=== PATIENT | male | born 1940 | race Two or more races ===

== ENCOUNTER 2019-12-31 10:00 | Inpatient (IN) | payer MEDICARE, MEDICAID ==
[~2019-12-31] VITALS: Ht 165.1 cm; Wt 54.2 kg
[2019-12-31] VITALS (7 sets, daily range): BP systolic 85–109; BP diastolic 23–68
[2019-12-31] MEDS ORDERED: Sodium Chloride 1,900 ML IVLG ONE (10:15)
[2019-12-31] MEDS ORDERED: Acetaminophen 650 MG SUPP RECTAL ONE (10:15)
--- NOTE | 2019-12-31 10:15 | NUR ---
ED Nurse Note: Patient JEANNE MCWILLIAMS from [facility] c/o fever. Temp at ED 100.2F. Pt is trach/ vent dependent. Has GT, patent. BP 97/23 upon arrival, ERMD notified. Pt placed on cardiac monitor technician. Droplet precaution observed.
--- NOTE | 2019-12-31 10:30 | NUR ---
ED Nurse Note: IV line established. Blood specimen collected and sent to lab.
--- NOTE | 2019-12-31 10:39 | NUR ---
RESPIRATORY NOTE: received pt in ER entrance. set up pt with proper filter and equipment on ambu bag prior to entering the building. vent settings per EMT are AC 18 450 40% +5. placed pt on those settings with shallow and tachypneic breathing. pt is trached with cuffed, Portex [address] and is secured via trach tie. slight redness or bruising visible around stoma on pt's right side. sputum collected and given to RN. ISO precautions taken and followed. vent is plugged into the redoutlet with ambu bag at bedside. will monitor throughout the day.
[2019-12-31 11:32] LABS: ANION GAP 11 mmol/L (5-15); BLOOD UREA NITROGEN 175 mg/dL (7-18); CALCIUM 12.9 MG/DL (8.5-10.1); CARBON DIOXIDE 26 MMOL/L (21-32); CHLORIDE 106 MMOL/L (98-107); CREATININE 2.2 MG/DL (0.55-1.30); POTASSIUM 4.3 MMOL/L (3.5-5.1); SODIUM 143 MMOL/L (136-145)
[2019-12-31 11:38] LABS: ALANINE AMINOTRANSFERASE 11 U/L (12-78); ALBUMIN/GLOBULIN RATIO 0.3 (1.0-2.7); ALKALINE PHOSPHATASE 103 U/L (46-116); ASPARTATE AMINO TRANSFERASE 24 U/L (15-37); BILIRUBIN,TOTAL 0.5 MG/DL (0.2-1.0); CREATINE KINASE 35 U/L (26-308); PHOSPHORUS 3.2 MG/DL (2.5-4.9)
--- NOTE | 2019-12-31 11:46 | Emergency Room Report ---
History of Present Illness General Chief Complaint: Fever Source: Medical Record, EMS Present Illness HPI Patient transported via EMS for fever and low oxygen saturation. Patient is vent dependent. There is no known association with COVID-19. The patient is coming from a senior care facility however. Patient unable to give history and is unresponsive. Status post stroke Diabetes History of atrial fibrillation Allergies: Coded Allergies: No Known Allergies (Unverified , 12/31/19) COVID-19 Screening Contact w/high risk pt: No Recent Travel to affected area: No Experienced COVID-19 symptoms?: Yes COVID-19 symptoms experienced: Fever (T>100.4F or >38C) Patient History Limited by: medical condition Past Medical History: see triage record, old chart reviewed Past Surgical History: other - Gastrostomy tube, Social History Narrative [facility] facility Reviewed Nursing Documentation: PMH: Agreed; PSxH: Agreed Nursing Documentation-PMH Past Medical History: No History, Except For Hx Cardiac Problems: Yes - A-fib, CHF, sepsis Hx Diabetes: Yes Hx Gastrointestinal Problems: Yes - G-tube, GERD, dysphagia Hx Neurological Problems: Yes - Muscle weakness Hx Cerebrovascular Accident: Yes Hx Seizures: Yes Review of Systems All Other Systems: limited Physical Exam Vital Signs Date Time Temp Pulse Resp B/P (MAP) Pulse Ox O2 Delivery O2 Flow Rate FiO2 12/31/19 10:01 100.2 110 12 87/23 (44) 94 Ambu-Bag 15.0 12/31/19 10:35 40 Sp02 EP Interpretation: reviewed, abnormal - Interpreted as low by me General Appearance: thin, other - Unresponsive to verbal or pain, Chronically Ill Eyes: bilateral eye normal inspection, bilateral eye PERRL ENT: moist mucus membranes Neck: tracheotomy Respiratory: no respiratory distress, crackles, rales, rhonchi Cardiovascular #1: tachycardia, edema - Left hand Cardiovascular #2: 2+ radial (R) Gastrointestinal: non-distended, other - Gastrostomy tube, decreased bowel sounds Genitourinary: other - Hypospadias uncircumcised Musculoskeletal: non-tender, other - contractures LE Neurologic: motor weakness - Right-sided, other - A phasic and unresponsive Psychiatric: other Skin: warm/dry - Comatose Procedures Critical Care Time Critical Care Time Total Critical Care Time: 60 min bedside evaluation and treatment excludes procedures (EKG). Reason for critical care: severe sepsis, pneumonia, hypoxia Possible complications: hypotension, hypertension, KS, shock, arrhythmias, metabolic acidosis, end organ damage, respiratory failure. Interventions: fluid resuscitation, antibiotics, attempt Duque, adjustments of ventilator, repeat evaluations Course: Patient presents with fever and hypoxia and vent dependent. Sepsis evaluation with fluid resuscitation and antibiotics ordered. Hypoxia on usual vent settings and oxygen titrated. Multiple discussions with respiratory therapy regarding this. Elevated troponin treated with aspirin. Chest x-ray reveals bilateral pneumonia. Sepsis reevaluation with some improvement. Attempt to pass Duque with long bedside treatment time and unable to pass Duque. Patient improved with treatment. Consultations: nursing staff, EMS, RT, admitting physician Performed by: Dr. Villaseñor Tolerated well condition = critical Medical Decision Making Diagnostic Impression: Primary Impression: Severe sepsis Additional Impressions: Elevated troponin Renal failure Qualified Codes: N17.9 - Acute kidney failure, unspecified Bilateral pneumonia Qualified Codes: J18.9 - Pneumonia, unspecified organism ER Course Patient on a trach vent presents with fever and hypoxia. Differential includes sepsis, acute myocardial infarction, acute pneumonia, COVID-19 amongst others. Need to also exclude UTI. Patient evaluated with EKG, chest x-ray and labs. Placed on ventilator. Patient needs COVID-19 testing. EKG sinus tachycardia nonspecific ST-T wave changes. Call with positive troponin. Aspirin ordered and antibiotics. As patient hypoxiemic, presumptive pneumonia. Lactic acid 3.9. O2 sat better but titrating. Heart rate better. Capillary fill better. Mentation unchanged. Sepsis reevaluation. CXR bilat infiltrates. Leukocytosis. Elevated BUN and creatinine. O2 sat was 94% when ABG was drawn (FIO2 = 40 %). Looks like venous admixture as only 88% sat. Increased to 60% FIO2 and sat = 99%. Discussed with RT. Unable to pass 14 and 18 fr [place]. PMD notified. Condom cath placed. VS improved. Not tachycardic and not hypoxic (although Aa gradiant significant) . Lactic acid improving. Admit SDU Dr. Harris. Prognosis poor. Laboratory Tests Test 12/31/19 10:42 12/31/19 11:20 White Blood Count 30.4 K/UL (4.8-10.8) *H Red Blood Count 3.14 M/UL (4.70-6.10) L Hemoglobin 10.2 G/DL (14.2-18.0) L Hematocrit 30.7 % (42.0-52.0) L Mean Corpuscular Volume 98 FL (80-99) Mean Corpuscular Hemoglobin 32.3 PG (27.0-31.0) H Mean Corpuscular Hemoglobin Concent 33.0 G/DL (32.0-36.0) Red Cell Distribution Width 12.5 % (11.6-14.8) Platelet Count 239 K/UL (150-450) Mean Platelet Volume 6.3 FL (6.5-10.1) L Neutrophils (%) (Auto) % (45.0-75.0) Lymphocytes (%) (Auto) % (20.0-45.0) Monocytes (%) (Auto) % (1.0-10.0) Eosinophils (%) (Auto) % (0.0-3.0) Basophils (%) (Auto) % (0.0-2.0) Differential Total Cells Counted 100 Neutrophils % (Manual) 64 % (45-75) Lymphocytes % (Manual) 4 % (20-45) L Monocytes % (Manual) 4 % (1-10) Eosinophils % (Manual) 0 % (0-3) Basophils % (Manual) 0 % (0-2) Band Neutrophils 28 % (0-8) H Platelet Estimate Adequate Platelet Morphology Normal Red Blood Cell Morphology Normal Prothrombin Time 13.4 SEC (9.30-11.50) H Prothrombin Time INR 1.3 (0.9-1.1) H Activated Partial Thromboplast Time 21 SEC (23-33) L Sodium Level 143 MMOL/L (136-145) Potassium Level 4.3 MMOL/L (3.5-5.1) Chloride Level 106 MMOL/L (98-107) Carbon Dioxide Level 26 MMOL/L (21-32) Anion Gap 11 mmol/L (5-15) Blood Urea Nitrogen 175 mg/dL (7-18) H Creatinine 2.2 MG/DL (0.55-1.30) H Estimated Glomerular Filtration Rate 29.2 mL/min (>60) Glucose Level 110 MG/DL (74-106) H Lactic Acid Level 3.90 mmol/L (0.4-2.0) H Calcium Level 12.9 MG/DL (8.5-10.1) H Phosphorus Level 3.2 MG/DL (2.5-4.9) Magnesium Level 2.1 MG/DL (1.8-2.4) Total Bilirubin 0.5 MG/DL (0.2-1.0) Aspartate Amino Transferase (AST) 24 U/L (15-37) Alanine Aminotransferase (ALT) 11 U/L (12-78) L Alkaline Phosphatase 103 U/L (46-116) Total Creatine Kinase 35 U/L (26-308) Troponin I 0.064 ng/mL (0.000-0.056) Pro-B-Type Natriuretic Peptide 4596 pg/mL (0-125) H Total Protein 8.0 G/DL (6.4-8.2) Albumin 2.0 G/DL (3.4-5.0) L Globulin 6.0 g/dL Albumin/Globulin Ratio 0.3 (1.0-2.7) L Lipase 41 U/L (73-393) L Arterial Blood pH 7.372 (7.350-7.450) Arterial Blood Partial Pressure CO2 46.9 mmHg (35.0-45.0) H Arterial Blood Partial Pressure O2 82.1 mmHg (75.0-100.0) Arterial Blood HCO3 26.6 mmol/L (22.0-26.0) H Arterial Blood Oxygen Saturation 94.5 % (95-100) L Arterial Blood Base Excess 1.1 (-2-2) Luis Armando Test Positive Microbiology Date/Time Source Procedure Growth Status 12/31/19 10:42 Nasal Nares - Final Complete 12/31/19 10:42 Nasal Nares - Final Complete EKG Diagnostic Results Rate: tachycardiac Rhythm: NSR ST Segments: no acute changes ASA given to the pt in ED: Yes Rhythm Strip Diag. Results EP Interpretation: yes Rhythm: no PVC's, no ectopy, other - Sinus tachycardia rate 120 Chest X-Ray Diagnostic Results Chest X-Ray Diagnostic Results : Chest X-Ray Ordered: Yes # of Views/Limited/Complete: 1 View Indication: Other EP Interpretation: Yes Interpretation: no effusion, no pneumothorax, other - bilateral infiltrates Impression: Other Electronically Signed by: Electronically signed by Tony Villaseñor MD Last Vital Signs Date Time Temp Pulse Resp B/P (MAP) Pulse Ox O2 Delivery O2 Flow Rate FiO2 12/31/19 18:53 98.0 88 22 99/68 100 Mechanical Ventilator 15.0 60 Status: improved Disposition: ADMITTED INPATIENT Condition: Critical Referrals: Dillon Harris MD (PCP) Tony Villaseñor MD Dec 31, 2019 11:46
[2019-12-31 11:54] LABS: HEMATOCRIT 30.7 % (42.0-52.0); HEMOGLOBIN 10.2 G/DL (14.2-18.0); MEAN CORPUSCULAR VOLUME 98 FL (80-99); PLATELET COUNT 239 K/UL (150-450); RED BLOOD COUNT 3.14 M/UL (4.70-6.10); RED CELL DISTRIBUTION WIDTH 12.5 % (11.6-14.8)
[2019-12-31 11:56] LABS: WHITE BLOOD COUNT 30.4 K/UL (4.8-10.8)
[2019-12-31] MEDS ORDERED: Vancomycin 1 GM in NS 275 ML IVPB ONE (12:00)
[2019-12-31] MEDS ORDERED: Piperacillin/Tazobactam 3.375 GM in NS 110 ML IVPB ONE (12:00)
[2019-12-31 12:11] LABS: INR 1.3 (0.9-1.1)
--- NOTE | 2019-12-31 12:11 | Diagnostic Imaging Report ---
EXAM: XR Chest, 1 View CLINICAL HISTORY: ALOC TECHNIQUE: Frontal view of the chest. COMPARISON: No relevant prior studies available. FINDINGS: Lungs: Bilateral patchy pulmonary opacities, concerning for pneumonia versus pulmonary edema. Pleural space: Unremarkable. The costophrenic angles are sharp. No visible pneumothorax. Heart: Unremarkable. No cardiomegaly. Mediastinum: Unremarkable. Bones/joints: Unremarkable. Vasculature: Atherosclerotic calcifications are noted within the aortic arch. Tubes, lines and devices: Tracheostomy tube in place, with expected positioning. Telemetry leads overlie the thorax. IMPRESSION: Bilateral patchy pulmonary opacities, concerning for pneumonia versus pulmonary edema.
--- NOTE | 2019-12-31 12:56 | NUR ---
ED Nurse Note: Vent setting: AC mode, TV 450, FiO2 60%, PEEP 5.0.
[2019-12-31] MEDS ORDERED: Lidocaine HCl 2% Jelly 6ml Tube TOPIC ONE ×2 (13:56→14:00)
--- NOTE | 2019-12-31 14:26 | NUR ---
ED Nurse Note: Unable to insert FC and obtain urine specimen, ERMD made aware and acknowledged.
[2019-12-31] MEDS ORDERED: KEPPRA500 MG GT (14:58)
[2019-12-31] MEDS ORDERED: AMLODIPINE BESYL5 MG GT (14:58)
[2019-12-31] MEDS ORDERED: JUVEN PACKET1 EAC1 GT (14:58)
[2019-12-31] MEDS ORDERED: CRANBERRY425 MG GT (14:58)
[2019-12-31] MEDS ORDERED: MULTI-DELYN237 ML GT (14:58)
[2019-12-31] MEDS ORDERED: FAMOTIDINE20 MG ORAL (14:58)
[2019-12-31] MEDS ORDERED: LEVOTHYROXINE125 MCG GT (14:58)
[2019-12-31] MEDS ORDERED: NOVOLOG100 UNIT/4 SQ (14:58)
[2019-12-31] MEDS ORDERED: DOCUSATE SODIU100 MG GT (14:58)
[2019-12-31] MEDS ORDERED: VITAMIN C500 M1 GT (14:58)
[2019-12-31] MEDS ORDERED: ACETAMINOP160 MG/55 GT (14:58)
--- NOTE | 2019-12-31 15:20 | NUR ---
HAND-OFF: Report given to Vidya RIVER. Endorsed plan of care.
--- NOTE | 2019-12-31 17:11 | History & Physical ---
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 Initially hypotensive, elevated Lactate which responded to fluids, Covid 19 testing pending. 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, anoxia , previous Seizures, previous pericardial effusion, Congestive Heart Failure, Atrial Fibrillation, Diabetes, Hypothyroidism, Previous Hematuria/UTI, previous sepsis, GERD sp G tube Allergies: No Known Allergies Review of Systems: Not available Family History: NA Social History: Long Term Physical Exam Vital Signs Noted Date Time Temp Pulse Resp B/P (MAP) Pulse Ox O2 Delivery O2 Flow Rate FiO2 12/31/19 10:01 100.2 110 12 87/23 (44) 94 Ambu-Bag 15.0 12/31/19 10:35 40 Chronically ill appearing HEENT: NCAT, dry mucus membranes, no masses, Tracheostomy Chest: Occasional rhonchi Heart: Hs1, HS2 Abdomen: G gtube, soft, no obvious tenderness Extremities: Reduced muscle mass, no edema 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: Not interactive, generally weak, no seizures Impression: Pneumonia Sepsis R/o Covid 19 Elevated troponin Renal failure Tracheostomy History of tracheal stenosis Ventilator Dependent Respiratory Failure Chronically altered mental status s/p previous CPA, anoxia Previous Seizures Previous pericardial effusion, Congestive Heart Failure, Atrial Fibrillation Diabetes, Hypothyroidism Previous Hematuria/UTI, previous sepsis GERD sp G tube Plan: IV Antibiotics IVF Continue current ventilator settings Adjust Fio2 as necessary Respiratory Care Await cultures/viral studies 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 Laboratory Tests Noted Test 12/31/19 10:42 12/31/19 11:20 White Blood Count 30.4 K/UL (4.8-10.8) *H Red Blood Count 3.14 M/UL (4.70-6.10) L Hemoglobin 10.2 G/DL (14.2-18.0) L Hematocrit 30.7 % (42.0-52.0) L Mean Corpuscular Volume 98 FL (80-99) Mean Corpuscular Hemoglobin 32.3 PG (27.0-31.0) H Mean Corpuscular Hemoglobin Concent 33.0 G/DL (32.0-36.0) Red Cell Distribution Width 12.5 % (11.6-14.8) Platelet Count 239 K/UL (150-450) Mean Platelet Volume 6.3 FL (6.5-10.1) L Neutrophils (%) (Auto) % (45.0-75.0) Lymphocytes (%) (Auto) % (20.0-45.0) Monocytes (%) (Auto) % (1.0-10.0) Eosinophils (%) (Auto) % (0.0-3.0) Basophils (%) (Auto) % (0.0-2.0) Differential Total Cells Counted 100 Neutrophils % (Manual) 64 % (45-75) Lymphocytes % (Manual) 4 % (20-45) L Monocytes % (Manual) 4 % (1-10) Eosinophils % (Manual) 0 % (0-3) Basophils % (Manual) 0 % (0-2) Band Neutrophils 28 % (0-8) H Platelet Estimate Adequate Platelet Morphology Normal Red Blood Cell Morphology Normal Prothrombin Time 13.4 SEC (9.30-11.50) H Prothrombin Time INR 1.3 (0.9-1.1) H Activated Partial Thromboplast Time 21 SEC (23-33) L Sodium Level 143 MMOL/L (136-145) Potassium Level 4.3 MMOL/L (3.5-5.1) Chloride Level 106 MMOL/L (98-107) Carbon Dioxide Level 26 MMOL/L (21-32) Anion Gap 11 mmol/L (5-15) Blood Urea Nitrogen 175 mg/dL (7-18) H Creatinine 2.2 MG/DL (0.55-1.30) H Estimated Glomerular Filtration Rate 29.2 mL/min (>60) Glucose Level 110 MG/DL (74-106) H Lactic Acid Level 3.90 mmol/L (0.4-2.0) H Calcium Level 12.9 MG/DL (8.5-10.1) H Phosphorus Level 3.2 MG/DL (2.5-4.9) Magnesium Level 2.1 MG/DL (1.8-2.4) Total Bilirubin 0.5 MG/DL (0.2-1.0) Aspartate Amino Transferase (AST) 24 U/L (15-37) Alanine Aminotransferase (ALT) 11 U/L (12-78) L Alkaline Phosphatase 103 U/L (46-116) Total Creatine Kinase 35 U/L (26-308) Troponin I 0.064 ng/mL (0.000-0.056) Pro-B-Type Natriuretic Peptide 4596 pg/mL (0-125) H Total Protein 8.0 G/DL (6.4-8.2) Albumin 2.0 G/DL (3.4-5.0) L Globulin 6.0 g/dL Albumin/Globulin Ratio 0.3 (1.0-2.7) L Lipase 41 U/L (73-393) L Arterial Blood pH 7.372 (7.350-7.450) Arterial Blood Partial Pressure CO2 46.9 mmHg (35.0-45.0) H Arterial Blood Partial Pressure O2 82.1 mmHg (75.0-100.0) Arterial Blood HCO3 26.6 mmol/L (22.0-26.0) H Arterial Blood Oxygen Saturation 94.5 % (95-100) L Arterial Blood Base Excess 1.1 (-2-2) Luis Armando Test Positive Microbiology Date/Time Source Procedure Growth Status 12/31/19 10:42 Nasal Nares - Final Complete 12/31/19 10:42 Nasal Nares - Final Complete EKG: Rate: tachycardiac Rhythm: NSR ST Segments: no acute changes Chest X-Ray: no effusion, no pneumothorax, other - bilateral infiltrates Tony Costa MD Dec 31, 2019 17:11
--- NOTE | 2019-12-31 18:49 | NUR ---
ER Nurse Note: Pt remains at baseline; no signs of acute distress. RT with pt as needed; pt tolerating vent. VSS, rectal temp 98.0F. Controlled fluids continued via IV. Duque cath established, 8FR red dejuan intact and patent. Urine obtained. All orders completed; all safety measures met, will continue to monitor.
[2019-12-31 19:53] LABS: APPEARANCE,URINE CLEAR; BILIRUBIN, URINE NEGATIVE (NEGATIVE); COLOR,URINE PALE YELLOW; GLUCOSE, URINE (UA) NEGATIVE (NEGATIVE); KETONES,URINE NEGATIVE (NEGATIVE); LEUKOCYTE ESTERASE ,URINE NEGATIVE (NEGATIVE); NITRITE,URINE NEGATIVE (NEGATIVE); PH,URINE 5 (4.5-8.0); PROTEIN,URINE 2+ (NEGATIVE); UROBILINOGEN,URINE NORMAL MG/DL (0.0-1.0)
--- NOTE | 2019-12-31 22:21 | NUR ---
ER Nurse Note: Pt remains at baseline. No changes to vent; RR 24 bpm. RT at pt side and suctioned as needed. Bilateral hand edema noted +3 pitting edema. Pt voiding via patterson cath; patent output. Urine yellow and clear. Pt contracted; skin documented. All safety measures met; will continue to montior.
[2020-01-01] VITALS (12 sets, daily range): BP systolic 95–122; BP diastolic 51–75
--- NOTE | 2020-01-01 01:30 | NUR ---
ER Nurse Note: Noted IV site on LT thumb is not patent. IV removed and bandaged. Primary and secondary nurse attempted to estbalish IV. Chest rise and fall noted; no signs of distress. Pt is contracted. Will continue to montior.
--- NOTE | 2020-01-01 02:53 | NUR ---
ER Nurse Note: No changes from baseline; VSS, afebrile. Pt responds to pain, non verbal d/t trach, a&ox0. Pt suctioned from trach and mouth; thick yellow/white sputum noted. Pt tolerating vent well; no signs of desaturation. IV established on LT FA 22 gauge infusing controlled NS at 300cc/hr. Duque cath in place, urine output 500cc total since input. One loose, brown BM noted. Pt cleaned and kept dry. Isolation precaution in place and followed. All safety measures met; will continue to montior.
--- NOTE | 2020-01-01 04:18 | NUR ---
ER Nurse Note: Notifed Dr. Harris for admitting orders; awaiting call back. Pt calm, no signs of distress, remains at baseline. Pt kept clean, dry. All safety measures met; will continue to montior.
--- NOTE | 2020-01-01 06:29 | NUR ---
ER Nurse Note: Pt on zohra bed assisted with second RN and RT. Per ERMD orders, PEEP to be changed to 8. Pt suctioned as needed; RT at bedside. Duque cath inplace, draining. Total urine output 560cc. Pt on NS at 300cc via LT FA IV. All safety measures met; will continue to montior.
--- NOTE | 2020-01-01 06:42 | NUR ---
ER Nurse Note: Called Dr. Harris for admitting orders at ; no answer from .
--- NOTE | 2020-01-01 07:30 | NUR ---
ED Nurse Note: care assummed of pt.
--- NOTE | 2020-01-01 08:00 | NUR ---
ED Nurse Note: pt assessment done as per interventions. pt resting comfortably with vent use. awaiting orders from Dr. Harris. pt with decreased O2 satruration pt eval and suctioned via trach with good effect and improved O2 saturation. vss. pt has eyes open and withdraws from pain. urine draining well from cath. NSR no ectopy noted on monitor.
--- NOTE | 2020-01-01 08:45 | NUR ---
ED Nurse Note: Dr. Harris here and aware to place admission orders. no SDU bed available at this time per nurse charge rn. 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 pt tolerates well.
[2020-01-01] MEDS ORDERED: Acetaminophen Soln 160mg/5ml ORAL PRN (09:30)
[2020-01-01] MEDS ORDERED: Acetaminophen 650mg/20.3ml GT PRN (09:45)
--- NOTE | 2020-01-01 09:45 | NUR ---
ED Nurse Note: phone orders received from dr silveira.
--- NOTE | 2020-01-01 09:46 | Critical Care Progress Note ---
Assessment/Plan Assessment/Plan Impression: Pneumonia Sepsis R/o Covid 19 Elevated troponin Renal failure Tracheostomy History of tracheal stenosis Ventilator Dependent Respiratory Failure Chronically altered mental status s/p previous CPA, anoxia Previous Seizures Previous pericardial effusion, Congestive Heart Failure, Atrial Fibrillation Diabetes, Hypothyroidism Previous Hematuria/UTI, previous sepsis GERD sp G tube PLAN vent management check ABG antibiotics as is ID evaluation and renal evaluation follow up cultures check TSH feeds on hold resume other meds seizure precautions may need repeat echo monitor blood pressure medications/laboratory data/nursing notes/ICU care reviewed in detail note reviewed and edited care discussed with RN and RT ICU time spent >40 minutes coordinating care and updating orders Critical Care - Subjective Interval Events: care noted and reviewed awaiting ICU bed very ill on 100% ROS Limited/Unobtainable: Yes Condition: critical EKG Rhythm: Sinus Rhythm Residuals: other I&O: Intake and Output 12/31/19 01/01/20 19:00 07:00 Intake Total 4185 ml 1000 ml Balance 4185 ml 1000 ml Intake IV Total 4185 ml 1000 ml # Voids 1 Critical Care - Objective Last 24 Hour Vital Signs Date Time Temp Pulse Resp B/P (MAP) Pulse Ox O2 Delivery O2 Flow Rate FiO2 01/01/20 09:01 72 31 100 01/01/20 08:27 15.0 100 01/01/20 08:20 77 24 Mechanical Ventilator 15.0 60 01/01/20 08:00 77 24 102/51 96 Mechanical Ventilator 15.0 100 01/01/20 07:30 77 24 102/51 96 Mechanical Ventilator 15.0 60 01/01/20 07:04 75 24 100 01/01/20 06:23 97.5 77 24 107/68 96 Mechanical Ventilator 15.0 60 01/01/20 04:53 71 22 60 01/01/20 04:22 97.4 70 21 111/64 100 Mechanical Ventilator 15.0 60 01/01/20 03:26 97.4 78 22 95/61 100 Mechanical Ventilator 15.0 60 01/01/20 02:39 69 20 60 01/01/20 01:45 80 18 114/68 100 Mechanical Ventilator 15.0 60 01/01/20 00:21 83 27 60 01/01/20 00:20 76 21 102/64 100 Mechanical Ventilator 15.0 60 12/31/19 22:40 81 24 60 12/31/19 22:19 78 24 109/66 100 Mechanical Ventilator 15.0 60 12/31/19 21:17 82 24 60 12/31/19 20:40 82 22 102/68 100 Mechanical Ventilator 15.0 60 12/31/19 20:19 85 25 60 12/31/19 18:53 98.0 88 22 99/68 100 Mechanical Ventilator 15.0 60 12/31/19 16:51 90 23 60 12/31/19 15:27 100.2 88 23 105/66 100 Mechanical Ventilator 60 12/31/19 15:07 88 24 60 12/31/19 14:00 100.2 106 23 98/62 98 Mechanical Ventilator 60 12/31/19 13:10 100.2 102 29 85/63 99 Mechanical Ventilator 60 12/31/19 12:56 89 24 60 12/31/19 10:50 100.2 12/31/19 10:35 123 30 40 12/31/19 10:15 110 12 Mechanical Ventilator 12/31/19 10:15 100.2 110 12 94 Mechanical Ventilator 12/31/19 10:01 100.2 110 12 (44) 94 Ambu-Bag 15.0 Labs: Labs Test 12/31/19 10:42 12/31/19 11:20 12/31/19 13:12 12/31/19 18:40 White Blood Count 30.4 K/UL (4.8-10.8) Red Blood Count 3.14 M/UL (4.70-6.10) Hemoglobin 10.2 G/DL (14.2-18.0) Hematocrit 30.7 % (42.0-52.0) Mean Corpuscular Volume 98 FL (80-99) Mean Corpuscular Hemoglobin 32.3 PG (27.0-31.0) Mean Corpuscular Hemoglobin Concent 33.0 G/DL (32.0-36.0) Red Cell Distribution Width 12.5 % (11.6-14.8) Platelet Count 239 K/UL (150-450) Mean Platelet Volume 6.3 FL (6.5-10.1) Neutrophils (%) (Auto) % (45.0-75.0) Lymphocytes (%) (Auto) % (20.0-45.0) Monocytes (%) (Auto) % (1.0-10.0) Eosinophils (%) (Auto) % (0.0-3.0) Basophils (%) (Auto) % (0.0-2.0) Differential Total Cells Counted 100 Neutrophils % (Manual) 64 % (45-75) Lymphocytes % (Manual) 4 % (20-45) Monocytes % (Manual) 4 % (1-10) Eosinophils % (Manual) 0 % (0-3) Basophils % (Manual) 0 % (0-2) Band Neutrophils 28 % (0-8) Platelet Estimate Adequate Platelet Morphology Normal Red Blood Cell Morphology Normal Prothrombin Time 13.4 SEC (9.30-11.50) Prothromb Time International Ratio 1.3 (0.9-1.1) Activated Partial Thromboplast Time 21 SEC (23-33) Sodium Level 143 MMOL/L (136-145) Potassium Level 4.3 MMOL/L (3.5-5.1) Chloride Level 106 MMOL/L (98-107) Carbon Dioxide Level 26 MMOL/L (21-32) Anion Gap 11 mmol/L (5-15) Blood Urea Nitrogen 175 mg/dL (7-18) Creatinine 2.2 MG/DL (0.55-1.30) Estimat Glomerular Filtration Rate 29.2 mL/min (>60) Glucose Level 110 MG/DL (74-106) Lactic Acid Level 3.90 mmol/L (0.4-2.0) 2.70 mmol/L (0.66-2.22) Calcium Level 12.9 MG/DL (8.5-10.1) Phosphorus Level 3.2 MG/DL (2.5-4.9) Magnesium Level 2.1 MG/DL (1.8-2.4) Total Bilirubin 0.5 MG/DL (0.2-1.0) Aspartate Amino Transf (AST/SGOT) 24 U/L (15-37) Alanine Aminotransferase (ALT/SGPT) 11 U/L (12-78) Alkaline Phosphatase 103 U/L (46-116) Total Creatine Kinase 35 U/L (26-308) Troponin I 0.064 ng/mL (0.000-0.056) Pro-B-Type Natriuretic Peptide 4596 pg/mL (0-125) Total Protein 8.0 G/DL (6.4-8.2) Albumin 2.0 G/DL (3.4-5.0) Globulin 6.0 g/dL Albumin/Globulin Ratio 0.3 (1.0-2.7) Lipase 41 U/L (73-393) Arterial Blood pH 7.372 (7.350-7.450) Arterial Blood Partial Pressure CO2 46.9 mmHg (35.0-45.0) Arterial Blood Partial Pressure O2 82.1 mmHg (75.0-100.0) Arterial Blood HCO3 26.6 mmol/L (22.0-26.0) Arterial Blood Oxygen Saturation 94.5 % (95-100) Arterial Blood Base Excess 1.1 (-2-2) Luis Armando Test Positive Urine Color Pale yellow Urine Appearance Clear Urine pH 5 (4.5-8.0) Urine Specific [place] 1.005 (1.005-1.035) Urine Protein 2+ (NEGATIVE) Urine Glucose (UA) Negative (NEGATIVE) Urine Ketones Negative (NEGATIVE) Urine Blood 5+ (NEGATIVE) Urine Nitrite Negative (NEGATIVE) Urine Bilirubin Negative (NEGATIVE) Urine Urobilinogen Normal MG/DL (0.0-1.0) Urine Leukocyte Esterase Negative (NEGATIVE) Urine RBC 5-10 /HPF (0 - 0) Urine WBC 0-2 /HPF (0 - 0) Urine Squamous Epithelial Cells None /LPF (NONE/OCC) Urine Bacteria Few /HPF (NONE) Objective: WDWN NAD reduced breath sounds bilaterally without rhonchi or wheeze [id number] without MRG NABS nontender no HSM GT no CCE nonfocal trach on 100% Micro: Microbiology Date/Time Source Procedure Growth Status 12/31/19 10:42 Blood Blood Culture - Preliminary Resulted 12/31/19 10:42 Blood Blood Culture - Preliminary Resulted 12/31/19 10:42 Nasal Nares - Final Complete 12/31/19 10:42 Nasal Nares - Final Complete 12/31/19 18:50 Rectum Received Dillon Harris MD Jan 01, 2020 09:46
--- NOTE | 2020-01-01 09:55 | NUR ---
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
--- NOTE | 2020-01-01 10:12 | NUR ---
ED Nurse Note: labs sent as ordered. pt without change in status
[2020-01-01 10:22] LABS: HEMATOCRIT 23.8 % (42.0-52.0); MEAN CORPUSCULAR VOLUME 98 FL (80-99); PLATELET COUNT 225 K/UL (150-450); RED BLOOD COUNT 2.42 M/UL (4.70-6.10); RED CELL DISTRIBUTION WIDTH 12.5 % (11.6-14.8)
[2020-01-01 10:23] LABS: WHITE BLOOD COUNT 25.2 K/UL (4.8-10.8)
[2020-01-01 10:38] LABS: ANION GAP 12 mmol/L (5-15); BLOOD UREA NITROGEN 146 mg/dL (7-18); CALCIUM 10.7 MG/DL (8.5-10.1); CARBON DIOXIDE 22 MMOL/L (21-32); CHLORIDE 114 MMOL/L (98-107); CREATININE 1.8 MG/DL (0.55-1.30); POTASSIUM 3.8 MMOL/L (3.5-5.1); SODIUM 148 MMOL/L (136-145)
[2020-01-01 10:42] LABS: CREATINE KINASE 27 U/L (26-308)
[2020-01-01 10:43] LABS: ALANINE AMINOTRANSFERASE 17 U/L (12-78); ALBUMIN 1.7 G/DL (3.4-5.0); ALBUMIN/GLOBULIN RATIO 0.4 (1.0-2.7); ALKALINE PHOSPHATASE 96 U/L (46-116); ASPARTATE AMINO TRANSFERASE 22 U/L (15-37); BILIRUBIN,TOTAL 0.4 MG/DL (0.2-1.0)
[2020-01-01] MEDS: Piperacillin/Tazobactam 3.375 GM in NS 110 ML IVPB SCH ×2 (11:01→23:30)
--- NOTE | 2020-01-01 11:24 | NUR ---
ED Nurse Note: informed dr. yang regarding pt.'s blood culture result
--- NOTE | 2020-01-01 13:30 | NUR ---
ED Nurse Note: pt with ivf infusing well tolerated abx without incident. pt with small brown stool soft form. pt repositioned tolerating vent changes done by resp well. pt opens eyes when repositioned.
--- NOTE | 2020-01-01 14:05 | NUR ---
ED Nurse Note: report given to sdu rn, aware test examiner called to draw pt vanco lab draw on sdu.
--- NOTE | 2020-01-01 14:14 | NUR ---
ED Nurse Note: Report given to Min RN. awaiting pt, aware of isolation precautions to be continued on sdu. pt to sdu with rn and acls protocol
--- NOTE | 2020-01-01 16:15 | Consultation ---
DATE OF CONSULTATION: 01/01/2020 CONSULTING PHYSICIAN: Pravin Abad MD REFERRING PHYSICIAN: Dillon Harris MD REASON FOR CONSULTATION: Elevated BUN and creatinine. HISTORY OF PRESENT ILLNESS: The patient is a resident of an [facility]. He is chronically ventilator-dependent and has dementia, history of seizure disorder, congestive heart failure, atrial fibrillation, diabetes, hypothyroidism, prior hematuria. He came to the hospital with hypotension, respiratory failure, elevated BUN and creatinine. Note labs from [facility] showed that his renal function was better prior to this admission specifically as follows: He had a BUN 70 and creatinine 1.15 on 12/10/2019 and a BUN of 46 and creatinine 1.08 on 12/17/2019. The patient unable to give a history. MEDICATIONS: Reviewed from the [facility] include enteral feedings, chlorhexidine oral, albuterol and Atrovent inhalation, amlodipine, acetaminophen, cranberry, DSS, famotidine, , Keppra, levothyroxine, multivitamin, NovoLog sliding scale, vitamins C. REVIEW OF SYSTEMS: The patient is unable. PHYSICAL EXAMINATION: GENERAL: The patient is on a ventilator. Eyes closed. Mouth is closed. VITAL SIGNS: Temperature 97, pulse 85, respirations 20, blood pressure 107/61. NECK: Tracheostomy. LUNGS: Bilateral rhonchi. HEART: Rhythm is regular. I hear no murmur. ABDOMEN: Soft. Gastrostomy in place. EXTREMITIES: No edema. Muscle wasting. NEUROLOGIC: The patient is lethargic. LABORATORY DATA: Pertinent labs on this admission, chemistries as follows: On admission 12/31/2019 BUN 175, creatinine 2.2, calcium 12.9, troponin 0.064, albumin 2.08. Repeat BUN 146, creatinine 1.8, calcium 10.7, albumin 1.7. Lactate 3.9, and 2.70. Blood cultures already positive for gram-positive cocci. IMPRESSION: 1. Acute kidney injury likely from dehydration. 2. Chronic hypoxemic respiratory failure. 3. Possible sepsis. 4. Diabetes. 5. Moderate severe protein-calorie malnutrition. 6. Debility. PLAN: We will continue with hydration. Monitoring his renal function closely. Avoiding nephrotoxic agents. Treatment of his pulmonary disease as per Dr. Harris. Pravin Abad M.D. DR: Santo JOB#: [id number] CC:
--- NOTE | 2020-01-01 16:45 | Consultation ---
DATE OF CONSULTATION: 01/01/2020 INFECTIOUS DISEASE CONSULTATION This consult is for coverage of Dr. Abraham. CONSULTING PHYSICIAN: Logan Henley M.D. PRIMARY ATTENDING PHYSICIAN: Dillon Harris M.D. REASON FOR CONSULT: Bacteremia, sepsis, and pneumonia. HISTORY OF PRESENT ILLNESS: This is a 79-year-old male, who is a half-way resident, admitted yesterday because of fever and decrease in O2 saturation in the nursing facility. In hospital, had a pulse of 110, leukocytosis of 30,000, had fever of 100.2. The patient is not a source of history. PAST MEDICAL HISTORY: Includes diabetes mellitus type 2, status post CVA, atrial fibrillation, ventilator-dependent respiratory failure, dysphagia, status post G-tube, hypothyroidism, anemia. ALLERGIES: No known drug allergies. MEDICATIONS: Vitamin C, levothyroxine, Keppra, heparin, Zosyn, and vancomycin to be dosed by pharmacy and sodium chloride. SOCIAL HISTORY: Single. skilled nursing resident. No other history obtainable from the patient. PHYSICAL EXAMINATION: VITAL SIGNS: Temperature 97.4, pulse 70, blood pressure 104/67. HEAD AND NECK: Status post tracheostomy. HEART: Normal rate. LUNGS: On mechanical ventilator, decreased breath sounds bilaterally. ABDOMEN: Soft. G-tube in place. EXTREMITIES: He has no edema. LABORATORY AND DIAGNOSTIC DATA: WBC today is 25.2, hemoglobin 8, hematocrit 22.8, and platelets 225,000. Lactic acid was 2.9 at the time of admission. Sodium 148, potassium 3.8, chloride 114, bicarb 22, BUN 146, creatinine 1.8, uric acid 9.4, albumin is 1.7. Blood culture x2 are showing gram-positive cocci in cluster. Influenza A and B are negative. Chest x-ray showed bilateral patchy opacities, pneumonia versus pulmonary edema. IMPRESSION: Sepsis with tachycardia, fever, and leukocytosis. The patient has bacteremia with gram-positive cocci, has pneumonia, lactic acidosis, acute renal failure, ventilator-dependent respiratory failure, hypothyroidism, anemia. RECOMMENDATION: We will continue vancomycin and Zosyn. We will follow up COVID-19 test. At the end of my exam, I thank Dr. Harris for involving me in the care of this patient. Logan Henley M.D. DR: DONOVAN JOB#: [id number] CC: [facility]
[2020-01-01] MEDS: 1/2NS w/KCl 20mEq 1000ml 1,000 ML IV SCH ×2 (17:04→23:30)
--- NOTE | 2020-01-01 18:00 | Consultation ---
History of Present Illness General Date patient seen: Jan 01, 2020 Chief Complaint: Fever Present Illness HPI This is a 79 year old man who is a jail resident at [facility] that has history of s/p Tracheostomy, tracheal stenosis, Ventilator Dependent Respiratory Failure, chronically altered mental status s/p previous CPA, anoxia, previous Seizures, previous pericardial effusion, Congestive Heart Failure, Atrial Fibrillation, Diabetes, Hypothyroidism, Previous Hematuria/UTI, admitted with Pneumonia, noted to have fever, low oxygen saturation, Leukocytosis in the ED. Initially hypotensive, elevated Lactate which responded to fluids, Covid 19 testing pending. admitted for care and management. surgery called to evaluate and assist with care. pending ICU transfer on O2. noted to have abnormal labs, imaging noted, decubitus ulcer, malnutrition, ill appearing. Allergies: Coded Allergies: No Known Allergies (Unverified , 12/31/19) Medication History Scheduled Amlodipine Besylate* (Amlodipine Besylate*), 5 MG GT DAILY, (Reported) Arginine/Glutamine/Calcium Hmb (Jerome Packet), 1 EACH GT BID, (Reported) Ascorbic Acid* (Vitamin C*), 500 MG GT DAILY, (Reported) Cranberry Extract (Cranberry), 425 MG GT DAILY, (Reported) Docusate Sodium* (Docusate Sodium*), 100 MG GT THREE TIMES A DAY, (Reported) Famotidine* (Pepcid 20mg tablet*), 10 MG ORAL BID, (Reported) Levetiracetam (Keppra), 750 MG GT EVERY 12 HOURS, (Reported) Levothyroxine Sodium* (Levothyroxine Sodium*), 175 MCG GT DAILY, (Reported) Multivitamin Liquid* (Multi-Delyn*), 15 ML GT DAILY, (Reported) Scheduled PRN Acetaminophen* (Acetaminophen*), 20 MG GT Q6H PRN for Mild Pain/Temp > 100.5, ( Reported) Miscellaneous Medications Insulin Aspart (Novolog), 100 UNIT SQ, (Reported) Patient History Limited by: medical condition History Provided By: Medical Record, PMD Healthcare decision maker N Resuscitation status Full Code Advanced Directive on File Past Medical/Surgical History Past Medical/Surgical History: (1) Tracheal stenosis (2) Hx of tracheostomy (3) Malnutrition (4) Protein-calorie malnutrition, severe (5) Respiratory insufficiency (6) Decubitus skin ulcer (7) Pneumonia (8) Suspected COVID-19 virus infection Review of Systems ROS Narrative difficult to obtain given medical condition Physical Exam General Appearance: mild distress Lines, tubes and drains: peripheral, endotracheal tube HEENT: mucous membranes moist Neck: trach Respiratory/Chest: on vent Cardiovascular/Chest: tachycardia Abdomen: soft, no organomegaly, no mass Extremities: inflammation, slow capillary refill, other Skin Exam: warm/dry Neurologic: disoriented Last 24 Hour Vital Signs Date Time Temp Pulse Resp B/P (MAP) Pulse Ox O2 Delivery O2 Flow Rate FiO2 01/01/20 17:28 73 25 85 01/01/20 16:00 84 01/01/20 16:00 97.1 88 20 111/65 (80) 94 01/01/20 15:20 86 32 85 01/01/20 15:00 86 32 100 Mechanical Ventilator 85 01/01/20 14:51 Mechanical Ventilator 01/01/20 14:49 97.0 85 20 107/61 (76) 96 01/01/20 14:11 70 25 104/67 97 Non-Rebreather 85 01/01/20 13:22 86 34 85 01/01/20 13:15 97.8 76 24 116/75 97 Mechanical Ventilator 15.0 85 01/01/20 11:05 77 32 100 01/01/20 10:50 15.0 100 01/01/20 10:00 97.4 64 23 108/70 95 Mechanical Ventilator 15.0 100 01/01/20 09:24 Mechanical Ventilator 15.0 01/01/20 09:24 72 01/01/20 09:22 15.0 100 01/01/20 09:14 Mechanical Ventilator 15.0 01/01/20 09:01 72 31 100 01/01/20 08:27 15.0 100 01/01/20 08:20 77 24 Mechanical Ventilator 15.0 60 01/01/20 08:00 77 24 102/51 96 Mechanical Ventilator 15.0 100 01/01/20 07:30 77 24 102/51 96 Mechanical Ventilator 15.0 60 01/01/20 07:04 75 24 100 01/01/20 06:23 97.5 77 24 107/68 96 Mechanical Ventilator 15.0 60 01/01/20 04:53 71 22 60 01/01/20 04:22 97.4 70 21 111/64 100 Mechanical Ventilator 15.0 60 01/01/20 03:26 97.4 78 22 95/61 100 Mechanical Ventilator 15.0 60 01/01/20 02:39 69 20 60 01/01/20 01:45 80 18 114/68 100 Mechanical Ventilator 15.0 60 01/01/20 00:21 83 27 60 01/01/20 00:20 76 21 102/64 100 Mechanical Ventilator 15.0 60 12/31/19 22:40 81 24 60 12/31/19 22:19 78 24 109/66 100 Mechanical Ventilator 15.0 60 12/31/19 21:17 82 24 60 12/31/19 20:40 82 22 102/68 100 Mechanical Ventilator 15.0 60 12/31/19 20:19 85 25 60 12/31/19 18:53 98.0 88 22 99/68 100 Mechanical Ventilator 15.0 60 Intake and Output 12/31/19 01/01/20 19:00 07:00 Intake Total 4185 ml 1000 ml Balance 4185 ml 1000 ml IV Total 4185 ml 1000 ml # Voids 1 Laboratory Tests Test 12/31/19 18:40 01/01/20 09:46 01/01/20 10:10 01/01/20 16:00 Urine Color Pale yellow Urine Appearance Clear Urine pH 5 (4.5-8.0) Urine Specific [place] 1.005 (1.005-1.035) Urine Protein 2+ (NEGATIVE) H Urine Glucose (UA) Negative (NEGATIVE) Urine Ketones Negative (NEGATIVE) Urine Blood 5+ (NEGATIVE) H Urine Nitrite Negative (NEGATIVE) Urine Bilirubin Negative (NEGATIVE) Urine Urobilinogen Normal MG/DL (0.0-1.0) Urine Leukocyte Esterase Negative (NEGATIVE) Urine RBC 5-10 /HPF (0 - 0) H Urine WBC 0-2 /HPF (0 - 0) Urine Squamous Epithelial Cells None /LPF (NONE/OCC) Urine Bacteria Few /HPF (NONE) Arterial Blood pH 7.385 (7.350-7.450) Arterial Blood Partial Pressure CO2 42.8 mmHg (35.0-45.0) Arterial Blood Partial Pressure O2 232.7 mmHg (75.0-100.0) H Arterial Blood HCO3 25.6 mmol/L (22.0-26.0) Arterial Blood Oxygen Saturation 98.9 % (95-100) Arterial Blood Base Excess 0.6 (-2-2) Luis Armando Test Positive White Blood Count 25.2 K/UL (4.8-10.8) *H Red Blood Count 2.42 M/UL (4.70-6.10) L Hemoglobin 8.0 G/DL (14.2-18.0) L Hematocrit 23.8 % (42.0-52.0) L Mean Corpuscular Volume 98 FL (80-99) Mean Corpuscular Hemoglobin 33.1 PG (27.0-31.0) H Mean Corpuscular Hemoglobin Concent 33.7 G/DL (32.0-36.0) Red Cell Distribution Width 12.5 % (11.6-14.8) Platelet Count 225 K/UL (150-450) Mean Platelet Volume 6.3 FL (6.5-10.1) L Neutrophils (%) (Auto) % (45.0-75.0) Lymphocytes (%) (Auto) % (20.0-45.0) Monocytes (%) (Auto) % (1.0-10.0) Eosinophils (%) (Auto) % (0.0-3.0) Basophils (%) (Auto) % (0.0-2.0) Differential Total Cells Counted 100 Neutrophils % (Manual) 89 % (45-75) H Lymphocytes % (Manual) 5 % (20-45) L Monocytes % (Manual) 5 % (1-10) Eosinophils % (Manual) 1 % (0-3) Basophils % (Manual) 0 % (0-2) Band Neutrophils 0 % (0-8) Platelet Estimate Adequate Platelet Morphology Normal Hypochromasia 2+ Anisocytosis 1+ Spherocytes 1+ Urine Osmolality 471 mOsm/kg (429-449) H Urine Random Sodium 44 mmol/L (20-110) Urine Creatinine 22.2 MG/DL (30.0-125.0) L Sodium Level 148 MMOL/L (136-145) H Potassium Level 3.8 MMOL/L (3.5-5.1) Chloride Level 114 MMOL/L (98-107) H Carbon Dioxide Level 22 MMOL/L (21-32) Anion Gap 12 mmol/L (5-15) Blood Urea Nitrogen 146 mg/dL (7-18) H Creatinine 1.8 MG/DL (0.55-1.30) H Estimat Glomerular Filtration Rate 36.8 mL/min (>60) Glucose Level 117 MG/DL (74-106) H Uric Acid 9.4 MG/DL (2.6-7.2) H Calcium Level 10.7 MG/DL (8.5-10.1) H Total Bilirubin 0.4 MG/DL (0.2-1.0) Aspartate Amino Transf (AST/SGOT) 22 U/L (15-37) Alanine Aminotransferase (ALT/SGPT) 17 U/L (12-78) Alkaline Phosphatase 96 U/L (46-116) Total Creatine Kinase 27 U/L (26-308) Total Protein 6.3 G/DL (6.4-8.2) L Albumin 1.7 G/DL (3.4-5.0) L Globulin 4.6 g/dL Albumin/Globulin Ratio 0.4 (1.0-2.7) L Random Vancomycin Level 12.4 ug/mL Microbiology Date/Time Source Procedure Growth Status 12/31/19 18:50 Rectum Received Height (Feet): 5 Height (Inches): 5.00 Weight (Pounds): 120 Medications Current Medications Medications (Trade) Dose Ordered Sig/Pau Route PRN Reason Start Time Stop Time Status Last Admin Dose Admin Acetaminophen (Tylenol) 650 mg Q4H PRN GT MILD/TEMP 01/01/20 09:45 01/31/20 09:44 Ascorbic Acid (Vitamin C) 500 mg DAILY GT 01/02/20 09:00 02/01/20 08:59 Famotidine (Pepcid I.v.) 20 mg DAILY IVP 01/01/20 10:00 01/31/20 09:59 01/01/20 10:10 Heparin Sodium (Porcine) (Heparin 5000 units/ml) 5,000 units EVERY 12 HOURS SUBQ 01/01/20 21:00 02/15/20 20:59 Levetiracetam (Keppra) 750 mg EVERY 12 HOURS GT 01/01/20 21:00 01/31/20 20:59 Levothyroxine Sodium (Synthroid) 50 mcg DAILY GT 01/02/20 09:00 02/01/20 08:59 Levothyroxine Sodium (Synthroid) 125 mcg DAILY GT 01/02/20 09:00 02/01/20 08:59 Piperacillin Sod/ Tazobactam Sod 3.375 gm/Sodium Chloride 110 ml @ 27.5 mls/hr Q12H IVPB 01/01/20 11:00 01/08/20 10:59 01/01/20 11:01 Sodium 1,000 ml @ 150 mls/hr Q6H40M IV 01/01/20 16:30 01/31/20 16:29 01/01/20 17:04 Vancomycin HCl (Vanco rx to dose) 1 ea DAILY PRN MISC Per rx protocol 01/01/20 09:30 01/31/20 09:29 Vancomycin HCl 750 mg/Sodium Chloride 275 ml @ 183.333 mls/hr ONCE ONCE IVPB 01/01/20 18:30 01/01/20 19:59 Assessment/Plan Problem List: (1) Decubitus skin ulcer Assessment & Plan: Pt presented on admission with contractures, multiple Skin Breakdown. Skin assessed under collar of trach and no skin breakdown noted.Category 3 Skin tear R elbow(L)4.5cm x (W)5cm. Full flap loss noted. Base of wound moist and viable,edges adherent. No exudate noted. No erythema or elevated skin temp periwound. Category 2 Skin tear L forearm. Full flap intact and reattached. Moderate amt sanguineous exudate noted. Silvasorb Gel applied and covered with Optifoam drsg. Reinforced with ABD Pad and Kerlix. DTPI noted to L Sacrum(L)3.5cm x (W)3cm. Base of wound is maroon and indurated. DTPI R Sacrum(L)7cm x (W)9.5cm. Wound is irregular shaped. Base of wound is maroon and indurated. Scattered areas of darker skin tone without induration or erythema periwound. DTPI L lateral malleolus(L)2.5cm x (W)2cm. Base of wound is fluctuant,purple with surrounding maroon borders. No erythema or elevation in skin temp periwound. Partial thickness wound L 1st metatarsal head (L)2.5cm x (W)2cm. Base of wound is moist and viable. Edges are macerated. Non-blanching erythema without fluctuance periwound. DTPI Dorso/lateral R foot(L)2.3cm x (W)4.3cm. Base of injury is indurated purple /maroon in colour. No erythema or elevation in skin temp periwound. Hyperpigmentation from previous wounds noted to R and L hallux. Tx.Plan: Cleanse Skin tears R Elbow and L forearm with Saline. Apply Silvasorb Gel. Cover each wounds with Optifoam drsgs. Change every 7 days and prn. Apply Triad Paste to R and L Sacrum. Cover with Optifoam drsg. Change every 3 days and prn. Apply Cavilon to Malleoli both feet, Both heels and Both hallux . Cover each site with Optifoam drsgs turn q2h nutritional optimization ICD Codes: L89.90 - Pressure ulcer of unspecified site, unspecified stage SNOMED: 509912241 (2) Respiratory insufficiency ICD Codes: R06.89 - Other abnormalities of breathing SNOMED: 998278722 (3) Malnutrition ICD Codes: E46 - Unspecified protein-calorie malnutrition SNOMED: 21855618 (4) Pneumonia ICD Codes: J18.9 - Pneumonia, unspecified organism SNOMED: 845638685 (5) Tracheal stenosis ICD Codes: J39.8 - Other specified diseases of upper respiratory tract SNOMED: 29552400 (6) Protein-calorie malnutrition, severe ICD Codes: E43 - Unspecified severe protein-calorie malnutrition SNOMED: 382391405, 954922206, 100714972 (7) Suspected COVID-19 virus infection ICD Codes: R68.89 - Other general symptoms and signs SNOMED: 379365102 Sabino Gold Jan 01, 2020 18:00
[2020-01-01] MEDS ORDERED: Vancomycin 750mg/NS 275ml IVPB ONE ×2 (18:30)
--- NOTE | 2020-01-01 19:17 | NUR ---
HAND-OFF: Report given to Minerva RIVER. Pt remains stable.
--- NOTE | 2020-01-01 19:17 | NUR ---
NURSE NOTES: Patient noted with order for patterson insertion from ER for intake and out put. Attempted to insert 16 fr patterson catheter, unable to advance, discontinued attempt - placed pt on condom catheter. Patient is voiding, no bladder distention noted and soft to palpation. BUN 146, creatinine 1.8. Contacted and informed Dr. Harris of situation and assessments. Inquired Dr. Harris if okay to discontinue order for patterson catheter for intake and output, Dr. Harris acknowledged and stated, "ok". Order discontinued, informed cage shift manager. Will continue to monitor patient.
--- NOTE | 2020-01-01 19:20 | NUR ---
NURSE NOTES: Received pt from ALETA Flowers and Narendra Yates RN. will continue plan of care.
[2020-01-01] MEDS ORDERED: Heparin 5000 units/ml inj SUBQ SCH (21:00)
[2020-01-01] MEDS: Heparin 5000 units/ml inj SUBQ SCH (21:29)
--- NOTE | 2020-01-01 21:45 | NUR ---
NURSE NOTES: all due meds given. pt is nonverbal, unable to make needs known. no s/sx of pain noted at this time. trach to vent settings are as follows: Portex: 8.0; AC: 18; VT: 450; PEEP: 8, FiO2: 80%. saturation: 94%, no acute respiratory distress noted. suctioned pt orally and via trach. tolerated well. licensed architect shows SR with HR of 80, no acute cardiac distress noted. G-tube site is patent and intact, clamped at this time; no available working feeding pump available. per previous shift, Debbie, director metabolism, made aware. skin alterations noted. LFA 22 g IV site is patent and intact, running 1/2 NS with 20 meq KCl at 150 cc/hr. bed in lowest position and locked, padded siderails up X3, call light within reach. will continue to monitor.
--- NOTE | 2020-01-01 22:53 | NUR ---
NURSE NOTES: pt's saturation noted to be 96% at this time. will continue to monitor.
[2020-01-01] MEDS ORDERED: Zosyn 3.375gm inj ONE (23:24)
[2020-01-02] VITALS: BP 137/77
[2020-01-02 04:00] VITALS: BP 137/88
[2020-01-02 05:44] LABS: INR 1.2 (0.9-1.1)
[2020-01-02 06:19] LABS: ALANINE AMINOTRANSFERASE 15 U/L (12-78); ALBUMIN 1.7 G/DL (3.4-5.0); ALBUMIN/GLOBULIN RATIO 0.3 (1.0-2.7); ALKALINE PHOSPHATASE 106 U/L (46-116); ANION GAP 10 mmol/L (5-15); ASPARTATE AMINO TRANSFERASE 18 U/L (15-37); BILIRUBIN,TOTAL 0.4 MG/DL (0.2-1.0); BLOOD UREA NITROGEN 125 mg/dL (7-18); CALCIUM 10.8 MG/DL (8.5-10.1); CARBON DIOXIDE 24 MMOL/L (21-32); CHLORIDE 114 MMOL/L (98-107); CREATINE KINASE 25 U/L (26-308); CREATININE 1.6 MG/DL (0.55-1.30); SODIUM 148 MMOL/L (136-145)
[2020-01-02] MEDS: 1/2NS w/KCl 20mEq 1000ml 1,000 ML IV SCH ×3 (06:20→18:54)
--- NOTE | 2020-01-02 07:40 | NUR ---
NURSE NOTES: Received report from Narendra Mauricio RN. Patient obtunded, nonverbal, unable to make needs known and follow commands. Trach to vent with settings of AC 18, TV 450, FiO2 85%, PEEP 8, respirations even and unlabored. GT feeding of Glucerna 1.5 running @ 50 cc/hr, no residuals noted, HoB elevated. Condom catheter in place and draining well. Left forearm 22g IV site infusing 1/2NS with 20 meq KCl @ 150 cc/hr, asymptomatic. Bed locked in lowest position with padded side rails up x 3. All needs attended to. Will continue to monitor.
[2020-01-02 08:00] VITALS: BP 132/81
--- NOTE | 2020-01-02 08:18 | NUR ---
HAND-OFF: Report given to ALETA Wells. endorsed plan of care.
[2020-01-02] MEDS: Heparin 5000 units/ml inj SUBQ SCH ×2 (09:00→20:23)
[2020-01-02] MEDS ORDERED: Ascorbic Acid 500mg tab GT SCH (09:00)
[2020-01-02] MEDS ORDERED: Levothyroxine 125mcg tab GT SCH (09:00)
[2020-01-02] MEDS: levETIRAcetam 500mg/5ml Liquid GT SCH ×2 (09:26→21:12)
[2020-01-02] MEDS: Ascorbic Acid 500mg tab GT SCH (09:26)
[2020-01-02] MEDS: Levothyroxine 125mcg tab GT SCH (09:26)
--- NOTE | 2020-01-02 09:30 | NUR ---
RD ASSESSMENT & RECOMMENDATIONS SEE CARE ACTIVITY FOR COMPLETE ASSESSMENT DAILY ESTIMATED NEEDS: Needs based on Critical care, wounds/ 60kg abw 22-28 kcals/kg [id number] total kcals 1.25-2 g protein/kg 75-120 g total protein 25-30 mL/kg 0311-3794 total fluid mLs NUTRITION DIAGNOSIS: Swallowing difficulty R/T respiratory status as evidenced by trach/vent dep, PEG dep. CURRENT TF:Glucerna 1.5 @ 50ml/hr x 20 hrs ENTERAL NUTRITION RECOMMENDATIONS: Glucerna 1.5 @ 50ml/hr x 20 hrs to provide 1000ml, 1500kcal, 82.5g prot, 759ml free water * Maintain current TF @ goal : meets 100% est kcal/prot needs * HOB Over 30 degrees/ water flush per MD * Hold Synthroid during 4 hrs that TF is off FOR 22 HRS RUN (total 2 hrs held for Synthroid) -> Glucerna 1.5 @ 45ml/hr x 22 hrs to provide 990ml, 1485kcal, 82g prot -> Hold TF 1 hr before and after Synthroid ADDITIONAL RECOMMENDATIONS: * Per SNF: HT=63", YX=939crw (as of 12/28/19) * Monitor lytes, replete as needed * Wound healing: f/up w/ WC eval : add Vit C 500mg QD, Jerome 1pkt BID
--- NOTE | 2020-01-02 10:16 | NUR ---
NURSE NOTES: Patient's airborne and droplet isolation discontinued d/t negative COVID swab per Dr. Logan Henley. Contact isolation maintained for MRSA nares.
--- NOTE | 2020-01-02 11:18 | Infectious Diseases Prog Note ---
Assessment/Plan Assessment/Plan antibiotics : vancomycin iv, zosyn A 1. pneumonia COVID 19 test negative 2. leucocytosis improving 3. renal failure improving 4. gram positive sepsis 5. respiratory failure P 1. continue iv vancomycin, zosyn 2. will follow up cultures 3. sputum culture Subjective ROS Limited/Unobtainable: Yes Allergies: Coded Allergies: No Known Allergies (Unverified , 12/31/19) Objective Vital Signs Last 24 Hour Vital Signs Date Time Temp Pulse Resp B/P (MAP) Pulse Ox O2 Delivery O2 Flow Rate FiO2 01/02/20 08:00 97.0 85 31 132/81 (98) 100 01/02/20 08:00 85 01/02/20 08:00 Mechanical Ventilator 01/02/20 07:40 79 01/02/20 05:04 84 29 80 01/02/20 04:00 96.8 89 26 137/88 (104) 95 01/02/20 04:00 Mechanical Ventilator 01/02/20 04:00 79 01/02/20 04:00 85 01/02/20 03:16 81 27 80 01/02/20 00:34 79 28 80 01/02/20 00:00 97.2 78 28 137/77 (97) 94 01/02/20 00:00 Mechanical Ventilator 01/02/20 00:00 76 01/01/20 22:31 77 26 80 01/01/20 20:49 79 29 80 01/01/20 20:00 96.7 80 18 122/71 (88) 94 01/01/20 20:00 80 01/01/20 20:00 Mechanical Ventilator 01/01/20 20:00 85 01/01/20 19:33 77 30 80 01/01/20 17:28 73 25 85 01/01/20 16:00 84 01/01/20 16:00 97.1 88 20 111/65 (80) 94 01/01/20 16:00 T-piece 01/01/20 16:00 85 01/01/20 15:20 86 32 85 01/01/20 15:00 86 32 100 Mechanical Ventilator 85 01/01/20 14:51 Mechanical Ventilator 01/01/20 14:49 97.0 85 20 107/61 (76) 96 01/01/20 14:11 70 25 104/67 97 Non-Rebreather 85 01/01/20 13:22 86 34 85 01/01/20 13:15 97.8 76 24 116/75 97 Mechanical Ventilator 15.0 85 Height (Feet): 5 Height (Inches): 5.00 Weight (Pounds): 120 HEENT: status post trach Respiratory/Chest: lungs clear Cardiovascular: normal rate, regular rhythm, no gallop/murmur Abdomen: soft, non tender, other - GT Extremities: no edema Microbiology Date/Time Source Procedure Growth Status 12/31/19 10:42 Blood Blood Culture - Preliminary Gram Positive Cocci Resulted 12/31/19 10:42 Blood Blood Culture - Preliminary Gram Positive Cocci Resulted 12/31/19 18:50 Nasal Nares MRSA Culture - Final Staphylococcus Aureus - Mrsa Complete 12/31/19 10:42 Nasopharynx Coronavirus COVID-19 PCR (RADHA) - Final Complete 12/31/19 10:42 Nasal Nares - Final Complete 12/31/19 10:42 Nasal Nares - Final Complete 12/31/19 18:50 Rectum VRE Culture - Final NO VANCOMYCIN RESISTANT ENTEROCOCCUS ... Complete 12/31/19 18:50 Rectum Received Laboratory Tests Test 01/01/20 16:00 01/02/20 04:45 Random Vancomycin Level 12.4 ug/mL Erythrocyte Sedimentation Rate 133 MM/HR (0-20) H Prothrombin Time 13.0 SEC (9.30-11.50) H Prothromb Time International Ratio 1.2 (0.9-1.1) H Activated Partial Thromboplast Time 30 SEC (23-33) Sodium Level 148 MMOL/L (136-145) H Potassium Level 4.0 MMOL/L (3.5-5.1) Chloride Level 114 MMOL/L (98-107) H Carbon Dioxide Level 24 MMOL/L (21-32) Anion Gap 10 mmol/L (5-15) Blood Urea Nitrogen 125 mg/dL (7-18) H Creatinine 1.6 MG/DL (0.55-1.30) H Estimat Glomerular Filtration Rate 42.1 mL/min (>60) Glucose Level 102 MG/DL (74-106) Lactic Acid Level 0.30 mmol/L (0.4-2.0) L Calcium Level 10.8 MG/DL (8.5-10.1) H Total Bilirubin 0.4 MG/DL (0.2-1.0) Aspartate Amino Transf (AST/SGOT) 18 U/L (15-37) Alanine Aminotransferase (ALT/SGPT) 15 U/L (12-78) Alkaline Phosphatase 106 U/L (46-116) Total Creatine Kinase 25 U/L (26-308) L C-Reactive Protein, Quantitative 24.3 mg/dL (0.00-0.90) H Total Protein 7.2 G/DL (6.4-8.2) Albumin 1.7 G/DL (3.4-5.0) L Globulin 5.5 g/dL Albumin/Globulin Ratio 0.3 (1.0-2.7) L Amylase Level 64 U/L (25-115) Lipase 88 U/L (73-393) Current Medications Medications (Trade) Dose Ordered Sig/Pau Route PRN Reason Start Time Stop Time Status Last Admin Dose Admin Acetaminophen (Tylenol) 650 mg Q4H PRN GT MILD/TEMP 01/01/20 09:45 01/31/20 09:44 Ascorbic Acid (Vitamin C) 500 mg DAILY GT 01/02/20 09:00 02/01/20 08:59 01/02/20 09:26 Famotidine (Pepcid I.v.) 20 mg DAILY IVP 01/01/20 10:00 01/31/20 09:59 01/02/20 09:40 Heparin Sodium (Porcine) (Heparin 5000 units/ml) 5,000 units EVERY 12 HOURS SUBQ 01/01/20 21:00 02/15/20 20:59 01/01/20 21:29 Levetiracetam (Keppra) 750 mg EVERY 12 HOURS GT 01/02/20 09:00 02/01/20 08:59 01/02/20 09:26 Levothyroxine Sodium (Synthroid) 50 mcg DAILY GT 01/02/20 09:00 02/01/20 08:59 01/02/20 09:27 Levothyroxine Sodium (Synthroid) 125 mcg DAILY GT 01/02/20 09:00 02/01/20 08:59 01/02/20 09:26 Piperacillin Sod/ Tazobactam Sod 3.375 gm/Sodium Chloride 110 ml @ 27.5 mls/hr Q12H IVPB 01/01/20 11:00 01/08/20 10:59 01/01/20 23:30 Sodium 1,000 ml @ 150 mls/hr Q6H40M IV 01/01/20 16:30 01/31/20 16:29 01/02/20 06:20 Vancomycin HCl (Vanco rx to dose) 1 ea DAILY PRN MISC Per rx protocol 01/01/20 09:30 01/31/20 09:29 Heber Abraham MD Jan 02, 2020 11:18
--- NOTE | 2020-01-02 11:34 | Critical Care Progress Note ---
Assessment/Plan Assessment/Plan Impression: Pneumonia Sepsis R/o Covid 19 Elevated troponin Renal failure Tracheostomy History of tracheal stenosis Ventilator Dependent Respiratory Failure Chronically altered mental status s/p previous CPA, anoxia Previous Seizures Previous pericardial effusion, Congestive Heart Failure, Atrial Fibrillation Diabetes, Hypothyroidism Previous Hematuria/UTI, previous sepsis GERD sp G tube PLAN vent management acid base noted; taper oxygen for now antibiotics as is ID evaluation and renal evaluation noted and discussed follow up cultures and sensitivities check TSH for tomorrow feeds resumed and monitor residuals resume other meds seizure precautions may need repeat echo monitor blood pressure and hold antihypertensives cardiology with elevated troponin medications/laboratory data/nursing notes/ICU care reviewed in detail note reviewed and edited care discussed with RN and RT critical time spent >40 minutes coordinating care and updating orders Critical Care - Subjective Interval Events: care noted oxygenation improved abg reviewed still with elevated wbc and renal dysfunction bcx positive ROS Limited/Unobtainable: Yes Condition: critical EKG Rhythm: Sinus Rhythm Residuals: minimal Tube Feeding Tolerated: yes I&O: Intake and Output 01/01/20 01/02/20 19:00 07:00 Intake Total 3350 ml 1885.00 ml Output Total 1350 ml 500 ml Balance 2000 ml 1385.00 ml Intake Oral 0 ml Free Water 50 ml 100 ml IV Total 3250 ml 1785.00 ml Tube Feeding 50 ml Output Urine Total 1350 ml 500 ml # Voids 2 # Bowel Movements 4 Critical Care - Objective Last 24 Hour Vital Signs Date Time Temp Pulse Resp B/P (MAP) Pulse Ox O2 Delivery O2 Flow Rate FiO2 01/02/20 08:00 97.0 85 31 132/81 (98) 100 01/02/20 08:00 85 01/02/20 08:00 Mechanical Ventilator 01/02/20 07:40 79 01/02/20 05:04 84 29 80 01/02/20 04:00 96.8 89 26 137/88 (104) 95 01/02/20 04:00 Mechanical Ventilator 01/02/20 04:00 79 01/02/20 04:00 85 01/02/20 03:16 81 27 80 01/02/20 00:34 79 28 80 01/02/20 00:00 97.2 78 28 137/77 (97) 94 01/02/20 00:00 Mechanical Ventilator 01/02/20 00:00 76 01/01/20 22:31 77 26 80 01/01/20 20:49 79 29 80 01/01/20 20:00 96.7 80 18 122/71 (88) 94 01/01/20 20:00 80 01/01/20 20:00 Mechanical Ventilator 01/01/20 20:00 85 01/01/20 19:33 77 30 80 01/01/20 17:28 73 25 85 01/01/20 16:00 84 01/01/20 16:00 97.1 88 20 111/65 (80) 94 01/01/20 16:00 T-piece 01/01/20 16:00 85 01/01/20 15:20 86 32 85 01/01/20 15:00 86 32 100 Mechanical Ventilator 85 01/01/20 14:51 Mechanical Ventilator 01/01/20 14:49 97.0 85 20 107/61 (76) 96 01/01/20 14:11 70 25 104/67 97 Non-Rebreather 85 01/01/20 13:22 86 34 85 01/01/20 13:15 97.8 76 24 116/75 97 Mechanical Ventilator 15.0 85 Labs: Labs Test 12/31/19 10:42 12/31/19 11:20 12/31/19 13:12 12/31/19 18:40 White Blood Count 30.4 K/UL (4.8-10.8) Red Blood Count 3.14 M/UL (4.70-6.10) Hemoglobin 10.2 G/DL (14.2-18.0) Hematocrit 30.7 % (42.0-52.0) Mean Corpuscular Volume 98 FL (80-99) Mean Corpuscular Hemoglobin 32.3 PG (27.0-31.0) Mean Corpuscular Hemoglobin Concent 33.0 G/DL (32.0-36.0) Red Cell Distribution Width 12.5 % (11.6-14.8) Platelet Count 239 K/UL (150-450) Mean Platelet Volume 6.3 FL (6.5-10.1) Neutrophils (%) (Auto) % (45.0-75.0) Lymphocytes (%) (Auto) % (20.0-45.0) Monocytes (%) (Auto) % (1.0-10.0) Eosinophils (%) (Auto) % (0.0-3.0) Basophils (%) (Auto) % (0.0-2.0) Differential Total Cells Counted 100 Neutrophils % (Manual) 64 % (45-75) Lymphocytes % (Manual) 4 % (20-45) Monocytes % (Manual) 4 % (1-10) Eosinophils % (Manual) 0 % (0-3) Basophils % (Manual) 0 % (0-2) Band Neutrophils 28 % (0-8) Platelet Estimate Adequate Platelet Morphology Normal Red Blood Cell Morphology Normal Prothrombin Time 13.4 SEC (9.30-11.50) Prothromb Time International Ratio 1.3 (0.9-1.1) Activated Partial Thromboplast Time 21 SEC (23-33) Sodium Level 143 MMOL/L (136-145) Potassium Level 4.3 MMOL/L (3.5-5.1) Chloride Level 106 MMOL/L (98-107) Carbon Dioxide Level 26 MMOL/L (21-32) Anion Gap 11 mmol/L (5-15) Blood Urea Nitrogen 175 mg/dL (7-18) Creatinine 2.2 MG/DL (0.55-1.30) Estimat Glomerular Filtration Rate 29.2 mL/min (>60) Glucose Level 110 MG/DL (74-106) Lactic Acid Level 3.90 mmol/L (0.4-2.0) 2.70 mmol/L (0.66-2.22) Calcium Level 12.9 MG/DL (8.5-10.1) Phosphorus Level 3.2 MG/DL (2.5-4.9) Magnesium Level 2.1 MG/DL (1.8-2.4) Total Bilirubin 0.5 MG/DL (0.2-1.0) Aspartate Amino Transf (AST/SGOT) 24 U/L (15-37) Alanine Aminotransferase (ALT/SGPT) 11 U/L (12-78) Alkaline Phosphatase 103 U/L (46-116) Total Creatine Kinase 35 U/L (26-308) Troponin I 0.064 ng/mL (0.000-0.056) Pro-B-Type Natriuretic Peptide 4596 pg/mL (0-125) Total Protein 8.0 G/DL (6.4-8.2) Albumin 2.0 G/DL (3.4-5.0) Globulin 6.0 g/dL Albumin/Globulin Ratio 0.3 (1.0-2.7) Lipase 41 U/L (73-393) Arterial Blood pH 7.372 (7.350-7.450) Arterial Blood Partial Pressure CO2 46.9 mmHg (35.0-45.0) Arterial Blood Partial Pressure O2 82.1 mmHg (75.0-100.0) Arterial Blood HCO3 26.6 mmol/L (22.0-26.0) Arterial Blood Oxygen Saturation 94.5 % (95-100) Arterial Blood Base Excess 1.1 (-2-2) Luis Armando Test Positive Urine Color Pale yellow Urine Appearance Clear Urine pH 5 (4.5-8.0) Urine Specific [place] 1.005 (1.005-1.035) Urine Protein 2+ (NEGATIVE) Urine Glucose (UA) Negative (NEGATIVE) Urine Ketones Negative (NEGATIVE) Urine Blood 5+ (NEGATIVE) Urine Nitrite Negative (NEGATIVE) Urine Bilirubin Negative (NEGATIVE) Urine Urobilinogen Normal MG/DL (0.0-1.0) Urine Leukocyte Esterase Negative (NEGATIVE) Urine RBC 5-10 /HPF (0 - 0) Urine WBC 0-2 /HPF (0 - 0) Urine Squamous Epithelial Cells None /LPF (NONE/OCC) Urine Bacteria Few /HPF (NONE) Test 01/01/20 09:46 01/01/20 10:10 01/01/20 16:00 01/02/20 04:45 Arterial Blood pH 7.385 (7.350-7.450) Arterial Blood Partial Pressure CO2 42.8 mmHg (35.0-45.0) Arterial Blood Partial Pressure O2 232.7 mmHg (75.0-100.0) Arterial Blood HCO3 25.6 mmol/L (22.0-26.0) Arterial Blood Oxygen Saturation 98.9 % (95-100) Arterial Blood Base Excess 0.6 (-2-2) Luis Armando Test Positive White Blood Count 25.2 K/UL (4.8-10.8) Red Blood Count 2.42 M/UL (4.70-6.10) Hemoglobin 8.0 G/DL (14.2-18.0) Hematocrit 23.8 % (42.0-52.0) Mean Corpuscular Volume 98 FL (80-99) Mean Corpuscular Hemoglobin 33.1 PG (27.0-31.0) Mean Corpuscular Hemoglobin Concent 33.7 G/DL (32.0-36.0) Red Cell Distribution Width 12.5 % (11.6-14.8) Platelet Count 225 K/UL (150-450) Mean Platelet Volume 6.3 FL (6.5-10.1) Neutrophils (%) (Auto) % (45.0-75.0) Lymphocytes (%) (Auto) % (20.0-45.0) Monocytes (%) (Auto) % (1.0-10.0) Eosinophils (%) (Auto) % (0.0-3.0) Basophils (%) (Auto) % (0.0-2.0) Differential Total Cells Counted 100 Neutrophils % (Manual) 89 % (45-75) Lymphocytes % (Manual) 5 % (20-45) Monocytes % (Manual) 5 % (1-10) Eosinophils % (Manual) 1 % (0-3) Basophils % (Manual) 0 % (0-2) Band Neutrophils 0 % (0-8) Platelet Estimate Adequate Platelet Morphology Normal Hypochromasia 2+ Anisocytosis 1+ Spherocytes 1+ Urine Osmolality 471 mOsm/kg (429-449) Urine Random Sodium 44 mmol/L (20-110) Urine Creatinine 22.2 MG/DL (30.0-125.0) Sodium Level 148 MMOL/L (136-145) 148 MMOL/L (136-145) Potassium Level 3.8 MMOL/L (3.5-5.1) 4.0 MMOL/L (3.5-5.1) Chloride Level 114 MMOL/L (98-107) 114 MMOL/L (98-107) Carbon Dioxide Level 22 MMOL/L (21-32) 24 MMOL/L (21-32) Anion Gap 12 mmol/L (5-15) 10 mmol/L (5-15) Blood Urea Nitrogen 146 mg/dL (7-18) 125 mg/dL (7-18) Creatinine 1.8 MG/DL (0.55-1.30) 1.6 MG/DL (0.55-1.30) Estimat Glomerular Filtration Rate 36.8 mL/min (>60) 42.1 mL/min (>60) Glucose Level 117 MG/DL (74-106) 102 MG/DL (74-106) Uric Acid 9.4 MG/DL (2.6-7.2) Calcium Level 10.7 MG/DL (8.5-10.1) 10.8 MG/DL (8.5-10.1) Total Bilirubin 0.4 MG/DL (0.2-1.0) 0.4 MG/DL (0.2-1.0) Aspartate Amino Transf (AST/SGOT) 22 U/L (15-37) 18 U/L (15-37) Alanine Aminotransferase (ALT/SGPT) 17 U/L (12-78) 15 U/L (12-78) Alkaline Phosphatase 96 U/L (46-116) 106 U/L (46-116) Total Creatine Kinase 27 U/L (26-308) 25 U/L (26-308) Total Protein 6.3 G/DL (6.4-8.2) 7.2 G/DL (6.4-8.2) Albumin 1.7 G/DL (3.4-5.0) 1.7 G/DL (3.4-5.0) Globulin 4.6 g/dL 5.5 g/dL Albumin/Globulin Ratio 0.4 (1.0-2.7) 0.3 (1.0-2.7) Random Vancomycin Level 12.4 ug/mL Erythrocyte Sedimentation Rate 133 MM/HR (0-20) Prothrombin Time 13.0 SEC (9.30-11.50) Prothromb Time International Ratio 1.2 (0.9-1.1) Activated Partial Thromboplast Time 30 SEC (23-33) Lactic Acid Level 0.30 mmol/L (0.4-2.0) C-Reactive Protein, Quantitative 24.3 mg/dL (0.00-0.90) Amylase Level 64 U/L (25-115) Lipase 88 U/L (73-393) Objective: WDWN NAD reduced breath sounds bilaterally without rhonchi or wheeze [id number] without MRG NABS nontender no HSM GT no CCE nonfocal trach on 100% Micro: Microbiology Date/Time Source Procedure Growth Status 12/31/19 10:42 Blood Blood Culture - Preliminary Gram Positive Cocci Resulted 12/31/19 10:42 Blood Blood Culture - Preliminary Gram Positive Cocci Resulted 12/31/19 18:50 Nasal Nares MRSA Culture - Final Staphylococcus Aureus - Mrsa Complete 12/31/19 10:42 Nasopharynx Coronavirus COVID-19 PCR (RADHA) - Final Complete 12/31/19 10:42 Nasal Nares - Final Complete 12/31/19 10:42 Nasal Nares - Final Complete 12/31/19 18:50 Rectum VRE Culture - Final NO VANCOMYCIN RESISTANT ENTEROCOCCUS ... Complete 12/31/19 18:50 Rectum Received Dillon Harris MD Jan 02, 2020 11:34
[2020-01-02 12:00] VITALS: BP_SYST 132; BP_SYST 134; BP_DIAS 77; BP_DIAS 79
--- NOTE | 2020-01-02 12:28 | Nephrology Progress Note ---
Assessment/Plan Problem List: (1) Hypernatremia (2) Dehydration (3) JOHN (acute kidney injury) (4) Respiratory insufficiency (5) Pneumonia (6) Protein-calorie malnutrition, severe (7) Hx of tracheostomy Plan continue hypotonic iv's, antibiotics Subjective ROS Limited/Unobtainable: Yes Objective Objective Last 24 Hour Vital Signs Date Time Temp Pulse Resp B/P (MAP) Pulse Ox O2 Delivery O2 Flow Rate FiO2 01/02/20 08:00 97.0 85 31 132/81 (98) 100 01/02/20 08:00 85 01/02/20 08:00 Mechanical Ventilator 01/02/20 07:40 79 01/02/20 05:04 84 29 80 01/02/20 04:00 96.8 89 26 137/88 (104) 95 01/02/20 04:00 Mechanical Ventilator 01/02/20 04:00 79 01/02/20 04:00 85 01/02/20 03:16 81 27 80 01/02/20 00:34 79 28 80 01/02/20 00:00 97.2 78 28 137/77 (97) 94 01/02/20 00:00 Mechanical Ventilator 01/02/20 00:00 76 01/01/20 22:31 77 26 80 01/01/20 20:49 79 29 80 01/01/20 20:00 96.7 80 18 122/71 (88) 94 01/01/20 20:00 80 01/01/20 20:00 Mechanical Ventilator 01/01/20 20:00 85 01/01/20 19:33 77 30 80 01/01/20 17:28 73 25 85 01/01/20 16:00 84 01/01/20 16:00 97.1 88 20 111/65 (80) 94 01/01/20 16:00 T-piece 01/01/20 16:00 85 01/01/20 15:20 86 32 85 01/01/20 15:00 86 32 100 Mechanical Ventilator 85 01/01/20 14:51 Mechanical Ventilator 01/01/20 14:49 97.0 85 20 107/61 (76) 96 01/01/20 14:11 70 25 104/67 97 Non-Rebreather 85 01/01/20 13:22 86 34 85 01/01/20 13:15 97.8 76 24 116/75 97 Mechanical Ventilator 15.0 85 Intake and Output 01/01/20 01/02/20 19:00 07:00 Intake Total 3350 ml 1885.00 ml Output Total 1350 ml 500 ml Balance 2000 ml 1385.00 ml Intake Oral 0 ml Free Water 50 ml 100 ml IV Total 3250 ml 1785.00 ml Tube Feeding 50 ml Output Urine Total 1350 ml 500 ml # Voids 2 # Bowel Movements 4 Laboratory Tests 01/01/20 16:00: Random Vancomycin Level 12.4 01/02/20 04:45: Erythrocyte Sedimentation Rate 133H, Prothrombin Time 13.0H, Prothromb Time International Ratio 1.2H, Activated Partial Thromboplast Time 30, Sodium Level 148H, Potassium Level 4.0, Chloride Level 114H, Carbon Dioxide Level 24, Anion Gap 10, Blood Urea Nitrogen 125H, Creatinine 1.6H, Estimat Glomerular Filtration Rate 42.1, Glucose Level 102, Lactic Acid Level 0.30L, Calcium Level 10.8H, Total Bilirubin 0.4, Aspartate Amino Transf (AST/SGOT) 18, Alanine Aminotransferase (ALT/SGPT) 15, Alkaline Phosphatase 106, Total Creatine Kinase 25L, C-Reactive Protein, Quantitative 24.3H, Total Protein 7.2, Albumin 1.7L, Globulin 5.5, Albumin/Globulin Ratio 0.3L, Amylase Level 64, Lipase 88, Thyroid Stimulating Hormone (TSH) [Pending] Height (Feet): 5 Height (Inches): 5.00 Weight (Pounds): 120 General Appearance: lethargic, cachetic Neck: normal inspection Cardiovascular: regular rhythm Respiratory/Chest: rhonchi - bilaterally Abdomen: non tender Extremities: other - muscle wasting contracted Neurologic: abnormal learning and development manager II-XII, motor weakness Pravin Abad MD Jan 02, 2020 12:27
--- NOTE | 2020-01-02 12:45 | NUR ---
CASE MANAGEMENT: REVIEW 79 YEAR OLD MALE BIBA FROM [facility] CC: FEVER SI: FEVER . PNA . TRACH/VENT DEPENDENT . COVID-19 VIRUS NOT DETECTED T 100.2 HR 110 RR 12 BP 87/23 SAT 94% MECH VENT FIO2 40 WBC 30.4 H/H 8.0/23.8 BUN 175 CR 2.2 IS: TYLENOL 650MG RECTAL X1 NS IVF BOLUS X1 ZOSYN IV X1 VANCO IV X1 ASA 600MG RECTAL X1 PATIENT ADMITTED TO STEP DOWN UNIT 12/31/2019 DCP: PATIENT IS FROM [facility]
--- NOTE | 2020-01-02 12:53 | Surgery Progress Note ---
Surgery Progress Note Subjective Additional Comments no acute events Objective Last 24 Hour Vital Signs Date Time Temp Pulse Resp B/P (MAP) Pulse Ox O2 Delivery O2 Flow Rate FiO2 01/02/20 08:00 97.0 85 31 132/81 (98) 100 01/02/20 08:00 85 01/02/20 08:00 Mechanical Ventilator 01/02/20 07:40 79 01/02/20 05:04 84 29 80 01/02/20 04:00 96.8 89 26 137/88 (104) 95 01/02/20 04:00 Mechanical Ventilator 01/02/20 04:00 79 01/02/20 04:00 85 01/02/20 03:16 81 27 80 01/02/20 00:34 79 28 80 01/02/20 00:00 97.2 78 28 137/77 (97) 94 01/02/20 00:00 Mechanical Ventilator 01/02/20 00:00 76 01/01/20 22:31 77 26 80 01/01/20 20:49 79 29 80 01/01/20 20:00 96.7 80 18 122/71 (88) 94 01/01/20 20:00 80 01/01/20 20:00 Mechanical Ventilator 01/01/20 20:00 85 01/01/20 19:33 77 30 80 01/01/20 17:28 73 25 85 01/01/20 16:00 84 01/01/20 16:00 97.1 88 20 111/65 (80) 94 01/01/20 16:00 T-piece 01/01/20 16:00 85 01/01/20 15:20 86 32 85 01/01/20 15:00 86 32 100 Mechanical Ventilator 85 01/01/20 14:51 Mechanical Ventilator 01/01/20 14:49 97.0 85 20 107/61 (76) 96 01/01/20 14:11 70 25 104/67 97 Non-Rebreather 85 01/01/20 13:22 86 34 85 01/01/20 13:15 97.8 76 24 116/75 97 Mechanical Ventilator 15.0 85 I&O Intake and Output 01/01/20 01/02/20 19:00 07:00 Intake Total 3350 ml 1885.00 ml Output Total 1350 ml 500 ml Balance 2000 ml 1385.00 ml Intake Oral 0 ml Free Water 50 ml 100 ml IV Total 3250 ml 1785.00 ml Tube Feeding 50 ml Output Urine Total 1350 ml 500 ml # Voids 2 # Bowel Movements 4 Dressing: other Wound: other Drains: other Cardiovascular: RSR Respiratory: decreased breath sounds Abdomen: soft, non-tender, present bowel sounds Extremities: no cyanosis, other Laboratory Tests Test 01/01/20 16:00 01/02/20 04:45 Random Vancomycin Level 12.4 ug/mL Erythrocyte Sedimentation Rate 133 MM/HR (0-20) H Prothrombin Time 13.0 SEC (9.30-11.50) H Prothromb Time International Ratio 1.2 (0.9-1.1) H Activated Partial Thromboplast Time 30 SEC (23-33) Sodium Level 148 MMOL/L (136-145) H Potassium Level 4.0 MMOL/L (3.5-5.1) Chloride Level 114 MMOL/L (98-107) H Carbon Dioxide Level 24 MMOL/L (21-32) Anion Gap 10 mmol/L (5-15) Blood Urea Nitrogen 125 mg/dL (7-18) H Creatinine 1.6 MG/DL (0.55-1.30) H Estimat Glomerular Filtration Rate 42.1 mL/min (>60) Glucose Level 102 MG/DL (74-106) Lactic Acid Level 0.30 mmol/L (0.4-2.0) L Calcium Level 10.8 MG/DL (8.5-10.1) H Total Bilirubin 0.4 MG/DL (0.2-1.0) Aspartate Amino Transf (AST/SGOT) 18 U/L (15-37) Alanine Aminotransferase (ALT/SGPT) 15 U/L (12-78) Alkaline Phosphatase 106 U/L (46-116) Total Creatine Kinase 25 U/L (26-308) L C-Reactive Protein, Quantitative 24.3 mg/dL (0.00-0.90) H Total Protein 7.2 G/DL (6.4-8.2) Albumin 1.7 G/DL (3.4-5.0) L Globulin 5.5 g/dL Albumin/Globulin Ratio 0.3 (1.0-2.7) L Amylase Level 64 U/L (25-115) Lipase 88 U/L (73-393) Thyroid Stimulating Hormone (TSH) Pending Plan Problems: (1) Decubitus skin ulcer Assessment & Plan: Pt presented on admission with contractures, multiple Skin Breakdown. Skin assessed under collar of trach and no skin breakdown noted.Category 3 Skin tear R elbow(L)4.5cm x (W)5cm. Full flap loss noted. Base of wound moist and viable,edges adherent. No exudate noted. No erythema or elevated skin temp periwound. Category 2 Skin tear L forearm. Full flap intact and reattached. Moderate amt sanguineous exudate noted. Silvasorb Gel applied and covered with Optifoam drsg. Reinforced with ABD Pad and Kerlix. DTPI noted to L Sacrum(L)3.5cm x (W)3cm. Base of wound is maroon and indurated. DTPI R Sacrum(L)7cm x (W)9.5cm. Wound is irregular shaped. Base of wound is maroon and indurated. Scattered areas of darker skin tone without induration or erythema periwound. DTPI L lateral malleolus(L)2.5cm x (W)2cm. Base of wound is fluctuant,purple with surrounding maroon borders. No erythema or elevation in skin temp periwound. Partial thickness wound L 1st metatarsal head (L)2.5cm x (W)2cm. Base of wound is moist and viable. Edges are macerated. Non-blanching erythema without fluctuance periwound. DTPI Dorso/lateral R foot(L)2.3cm x (W)4.3cm. Base of injury is indurated purple /maroon in colour. No erythema or elevation in skin temp periwound. Hyperpigmentation from previous wounds noted to R and L hallux. Tx.Plan: Cleanse Skin tears R Elbow and L forearm with Saline. Apply Silvasorb Gel. Cover each wounds with Optifoam drsgs. Change every 7 days and prn. Apply Triad Paste to R and L Sacrum. Cover with Optifoam drsg. Change every 3 days and prn. Apply Cavilon to Malleoli both feet, Both heels and Both hallux . Cover each site with Optifoam drsgs turn q2h nutritional optimization (2) Respiratory insufficiency (3) Malnutrition Assessment & Plan: DAILY ESTIMATED NEEDS: Needs based on Critical care, wounds/ 60kg abw 22-28 kcals/kg 8457-5808 total kcals 1.25-2 g protein/kg 75-120 g total protein 25-30 mL/kg 7818-4237 total fluid mLs NUTRITION DIAGNOSIS: Swallowing difficulty R/T respiratory status as evidenced by trach/vent dep, PEG dep. CURRENT TF:Glucerna 1.5 @ 50ml/hr x 20 hrs ENTERAL NUTRITION RECOMMENDATIONS: Glucerna 1.5 @ 50ml/hr x 20 hrs to provide 1000ml, 1500kcal, 82.5g prot, 759ml free water * Maintain current TF @ goal : meets 100% est kcal/prot needs * HOB Over 30 degrees/ water flush per MD * Hold Synthroid during 4 hrs that TF is off FOR 22 HRS RUN (total 2 hrs held for Synthroid) -> Glucerna 1.5 @ 45ml/hr x 22 hrs to provide 990ml, 1485kcal, 82g prot -> Hold TF 1 hr before and after Synthroid ADDITIONAL RECOMMENDATIONS: * Per SNF: HT=63", RS=930mtr (as of 12/28/19) * Monitor lytes, replete as needed * Wound healing: f/up w/ WC eval : add Vit C 500mg QD, Jerome 1pkt BID (4) Pneumonia (5) Tracheal stenosis (6) Protein-calorie malnutrition, severe (7) Suspected COVID-19 virus infection Sabino Gold Jan 02, 2020 12:52
[2020-01-02] MEDS: Piperacillin/Tazobactam 3.375 GM in NS 110 ML IVPB SCH ×2 (12:54→23:31)
--- NOTE | 2020-01-02 14:19 | NUR ---
*-* INSURANCE *-* ALL CLINICALS AND REVIEWS HAVE BEEN FAXED TO: NIKOLE Quiñonez # [phone] fax#[phone]
--- NOTE | 2020-01-02 15:43 | NUR ---
NURSE NOTES:WOUND CARE NOTES:Pt presented on admission with contractures, multiple Skin Breakdown. Skin assessed under collar of trach and no skin breakdown noted.Category 3 Skin tear R elbow(L)4.5cm x (W)5cm. Full flap loss noted. Base of wound moist and viable,edges adherent. No exudate noted. No erythema or elevated skin temp periwound. Category 2 Skin tear L forearm. Full flap intact and reattached. Moderate amt sanguineous exudate noted. Silvasorb Gel applied and covered with Optifoam drsg. Reinforced with ABD Pad and Kerlix. DTPI noted to L Sacrum(L)3.5cm x (W)3cm. Base of wound is maroon and indurated. DTPI R Sacrum(L)7cm x (W)9.5cm. Wound is irregular shaped. Base of wound is maroon and indurated. Scattered areas of darker skin tone without induration or erythema periwound. DTPI L lateral malleolus(L)2.5cm x (W)2cm. Base of wound is fluctuant,purple with surrounding maroon borders. No erythema or elevation in skin temp periwound. Partial thickness wound L 1st metatarsal head (L)2.5cm x (W)2cm. Base of wound is moist and viable. Edges are macerated. Non-blanching erythema without fluctuance periwound. DTPI Dorso/lateral R foot(L)2.3cm x (W)4.3cm. Base of injury is indurated purple/maroon in colour. No erythema or elevation in skin temp periwound. Hyperpigmentation from previous wounds noted to R and L hallux. Tx.Plan: Cleanse Skin tears R Elbow and L forearm with Saline. Apply Silvasorb Gel. Cover each wounds with Optifoam drsgs. Change every 7 days and prn. Apply Triad Paste to R and L Sacrum. Cover with Optifoam drsg. Change every 3 days and prn. Apply Cavilon to Malleoli both feet, Both heels and Both hallux . Cover each site with Optifoam drsgs Addendum: 01/02/20 at 1614 by Jassi Moore LVN ADDENDUM TO ABOVE WOUND NOTES: TREATMENT PLAN CONTINUED:-Apply Cavilon Skin Barrier to both heels,L lateral Foot,Malleoli and Hallux both feet. Cover each site Optifoam drsg. Change every 7 days and prn. Reposition at least every 2hours or as tolerated. Off-load heels with pillow. Place Pillow between knees. APM/LIV Mattress.
[2020-01-02 16:00] VITALS: BP 120/73
--- NOTE | 2020-01-02 19:34 | NUR ---
HAND-OFF: Report given to Geronimo Martines RN. Patient in stable condition. No s/s of respiratory distress noted.
--- NOTE | 2020-01-02 19:35 | NUR ---
NURSE NOTES: received pt from Meka RIVER., pt is obtunded and opens eyes with touch at this moment. Gtube site intact, clean, and patent. Left FA 22G 1/2 NS KCL 20meq is running at 150ml/hr and IV site is clean, intact, and patent. no SOB noted with vent. call light within reach. bed at the lowest position, alarmed, and locked. will continue to monitor pt with plan of care.
--- NOTE | 2020-01-02 19:58 | NUR ---
NURSE NOTES: left voice mail to Dr. Abraham, to obtain order for the Covid-19 swab to be done for 2nd time. we will wait for call back.
[2020-01-02 20:00] VITALS: BP 100/65
[2020-01-03] VITALS: BP 112/70
[2020-01-03] MEDS: 1/2NS w/KCl 20mEq 1000ml 1,000 ML IV SCH ×4 (01:32→21:12)
--- NOTE | 2020-01-03 03:44 | Consultation ---
DATE OF CONSULTATION: 01/02/2020 CARDIOLOGY CONSULT CONSULTING PHYSICIAN: Tony Lobo MD. REFERRING PHYSICIAN: Dillon Harris M.D. REASON FOR CONSULTATION: Elevated troponin level. HISTORY OF PRESENT ILLNESS: This is an unfortunate 79-year-old male, who resides at a snf facility. 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 He is physically impaired. He was admitted to the hospital because of congestion, cough, and shortness of breath. Hypoxia noted. COVID swab was negative and he is now being treated for sepsis. He had an elevated troponin level on admission, 12/31/2019 and has been asked to address. On admission, he was hypotensive, now his blood pressure has stabilized. PAST MEDICAL HISTORY: Includes atrial fibrillation, diabetes mellitus, hypothyroidism, gastroesophageal reflux disease, dysphagia with G-tube, history of pericardial effusion, history of congestive heart failure, seizure disorder. ALLERGIES: None. MEDICATIONS: Reviewed and reconciled. SOCIAL HISTORY: Not obtainable. FAMILY HISTORY: Not known. REVIEW OF SYSTEMS: Otherwise, not obtainable. PHYSICAL EXAMINATION: VITAL SIGNS: Blood pressure 120/73, pulse 67, respirations 30, afebrile. Monitored rhythm sinus. HEENT: Moderate secretions from oral cavity. LUNGS: Bilateral rhonchi. CARDIAC: Regular rhythm and rate. Normal S1, S2. Cannot appreciate murmur due to loud respiratory sounds. ABDOMEN: Soft, has a G-tube in. There is no edema. LABORATORY AND DIAGNOSTIC DATA: Chest x-ray on 12/31/2019 revealed patchy infiltrates. Blood cultures are positive for gram-positive cocci. Lactic acid is normal. Sodium 148, potassium 4, bicarb 24. BUN 125, creatinine 1.6. TSH 11. White count 25, hemoglobin 8. Troponin on admission was 0.064. IMPRESSION: 1. Sepsis bacteremia, possible endocarditis. 2. History of pericardial effusion. 3. Resolved lactic acidosis. 4. Acute renal failure. 5. Acute myocardial ischemia. 6. Possible [id number] myocardial infarction. 7. Dehydration. 8. Hypernatremia, serious and guarded. PLAN: 1. Respiratory hygiene. 2. Antimicrobials. 3. Echocardiogram. 4. Repeat troponin level. 5. Thyroid replacement. 6. Protein supplement by feeding tube. 7. Hypotonic IV fluids. 8. DVT prophylaxis. Tony Alma Lobo DR: MARK JOB#: [id number] CC:
[2020-01-03 04:00] VITALS: BP 124/77
[2020-01-03 05:30] LABS: HEMATOCRIT 22.5 % (42.0-52.0); HEMOGLOBIN 7.5 G/DL (14.2-18.0); MEAN CORPUSCULAR VOLUME 99 FL (80-99); PLATELET COUNT 203 K/UL (150-450); RED BLOOD COUNT 2.27 M/UL (4.70-6.10); RED CELL DISTRIBUTION WIDTH 12.8 % (11.6-14.8); WHITE BLOOD COUNT 15.1 K/UL (4.8-10.8)
[2020-01-03 06:02] LABS: ANION GAP 9 mmol/L (5-15); BLOOD UREA NITROGEN 117 mg/dL (7-18); CARBON DIOXIDE 22 MMOL/L (21-32); CHLORIDE 116 MMOL/L (98-107); CREATININE 1.5 MG/DL (0.55-1.30); SODIUM 147 MMOL/L (136-145)
--- NOTE | 2020-01-03 06:38 | NUR ---
NURSE NOTES: left voice mail to regarding elevated troponin level 0.125 will wait for call back.
--- NOTE | 2020-01-03 06:41 | NUR ---
NURSE NOTES: notified Dr. Harris regarding low hbg 7.5 and Hct 22.5. received order to transfuse 1unit of RBC. will continue to monitor pt. will carry on the order.
--- NOTE | 2020-01-03 07:20 | NUR ---
NURSE NOTES: RECEIVED REPORT FROM AMISHA CORE [employer]. RECEIVED PT ON ISOLATION COVI-19.PT IS TRACH TO VENT OBTUNDED ,TOLERATING WELL CURRENT VENT SETTINGS.RENDERED TRACH CARE AND ORAL HYGIENE,SX,D LG AMT OF WHITE TICK SECRETIONS. PT RECEIVING GLUCERNA 1.2 @ 50CC/HRS VIA GT TOLERATING WELL,NO RESIDUAL NOTED AT THIS TIME. H.L ON LT FA G#22 PATENT, IVF,S INFUSING WELL 1/2 NS WITH 20MEQ KCL @ 150CC/HRS . PT REPOSITIONED IN BED Q 2HRS TO PROVIDE COMFORT AND TO PREVENT FURTHER SKIN MYLA DOWN. WILL CONT TO MONITOR.
--- NOTE | 2020-01-03 07:30 | NUR ---
HAND-OFF: Report given to Larry RIVER. pt remains stable, endorsed plan of care.
[2020-01-03 08:00] VITALS: BP 116/71
[2020-01-03] MEDS ORDERED: Vancomycin 750mg/NS 275ml IVPB SCH ×2 (08:00)
[2020-01-03] MEDS: Heparin 5000 units/ml inj SUBQ SCH ×2 (09:00→21:00)
--- NOTE | 2020-01-03 10:07 | Critical Care Progress Note ---
Assessment/Plan Assessment/Plan Impression: Pneumonia Sepsis R/o Covid 19 Elevated troponin Renal failure Tracheostomy History of tracheal stenosis Ventilator Dependent Respiratory Failure Chronically altered mental status s/p previous CPA, anoxia Previous Seizures Previous pericardial effusion, Congestive Heart Failure, Atrial Fibrillation Diabetes, Hypothyroidism Previous Hematuria/UTI, previous sepsis GERD sp G tube PLAN vent management acid base noted; taper oxygen for now antibiotics as is ID evaluation and renal evaluation noted and appreciated follow up cultures and sensitivities- reviewed update TSH overall improved feeds resumed and monitor residuals resume other meds seizure precautions repeat echo monitor blood pressure and adjust cardiology noted medications/laboratory data/nursing notes/ICU care reviewed in detail note reviewed and edited care discussed with RN and RT critical time spent >40 minutes coordinating care and updating orders Critical Care - Subjective Interval Events: events noted worsening anemia COVID negative +++cultures ROS Limited/Unobtainable: Yes Condition: critical Residuals: minimal Tube Feeding Tolerated: yes I&O: Intake and Output 01/02/20 01/03/20 19:00 07:00 Intake Total 2445.0 ml 1505.0 ml Output Total 800 ml 430 ml Balance 1645.0 ml 1075.0 ml Free Water 50 ml 150 ml IV Total 1795.0 ml 805.0 ml Tube Feeding 500 ml 550 ml Other 100 ml Output Urine Total 800 ml 430 ml # Bowel Movements 2 Critical Care - Objective Last 24 Hour Vital Signs Date Time Temp Pulse Resp B/P (MAP) Pulse Ox O2 Delivery O2 Flow Rate FiO2 01/03/20 09:29 72 28 70 01/03/20 07:26 64 32 70 01/03/20 04:55 84 24 80 01/03/20 04:00 97.1 73 24 124/77 (93) 97 01/03/20 04:00 68 01/03/20 04:00 85 01/03/20 04:00 Mechanical Ventilator 01/03/20 02:39 81 26 80 01/03/20 00:49 80 24 80 01/03/20 00:00 Mechanical Ventilator 01/03/20 00:00 96.9 69 26 112/70 (84) 100 01/02/20 23:28 74 01/02/20 22:38 81 26 80 01/02/20 20:46 79 28 80 01/02/20 20:00 Mechanical Ventilator 01/02/20 20:00 97.2 69 26 100/65 (77) 100 01/02/20 20:00 85 01/02/20 19:40 79 01/02/20 18:47 81 29 80 01/02/20 17:48 80 27 80 01/02/20 16:00 96.5 67 30 120/73 (89) 98 01/02/20 16:00 Mechanical Ventilator 01/02/20 16:00 85 01/02/20 15:32 65 01/02/20 15:29 68 34 80 01/02/20 13:21 78 20 80 01/02/20 12:00 85 01/02/20 12:00 Mechanical Ventilator 01/02/20 12:00 97.3 75 30 132/77 (95) 100 01/02/20 11:40 81 Labs: Labs Test 12/31/19 10:42 12/31/19 11:20 12/31/19 13:12 12/31/19 18:40 White Blood Count 30.4 K/UL (4.8-10.8) Red Blood Count 3.14 M/UL (4.70-6.10) Hemoglobin 10.2 G/DL (14.2-18.0) Hematocrit 30.7 % (42.0-52.0) Mean Corpuscular Volume 98 FL (80-99) Mean Corpuscular Hemoglobin 32.3 PG (27.0-31.0) Mean Corpuscular Hemoglobin Concent 33.0 G/DL (32.0-36.0) Red Cell Distribution Width 12.5 % (11.6-14.8) Platelet Count 239 K/UL (150-450) Mean Platelet Volume 6.3 FL (6.5-10.1) Neutrophils (%) (Auto) % (45.0-75.0) Lymphocytes (%) (Auto) % (20.0-45.0) Monocytes (%) (Auto) % (1.0-10.0) Eosinophils (%) (Auto) % (0.0-3.0) Basophils (%) (Auto) % (0.0-2.0) Differential Total Cells Counted 100 Neutrophils % (Manual) 64 % (45-75) Lymphocytes % (Manual) 4 % (20-45) Monocytes % (Manual) 4 % (1-10) Eosinophils % (Manual) 0 % (0-3) Basophils % (Manual) 0 % (0-2) Band Neutrophils 28 % (0-8) Platelet Estimate Adequate Platelet Morphology Normal Red Blood Cell Morphology Normal Prothrombin Time 13.4 SEC (9.30-11.50) Prothromb Time International Ratio 1.3 (0.9-1.1) Activated Partial Thromboplast Time 21 SEC (23-33) Sodium Level 143 MMOL/L (136-145) Potassium Level 4.3 MMOL/L (3.5-5.1) Chloride Level 106 MMOL/L (98-107) Carbon Dioxide Level 26 MMOL/L (21-32) Anion Gap 11 mmol/L (5-15) Blood Urea Nitrogen 175 mg/dL (7-18) Creatinine 2.2 MG/DL (0.55-1.30) Estimat Glomerular Filtration Rate 29.2 mL/min (>60) Glucose Level 110 MG/DL (74-106) Lactic Acid Level 3.90 mmol/L (0.4-2.0) 2.70 mmol/L (0.66-2.22) Calcium Level 12.9 MG/DL (8.5-10.1) Phosphorus Level 3.2 MG/DL (2.5-4.9) Magnesium Level 2.1 MG/DL (1.8-2.4) Total Bilirubin 0.5 MG/DL (0.2-1.0) Aspartate Amino Transf (AST/SGOT) 24 U/L (15-37) Alanine Aminotransferase (ALT/SGPT) 11 U/L (12-78) Alkaline Phosphatase 103 U/L (46-116) Total Creatine Kinase 35 U/L (26-308) Troponin I 0.064 ng/mL (0.000-0.056) Pro-B-Type Natriuretic Peptide 4596 pg/mL (0-125) Total Protein 8.0 G/DL (6.4-8.2) Albumin 2.0 G/DL (3.4-5.0) Globulin 6.0 g/dL Albumin/Globulin Ratio 0.3 (1.0-2.7) Lipase 41 U/L (73-393) Arterial Blood pH 7.372 (7.350-7.450) Arterial Blood Partial Pressure CO2 46.9 mmHg (35.0-45.0) Arterial Blood Partial Pressure O2 82.1 mmHg (75.0-100.0) Arterial Blood HCO3 26.6 mmol/L (22.0-26.0) Arterial Blood Oxygen Saturation 94.5 % (95-100) Arterial Blood Base Excess 1.1 (-2-2) Luis Armando Test Positive Urine Color Pale yellow Urine Appearance Clear Urine pH 5 (4.5-8.0) Urine Specific [place] 1.005 (1.005-1.035) Urine Protein 2+ (NEGATIVE) Urine Glucose (UA) Negative (NEGATIVE) Urine Ketones Negative (NEGATIVE) Urine Blood 5+ (NEGATIVE) Urine Nitrite Negative (NEGATIVE) Urine Bilirubin Negative (NEGATIVE) Urine Urobilinogen Normal MG/DL (0.0-1.0) Urine Leukocyte Esterase Negative (NEGATIVE) Urine RBC 5-10 /HPF (0 - 0) Urine WBC 0-2 /HPF (0 - 0) Urine Squamous Epithelial Cells None /LPF (NONE/OCC) Urine Bacteria Few /HPF (NONE) Test 01/01/20 09:46 01/01/20 10:10 01/01/20 16:00 01/02/20 04:45 Arterial Blood pH 7.385 (7.350-7.450) Arterial Blood Partial Pressure CO2 42.8 mmHg (35.0-45.0) Arterial Blood Partial Pressure O2 232.7 mmHg (75.0-100.0) Arterial Blood HCO3 25.6 mmol/L (22.0-26.0) Arterial Blood Oxygen Saturation 98.9 % (95-100) Arterial Blood Base Excess 0.6 (-2-2) Luis Armando Test Positive White Blood Count 25.2 K/UL (4.8-10.8) Red Blood Count 2.42 M/UL (4.70-6.10) Hemoglobin 8.0 G/DL (14.2-18.0) Hematocrit 23.8 % (42.0-52.0) Mean Corpuscular Volume 98 FL (80-99) Mean Corpuscular Hemoglobin 33.1 PG (27.0-31.0) Mean Corpuscular Hemoglobin Concent 33.7 G/DL (32.0-36.0) Red Cell Distribution Width 12.5 % (11.6-14.8) Platelet Count 225 K/UL (150-450) Mean Platelet Volume 6.3 FL (6.5-10.1) Neutrophils (%) (Auto) % (45.0-75.0) Lymphocytes (%) (Auto) % (20.0-45.0) Monocytes (%) (Auto) % (1.0-10.0) Eosinophils (%) (Auto) % (0.0-3.0) Basophils (%) (Auto) % (0.0-2.0) Differential Total Cells Counted 100 Neutrophils % (Manual) 89 % (45-75) Lymphocytes % (Manual) 5 % (20-45) Monocytes % (Manual) 5 % (1-10) Eosinophils % (Manual) 1 % (0-3) Basophils % (Manual) 0 % (0-2) Band Neutrophils 0 % (0-8) Platelet Estimate Adequate Platelet Morphology Normal Hypochromasia 2+ Anisocytosis 1+ Spherocytes 1+ Urine Osmolality 471 mOsm/kg (429-449) Urine Random Sodium 44 mmol/L (20-110) Urine Creatinine 22.2 MG/DL (30.0-125.0) Sodium Level 148 MMOL/L (136-145) 148 MMOL/L (136-145) Potassium Level 3.8 MMOL/L (3.5-5.1) 4.0 MMOL/L (3.5-5.1) Chloride Level 114 MMOL/L (98-107) 114 MMOL/L (98-107) Carbon Dioxide Level 22 MMOL/L (21-32) 24 MMOL/L (21-32) Anion Gap 12 mmol/L (5-15) 10 mmol/L (5-15) Blood Urea Nitrogen 146 mg/dL (7-18) 125 mg/dL (7-18) Creatinine 1.8 MG/DL (0.55-1.30) 1.6 MG/DL (0.55-1.30) Estimat Glomerular Filtration Rate 36.8 mL/min (>60) 42.1 mL/min (>60) Glucose Level 117 MG/DL (74-106) 102 MG/DL (74-106) Uric Acid 9.4 MG/DL (2.6-7.2) Calcium Level 10.7 MG/DL (8.5-10.1) 10.8 MG/DL (8.5-10.1) Total Bilirubin 0.4 MG/DL (0.2-1.0) 0.4 MG/DL (0.2-1.0) Aspartate Amino Transf (AST/SGOT) 22 U/L (15-37) 18 U/L (15-37) Alanine Aminotransferase (ALT/SGPT) 17 U/L (12-78) 15 U/L (12-78) Alkaline Phosphatase 96 U/L (46-116) 106 U/L (46-116) Total Creatine Kinase 27 U/L (26-308) 25 U/L (26-308) Total Protein 6.3 G/DL (6.4-8.2) 7.2 G/DL (6.4-8.2) Albumin 1.7 G/DL (3.4-5.0) 1.7 G/DL (3.4-5.0) Globulin 4.6 g/dL 5.5 g/dL Albumin/Globulin Ratio 0.4 (1.0-2.7) 0.3 (1.0-2.7) Random Vancomycin Level 12.4 ug/mL Erythrocyte Sedimentation Rate 133 MM/HR (0-20) Prothrombin Time 13.0 SEC (9.30-11.50) Prothromb Time International Ratio 1.2 (0.9-1.1) Activated Partial Thromboplast Time 30 SEC (23-33) Lactic Acid Level 0.30 mmol/L (0.4-2.0) C-Reactive Protein, Quantitative 24.3 mg/dL (0.00-0.90) Amylase Level 64 U/L (25-115) Lipase 88 U/L (73-393) Thyroid Stimulating Hormone (TSH) 11.746 uiU/mL (0.358-3.740) Test 01/03/20 04:35 White Blood Count 15.1 K/UL (4.8-10.8) Red Blood Count 2.27 M/UL (4.70-6.10) Hemoglobin 7.5 G/DL (14.2-18.0) Hematocrit 22.5 % (42.0-52.0) Mean Corpuscular Volume 99 FL (80-99) Mean Corpuscular Hemoglobin 33.2 PG (27.0-31.0) Mean Corpuscular Hemoglobin Concent 33.4 G/DL (32.0-36.0) Red Cell Distribution Width 12.8 % (11.6-14.8) Platelet Count 203 K/UL (150-450) Mean Platelet Volume 6.7 FL (6.5-10.1) Neutrophils (%) (Auto) % (45.0-75.0) Lymphocytes (%) (Auto) % (20.0-45.0) Monocytes (%) (Auto) % (1.0-10.0) Eosinophils (%) (Auto) % (0.0-3.0) Basophils (%) (Auto) % (0.0-2.0) Differential Total Cells Counted 100 Neutrophils % (Manual) 89 % (45-75) Lymphocytes % (Manual) 7 % (20-45) Monocytes % (Manual) 4 % (1-10) Eosinophils % (Manual) 0 % (0-3) Basophils % (Manual) 0 % (0-2) Band Neutrophils 0 % (0-8) Platelet Estimate Adequate Platelet Morphology Normal Hypochromasia 2+ Sodium Level 147 MMOL/L (136-145) Potassium Level 5.0 MMOL/L (3.5-5.1) Chloride Level 116 MMOL/L (98-107) Carbon Dioxide Level 22 MMOL/L (21-32) Anion Gap 9 mmol/L (5-15) Blood Urea Nitrogen 117 mg/dL (7-18) Creatinine 1.5 MG/DL (0.55-1.30) Estimat Glomerular Filtration Rate 45.4 mL/min (>60) Glucose Level 116 MG/DL (74-106) Calcium Level 10.0 MG/DL (8.5-10.1) Troponin I 0.125 ng/mL (0.000-0.056) Pro-B-Type Natriuretic Peptide 9703 pg/mL (0-125) Random Vancomycin Level 15.2 ug/mL Objective: WDWN NAD reduced breath sounds bilaterally without rhonchi or wheeze [id number] without MRG NABS nontender no HSM GT no CCE nonfocal trach on 100% Micro: Microbiology Date/Time Source Procedure Growth Status 12/31/19 10:42 Blood Blood Culture - Final Staphylococcus Haemolyticus Complete 12/31/19 10:42 Blood Blood Culture - Final Staphylococcus Haemolyticus Diphtheroids Complete 01/01/20 16:30 Sputum Induced Gram Stain - Final Resulted 01/01/20 16:30 Sputum Culture - Preliminary Gram Negative Bacillus 1 Gram Negative Bacillus 2 Resulted 12/31/19 18:50 Nasal Nares MRSA Culture - Final Staphylococcus Aureus - Mrsa Complete 12/31/19 10:42 Nasopharynx Coronavirus COVID-19 PCR ([facility]) - Final Complete 12/31/19 10:42 Nasal Nares - Final Complete 12/31/19 10:42 Nasal Nares - Final Complete 12/31/19 18:50 Rectum VRE Culture - Final NO VANCOMYCIN RESISTANT ENTEROCOCCUS ... Complete 12/31/19 18:50 Rectum Received Dillon Harris MD Jan 03, 2020 10:07
--- NOTE | 2020-01-03 10:12 | Nephrology Progress Note ---
Assessment/Plan Problem List: (1) Hypernatremia (2) Dehydration (3) JOHN (acute kidney injury) (4) Respiratory insufficiency (5) Pneumonia (6) Protein-calorie malnutrition, severe (7) Hx of tracheostomy Plan continue hypotonic iv's, antibiotics Subjective ROS Limited/Unobtainable: Yes Objective Objective Last 24 Hour Vital Signs Date Time Temp Pulse Resp B/P (MAP) Pulse Ox O2 Delivery O2 Flow Rate FiO2 01/03/20 09:29 72 28 70 01/03/20 07:26 64 32 70 01/03/20 04:55 84 24 80 01/03/20 04:00 97.1 73 24 124/77 (93) 97 01/03/20 04:00 68 01/03/20 04:00 85 01/03/20 04:00 Mechanical Ventilator 01/03/20 02:39 81 26 80 01/03/20 00:49 80 24 80 01/03/20 00:00 Mechanical Ventilator 01/03/20 00:00 96.9 69 26 112/70 (84) 100 01/02/20 23:28 74 01/02/20 22:38 81 26 80 01/02/20 20:46 79 28 80 01/02/20 20:00 Mechanical Ventilator 01/02/20 20:00 97.2 69 26 100/65 (77) 100 01/02/20 20:00 85 01/02/20 19:40 79 01/02/20 18:47 81 29 80 01/02/20 17:48 80 27 80 01/02/20 16:00 96.5 67 30 120/73 (89) 98 01/02/20 16:00 Mechanical Ventilator 01/02/20 16:00 85 01/02/20 15:32 65 01/02/20 15:29 68 34 80 01/02/20 13:21 78 20 80 01/02/20 12:00 85 01/02/20 12:00 Mechanical Ventilator 01/02/20 12:00 97.3 75 30 132/77 (95) 100 01/02/20 11:40 81 Intake and Output 01/02/20 01/03/20 19:00 07:00 Intake Total 2445.0 ml 1505.0 ml Output Total 800 ml 430 ml Balance 1645.0 ml 1075.0 ml Free Water 50 ml 150 ml IV Total 1795.0 ml 805.0 ml Tube Feeding 500 ml 550 ml Other 100 ml Output Urine Total 800 ml 430 ml # Bowel Movements 2 Laboratory Tests 01/03/20 04:35: White Blood Count 15.1H, Red Blood Count 2.27L, Hemoglobin 7.5L, Hematocrit 22.5L, Mean Corpuscular Volume 99, Mean Corpuscular Hemoglobin 33.2H, Mean Corpuscular Hemoglobin Concent 33.4, Red Cell Distribution Width 12.8, Platelet Count 203, Mean Platelet Volume 6.7, Neutrophils (%) (Auto) , Lymphocytes (%) ( Auto) , Monocytes (%) (Auto) , Eosinophils (%) (Auto) , Basophils (%) (Auto) , Differential Total Cells Counted 100, Neutrophils % (Manual) 89H, Lymphocytes % (Manual) 7L, Monocytes % (Manual) 4, Eosinophils % (Manual) 0, Basophils % ( Manual) 0, Band Neutrophils 0, Platelet Estimate Adequate, Platelet Morphology Normal, Hypochromasia 2+, Sodium Level 147H, Potassium Level 5.0, Chloride Level 116H, Carbon Dioxide Level 22, Anion Gap 9, Blood Urea Nitrogen 117H, Creatinine 1.5H, Estimat Glomerular Filtration Rate 45.4, Glucose Level 116H, Calcium Level 10.0, Troponin I 0.125H, Pro-B-Type Natriuretic Peptide 9703H, Random Vancomycin Level 15.2 Height (Feet): 5 Height (Inches): 5.00 Weight (Pounds): 120 General Appearance: lethargic, cachetic, other - on vent Cardiovascular: regular rhythm Respiratory/Chest: rhonchi - bilaterally Abdomen: non tender, soft Neurologic: motor weakness, disoriented Pravin Abad MD Jan 03, 2020 10:12
[2020-01-03] MEDS: levETIRAcetam 500mg/5ml Liquid GT SCH ×2 (10:14→21:12)
[2020-01-03] MEDS: Levothyroxine 125mcg tab GT SCH (10:15)
--- NOTE | 2020-01-03 11:23 | Infectious Diseases Prog Note ---
"Assessment/Plan Assessment/Plan antibiotics : vancomycin iv, zosyn A 1. gram negative pneumonia COVID 19 test negative 2. leucocytosis improving 3. renal failure improving 4. + blood cultures with coag neg staph | diphtheroids likely contaminated 5. respiratory failure P 1. continue zosyn 2. d/c iv vancomycin 3. will follow up cultures Subjective ROS Limited/Unobtainable: Yes Allergies: Coded Allergies: No Known Allergies (Unverified , 12/31/19) Objective Vital Signs Last 24 Hour Vital Signs Date Time Temp Pulse Resp B/P (MAP) Pulse Ox O2 Delivery O2 Flow Rate FiO2 01/03/20 09:29 72 28 70 01/03/20 08:00 85 01/03/20 08:00 68 01/03/20 08:00 Mechanical Ventilator 01/03/20 08:00 97.7 78 23 116/71 (86) 100 01/03/20 07:26 64 32 70 01/03/20 04:55 84 24 80 01/03/20 04:00 97.1 73 24 124/77 (93) 97 01/03/20 04:00 68 01/03/20 04:00 85 01/03/20 04:00 Mechanical Ventilator 01/03/20 02:39 81 26 80 01/03/20 00:49 80 24 80 01/03/20 00:00 Mechanical Ventilator 01/03/20 00:00 96.9 69 26 112/70 (84) 100 01/02/20 23:28 74 01/02/20 22:38 81 26 80 01/02/20 20:46 79 28 80 01/02/20 20:00 Mechanical Ventilator 01/02/20 20:00 97.2 69 26 100/65 (77) 100 01/02/20 20:00 85 01/02/20 19:40 79 01/02/20 18:47 81 29 80 01/02/20 17:48 80 27 80 01/02/20 16:00 96.5 67 30 120/73 (89) 98 01/02/20 16:00 Mechanical Ventilator 01/02/20 16:00 85 01/02/20 15:32 65 01/02/20 15:29 68 34 80 01/02/20 13:21 78 20 80 01/02/20 12:00 85 01/02/20 12:00 Mechanical Ventilator 01/02/20 12:00 97.3 75 30 132/77 (95) 100 01/02/20 11:40 81 Height (Feet): 5 Height (Inches): 5.00 Weight (Pounds): 120 HEENT: status post trach Respiratory/Chest: lungs clear Cardiovascular: normal rate, regular rhythm, no gallop/murmur Abdomen: soft, non tender, other - GT Extremities: no edema Microbiology Date/Time Source Procedure Growth Status 01/01/20 16:30 Sputum Induced Gram Stain - Final Resulted 01/01/20 16:30 Sputum Culture - Preliminary Gram Negative Bacillus 1 Gram Negative Bacillus 2 Resulted 12/31/19 18:50 Nasal Nares MRSA Culture - Final Staphylococcus Aureus - Mrsa Complete 12/31/19 18:50 Rectum VRE Culture - Final NO VANCOMYCIN RESISTANT ENTEROCOCCUS ... Complete 12/31/19 18:50 Rectum Received Laboratory Tests Test 01/03/20 04:35 White Blood Count 15.1 K/UL (4.8-10.8) H Red Blood Count 2.27 M/UL (4.70-6.10) L Hemoglobin 7.5 G/DL (14.2-18.0) L Hematocrit 22.5 % (42.0-52.0) L Mean Corpuscular Volume 99 FL (80-99) Mean Corpuscular Hemoglobin 33.2 PG (27.0-31.0) H Mean Corpuscular Hemoglobin Concent 33.4 G/DL (32.0-36.0) Red Cell Distribution Width 12.8 % (11.6-14.8) Platelet Count 203 K/UL (150-450) Mean Platelet Volume 6.7 FL (6.5-10.1) Neutrophils (%) (Auto) % (45.0-75.0) Lymphocytes (%) (Auto) % (20.0-45.0) Monocytes (%) (Auto) % (1.0-10.0) Eosinophils (%) (Auto) % (0.0-3.0) Basophils (%) (Auto) % (0.0-2.0) Differential Total Cells Counted 100 Neutrophils % (Manual) 89 % (45-75) H Lymphocytes % (Manual) 7 % (20-45) L Monocytes % (Manual) 4 % (1-10) Eosinophils % (Manual) 0 % (0-3) Basophils % (Manual) 0 % (0-2) Band Neutrophils 0 % (0-8) Platelet Estimate Adequate Platelet Morphology Normal Hypochromasia 2+ Sodium Level 147 MMOL/L (136-145) H Potassium Level 5.0 MMOL/L (3.5-5.1) Chloride Level 116 MMOL/L (98-107) H Carbon Dioxide Level 22 MMOL/L (21-32) Anion Gap 9 mmol/L (5-15) Blood Urea Nitrogen 117 mg/dL (7-18) H Creatinine 1.5 MG/DL (0.55-1.30) H Estimat Glomerular Filtration Rate 45.4 mL/min (>60) Glucose Level 116 MG/DL (74-106) H Calcium Level 10.0 MG/DL (8.5-10.1) Troponin I 0.125 ng/mL (0.000-0.056) Pro-B-Type Natriuretic Peptide 9703 pg/mL (0-125) H Random Vancomycin Level 15.2 ug/mL Current Medications Medications (Trade) Dose Ordered Sig/Pau Route PRN Reason Start Time Stop Time Status Last Admin Dose Admin Acetaminophen (Tylenol) 650 mg Q4H PRN GT MILD/TEMP 01/01/20 09:45 01/31/20 09:44 Ascorbic Acid (Vitamin C) 500 mg DAILY GT 01/02/20 09:00 02/01/20 08:59 01/02/20 09:26 Famotidine (Pepcid I.v.) 20 mg DAILY IVP 01/01/20 10:00 01/31/20 09:59 01/03/20 10:21 Heparin Sodium (Porcine) (Heparin 5000 units/ml) 5,000 units EVERY 12 HOURS SUBQ 01/01/20 21:00 02/15/20 20:59 01/01/20 21:29 Levetiracetam (Keppra) 750 mg EVERY 12 HOURS GT 01/02/20 09:00 02/01/20 08:59 01/03/20 10:14 Levothyroxine Sodium (Synthroid) 50 mcg DAILY GT 01/02/20 09:00 02/01/20 08:59 01/03/20 09:00 Levothyroxine Sodium (Synthroid) 125 mcg DAILY GT 01/02/20 09:00 02/01/20 08:59 01/03/20 10:15 Piperacillin Sod/ Tazobactam Sod 3.375 gm/Sodium Chloride 110 ml @ 27.5 mls/hr Q12H IVPB 01/01/20 11:00 01/08/20 10:59 01/02/20 23:31 Sodium 1,000 ml @ 150 mls/hr Q6H40M IV 01/01/20 16:30 01/31/20 16:29 01/03/20 10:14 Vancomycin HCl (Vanco rx to dose) 1 ea DAILY PRN MISC Per rx protocol 01/01/20 09:30 01/31/20 09:29 Vancomycin HCl 750 mg/Sodium Chloride 275 ml @ 183.333 mls/hr Q24H IVPB 01/03/20 08:00 01/08/20 07:59 01/03/20 10:14 Heber Abraham MD Jan 03, 2020 11:22"
[2020-01-03 12:00] VITALS: BP 114/58
[2020-01-03] MEDS: Piperacillin/Tazobactam 3.375 GM in NS 110 ML IVPB SCH (12:41)
[2020-01-03] MEDS: Ascorbic Acid 500mg tab GT SCH (12:41)
--- NOTE | 2020-01-03 13:57 | Surgery Progress Note ---
Surgery Progress Note Subjective Additional Comments labs reviewed exam stable no acute events Objective Last 24 Hour Vital Signs Date Time Temp Pulse Resp B/P (MAP) Pulse Ox O2 Delivery O2 Flow Rate FiO2 01/03/20 12:33 74 01/03/20 12:00 97.9 70 24 114/58 (76) 100 01/03/20 12:00 Mechanical Ventilator 01/03/20 12:00 85 01/03/20 11:15 76 33 65 01/03/20 09:29 72 28 70 01/03/20 08:00 85 01/03/20 08:00 68 01/03/20 08:00 Mechanical Ventilator 01/03/20 08:00 97.7 78 23 116/71 (86) 100 01/03/20 07:26 64 32 70 01/03/20 04:55 84 24 80 01/03/20 04:00 97.1 73 24 124/77 (93) 97 01/03/20 04:00 68 01/03/20 04:00 85 01/03/20 04:00 Mechanical Ventilator 01/03/20 02:39 81 26 80 01/03/20 00:49 80 24 80 01/03/20 00:00 Mechanical Ventilator 01/03/20 00:00 96.9 69 26 112/70 (84) 100 01/02/20 23:28 74 01/02/20 22:38 81 26 80 01/02/20 20:46 79 28 80 01/02/20 20:00 Mechanical Ventilator 01/02/20 20:00 97.2 69 26 100/65 (77) 100 01/02/20 20:00 85 01/02/20 19:40 79 01/02/20 18:47 81 29 80 01/02/20 17:48 80 27 80 01/02/20 16:00 96.5 67 30 120/73 (89) 98 01/02/20 16:00 Mechanical Ventilator 01/02/20 16:00 85 01/02/20 15:32 65 01/02/20 15:29 68 34 80 I&O Intake and Output 01/02/20 01/03/20 19:00 07:00 Intake Total 2445.0 ml 1505.0 ml Output Total 800 ml 430 ml Balance 1645.0 ml 1075.0 ml Free Water 50 ml 150 ml IV Total 1795.0 ml 805.0 ml Tube Feeding 500 ml 550 ml Other 100 ml Output Urine Total 800 ml 430 ml # Bowel Movements 2 Dressing: other Wound: other Drains: other Cardiovascular: RSR Respiratory: decreased breath sounds Abdomen: soft, non-tender, present bowel sounds Extremities: no cyanosis, other Laboratory Tests Test 01/03/20 04:35 White Blood Count 15.1 K/UL (4.8-10.8) H Red Blood Count 2.27 M/UL (4.70-6.10) L Hemoglobin 7.5 G/DL (14.2-18.0) L Hematocrit 22.5 % (42.0-52.0) L Mean Corpuscular Volume 99 FL (80-99) Mean Corpuscular Hemoglobin 33.2 PG (27.0-31.0) H Mean Corpuscular Hemoglobin Concent 33.4 G/DL (32.0-36.0) Red Cell Distribution Width 12.8 % (11.6-14.8) Platelet Count 203 K/UL (150-450) Mean Platelet Volume 6.7 FL (6.5-10.1) Neutrophils (%) (Auto) % (45.0-75.0) Lymphocytes (%) (Auto) % (20.0-45.0) Monocytes (%) (Auto) % (1.0-10.0) Eosinophils (%) (Auto) % (0.0-3.0) Basophils (%) (Auto) % (0.0-2.0) Differential Total Cells Counted 100 Neutrophils % (Manual) 89 % (45-75) H Lymphocytes % (Manual) 7 % (20-45) L Monocytes % (Manual) 4 % (1-10) Eosinophils % (Manual) 0 % (0-3) Basophils % (Manual) 0 % (0-2) Band Neutrophils 0 % (0-8) Platelet Estimate Adequate Platelet Morphology Normal Hypochromasia 2+ Sodium Level 147 MMOL/L (136-145) H Potassium Level 5.0 MMOL/L (3.5-5.1) Chloride Level 116 MMOL/L (98-107) H Carbon Dioxide Level 22 MMOL/L (21-32) Anion Gap 9 mmol/L (5-15) Blood Urea Nitrogen 117 mg/dL (7-18) H Creatinine 1.5 MG/DL (0.55-1.30) H Estimat Glomerular Filtration Rate 45.4 mL/min (>60) Glucose Level 116 MG/DL (74-106) H Calcium Level 10.0 MG/DL (8.5-10.1) Troponin I 0.125 ng/mL (0.000-0.056) Pro-B-Type Natriuretic Peptide 9703 pg/mL (0-125) H Random Vancomycin Level 15.2 ug/mL Plan Problems: (1) Decubitus skin ulcer Assessment & Plan: Pt presented on admission with contractures, multiple Skin Breakdown. Skin assessed under collar of trach and no skin breakdown noted.Category 3 Skin tear R elbow(L)4.5cm x (W)5cm. Full flap loss noted. Base of wound moist and viable,edges adherent. No exudate noted. No erythema or elevated skin temp periwound. Category 2 Skin tear L forearm. Full flap intact and reattached. Moderate amt sanguineous exudate noted. Silvasorb Gel applied and covered with Optifoam drsg. Reinforced with ABD Pad and Kerlix. DTPI noted to L Sacrum(L)3.5cm x (W)3cm. Base of wound is maroon and indurated. DTPI R Sacrum(L)7cm x (W)9.5cm. Wound is irregular shaped. Base of wound is maroon and indurated. Scattered areas of darker skin tone without induration or erythema periwound. DTPI L lateral malleolus(L)2.5cm x (W)2cm. Base of wound is fluctuant,purple with surrounding maroon borders. No erythema or elevation in skin temp periwound. Partial thickness wound L 1st metatarsal head (L)2.5cm x (W)2cm. Base of wound is moist and viable. Edges are macerated. Non-blanching erythema without fluctuance periwound. DTPI Dorso/lateral R foot(L)2.3cm x (W)4.3cm. Base of injury is indurated purple /maroon in colour. No erythema or elevation in skin temp periwound. Hyperpigmentation from previous wounds noted to R and L hallux. Tx.Plan: Cleanse Skin tears R Elbow and L forearm with Saline. Apply Silvasorb Gel. Cover each wounds with Optifoam drsgs. Change every 7 days and prn. Apply Triad Paste to R and L Sacrum. Cover with Optifoam drsg. Change every 3 days and prn. Apply Cavilon to Malleoli both feet, Both heels and Both hallux . Cover each site with Optifoam drsgs turn q2h nutritional optimization (2) Respiratory insufficiency (3) Malnutrition Assessment & Plan: DAILY ESTIMATED NEEDS: Needs based on Critical care, wounds/ 60kg abw 22-28 kcals/kg 4845-3682 total kcals 1.25-2 g protein/kg 75-120 g total protein 25-30 mL/kg 0503-7041 total fluid mLs NUTRITION DIAGNOSIS: Swallowing difficulty R/T respiratory status as evidenced by trach/vent dep, PEG dep. CURRENT TF:Glucerna 1.5 @ 50ml/hr x 20 hrs ENTERAL NUTRITION RECOMMENDATIONS: Glucerna 1.5 @ 50ml/hr x 20 hrs to provide 1000ml, 1500kcal, 82.5g prot, 759ml free water * Maintain current TF @ goal : meets 100% est kcal/prot needs * HOB Over 30 degrees/ water flush per MD * Hold Synthroid during 4 hrs that TF is off FOR 22 HRS RUN (total 2 hrs held for Synthroid) -> Glucerna 1.5 @ 45ml/hr x 22 hrs to provide 990ml, 1485kcal, 82g prot -> Hold TF 1 hr before and after Synthroid ADDITIONAL RECOMMENDATIONS: * Per SNF: HT=63", HS=697ugy (as of 12/28/19) * Monitor lytes, replete as needed * Wound healing: f/up w/ WC eval : add Vit C 500mg QD, Jerome 1pkt BID (4) Pneumonia (5) Tracheal stenosis (6) Protein-calorie malnutrition, severe (7) Suspected COVID-19 virus infection Sabino Gold Jan 03, 2020 13:57
[2020-01-03 16:00] VITALS: BP 123/69
--- NOTE | 2020-01-03 16:52 | NUR ---
CASE MANAGEMENT:REVIEW SI;PNA. SEPSIS. TRAC~VENT DEPENDENT. RENAL FAILURE. 97.9 79 33 114/58 100% MECH VENT WBC 15.1 H/H 7.5/22.5 NA 147 BUN 117 CR 1.5 TROP 0.125 BNP 9703 IS;VANCOMYCIN IV Q24 HRS KEPPRA GT Q12 HRS ZOSYN IV Q12 HRS PEPCID IV QD IVF NA @ 150 ML/HR SYNTHROID GT QD FLORINDA STATUS DCP;PATIENT IS FROM [facility]
--- NOTE | 2020-01-03 18:50 | NUR ---
NURSE NOTES: PT HGB 7.5 ,STARTED ON BLOOD TRANSFUSION PER M.D ORDERS.PT TOLERATING WELL BLOOD TRANSFUSION ,NO S/S OF ANY ADVERSE REACTIONS NOTED. WILL CONT TO MONITOR.
--- NOTE | 2020-01-03 19:10 | NUR ---
HAND-OFF: Report given to .CARMELA RIVER.
--- NOTE | 2020-01-03 19:20 | NUR ---
NURSE NOTES: Report received from ALETA Juarez. Observed pt lying in the bed. Obtunded. SR on solar sales representative. Trach to vent, AC 18, TV 450, FIO2 85%, PEEP 5, sat at 99%. Large amount of secretion from mouth and trach noted, suctioned white thick sputum. GT intact. IV on L FA 22G, running 1/2 NS w/ 20meq kcl noted. No acute distress noted at this time. Bed in the lowest position. Side rails up x3. Will continue to monitor.
[2020-01-03 20:00] VITALS: BP 126/75
[2020-01-04] VITALS: BP 140/87
--- NOTE | 2020-01-04 | NUR ---
NURSE NOTES: Noted pt SB with HR of 47, asymptomatic, easily arousable, BP 140/85 noted. Tolerating current vent setting. Will continue to monitor.
[2020-01-04] MEDS: Piperacillin/Tazobactam 3.375 GM in NS 110 ML IVPB SCH ×2 (00:01→11:30)
--- NOTE | 2020-01-04 03:36 | NUR ---
NURSE NOTES: Bed bath given. BM x1, brown soft stool noted. Oral care given. Suction done. Reposition done. Dressings changed. No acute distress noted at this time. Will continue to monitor.
[2020-01-04 03:47] VITALS: BP 143/60
[2020-01-04] MEDS: 1/2NS w/KCl 20mEq 1000ml 1,000 ML IV SCH ×2 (03:49→16:55)
--- NOTE | 2020-01-04 05:15 | Progress Note ---
DATE: 01/03/2020 CARDIOLOGY PROGRESS NOTE SUBJECTIVE: The patient remains on ventilator support with trach. Secretions are voluminous. She requires [id number] respiratory hygiene. OBJECTIVE: VITAL SIGNS: Blood pressure 124/77, pulse 73, respirations 24, afebrile. LUNGS: Bilateral breath sounds. Rhonchi. HEART: Regular rhythm and rate. Normal S1, S2. ABDOMEN: Soft. EXTREMITIES: No edema. LABORATORY DATA: White count 15, hemoglobin 7.5, sodium 147, potassium 5, bicarb 22, BUN 117, creatinine 1.5. Troponin down to 0.125. Pro-natriuretic peptide 9700. TSH 11.7. IMPRESSION: 1. Respiratory failure. 2. Healthcare-associated pneumonia. 3. Acute myocardial ischemia and possible non-ST elevation infarction. 4. Acute diastolic congestive heart failure. 5. Dehydration. 6. Hypernatremia. 7. Acute renal failure. 8. Hypothyroidism. PLAN: 1. Continue hypotonic IV fluid hydration. No diuretics. 2. Packed red blood cell transfusion. 3. Antimicrobials. 4. Respiratory hygiene. 5. DVT prophylaxis. 6. Thyroid replacement. 7. Add anti-platelet therapy if no signs of bleeding. 8. Low-dose beta-minor added. Tony Lobo M.D. DR: MARNIE JOB#: [id number] CC:
[2020-01-04 05:48] LABS: HEMATOCRIT 24.5 % (42.0-52.0); HEMOGLOBIN 8.2 G/DL (14.2-18.0); MEAN CORPUSCULAR VOLUME 97 FL (80-99); PLATELET COUNT 192 K/UL (150-450); RED BLOOD COUNT 2.52 M/UL (4.70-6.10); WHITE BLOOD COUNT 14.2 K/UL (4.8-10.8)
[2020-01-04 05:59] LABS: ANION GAP 7 mmol/L (5-15); BLOOD UREA NITROGEN 101 mg/dL (7-18); CALCIUM 9.9 MG/DL (8.5-10.1); CARBON DIOXIDE 25 MMOL/L (21-32); CHLORIDE 116 MMOL/L (98-107); CREATININE 1.5 MG/DL (0.55-1.30); POTASSIUM 5.1 MMOL/L (3.5-5.1); SODIUM 148 MMOL/L (136-145)
--- NOTE | 2020-01-04 07:14 | NUR ---
NURSE NOTES: RECEIVED REPORT FROM CARMELA PRESALES ENGINEER OF NEUROLOGY HOSPITALIST. RECEIVED PT WITH HOB ELEVATED 45 DEGRE ,OBTUNDED TRACH TO VENT TOLERATING WELL CURRENTS VENT SETTINGS, O2 SAT 100%. RENDERED TRACH CARE AND ORAL HYGIENE LG AMT OF WHITE TICK SECRETIONS NOTED.GTF PATENT AND INTACT.PT REPOSITIONED Q2HRS TO PROVIDE COMFORT AND TO PREVENT FURTHER SKIN BREAK DOWN. FULL BODY ASSESSMENT DONE. WILL CONT TO MONITOR.
[2020-01-04 08:00] VITALS: BP 125/80
[2020-01-04] MEDS: Levothyroxine 125mcg tab GT SCH (09:43)
[2020-01-04] MEDS: levETIRAcetam 500mg/5ml Liquid GT SCH ×2 (09:43→20:27)
[2020-01-04] MEDS: Ascorbic Acid 500mg tab GT SCH (09:45)
[2020-01-04] MEDS: Heparin 5000 units/ml inj SUBQ SCH ×2 (09:48→20:40)
--- NOTE | 2020-01-04 10:20 | NUR ---
*-* INSURANCE *-* ALL CLINICALS AND REVIEWS HAVE BEEN FAXED TO: NIKOLE Quiñonez # [phone] fax#[phone]
--- NOTE | 2020-01-04 11:20 | Critical Care Progress Note ---
Assessment/Plan Assessment/Plan Impression: Pneumonia Sepsis R/o Covid 19 Elevated troponin Renal failure Tracheostomy History of tracheal stenosis Ventilator Dependent Respiratory Failure Chronically altered mental status s/p previous CPA, anoxia Previous Seizures Previous pericardial effusion, Congestive Heart Failure, Atrial Fibrillation Diabetes, Hypothyroidism Previous Hematuria/UTI, previous sepsis GERD sp G tube polymicrobial infection PLAN vent management acid base noted; taper oxygen for now antibiotics reviewed ID evaluation and renal evaluation reviewed and appreciated/ all discussed follow up cultures and sensitivities- reviewed update TSH overall improved; will follow up after discharge feeds resumed and monitor residuals resume other meds seizure precautions repeat echo monitor blood pressure and adjust cardiology noted medications/laboratory data/nursing notes/ICU care reviewed in detail note reviewed and edited care discussed with RN and RT critical time spent >40 minutes coordinating care and updating orders Critical Care - Subjective Interval Events: care noted in FLORINDA on vent poor LOC ROS Limited/Unobtainable: Yes Condition: critical EKG Rhythm: Sinus Rhythm Residuals: minimal Tube Feeding Tolerated: yes I&O: Intake and Output 01/03/20 01/04/20 19:00 07:00 Intake Total 890.0 ml 400 ml Balance 890.0 ml 400 ml IV Total 260.0 ml Tube Feeding 630 ml 400 ml # Voids 1 # Bowel Movements 4 1 Critical Care - Objective Last 24 Hour Vital Signs Date Time Temp Pulse Resp B/P (MAP) Pulse Ox O2 Delivery O2 Flow Rate FiO2 01/04/20 11:00 67 20 65 01/04/20 09:50 73 125/80 01/04/20 09:20 73 26 65 01/04/20 08:00 97.4 73 22 125/80 (95) 100 01/04/20 08:00 Mechanical Ventilator 01/04/20 08:00 65 01/04/20 07:58 68 01/04/20 07:20 70 22 65 01/04/20 05:12 74 25 65 01/04/20 04:00 Mechanical Ventilator 01/04/20 03:48 65 01/04/20 03:47 97.5 99 24 143/60 (87) 100 01/04/20 03:46 72 01/04/20 03:23 81 32 65 01/04/20 01:09 72 30 65 01/04/20 00:00 Mechanical Ventilator 01/04/20 00:00 49 01/04/20 00:00 97.5 49 24 140/87 (104) 99 01/03/20 23:20 74 28 65 01/03/20 21:09 71 28 65 01/03/20 20:00 Mechanical Ventilator 01/03/20 20:00 85 01/03/20 20:00 97.7 72 24 126/75 (92) 100 01/03/20 19:22 80 29 65 01/03/20 19:03 66 01/03/20 18:00 85 01/03/20 17:10 75 32 65 01/03/20 16:00 73 01/03/20 16:00 97.9 73 22 123/69 (87) 100 01/03/20 16:00 Mechanical Ventilator 01/03/20 15:11 78 29 65 01/03/20 13:20 79 31 65 01/03/20 12:33 74 01/03/20 12:00 97.9 70 24 114/58 (76) 100 01/03/20 12:00 Mechanical Ventilator 01/03/20 12:00 85 Labs: Labs Test 01/01/20 16:00 01/02/20 04:45 01/03/20 04:35 01/04/20 05:00 Random Vancomycin Level 12.4 ug/mL 15.2 ug/mL Erythrocyte Sedimentation Rate 133 MM/HR (0-20) Prothrombin Time 13.0 SEC (9.30-11.50) Prothromb Time International Ratio 1.2 (0.9-1.1) Activated Partial Thromboplast Time 30 SEC (23-33) Sodium Level 148 MMOL/L (136-145) 147 MMOL/L (136-145) 148 MMOL/L (136-145) Potassium Level 4.0 MMOL/L (3.5-5.1) 5.0 MMOL/L (3.5-5.1) 5.1 MMOL/L (3.5-5.1) Chloride Level 114 MMOL/L (98-107) 116 MMOL/L (98-107) 116 MMOL/L (98-107) Carbon Dioxide Level 24 MMOL/L (21-32) 22 MMOL/L (21-32) 25 MMOL/L (21-32) Anion Gap 10 mmol/L (5-15) 9 mmol/L (5-15) 7 mmol/L (5-15) Blood Urea Nitrogen 125 mg/dL (7-18) 117 mg/dL (7-18) 101 mg/dL (7-18) Creatinine 1.6 MG/DL (0.55-1.30) 1.5 MG/DL (0.55-1.30) 1.5 MG/DL (0.55-1.30) Estimat Glomerular Filtration Rate 42.1 mL/min (>60) 45.4 mL/min (>60) 45.4 mL/min (>60) Glucose Level 102 MG/DL (74-106) 116 MG/DL (74-106) 103 MG/DL (74-106) Lactic Acid Level 0.30 mmol/L (0.4-2.0) Calcium Level 10.8 MG/DL (8.5-10.1) 10.0 MG/DL (8.5-10.1) 9.9 MG/DL (8.5-10.1) Total Bilirubin 0.4 MG/DL (0.2-1.0) Aspartate Amino Transf (AST/SGOT) 18 U/L (15-37) Alanine Aminotransferase (ALT/SGPT) 15 U/L (12-78) Alkaline Phosphatase 106 U/L (46-116) Total Creatine Kinase 25 U/L (26-308) C-Reactive Protein, Quantitative 24.3 mg/dL (0.00-0.90) Total Protein 7.2 G/DL (6.4-8.2) Albumin 1.7 G/DL (3.4-5.0) Globulin 5.5 g/dL Albumin/Globulin Ratio 0.3 (1.0-2.7) Amylase Level 64 U/L (25-115) Lipase 88 U/L (73-393) Thyroid Stimulating Hormone (TSH) 11.746 uiU/mL (0.358-3.740) White Blood Count 15.1 K/UL (4.8-10.8) 14.2 K/UL (4.8-10.8) Red Blood Count 2.27 M/UL (4.70-6.10) 2.52 M/UL (4.70-6.10) Hemoglobin 7.5 G/DL (14.2-18.0) 8.2 G/DL (14.2-18.0) Hematocrit 22.5 % (42.0-52.0) 24.5 % (42.0-52.0) Mean Corpuscular Volume 99 FL (80-99) 97 FL (80-99) Mean Corpuscular Hemoglobin 33.2 PG (27.0-31.0) 32.6 PG (27.0-31.0) Mean Corpuscular Hemoglobin Concent 33.4 G/DL (32.0-36.0) 33.5 G/DL (32.0-36.0) Red Cell Distribution Width 12.8 % (11.6-14.8) 13.0 % (11.6-14.8) Platelet Count 203 K/UL (150-450) 192 K/UL (150-450) Mean Platelet Volume 6.7 FL (6.5-10.1) 6.7 FL (6.5-10.1) Neutrophils (%) (Auto) % (45.0-75.0) % (45.0-75.0) Lymphocytes (%) (Auto) % (20.0-45.0) % (20.0-45.0) Monocytes (%) (Auto) % (1.0-10.0) % (1.0-10.0) Eosinophils (%) (Auto) % (0.0-3.0) % (0.0-3.0) Basophils (%) (Auto) % (0.0-2.0) % (0.0-2.0) Differential Total Cells Counted 100 100 Neutrophils % (Manual) 89 % (45-75) 88 % (45-75) Lymphocytes % (Manual) 7 % (20-45) 7 % (20-45) Monocytes % (Manual) 4 % (1-10) 4 % (1-10) Eosinophils % (Manual) 0 % (0-3) 1 % (0-3) Basophils % (Manual) 0 % (0-2) 0 % (0-2) Band Neutrophils 0 % (0-8) 0 % (0-8) Platelet Estimate Adequate Adequate Platelet Morphology Normal Normal Hypochromasia 2+ 2+ Troponin I 0.125 ng/mL (0.000-0.056) Pro-B-Type Natriuretic Peptide 9703 pg/mL (0-125) Anisocytosis 1+ Spherocytes 1+ Magnesium Level 1.6 MG/DL (1.8-2.4) Objective: WDWN NAD reduced breath sounds bilaterally without rhonchi or wheeze [id number] without MRG NABS nontender no HSM GT no CCE nonfocal trach on 100% Micro: Microbiology Date/Time Source Procedure Growth Status 01/01/20 16:30 Sputum Induced Gram Stain - Final Resulted 01/01/20 16:30 Sputum Culture - Preliminary Escherichia Coli - Esbl Pseudomonas Aeruginosa Gram Negative Bacillus 3 Resulted Dillon Harris MD Jan 04, 2020 11:20
[2020-01-04 11:46] VITALS: BP 129/83
--- NOTE | 2020-01-04 12:06 | NUR ---
CASE MANAGEMENT: REVIEW 01/04/2020 SI:Respiratory failure. Healthcare-associated pneumonia. VS: T 97.5 HR 64 RR 24 B/P 129/83 SATS 100% ON MECH VENT FIO2 65 LABS: WBC 14.2 NA 148 CL 116 BUN 101 CR 1.5 MG 1.6 IS:NS @ 100 mL/HR KEPPRA GT Q12H COREG PO Q12H MEROPENEM IV Q12H SDU PLAN OF CARE: 2D ECHO CONTACT ISO WOUND CARE TRANSFUSE
--- NOTE | 2020-01-04 14:33 | Surgery Progress Note ---
Surgery Progress Note Subjective Additional Comments no acute events no acute events labs noted images reviewed Objective Last 24 Hour Vital Signs Date Time Temp Pulse Resp B/P (MAP) Pulse Ox O2 Delivery O2 Flow Rate FiO2 01/04/20 13:59 61 01/04/20 13:10 61 20 65 01/04/20 11:46 97.5 64 24 129/83 (98) 100 01/04/20 11:00 67 20 65 01/04/20 09:50 73 125/80 01/04/20 09:20 73 26 65 01/04/20 08:00 97.4 73 22 125/80 (95) 100 01/04/20 08:00 Mechanical Ventilator 01/04/20 08:00 65 01/04/20 07:58 68 01/04/20 07:20 70 22 65 01/04/20 05:12 74 25 65 01/04/20 04:00 Mechanical Ventilator 01/04/20 03:48 65 01/04/20 03:47 97.5 99 24 143/60 (87) 100 01/04/20 03:46 72 01/04/20 03:23 81 32 65 01/04/20 01:09 72 30 65 01/04/20 00:00 Mechanical Ventilator 01/04/20 00:00 49 01/04/20 00:00 97.5 49 24 140/87 (104) 99 01/03/20 23:20 74 28 65 01/03/20 21:09 71 28 65 01/03/20 20:00 Mechanical Ventilator 01/03/20 20:00 85 01/03/20 20:00 97.7 72 24 126/75 (92) 100 01/03/20 19:22 80 29 65 01/03/20 19:03 66 01/03/20 18:00 85 01/03/20 17:10 75 32 65 01/03/20 16:00 73 01/03/20 16:00 97.9 73 22 123/69 (87) 100 01/03/20 16:00 Mechanical Ventilator 01/03/20 15:11 78 29 65 I&O Intake and Output 01/03/20 01/04/20 19:00 07:00 Intake Total 890.0 ml 550 ml Balance 890.0 ml 550 ml IV Total 260.0 ml 100 ml Tube Feeding 630 ml 450 ml # Voids 1 # Bowel Movements 4 1 Dressing: saturated Wound: other Drains: other Cardiovascular: RSR Respiratory: decreased breath sounds Abdomen: soft, present bowel sounds Extremities: no cyanosis Laboratory Tests Test 01/04/20 05:00 White Blood Count 14.2 K/UL (4.8-10.8) H Red Blood Count 2.52 M/UL (4.70-6.10) L Hemoglobin 8.2 G/DL (14.2-18.0) L Hematocrit 24.5 % (42.0-52.0) L Mean Corpuscular Volume 97 FL (80-99) Mean Corpuscular Hemoglobin 32.6 PG (27.0-31.0) H Mean Corpuscular Hemoglobin Concent 33.5 G/DL (32.0-36.0) Red Cell Distribution Width 13.0 % (11.6-14.8) Platelet Count 192 K/UL (150-450) Mean Platelet Volume 6.7 FL (6.5-10.1) Neutrophils (%) (Auto) % (45.0-75.0) Lymphocytes (%) (Auto) % (20.0-45.0) Monocytes (%) (Auto) % (1.0-10.0) Eosinophils (%) (Auto) % (0.0-3.0) Basophils (%) (Auto) % (0.0-2.0) Differential Total Cells Counted 100 Neutrophils % (Manual) 88 % (45-75) H Lymphocytes % (Manual) 7 % (20-45) L Monocytes % (Manual) 4 % (1-10) Eosinophils % (Manual) 1 % (0-3) Basophils % (Manual) 0 % (0-2) Band Neutrophils 0 % (0-8) Platelet Estimate Adequate Platelet Morphology Normal Hypochromasia 2+ Anisocytosis 1+ Spherocytes 1+ Sodium Level 148 MMOL/L (136-145) H Potassium Level 5.1 MMOL/L (3.5-5.1) Chloride Level 116 MMOL/L (98-107) H Carbon Dioxide Level 25 MMOL/L (21-32) Anion Gap 7 mmol/L (5-15) Blood Urea Nitrogen 101 mg/dL (7-18) H Creatinine 1.5 MG/DL (0.55-1.30) H Estimat Glomerular Filtration Rate 45.4 mL/min (>60) Glucose Level 103 MG/DL (74-106) Calcium Level 9.9 MG/DL (8.5-10.1) Magnesium Level 1.6 MG/DL (1.8-2.4) L Plan Problems: (1) Decubitus skin ulcer Assessment & Plan: Pt presented on admission with contractures, multiple Skin Breakdown. Skin assessed under collar of trach and no skin breakdown noted.Category 3 Skin tear R elbow(L)4.5cm x (W)5cm. Full flap loss noted. Base of wound moist and viable,edges adherent. No exudate noted. No erythema or elevated skin temp periwound. Category 2 Skin tear L forearm. Full flap intact and reattached. Moderate amt sanguineous exudate noted. Silvasorb Gel applied and covered with Optifoam drsg. Reinforced with ABD Pad and Kerlix. DTPI noted to L Sacrum(L)3.5cm x (W)3cm. Base of wound is maroon and indurated. DTPI R Sacrum(L)7cm x (W)9.5cm. Wound is irregular shaped. Base of wound is maroon and indurated. Scattered areas of darker skin tone without induration or erythema periwound. DTPI L lateral malleolus(L)2.5cm x (W)2cm. Base of wound is fluctuant,purple with surrounding maroon borders. No erythema or elevation in skin temp periwound. Partial thickness wound L 1st metatarsal head (L)2.5cm x (W)2cm. Base of wound is moist and viable. Edges are macerated. Non-blanching erythema without fluctuance periwound. DTPI Dorso/lateral R foot(L)2.3cm x (W)4.3cm. Base of injury is indurated purple /maroon in colour. No erythema or elevation in skin temp periwound. Hyperpigmentation from previous wounds noted to R and L hallux. Tx.Plan: Cleanse Skin tears R Elbow and L forearm with Saline. Apply Silvasorb Gel. Cover each wounds with Optifoam drsgs. Change every 7 days and prn. Apply Triad Paste to R and L Sacrum. Cover with Optifoam drsg. Change every 3 days and prn. Apply Cavilon to [place] both feet, Both heels and Both hallux . Cover each site with Optifoam drsgs turn q2h nutritional optimization (2) Respiratory insufficiency (3) Malnutrition Assessment & Plan: DAILY ESTIMATED NEEDS: Needs based on Critical care, wounds/ 60kg abw 22-28 kcals/kg 2371-9413 total kcals 1.25-2 g protein/kg 75-120 g total protein 25-30 mL/kg 3651-0498 total fluid mLs NUTRITION DIAGNOSIS: Swallowing difficulty R/T respiratory status as evidenced by trach/vent dep, PEG dep. CURRENT TF:Glucerna 1.5 @ 50ml/hr x 20 hrs ENTERAL NUTRITION RECOMMENDATIONS: Glucerna 1.5 @ 50ml/hr x 20 hrs to provide 1000ml, 1500kcal, 82.5g prot, 759ml free water * Maintain current TF @ goal : meets 100% est kcal/prot needs * HOB Over 30 degrees/ water flush per MD * Hold Synthroid during 4 hrs that TF is off FOR 22 HRS RUN (total 2 hrs held for Synthroid) -> Glucerna 1.5 @ 45ml/hr x 22 hrs to provide 990ml, 1485kcal, 82g prot -> Hold TF 1 hr before and after Synthroid ADDITIONAL RECOMMENDATIONS: * Per SNF: HT=63", LF=914vuc (as of 12/28/19) * Monitor lytes, replete as needed * Wound healing: f/up w/ WC eval : add Vit C 500mg QD, Jerome 1pkt BID (4) Pneumonia (5) Tracheal stenosis (6) Protein-calorie malnutrition, severe (7) Suspected COVID-19 virus infection Sabino Gold Jan 04, 2020 14:33
[2020-01-04 16:00] VITALS: BP 136/74
[2020-01-04] MEDS: Meropenem 1gm/NS 110ml IVPB SCH ×4 (16:54→21:19)
--- NOTE | 2020-01-04 18:28 | Nephrology Progress Note ---
Assessment/Plan Problem List: (1) Hypernatremia (2) Dehydration (3) JOHN (acute kidney injury) (4) Respiratory insufficiency (5) Pneumonia (6) Protein-calorie malnutrition, severe (7) Hx of tracheostomy Plan continue hypotonic iv's, antibiotics Subjective ROS Limited/Unobtainable: Yes Objective Objective Last 24 Hour Vital Signs Date Time Temp Pulse Resp B/P (MAP) Pulse Ox O2 Delivery O2 Flow Rate FiO2 01/04/20 17:25 71 19 65 01/04/20 16:00 Mechanical Ventilator 01/04/20 16:00 97.5 70 22 136/74 (94) 100 01/04/20 16:00 65 01/04/20 15:46 71 01/04/20 14:55 62 19 65 01/04/20 13:59 61 01/04/20 13:10 61 20 65 01/04/20 12:00 Mechanical Ventilator 01/04/20 12:00 65 01/04/20 11:46 97.5 64 24 129/83 (98) 100 01/04/20 11:00 67 20 65 01/04/20 09:50 73 125/80 01/04/20 09:20 73 26 65 01/04/20 08:00 97.4 73 22 125/80 (95) 100 01/04/20 08:00 Mechanical Ventilator 01/04/20 08:00 65 01/04/20 07:58 68 01/04/20 07:20 70 22 65 01/04/20 05:12 74 25 65 01/04/20 04:00 Mechanical Ventilator 01/04/20 03:48 65 01/04/20 03:47 97.5 99 24 143/60 (87) 100 01/04/20 03:46 72 01/04/20 03:23 81 32 65 01/04/20 01:09 72 30 65 01/04/20 00:00 Mechanical Ventilator 01/04/20 00:00 49 01/04/20 00:00 97.5 49 24 140/87 (104) 99 01/03/20 23:20 74 28 65 01/03/20 21:09 71 28 65 01/03/20 20:00 Mechanical Ventilator 01/03/20 20:00 85 01/03/20 20:00 97.7 72 24 126/75 (92) 100 01/03/20 19:22 80 29 65 01/03/20 19:03 66 Intake and Output 01/03/20 01/04/20 19:00 07:00 Intake Total 890.0 ml 550 ml Balance 890.0 ml 550 ml IV Total 260.0 ml 100 ml Tube Feeding 630 ml 450 ml # Voids 1 # Bowel Movements 4 1 Laboratory Tests 01/04/20 05:00: White Blood Count 14.2H, Red Blood Count 2.52L, Hemoglobin 8.2L, Hematocrit 24.5L, Mean Corpuscular Volume 97, Mean Corpuscular Hemoglobin 32.6H, Mean Corpuscular Hemoglobin Concent 33.5, Red Cell Distribution Width 13.0, Platelet Count 192, Mean Platelet Volume 6.7, Neutrophils (%) (Auto) , Lymphocytes (%) ( Auto) , Monocytes (%) (Auto) , Eosinophils (%) (Auto) , Basophils (%) (Auto) , Differential Total Cells Counted 100, Neutrophils % (Manual) 88H, Lymphocytes % (Manual) 7L, Monocytes % (Manual) 4, Eosinophils % (Manual) 1, Basophils % ( Manual) 0, Band Neutrophils 0, Platelet Estimate Adequate, Platelet Morphology Normal, Hypochromasia 2+, Anisocytosis 1+, Spherocytes 1+, Sodium Level 148H, Potassium Level 5.1, Chloride Level 116H, Carbon Dioxide Level 25, Anion Gap 7, Blood Urea Nitrogen 101H, Creatinine 1.5H, Estimat Glomerular Filtration Rate 45.4, Glucose Level 103, Calcium Level 9.9, Magnesium Level 1.6L Height (Feet): 5 Height (Inches): 5.00 Weight (Pounds): 120 General Appearance: cachetic, other - on vent unresponsive EENT: normal ENT inspection Neck: other - trach Cardiovascular: regular rhythm Respiratory/Chest: rhonchi - bilaterally Abdomen: non tender, soft Extremities: no edema Neurologic: abnormal wet room supervisor II-XII, motor weakness Pravin Abad MD Jan 04, 2020 18:28
--- NOTE | 2020-01-04 19:00 | NUR ---
NURSE NOTES:PLACED A TELEPHONE CALL TO DR DARNELL REGARDING MAGNESIUM LEVEL IS 1.6. DR MORATAYA IS COVERING FOR DR DUKES . REC,D A T.O FROM DR MORATAYA TO GIVE MAGNESIUM LEVEL 4 GRAMS IVPB .NEW ORDERS NOTED AND CARRIED OUT. WILL CONT TO MONITOR.
--- NOTE | 2020-01-04 19:10 | NUR ---
NURSE NOTES: Received patient and report from ALETA Juarez. Patient is observed resting in bed and remains obtunded. No pain noted upon assessment. Pt is trach to vent with the following settings: AC 18 TV 450 FiO2 85% PEEP 5 and no s/sx of acute distress. Pt noted to be ST on tele monitor with a current HR of 67 noted, no s/sx of acute distress. L FA 22 IV catheter noted which remains asymptomatic, intact and patent. Previous ordered to start D5W noted; will carry out order. GT noted which remains patent and intact. Will initiate feeding as ordered. Condom catheter noted which remains intact and draining yellow urine to gravity. Diagnostics reviewed. Skin alterations noted. Fall, Aspiration and Seizure precautions observed. Immediately padded side rails for patient safety. Pt remains resting in bed; Bed remains in the lowest position with the safety wheels engaged, call light within reach, side rails up x3 and bed alarm activated. Will continue plan of care. Will continue to monitor.
--- NOTE | 2020-01-04 19:20 | NUR ---
HAND-OFF: Report given to .JANEE RIVER.
--- NOTE | 2020-01-04 19:40 | NUR ---
NURSE NOTES: Called and spoke with [place] from lab; confirmed sample has been processed for second COVID swab. Will continue to observe appropriate isolation precautions.
[2020-01-04 20:00] VITALS: BP 133/75
--- NOTE | 2020-01-04 20:00 | NUR ---
NURSE NOTES: Attempted to place additional IV catheter for administration of Magnesium as ordered. Attempts unsuccessful and verified by second RN. Will administer IV antibiotics and magnesium as ordered. Will continue to monitor.
--- NOTE | 2020-01-04 20:08 | General Progress Note ---
Assessment/Plan Problem List: (1) JOHN (acute kidney injury) ICD Codes: N17.9 - Acute kidney failure, unspecified SNOMED: 0110270, 69973015 (2) Dehydration ICD Codes: E86.0 - Dehydration SNOMED: 82327339 (3) Suspected COVID-19 virus infection ICD Codes: R68.89 - Other general symptoms and signs SNOMED: 021166457 (4) Tracheal stenosis ICD Codes: J39.8 - Other specified diseases of upper respiratory tract SNOMED: 85027015 (5) Pneumonia ICD Codes: J18.9 - Pneumonia, unspecified organism SNOMED: 148055315 (6) Malnutrition ICD Codes: E46 - Unspecified protein-calorie malnutrition SNOMED: 33438751 (7) Respiratory insufficiency ICD Codes: R06.89 - Other abnormalities of breathing SNOMED: 062332088 Status: stable Assessment/Plan: cont current rx ivf iv abx follow up cultures monitor labs transfuse as needed skin/wound care Subjective ROS Limited/Unobtainable: No Constitutional: Reports: malaise, weakness HEENT: Reports: no symptoms Cardiovascular: Reports: no symptoms Respiratory: Reports: cough, shortness of breath, sputum Gastrointestinal/Abdominal: Reports: difficulty swallowing Genitourinary: Reports: no symptoms Neurologic/Psychiatric: Reports: pre-existing deficit Endocrine: Reports: no symptoms Hematologic/Lymphatic: Reports: anemia Allergies: Coded Allergies: No Known Allergies (Unverified , 12/31/19) All Systems: reviewed and negative except above Subjective no events. stable on the vent. no fever or chills. labs improving. on iv abx. poorly responsive. Objective Last 24 Hour Vital Signs Date Time Temp Pulse Resp B/P (MAP) Pulse Ox O2 Delivery O2 Flow Rate FiO2 01/04/20 19:42 66 22 65 01/04/20 17:25 71 19 65 01/04/20 16:00 Mechanical Ventilator 01/04/20 16:00 97.5 70 22 136/74 (94) 100 01/04/20 16:00 65 01/04/20 15:46 71 01/04/20 14:55 62 19 65 01/04/20 13:59 61 01/04/20 13:10 61 20 65 01/04/20 12:00 Mechanical Ventilator 01/04/20 12:00 65 01/04/20 11:46 97.5 64 24 129/83 (98) 100 01/04/20 11:00 67 20 65 01/04/20 09:50 73 125/80 01/04/20 09:20 73 26 65 01/04/20 08:00 97.4 73 22 125/80 (95) 100 01/04/20 08:00 Mechanical Ventilator 01/04/20 08:00 65 01/04/20 07:58 68 01/04/20 07:20 70 22 65 01/04/20 05:12 74 25 65 01/04/20 04:00 Mechanical Ventilator 01/04/20 03:48 65 01/04/20 03:47 97.5 99 24 143/60 (87) 100 01/04/20 03:46 72 01/04/20 03:23 81 32 65 01/04/20 01:09 72 30 65 01/04/20 00:00 Mechanical Ventilator 01/04/20 00:00 49 01/04/20 00:00 97.5 49 24 140/87 (104) 99 01/03/20 23:20 74 28 65 01/03/20 21:09 71 28 65 Intake and Output 01/03/20 01/04/20 19:00 07:00 Intake Total 890.0 ml 550 ml Balance 890.0 ml 550 ml IV Total 260.0 ml 100 ml Tube Feeding 630 ml 450 ml # Voids 1 # Bowel Movements 4 1 Laboratory Tests 01/04/20 05:00: White Blood Count 14.2H, Red Blood Count 2.52L, Hemoglobin 8.2L, Hematocrit 24.5L, Mean Corpuscular Volume 97, Mean Corpuscular Hemoglobin 32.6H, Mean Corpuscular Hemoglobin Concent 33.5, Red Cell Distribution Width 13.0, Platelet Count 192, Mean Platelet Volume 6.7, Neutrophils (%) (Auto) , Lymphocytes (%) ( Auto) , Monocytes (%) (Auto) , Eosinophils (%) (Auto) , Basophils (%) (Auto) , Differential Total Cells Counted 100, Neutrophils % (Manual) 88H, Lymphocytes % (Manual) 7L, Monocytes % (Manual) 4, Eosinophils % (Manual) 1, Basophils % ( Manual) 0, Band Neutrophils 0, Platelet Estimate Adequate, Platelet Morphology Normal, Hypochromasia 2+, Anisocytosis 1+, Spherocytes 1+, Sodium Level 148H, Potassium Level 5.1, Chloride Level 116H, Carbon Dioxide Level 25, Anion Gap 7, Blood Urea Nitrogen 101H, Creatinine 1.5H, Estimat Glomerular Filtration Rate 45.4, Glucose Level 103, Calcium Level 9.9, Magnesium Level 1.6L Height (Feet): 5 Height (Inches): 5.00 Weight (Pounds): 120 General Appearance: WD/WN, alert Neck: supple Cardiovascular: regular rhythm Respiratory/Chest: chest wall non-tender, rhonchi - bilaterally Abdomen: normal bowel sounds, non tender, soft, no organomegaly Edema: no edema noted Arm (L), no edema noted Arm (R), no edema noted Leg (L), no edema noted Leg (R), no edema noted Pedal (L), no edema noted Pedal (R), no edema noted Generalized Neurologic: disoriented, aphasia Vasuqez De Paz MD Jan 04, 2020 20:08
--- NOTE | 2020-01-04 21:00 | NUR ---
NURSE NOTES: Heparin held; urine looks slightly pink in color. Will continue to reassess urine to look for s/sx of hematuria. No other s/sx of active bleeding noted. Will continue to monitor.
--- NOTE | 2020-01-04 23:00 | NUR ---
NURSE NOTES: Pt provided with a bed bath, oral care and linen change. Pt tolerated care well. ROM exercises performed as tolerated by pt Pt remains resting in bed; Bed remains in the lowest position with the safety wheels engaged, call light within reach, side rails up x3 and bed alarm activated. Will continue plan of care. Will continue to monitor.
[2020-01-05] VITALS: BP 130/75
--- NOTE | 2020-01-05 02:45 | Progress Note ---
DATE: 01/04/2020 SUBJECTIVE: The patient remains on ventilator support. Poorly responsive. Secretions remain voluminous. PHYSICAL EXAMINATION: VITAL SIGNS: Afebrile. Blood pressure 136/74, heart rate 70, respiratory rate 22. LUNGS: Bilateral breath sounds with rhonchi. CARDIAC: Regular rhythm and rate. Normal S1, S2. ABDOMEN: Soft. There is a G-tube. EXTREMITIES: No edema. LABORATORY AND DIAGNOSTIC DATA: White count 14.2, hemoglobin 8.2, platelet count 192,000. Sodium 148, potassium 5.1, bicarb 25, BUN 101, creatinine 1.5, magnesium 1.6. IMPRESSION: 1. Respiratory failure. 2. Healthcare-associated pneumonia. 3. Hypomagnesemia. 4. Sepsis. 5. Dehydration. 6. Hypernatremia. 7. Acute myocardial ischemia and possibly non-ST elevation myocardial infarction. 8. Ljufu-[id number] diastolic congestive heart failure. PLAN: 1. Free water replacement. 2. No diuresis at this time. 3. Continue beta minor. 4. In view of anemia, continue to hold anti-platelet therapy until blood loss is excluded. Tony Lobo M.D. DR: Diana JOB#: [id number] CC:
--- NOTE | 2020-01-05 03:00 | NUR ---
NURSE NOTES: Pt provided with a bed bath, oral care and linen change. ROM exercises performed as tolerated by pt. Pt tolerated care well. No adverse effects noted from magnesium administration. Pt remains resting in bed; Bed remains in the lowest position with the safety wheels engaged, call light within reach, side rails up x3 and bed alarm activated. Will continue plan of care. Will continue to monitor.
[2020-01-05 04:00] VITALS: BP 136/74
[2020-01-05 05:42] LABS: HEMATOCRIT 25.9 % (42.0-52.0); HEMOGLOBIN 8.7 G/DL (14.2-18.0); MEAN CORPUSCULAR VOLUME 97 FL (80-99); PLATELET COUNT 205 K/UL (150-450); RED BLOOD COUNT 2.67 M/UL (4.70-6.10); WHITE BLOOD COUNT 12.7 K/UL (4.8-10.8)
[2020-01-05 05:57] LABS: BLOOD UREA NITROGEN 81 mg/dL (7-18); CALCIUM 9.4 MG/DL (8.5-10.1); CARBON DIOXIDE 38 MMOL/L (21-32); CHLORIDE 113 MMOL/L (98-107); CREATININE 1.6 MG/DL (0.55-1.30); POTASSIUM 4.9 MMOL/L (3.5-5.1); SODIUM 146 MMOL/L (136-145)
--- NOTE | 2020-01-05 06:33 | NUR ---
NURSE NOTES: Critical Troponin noted with a result of 0.803. Troponin noted to be trending down. EKG shows pt remains in SR. Will notify cardiology. Will continue to monitor.
--- NOTE | 2020-01-05 06:47 | NUR ---
NURSE NOTES: COVID swabs came back negative x2. Called ID in order to inform physician of results. Will await a call back. Will continue to monitor.
--- NOTE | 2020-01-05 07:18 | NUR ---
HAND-OFF: Report given to ALETA Ghotra. Pt remains stable at this time.
--- NOTE | 2020-01-05 07:20 | NUR ---
NURSE NOTES: Report received from Agnes Kimball RN.Pt resting in bed awake,noted no resp distress,with trach to vent,ordered vent settings tolerated,no signs of pain or discomfort,,GTF Glucerna 1.5 at 50 ml/hr,no residual noted ,condom cath in placed draining yellow urine,skin warm and dry IV site to LAC intact with IVF D5W at 125 ml/hr,SR up x2 HOB elevated,bed lock in lowest position,will continue with plans of care.
[2020-01-05 08:00] VITALS: BP 132/73
--- NOTE | 2020-01-05 09:02 | Critical Care Progress Note ---
Assessment/Plan Assessment/Plan Impression: Pneumonia Sepsis R/o Covid 19 Elevated troponin Renal failure Tracheostomy History of tracheal stenosis Ventilator Dependent Respiratory Failure Chronically altered mental status s/p previous CPA, anoxia Previous Seizures Previous pericardial effusion, Congestive Heart Failure, Atrial Fibrillation Diabetes, Hypothyroidism Previous Hematuria/UTI, previous sepsis GERD sp G tube polymicrobial infection PLAN vent management as is acid base noted; taper oxygen as able antibiotics reviewed and d/w ID ID evaluation and renal evaluation reviewed and appreciated/ all discussed follow up cultures and sensitivities- reviewed update TSH overall improved; will follow up after discharge feeds resumed and monitor residuals resume other meds seizure precautions repeat echo pending monitor blood pressure and adjust cardiology noted medications/laboratory data/nursing notes/ICU care reviewed in detail note reviewed and edited care discussed with RN and RT critical time spent >40 minutes coordinating care and updating orders Critical Care - Subjective Interval Events: care noted on vent bun better COVID negative x2 ROS Limited/Unobtainable: Yes Condition: critical EKG Rhythm: Sinus Rhythm Residuals: minimal Tube Feeding Tolerated: yes I&O: Intake and Output 01/04/20 01/05/20 19:00 07:00 Intake Total 960 ml 1830.833 ml Output Total 1300 ml Balance -340 ml 1830.833 ml Free Water 200 ml IV Total 410 ml 1080.833 ml Tube Feeding 550 ml 550 ml Output Urine Total 1300 ml # Bowel Movements 3 3 Critical Care - Objective Last 24 Hour Vital Signs Date Time Temp Pulse Resp B/P (MAP) Pulse Ox O2 Delivery O2 Flow Rate FiO2 01/05/20 08:00 97.2 64 28 132/73 (92) 98 01/05/20 08:00 Mechanical Ventilator 01/05/20 08:00 65 01/05/20 05:06 67 29 65 01/05/20 04:00 Mechanical Ventilator 01/05/20 04:00 98.0 63 18 136/74 (94) 98 01/05/20 04:00 65 01/05/20 03:42 70 32 65 01/05/20 03:32 66 01/05/20 01:12 63 21 65 01/05/20 00:00 Mechanical Ventilator 01/05/20 00:00 98.1 56 14 130/75 (93) 97 01/04/20 23:52 62 31 65 01/04/20 23:50 63 01/04/20 22:21 72 22 65 4/9/20 20:29 72 141/81 01/04/20 20:00 65 01/04/20 20:00 Mechanical Ventilator 01/04/20 20:00 97.9 64 18 133/75 (94) 98 01/04/20 19:42 66 22 65 01/04/20 19:29 66 01/04/20 17:25 71 19 65 01/04/20 16:00 Mechanical Ventilator 01/04/20 16:00 97.5 70 22 136/74 (94) 100 01/04/20 16:00 65 01/04/20 15:46 71 01/04/20 14:55 62 19 65 01/04/20 13:59 61 01/04/20 13:10 61 20 65 01/04/20 12:00 Mechanical Ventilator 01/04/20 12:00 65 01/04/20 11:46 97.5 64 24 129/83 (98) 100 01/04/20 11:00 67 20 65 01/04/20 09:50 73 125/80 01/04/20 09:20 73 26 65 Labs: Labs Test 01/03/20 04:35 01/04/20 05:00 01/05/20 04:35 White Blood Count 15.1 K/UL (4.8-10.8) 14.2 K/UL (4.8-10.8) 12.7 K/UL (4.8-10.8) Red Blood Count 2.27 M/UL (4.70-6.10) 2.52 M/UL (4.70-6.10) 2.67 M/UL (4.70-6.10) Hemoglobin 7.5 G/DL (14.2-18.0) 8.2 G/DL (14.2-18.0) 8.7 G/DL (14.2-18.0) Hematocrit 22.5 % (42.0-52.0) 24.5 % (42.0-52.0) 25.9 % (42.0-52.0) Mean Corpuscular Volume 99 FL (80-99) 97 FL (80-99) 97 FL (80-99) Mean Corpuscular Hemoglobin 33.2 PG (27.0-31.0) 32.6 PG (27.0-31.0) 32.5 PG (27.0-31.0) Mean Corpuscular Hemoglobin Concent 33.4 G/DL (32.0-36.0) 33.5 G/DL (32.0-36.0) 33.5 G/DL (32.0-36.0) Red Cell Distribution Width 12.8 % (11.6-14.8) 13.0 % (11.6-14.8) 13.0 % (11.6-14.8) Platelet Count 203 K/UL (150-450) 192 K/UL (150-450) 205 K/UL (150-450) Mean Platelet Volume 6.7 FL (6.5-10.1) 6.7 FL (6.5-10.1) 7.7 FL (6.5-10.1) Neutrophils (%) (Auto) % (45.0-75.0) % (45.0-75.0) % (45.0-75.0) Lymphocytes (%) (Auto) % (20.0-45.0) % (20.0-45.0) % (20.0-45.0) Monocytes (%) (Auto) % (1.0-10.0) % (1.0-10.0) % (1.0-10.0) Eosinophils (%) (Auto) % (0.0-3.0) % (0.0-3.0) % (0.0-3.0) Basophils (%) (Auto) % (0.0-2.0) % (0.0-2.0) % (0.0-2.0) Differential Total Cells Counted 100 100 Neutrophils % (Manual) 89 % (45-75) 88 % (45-75) Lymphocytes % (Manual) 7 % (20-45) 7 % (20-45) Monocytes % (Manual) 4 % (1-10) 4 % (1-10) Eosinophils % (Manual) 0 % (0-3) 1 % (0-3) Basophils % (Manual) 0 % (0-2) 0 % (0-2) Band Neutrophils 0 % (0-8) 0 % (0-8) Platelet Estimate Adequate Adequate Platelet Morphology Normal Normal Hypochromasia 2+ 2+ Sodium Level 147 MMOL/L (136-145) 148 MMOL/L (136-145) 146 MMOL/L (136-145) Potassium Level 5.0 MMOL/L (3.5-5.1) 5.1 MMOL/L (3.5-5.1) 4.9 MMOL/L (3.5-5.1) Chloride Level 116 MMOL/L (98-107) 116 MMOL/L (98-107) 113 MMOL/L (98-107) Carbon Dioxide Level 22 MMOL/L (21-32) 25 MMOL/L (21-32) 38 MMOL/L (21-32) Anion Gap 9 mmol/L (5-15) 7 mmol/L (5-15) Blood Urea Nitrogen 117 mg/dL (7-18) 101 mg/dL (7-18) 81 mg/dL (7-18) Creatinine 1.5 MG/DL (0.55-1.30) 1.5 MG/DL (0.55-1.30) 1.6 MG/DL (0.55-1.30) Estimat Glomerular Filtration Rate 45.4 mL/min (>60) 45.4 mL/min (>60) 42.1 mL/min (>60) Glucose Level 116 MG/DL (74-106) 103 MG/DL (74-106) 103 MG/DL (74-106) Calcium Level 10.0 MG/DL (8.5-10.1) 9.9 MG/DL (8.5-10.1) 9.4 MG/DL (8.5-10.1) Troponin I 0.125 ng/mL (0.000-0.056) 0.083 ng/mL (0.000-0.056) Pro-B-Type Natriuretic Peptide 9703 pg/mL (0-125) 8156 pg/mL (0-125) Random Vancomycin Level 15.2 ug/mL Anisocytosis 1+ Spherocytes 1+ Magnesium Level 1.6 MG/DL (1.8-2.4) Objective: WDWN NAD reduced breath sounds bilaterally without rhonchi or wheeze [id number] without MRG NABS nontender no HSM GT no CCE nonfocal trach reviewed and edited Micro: Microbiology Date/Time Source Procedure Growth Status 01/03/20 01:00 Nasopharynx Coronavirus COVID-19 PCR ([facility]) - Final Complete Dillon Harris MD Jan 05, 2020 09:02
[2020-01-05] MEDS: Levothyroxine 125mcg tab GT SCH (10:23)
[2020-01-05] MEDS: Ascorbic Acid 500mg tab GT SCH (10:24)
[2020-01-05] MEDS: Heparin 5000 units/ml inj SUBQ SCH ×2 (10:25→20:34)
[2020-01-05] MEDS: levETIRAcetam 500mg/5ml Liquid GT SCH ×2 (10:27→20:33)
[2020-01-05] MEDS: Meropenem 1gm/NS 110ml IVPB SCH ×4 (10:28→20:33)
--- NOTE | 2020-01-05 10:36 | General Progress Note ---
Assessment/Plan Problem List: (1) JOHN (acute kidney injury) ICD Codes: N17.9 - Acute kidney failure, unspecified SNOMED: 3216269, 98010059 (2) Dehydration ICD Codes: E86.0 - Dehydration SNOMED: 71254202 (3) Suspected COVID-19 virus infection ICD Codes: R68.89 - Other general symptoms and signs SNOMED: 911779667 (4) Tracheal stenosis ICD Codes: J39.8 - Other specified diseases of upper respiratory tract SNOMED: 27173778 (5) Pneumonia ICD Codes: J18.9 - Pneumonia, unspecified organism SNOMED: 332071606 (6) Malnutrition ICD Codes: E46 - Unspecified protein-calorie malnutrition SNOMED: 75660438 (7) Respiratory insufficiency ICD Codes: R06.89 - Other abnormalities of breathing SNOMED: 934180589 Status: stable Assessment/Plan: cont current rx ivf iv abx follow up cultures monitor labs transfuse as needed skin/wound care Subjective ROS Limited/Unobtainable: Yes Constitutional: Reports: malaise, weakness HEENT: Reports: no symptoms Cardiovascular: Reports: no symptoms Respiratory: Reports: cough, shortness of breath Gastrointestinal/Abdominal: Reports: difficulty swallowing Genitourinary: Reports: no symptoms Neurologic/Psychiatric: Reports: pre-existing deficit, seizure Endocrine: Reports: no symptoms Hematologic/Lymphatic: Reports: anemia Allergies: Coded Allergies: No Known Allergies (Unverified , 12/31/19) All Systems: reviewed and negative except above Subjective no events. stable on the vent. no fever or chills. labs improving. on iv abx. poorly responsive. Objective Last 24 Hour Vital Signs Date Time Temp Pulse Resp B/P (MAP) Pulse Ox O2 Delivery O2 Flow Rate FiO2 01/05/20 10:24 69 132/73 01/05/20 09:45 69 29 65 01/05/20 08:00 97.2 64 28 132/73 (92) 98 01/05/20 08:00 Mechanical Ventilator 01/05/20 08:00 65 01/05/20 07:02 64 32 65 01/05/20 05:06 67 29 65 01/05/20 04:00 Mechanical Ventilator 01/05/20 04:00 98.0 63 18 136/74 (94) 98 01/05/20 04:00 65 01/05/20 03:42 70 32 65 01/05/20 03:32 66 01/05/20 01:12 63 21 65 01/05/20 00:00 Mechanical Ventilator 01/05/20 00:00 98.1 56 14 130/75 (93) 97 01/04/20 23:52 62 31 65 01/04/20 23:50 63 01/04/20 22:21 72 22 65 01/04/20 20:29 72 141/81 01/04/20 20:00 65 01/04/20 20:00 Mechanical Ventilator 01/04/20 20:00 97.9 64 18 133/75 (94) 98 01/04/20 19:42 66 22 65 01/04/20 19:29 66 01/04/20 17:25 71 19 65 01/04/20 16:00 Mechanical Ventilator 01/04/20 16:00 97.5 70 22 136/74 (94) 100 01/04/20 16:00 65 01/04/20 15:46 71 01/04/20 14:55 62 19 65 01/04/20 13:59 61 01/04/20 13:10 61 20 65 01/04/20 12:00 Mechanical Ventilator 01/04/20 12:00 65 01/04/20 11:46 97.5 64 24 129/83 (98) 100 01/04/20 11:00 67 20 65 Intake and Output 01/04/20 01/05/20 19:00 07:00 Intake Total 960 ml 1830.833 ml Output Total 1300 ml Balance -340 ml 1830.833 ml Free Water 200 ml IV Total 410 ml 1080.833 ml Tube Feeding 550 ml 550 ml Output Urine Total 1300 ml # Bowel Movements 3 3 Laboratory Tests 01/05/20 04:35: White Blood Count 12.7H, Red Blood Count 2.67L, Hemoglobin 8.7L, Hematocrit 25.9L, Mean Corpuscular Volume 97, Mean Corpuscular Hemoglobin 32.5H, Mean Corpuscular Hemoglobin Concent 33.5, Red Cell Distribution Width 13.0, Platelet Count 205, Mean Platelet Volume 7.7, Neutrophils (%) (Auto) , Lymphocytes (%) ( Auto) , Monocytes (%) (Auto) , Eosinophils (%) (Auto) , Basophils (%) (Auto) , Sodium Level 146H, Potassium Level 4.9, Chloride Level 113H, Carbon Dioxide Level 38H, Blood Urea Nitrogen 81H, Creatinine 1.6H, Estimat Glomerular Filtration Rate 42.1, Glucose Level 103, Calcium Level 9.4, Troponin I 0.083H, Pro-B-Type Natriuretic Peptide 8156H Height (Feet): 5 Height (Inches): 5.00 Weight (Pounds): 120 Objective General Appearance: WD/WN, alert Neck: supple Cardiovascular: regular rhythm Respiratory/Chest: chest wall non-tender, rhonchi - bilaterally Abdomen: normal bowel sounds, non tender, soft, no organomegaly Edema: no edema noted Arm (L), no edema noted Arm (R), no edema noted Leg (L), no edema noted Leg (R), no edema noted Pedal (L), no edema noted Pedal (R), no edema noted Generalized Neurologic: disoriented, aphasia Vasquez De Paz MD Jan 05, 2020 10:36
--- NOTE | 2020-01-05 10:49 | NUR ---
*-* INSURANCE *-* UPDATED CLINICALS AND REVIEWS HAVE BEEN FAXED TO: NIKOLE Quiñonez # [phone] fax#[phone]
--- NOTE | 2020-01-05 11:23 | Nephrology Progress Note ---
Assessment/Plan Problem List: (1) Hypernatremia (2) Dehydration (3) JOHN (acute kidney injury) (4) Respiratory insufficiency (5) Pneumonia (6) Protein-calorie malnutrition, severe (7) Hx of tracheostomy Plan continue hypotonic iv's, antibiotics BUN and Na improving Subjective ROS Limited/Unobtainable: Yes Objective Objective Last 24 Hour Vital Signs Date Time Temp Pulse Resp B/P (MAP) Pulse Ox O2 Delivery O2 Flow Rate FiO2 01/05/20 10:24 69 132/73 01/05/20 09:45 69 29 65 01/05/20 08:00 97.2 64 28 132/73 (92) 98 01/05/20 08:00 Mechanical Ventilator 01/05/20 08:00 65 01/05/20 07:02 64 32 65 01/05/20 05:06 67 29 65 01/05/20 04:00 Mechanical Ventilator 01/05/20 04:00 98.0 63 18 136/74 (94) 98 01/05/20 04:00 65 01/05/20 03:42 70 32 65 01/05/20 03:32 66 01/05/20 01:12 63 21 65 01/05/20 00:00 Mechanical Ventilator 01/05/20 00:00 98.1 56 14 130/75 (93) 97 01/04/20 23:52 62 31 65 01/04/20 23:50 63 01/04/20 22:21 72 22 65 01/04/20 20:29 72 141/81 01/04/20 20:00 65 01/04/20 20:00 Mechanical Ventilator 01/04/20 20:00 97.9 64 18 133/75 (94) 98 01/04/20 19:42 66 22 65 01/04/20 19:29 66 01/04/20 17:25 71 19 65 01/04/20 16:00 Mechanical Ventilator 01/04/20 16:00 97.5 70 22 136/74 (94) 100 01/04/20 16:00 65 01/04/20 15:46 71 01/04/20 14:55 62 19 65 01/04/20 13:59 61 01/04/20 13:10 61 20 65 01/04/20 12:00 Mechanical Ventilator 01/04/20 12:00 65 01/04/20 11:46 97.5 64 24 129/83 (98) 100 Intake and Output 01/04/20 01/05/20 19:00 07:00 Intake Total 960 ml 1830.833 ml Output Total 1300 ml Balance -340 ml 1830.833 ml Free Water 200 ml IV Total 410 ml 1080.833 ml Tube Feeding 550 ml 550 ml Output Urine Total 1300 ml # Bowel Movements 3 3 Laboratory Tests 01/05/20 04:35: White Blood Count 12.7H, Red Blood Count 2.67L, Hemoglobin 8.7L, Hematocrit 25.9L, Mean Corpuscular Volume 97, Mean Corpuscular Hemoglobin 32.5H, Mean Corpuscular Hemoglobin Concent 33.5, Red Cell Distribution Width 13.0, Platelet Count 205, Mean Platelet Volume 7.7, Neutrophils (%) (Auto) , Lymphocytes (%) ( Auto) , Monocytes (%) (Auto) , Eosinophils (%) (Auto) , Basophils (%) (Auto) , Sodium Level 146H, Potassium Level 4.9, Chloride Level 113H, Carbon Dioxide Level 38H, Blood Urea Nitrogen 81H, Creatinine 1.6H, Estimat Glomerular Filtration Rate 42.1, Glucose Level 103, Calcium Level 9.4, Troponin I 0.083H, Pro-B-Type Natriuretic Peptide 8156H Height (Feet): 5 Height (Inches): 5.00 Weight (Pounds): 120 General Appearance: cachetic, other - vent dependent Cardiovascular: regular rhythm Respiratory/Chest: rhonchi - bilaterally Abdomen: non tender, soft Neurologic: abnormal dialysis tech II-XII, motor weakness Pravin Abad MD Jan 05, 2020 11:23
--- NOTE | 2020-01-05 11:39 | NUR ---
CASE MANAGEMENT: REVIEW 01/05/2020 SI:Respiratory failure. Healthcare-associated pneumonia. VS: T 97.2 HR 64 RR 28 B/P 132/73 SATS 98% ON MECH VENT FIO2 65 LABS: WBC 12.7 HGB 8.7 HCT 25.9 NA 146 CL 113 CO2 38 BUN 81 CR 1.6 TROPONIN 0.083 BNP 8156 IS:DEXTROSE IV @ 125 ML/HR KEPPRA GT Q12H COREG PO Q12H MEROPENEM IV Q12H SDU PLAN OF CARE: 2D ECHO CONTACT ISO WOUND CARE TRANSFUSE continue hypotonic iv's transfuse as needed
[2020-01-05 12:00] VITALS: BP 152/79
--- NOTE | 2020-01-05 12:40 | NUR ---
NURSE NOTES: Pt stable,noted no resp distress,oral care done,tracheal/oral secretions suctioned PRN,turned and repositioned.
--- NOTE | 2020-01-05 14:24 | Infectious Diseases Prog Note ---
"Assessment/Plan Assessment/Plan antibiotics : meropenem 4..20 - A 1. e.coli | pseudomonas | acenitobacter pneumonia COVID 19 test negative 4.5.20, 4.8.20 2. leucocytosis improving 3. renal failure improving 4. + blood cultures with coag neg staph | diphtheroids likely contaminated 5. respiratory failure P 1. continue meropenem 2. start minocycline 3. will follow up cultures Subjective ROS Limited/Unobtainable: Yes Allergies: Coded Allergies: No Known Allergies (Unverified , 12/31/19) Objective Vital Signs Last 24 Hour Vital Signs Date Time Temp Pulse Resp B/P (MAP) Pulse Ox O2 Delivery O2 Flow Rate FiO2 01/05/20 13:36 66 27 65 01/05/20 12:00 67 01/05/20 12:00 97.9 75 16 152/79 (103) 100 01/05/20 11:42 68 28 65 01/05/20 10:24 69 132/73 01/05/20 09:45 69 29 65 01/05/20 08:00 97.2 64 28 132/73 (92) 98 01/05/20 08:00 Mechanical Ventilator 01/05/20 08:00 65 01/05/20 08:00 61 01/05/20 07:02 64 32 65 01/05/20 05:06 67 29 65 01/05/20 04:00 Mechanical Ventilator 01/05/20 04:00 98.0 63 18 136/74 (94) 98 01/05/20 04:00 65 01/05/20 03:42 70 32 65 01/05/20 03:32 66 01/05/20 01:12 63 21 65 01/05/20 00:00 Mechanical Ventilator 01/05/20 00:00 98.1 56 14 130/75 (93) 97 01/04/20 23:52 62 31 65 01/04/20 23:50 63 01/04/20 22:21 72 22 65 01/04/20 20:29 72 141/81 01/04/20 20:00 65 01/04/20 20:00 Mechanical Ventilator 01/04/20 20:00 97.9 64 18 133/75 (94) 98 01/04/20 19:42 66 22 65 01/04/20 19:29 66 01/04/20 17:25 71 19 65 01/04/20 16:00 Mechanical Ventilator 01/04/20 16:00 97.5 70 22 136/74 (94) 100 01/04/20 16:00 65 01/04/20 15:46 71 01/04/20 14:55 62 19 65 Height (Feet): 5 Height (Inches): 5.00 Weight (Pounds): 120 HEENT: status post trach Respiratory/Chest: lungs clear Cardiovascular: normal rate, regular rhythm, no gallop/murmur Abdomen: soft, non tender, other - GT Extremities: no edema Microbiology Date/Time Source Procedure Growth Status 01/03/20 01:00 Nasopharynx Coronavirus COVID-19 PCR ([facility]) - Final Complete Laboratory Tests Test 01/05/20 04:35 White Blood Count 12.7 K/UL (4.8-10.8) H Red Blood Count 2.67 M/UL (4.70-6.10) L Hemoglobin 8.7 G/DL (14.2-18.0) L Hematocrit 25.9 % (42.0-52.0) L Mean Corpuscular Volume 97 FL (80-99) Mean Corpuscular Hemoglobin 32.5 PG (27.0-31.0) H Mean Corpuscular Hemoglobin Concent 33.5 G/DL (32.0-36.0) Red Cell Distribution Width 13.0 % (11.6-14.8) Platelet Count 205 K/UL (150-450) Mean Platelet Volume 7.7 FL (6.5-10.1) Neutrophils (%) (Auto) % (45.0-75.0) Lymphocytes (%) (Auto) % (20.0-45.0) Monocytes (%) (Auto) % (1.0-10.0) Eosinophils (%) (Auto) % (0.0-3.0) Basophils (%) (Auto) % (0.0-2.0) Sodium Level 146 MMOL/L (136-145) H Potassium Level 4.9 MMOL/L (3.5-5.1) Chloride Level 113 MMOL/L (98-107) H Carbon Dioxide Level 38 MMOL/L (21-32) H Blood Urea Nitrogen 81 mg/dL (7-18) H Creatinine 1.6 MG/DL (0.55-1.30) H Estimat Glomerular Filtration Rate 42.1 mL/min (>60) Glucose Level 103 MG/DL (74-106) Calcium Level 9.4 MG/DL (8.5-10.1) Troponin I 0.083 ng/mL (0.000-0.056) Pro-B-Type Natriuretic Peptide 8156 pg/mL (0-125) H Current Medications Medications (Trade) Dose Ordered Sig/Pau Route PRN Reason Start Time Stop Time Status Last Admin Dose Admin Acetaminophen (Tylenol) 650 mg Q4H PRN GT MILD/TEMP 01/01/20 09:45 01/31/20 09:44 Ascorbic Acid (Vitamin C) 500 mg DAILY GT 01/02/20 09:00 02/01/20 08:59 01/05/20 10:24 Carvedilol (Coreg) 3.125 mg EVERY 12 HOURS GT 01/04/20 09:00 02/03/20 08:59 01/05/20 10:24 Dextrose 1,000 ml @ 125 mls/hr Q8H IV 01/04/20 18:30 02/03/20 18:29 01/05/20 10:47 Famotidine (Pepcid I.v.) 20 mg DAILY IVP 01/01/20 10:00 01/31/20 09:59 01/05/20 10:46 Heparin Sodium (Porcine) (Heparin 5000 units/ml) 5,000 units EVERY 12 HOURS SUBQ 01/01/20 21:00 02/15/20 20:59 01/05/20 10:25 Levetiracetam (Keppra) 750 mg EVERY 12 HOURS GT 01/02/20 09:00 02/01/20 08:59 01/05/20 10:27 Levothyroxine Sodium (Synthroid) 50 mcg DAILY GT 01/02/20 09:00 02/01/20 08:59 01/05/20 10:23 Levothyroxine Sodium (Synthroid) 125 mcg DAILY GT 01/02/20 09:00 02/01/20 08:59 01/05/20 10:23 Meropenem 1 gm/ Sodium Chloride 110 ml @ 220 mls/hr Q12HR IVPB 01/04/20 13:30 01/09/20 13:29 01/05/20 10:28 Heber Abraham MD Jan 05, 2020 14:24"
[2020-01-05 16:00] VITALS: BP 158/84
--- NOTE | 2020-01-05 16:00 | NUR ---
NURSE NOTES: Pt with BM,kept dry and clean.
--- NOTE | 2020-01-05 16:06 | Surgery Progress Note ---
Surgery Progress Note Subjective Additional Comments improving no acute events labs noted wbc improved exam stable Objective Last 24 Hour Vital Signs Date Time Temp Pulse Resp B/P (MAP) Pulse Ox O2 Delivery O2 Flow Rate FiO2 01/05/20 15:24 66 24 65 01/05/20 13:36 66 27 65 01/05/20 12:00 67 01/05/20 12:00 Mechanical Ventilator 01/05/20 12:00 97.9 75 16 152/79 (103) 100 01/05/20 11:42 68 28 65 01/05/20 10:24 69 132/73 01/05/20 09:45 69 29 65 01/05/20 08:00 97.2 64 28 132/73 (92) 98 01/05/20 08:00 Mechanical Ventilator 01/05/20 08:00 65 01/05/20 08:00 61 01/05/20 07:02 64 32 65 01/05/20 05:06 67 29 65 01/05/20 04:00 Mechanical Ventilator 01/05/20 04:00 98.0 63 18 136/74 (94) 98 01/05/20 04:00 65 01/05/20 03:42 70 32 65 01/05/20 03:32 66 01/05/20 01:12 63 21 65 01/05/20 00:00 Mechanical Ventilator 01/05/20 00:00 98.1 56 14 130/75 (93) 97 01/04/20 23:52 62 31 65 01/04/20 23:50 63 01/04/20 22:21 72 22 65 01/04/20 20:29 72 141/81 01/04/20 20:00 65 01/04/20 20:00 Mechanical Ventilator 01/04/20 20:00 97.9 64 18 133/75 (94) 98 01/04/20 19:42 66 22 65 01/04/20 19:29 66 01/04/20 17:25 71 19 65 I&O Intake and Output 01/04/20 01/05/20 19:00 07:00 Intake Total 960 ml 1830.833 ml Output Total 1300 ml Balance -340 ml 1830.833 ml Free Water 200 ml IV Total 410 ml 1080.833 ml Tube Feeding 550 ml 550 ml Output Urine Total 1300 ml # Bowel Movements 3 3 Dressing: saturated Wound: clean Cardiovascular: RSR Respiratory: clear Abdomen: soft, non-tender, present bowel sounds Extremities: no tenderness, no cyanosis Laboratory Tests Test 01/05/20 04:35 White Blood Count 12.7 K/UL (4.8-10.8) H Red Blood Count 2.67 M/UL (4.70-6.10) L Hemoglobin 8.7 G/DL (14.2-18.0) L Hematocrit 25.9 % (42.0-52.0) L Mean Corpuscular Volume 97 FL (80-99) Mean Corpuscular Hemoglobin 32.5 PG (27.0-31.0) H Mean Corpuscular Hemoglobin Concent 33.5 G/DL (32.0-36.0) Red Cell Distribution Width 13.0 % (11.6-14.8) Platelet Count 205 K/UL (150-450) Mean Platelet Volume 7.7 FL (6.5-10.1) Neutrophils (%) (Auto) % (45.0-75.0) Lymphocytes (%) (Auto) % (20.0-45.0) Monocytes (%) (Auto) % (1.0-10.0) Eosinophils (%) (Auto) % (0.0-3.0) Basophils (%) (Auto) % (0.0-2.0) Sodium Level 146 MMOL/L (136-145) H Potassium Level 4.9 MMOL/L (3.5-5.1) Chloride Level 113 MMOL/L (98-107) H Carbon Dioxide Level 38 MMOL/L (21-32) H Blood Urea Nitrogen 81 mg/dL (7-18) H Creatinine 1.6 MG/DL (0.55-1.30) H Estimat Glomerular Filtration Rate 42.1 mL/min (>60) Glucose Level 103 MG/DL (74-106) Calcium Level 9.4 MG/DL (8.5-10.1) Troponin I 0.083 ng/mL (0.000-0.056) Pro-B-Type Natriuretic Peptide 8156 pg/mL (0-125) H Plan Problems: (1) Decubitus skin ulcer Assessment & Plan: Pt presented on admission with contractures, multiple Skin Breakdown. Skin assessed under collar of trach and no skin breakdown noted.Category 3 Skin tear R elbow(L)4.5cm x (W)5cm. Full flap loss noted. Base of wound moist and viable,edges adherent. No exudate noted. No erythema or elevated skin temp periwound. Category 2 Skin tear L forearm. Full flap intact and reattached. Moderate amt sanguineous exudate noted. Silvasorb Gel applied and covered with Optifoam drsg. Reinforced with ABD Pad and Kerlix. DTPI noted to L Sacrum(L)3.5cm x (W)3cm. Base of wound is maroon and indurated. DTPI R Sacrum(L)7cm x (W)9.5cm. Wound is irregular shaped. Base of wound is maroon and indurated. Scattered areas of darker skin tone without induration or erythema periwound. DTPI L lateral malleolus(L)2.5cm x (W)2cm. Base of wound is fluctuant,purple with surrounding maroon borders. No erythema or elevation in skin temp periwound. Partial thickness wound L 1st metatarsal head (L)2.5cm x (W)2cm. Base of wound is moist and viable. Edges are macerated. Non-blanching erythema without fluctuance periwound. DTPI Dorso/lateral R foot(L)2.3cm x (W)4.3cm. Base of injury is indurated purple /maroon in colour. No erythema or elevation in skin temp periwound. Hyperpigmentation from previous wounds noted to R and L hallux. Tx.Plan: Cleanse Skin tears R Elbow and L forearm with Saline. Apply Silvasorb Gel. Cover each wounds with Optifoam drsgs. Change every 7 days and prn. Apply Triad Paste to R and L Sacrum. Cover with Optifoam drsg. Change every 3 days and prn. Apply Cavilon to Malleoli both feet, Both heels and Both hallux . Cover each site with Optifoam drsgs turn q2h nutritional optimization (2) Respiratory insufficiency (3) Malnutrition Assessment & Plan: DAILY ESTIMATED NEEDS: Needs based on Critical care, wounds/ 60kg abw 22-28 kcals/kg 4642-3152 total kcals 1.25-2 g protein/kg 75-120 g total protein 25-30 mL/kg 8220-9415 total fluid mLs NUTRITION DIAGNOSIS: Swallowing difficulty R/T respiratory status as evidenced by trach/vent dep, PEG dep. CURRENT TF:Glucerna 1.5 @ 50ml/hr x 20 hrs ENTERAL NUTRITION RECOMMENDATIONS: Glucerna 1.5 @ 50ml/hr x 20 hrs to provide 1000ml, 1500kcal, 82.5g prot, 759ml free water * Maintain current TF @ goal : meets 100% est kcal/prot needs * HOB Over 30 degrees/ water flush per MD * Hold Synthroid during 4 hrs that TF is off FOR 22 HRS RUN (total 2 hrs held for Synthroid) -> Glucerna 1.5 @ 45ml/hr x 22 hrs to provide 990ml, 1485kcal, 82g prot -> Hold TF 1 hr before and after Synthroid ADDITIONAL RECOMMENDATIONS: * Per SNF: HT=63", ZR=555cob (as of 12/28/19) * Monitor lytes, replete as needed * Wound healing: f/up w/ WC eval : add Vit C 500mg QD, Jerome 1pkt BID (4) Pneumonia (5) Tracheal stenosis (6) Protein-calorie malnutrition, severe (7) Suspected COVID-19 virus infection Sabino Gold Jan 05, 2020 16:06
[2020-01-05] MEDS: Minocycline HCl 50mg cap ORAL SCH ×2 (17:14→20:39)
--- NOTE | 2020-01-05 19:10 | NUR ---
HAND-OFF: Report given Zachary Kimball RN.
--- NOTE | 2020-01-05 19:17 | NUR ---
NURSE NOTES: Received patient and report from ALETA Ghotra. Patient is observed resting in bed and remains obtunded. No pain noted upon assessment. Pt is trach to vent with the following settings: AC 18 TV 450 FiO2 65% PEEP 5 and no s/sx of acute distress. Pt noted to be ST on tele monitor with a current HR of 67 noted, no s/sx of acute distress. L FA 22 IV catheter noted which remains asymptomatic, intact and patent. GT noted which remains patent and intact and infusing GTF as prescribed. No residuals noted, will increase GTF rate as tolerated. Condom catheter noted which remains intact and draining yellow urine to gravity. Diagnostics reviewed. Skin alterations noted. Fall, Aspiration and Seizure precautions observed. Immediately padded side rails for patient safety. Pt remains resting in bed; Bed remains in the lowest position with the safety wheels engaged, call light within reach, side rails up x3 and bed alarm activated. Will continue plan of care. Will continue to monitor.
[2020-01-05 20:00] VITALS: BP 137/76
--- NOTE | 2020-01-05 23:00 | NUR ---
NURSE NOTES: Pt provided with a bed bath, linen change and oral care. Temperature noted to be 97.0 at 20:00, warming measures instituted. Temperature now noted to be 97.6. Pt remains clean, dry and content. Pt remains resting in bed; bed remains in lowest position with safety wheels engaged, side rails up x3, call light within reach and bed alarm activated. Fall, aspiration and seizure precautions maintained.
[2020-01-06] VITALS: BP 136/74
--- NOTE | 2020-01-06 01:15 | Progress Note ---
DATE: 01/05/2020 CARDIOLOGY PROGRESS NOTE SUBJECTIVE: Patient continues to have moderate secretions. PHYSICAL EXAMINATION: VITAL SIGNS: Blood pressure 132/73, heart rate 69, respirations 28. Monitor with sinus rhythm and atrial ectopy. LUNGS: Coarse breath sounds. Rhonchi. HEENT: Thick secretions from trach. ABDOMEN: Soft. G-tube intact. EXTREMITIES: No edema. LABORATORY DATA: White count 12.7, hemoglobin 8.7. Sodium 146, potassium 4.9, bicarb 38, BUN 81, creatinine 1.6. Troponin 0.083. Pro-natriuretic peptide 8100. Echocardiogram revealed normal ejection fraction. IMPRESSION: 1. Dehydration. 2. Hyponatremia. 3. Acute kidney injury. 4. Respiratory failure. 5. Healthcare-associated pneumonia. 6. Acute myocardial ischemia. 7. Acute on chronic diastolic congestive heart failure. PLAN: 1. No diuretics at this time. 2. Hypotonic IV fluid hydration. 3. Antimicrobials. 4. Respiratory hygiene. 5. Ventilator support. 6. DVT prophylaxis. Tony Lobo M.D. DR: YOUSIF JOB#: [id number] CC:
[2020-01-06 04:00] VITALS: BP 126/75
--- NOTE | 2020-01-06 05:43 | NUR ---
NURSE NOTES: Pt provided with a bed bath, linen change and oral care. Restarted feeding as ordered, no residual noted. GT flushed and remains intact and patent. Pt remains clean, dry and content. Pt remains resting in bed; bed remains in lowest position with safety wheels engaged, side rails up x3, call light within reach and bed alarm activated. Fall, aspiration and seizure precautions maintained.
[2020-01-06 06:56] LABS: ANION GAP 7 mmol/L (5-15); BLOOD UREA NITROGEN 66 mg/dL (7-18); CALCIUM 10.2 MG/DL (8.5-10.1); CARBON DIOXIDE 25 MMOL/L (21-32); CHLORIDE 108 MMOL/L (98-107); CREATININE 1.4 MG/DL (0.55-1.30); SODIUM 140 MMOL/L (136-145)
--- NOTE | 2020-01-06 07:10 | NUR ---
HAND-OFF: Report given to ALETA Walters. Pt remains stable at this time.
--- NOTE | 2020-01-06 07:10 | NUR ---
NURSE NOTES: Received report from Mariza RIVER.
[2020-01-06 08:00] VITALS: BP 138/84
--- NOTE | 2020-01-06 08:45 | NUR ---
NURSE NOTES: Pt. in bed, obtunded. No sign of distress. On mech. vent. AC18/VT450/Fi O2 at 65%/P5. No grimacing noted. IV at left FA #22g. in placed patent/intact running D5W at 125cc/hr. HOB elevated at all times. On GTF Glucerna 1.5 at 50cc/hr. Tolerating well. Bed in low position, locked. Call light within reach. Will cont. to monitor.
--- NOTE | 2020-01-06 09:01 | NUR ---
RD ASSESSMENT & RECOMMENDATIONS SEE CARE ACTIVITY FOR COMPLETE ASSESSMENT DAILY ESTIMATED NEEDS: Needs based on Critical care, wounds/ 60kg abw 22-28 kcals/kg 0579-1491 total kcals 1.25-2 g protein/kg 75-120 g total protein 25-30 mL/kg 2085-0302 total fluid mLs NUTRITION DIAGNOSIS: * Swallowing difficulty R/T respiratory status as evidenced by trach/vent dep, PEG dep. * Increased kcal/prot needs R/T wound healing as evidenced by pt admitted w/ multiple wounds, including DTPI x4, partial thickness x 1, and category 3 Skin tear, refer to eval. CURRENT TF:Glucerna 1.5 @ 50ml/hr x 20 hrs ENTERAL NUTRITION RECOMMENDATIONS: Glucerna 1.5 @ 50ml/hr x 20 hrs to provide 1000ml, 1500kcal, 82.5g prot, 759ml free water * Maintain current TF @ goal : meets 100% est kcal/prot needs * HOB Over 30 degrees/ water flush per MD * Hold Synthroid during 4 hrs that TF is off FOR 22 HRS RUN (total 2 hrs held for Synthroid) -> Glucerna 1.5 @ 45ml/hr x 22 hrs to provide 990ml, 1485kcal, 82g prot -> Hold TF 1 hr before and after Synthroid ADDITIONAL RECOMMENDATIONS: * Per SNF: HT=63", GZ=123xuk (as of 12/28/19) * Monitor lytes, replete as needed * Wound healing: continue Vit C : add Jerome 1pkt BID
[2020-01-06] MEDS: levETIRAcetam 500mg/5ml Liquid GT SCH ×2 (09:07→20:30)
[2020-01-06] MEDS: Ascorbic Acid 500mg tab GT SCH (09:08)
[2020-01-06] MEDS: Levothyroxine 125mcg tab GT SCH (09:08)
[2020-01-06] MEDS: Minocycline HCl 50mg cap ORAL SCH (09:08)
[2020-01-06] MEDS: Heparin 5000 units/ml inj SUBQ SCH ×2 (09:10→20:31)
[2020-01-06] MEDS: Meropenem 1gm/NS 110ml IVPB SCH ×4 (09:24→20:32)
--- NOTE | 2020-01-06 10:27 | Critical Care Progress Note ---
Assessment/Plan Assessment/Plan Impression: Pneumonia Sepsis R/o Covid 19 Elevated troponin Renal failure Tracheostomy History of tracheal stenosis Ventilator Dependent Respiratory Failure Chronically altered mental status s/p previous CPA, anoxia Previous Seizures Previous pericardial effusion, Congestive Heart Failure, Atrial Fibrillation Diabetes, Hypothyroidism Previous Hematuria/UTI, previous sepsis GERD sp G tube polymicrobial infection PLAN vent management as is acid base noted; taper oxygen as able antibiotics reviewed and d/w ID ID evaluation and renal evaluation reviewed and appreciated/ all discussed follow up cultures and sensitivities- reviewed update TSH overall improved; will follow up after discharge feeds resumed and monitor residuals resume other meds seizure precautions repeat echo pending monitor blood pressure and adjust cardiology noted note reviewed and edited care discussed with RN and RT critical time spent >40 minutes coordinating care and updating orders Critical Care - Subjective Interval Events: care noted on vent renal function improved ROS Limited/Unobtainable: Yes Condition: critical EKG Rhythm: Sinus Rhythm Residuals: minimal Tube Feeding Tolerated: yes I&O: Intake and Output 01/05/20 01/06/20 19:00 07:00 Intake Total 920 ml 2018.337 ml Output Total 1100 ml 900 ml Balance -180 ml 1118.337 ml Free Water 200 ml 250 ml IV Total 1418.337 ml Tube Feeding 600 ml 350 ml Other 120 ml Output Urine Total 1100 ml 900 ml # Bowel Movements 1 3 Critical Care - Objective Last 24 Hour Vital Signs Date Time Temp Pulse Resp B/P (MAP) Pulse Ox O2 Delivery O2 Flow Rate FiO2 01/06/20 09:11 80 23 65 01/06/20 09:08 87 138/84 01/06/20 08:00 98.2 87 24 138/84 (102) 100 01/06/20 08:00 Mechanical Ventilator 01/06/20 07:50 79 01/06/20 07:22 76 30 65 01/06/20 05:29 70 26 65 01/06/20 04:00 97.0 66 24 126/75 (92) 100 01/06/20 04:00 Mechanical Ventilator 01/06/20 03:55 79 01/06/20 03:30 73 24 65 01/06/20 00:00 Mechanical Ventilator 01/06/20 00:00 97.0 70 20 136/74 (94) 100 01/05/20 22:54 71 31 65 01/05/20 20:33 70 137/76 01/05/20 20:15 76 01/05/20 20:00 97.0 70 20 137/76 (96) 100 01/05/20 20:00 Mechanical Ventilator 01/05/20 19:28 62 20 65 01/05/20 16:00 68 01/05/20 16:00 96.6 67 28 158/84 (108) 100 01/05/20 16:00 Mechanical Ventilator 01/05/20 15:24 66 24 65 01/05/20 13:36 66 27 65 01/05/20 12:00 67 01/05/20 12:00 Mechanical Ventilator 01/05/20 12:00 97.9 75 16 152/79 (103) 100 01/05/20 11:42 68 28 65 Labs: Labs Test 01/04/20 05:00 01/05/20 04:35 01/06/20 06:00 White Blood Count 14.2 K/UL (4.8-10.8) 12.7 K/UL (4.8-10.8) Red Blood Count 2.52 M/UL (4.70-6.10) 2.67 M/UL (4.70-6.10) Hemoglobin 8.2 G/DL (14.2-18.0) 8.7 G/DL (14.2-18.0) Hematocrit 24.5 % (42.0-52.0) 25.9 % (42.0-52.0) Mean Corpuscular Volume 97 FL (80-99) 97 FL (80-99) Mean Corpuscular Hemoglobin 32.6 PG (27.0-31.0) 32.5 PG (27.0-31.0) Mean Corpuscular Hemoglobin Concent 33.5 G/DL (32.0-36.0) 33.5 G/DL (32.0-36.0) Red Cell Distribution Width 13.0 % (11.6-14.8) 13.0 % (11.6-14.8) Platelet Count 192 K/UL (150-450) 205 K/UL (150-450) Mean Platelet Volume 6.7 FL (6.5-10.1) 7.7 FL (6.5-10.1) Neutrophils (%) (Auto) % (45.0-75.0) % (45.0-75.0) Lymphocytes (%) (Auto) % (20.0-45.0) % (20.0-45.0) Monocytes (%) (Auto) % (1.0-10.0) % (1.0-10.0) Eosinophils (%) (Auto) % (0.0-3.0) % (0.0-3.0) Basophils (%) (Auto) % (0.0-2.0) % (0.0-2.0) Differential Total Cells Counted 100 Neutrophils % (Manual) 88 % (45-75) Lymphocytes % (Manual) 7 % (20-45) Monocytes % (Manual) 4 % (1-10) Eosinophils % (Manual) 1 % (0-3) Basophils % (Manual) 0 % (0-2) Band Neutrophils 0 % (0-8) Platelet Estimate Adequate Platelet Morphology Normal Hypochromasia 2+ Anisocytosis 1+ Spherocytes 1+ Sodium Level 148 MMOL/L (136-145) 146 MMOL/L (136-145) 140 MMOL/L (136-145) Potassium Level 5.1 MMOL/L (3.5-5.1) 4.9 MMOL/L (3.5-5.1) 5.0 MMOL/L (3.5-5.1) Chloride Level 116 MMOL/L (98-107) 113 MMOL/L (98-107) 108 MMOL/L (98-107) Carbon Dioxide Level 25 MMOL/L (21-32) 38 MMOL/L (21-32) 25 MMOL/L (21-32) Anion Gap 7 mmol/L (5-15) 7 mmol/L (5-15) Blood Urea Nitrogen 101 mg/dL (7-18) 81 mg/dL (7-18) 66 mg/dL (7-18) Creatinine 1.5 MG/DL (0.55-1.30) 1.6 MG/DL (0.55-1.30) 1.4 MG/DL (0.55-1.30) Estimat Glomerular Filtration Rate 45.4 mL/min (>60) 42.1 mL/min (>60) 49.1 mL/min (>60) Glucose Level 103 MG/DL (74-106) 103 MG/DL (74-106) 103 MG/DL (74-106) Calcium Level 9.9 MG/DL (8.5-10.1) 9.4 MG/DL (8.5-10.1) 10.2 MG/DL (8.5-10.1) Magnesium Level 1.6 MG/DL (1.8-2.4) Troponin I 0.083 ng/mL (0.000-0.056) Pro-B-Type Natriuretic Peptide 8156 pg/mL (0-125) Objective: WDWN NAD reduced breath sounds bilaterally without rhonchi or wheeze [id number] without MRG NABS nontender no HSM GT no CCE nonfocal trach reviewed and edited Dillon Harris MD Jan 06, 2020 10:27
[2020-01-06 12:00] VITALS: BP 136/77
--- NOTE | 2020-01-06 12:00 | NUR ---
NURSE NOTES: Turned and repositioned Q2 and as needed. No sign of distress. No grimacing noted.
--- NOTE | 2020-01-06 12:11 | Infectious Diseases Prog Note ---
"Assessment/Plan Assessment/Plan antibiotics : meropenem 4..20 - A 1. e.coli | pseudomonas | acenitobacter pneumonia COVID 19 test negative 4.5.20, 4.8.20 2. leucocytosis improving 3. renal failure improving 4. + blood cultures with coag neg staph | diphtheroids likely contaminated 5. respiratory failure P 1. continue meropenem 4 more days 2. d/c minocycline 3. start inhaled colistin 4. will follow up cultures Subjective ROS Limited/Unobtainable: Yes Allergies: Coded Allergies: No Known Allergies (Unverified , 12/31/19) Objective Vital Signs Last 24 Hour Vital Signs Date Time Temp Pulse Resp B/P (MAP) Pulse Ox O2 Delivery O2 Flow Rate FiO2 01/06/20 09:11 80 23 65 01/06/20 09:08 87 138/84 01/06/20 08:00 98.2 87 24 138/84 (102) 100 01/06/20 08:00 Mechanical Ventilator 01/06/20 07:50 79 01/06/20 07:22 76 30 65 01/06/20 05:29 70 26 65 01/06/20 04:00 97.0 66 24 126/75 (92) 100 01/06/20 04:00 Mechanical Ventilator 01/06/20 03:55 79 01/06/20 03:30 73 24 65 01/06/20 00:00 Mechanical Ventilator 01/06/20 00:00 97.0 70 20 136/74 (94) 100 01/05/20 22:54 71 31 65 01/05/20 20:33 70 137/76 01/05/20 20:15 76 01/05/20 20:00 97.0 70 20 137/76 (96) 100 01/05/20 20:00 Mechanical Ventilator 01/05/20 19:28 62 20 65 01/05/20 16:00 68 01/05/20 16:00 96.6 67 28 158/84 (108) 100 01/05/20 16:00 Mechanical Ventilator 01/05/20 15:24 66 24 65 01/05/20 13:36 66 27 65 Height (Feet): 5 Height (Inches): 5.00 Weight (Pounds): 120 HEENT: status post trach Respiratory/Chest: lungs clear Cardiovascular: normal rate, regular rhythm, no gallop/murmur Abdomen: soft, non tender, other - GT Extremities: no edema Laboratory Tests Test 01/06/20 06:00 Sodium Level 140 MMOL/L (136-145) Potassium Level 5.0 MMOL/L (3.5-5.1) Chloride Level 108 MMOL/L (98-107) H Carbon Dioxide Level 25 MMOL/L (21-32) Anion Gap 7 mmol/L (5-15) Blood Urea Nitrogen 66 mg/dL (7-18) H Creatinine 1.4 MG/DL (0.55-1.30) H Estimat Glomerular Filtration Rate 49.1 mL/min (>60) Glucose Level 103 MG/DL (74-106) Calcium Level 10.2 MG/DL (8.5-10.1) H Current Medications Medications (Trade) Dose Ordered Sig/Pau Route PRN Reason Start Time Stop Time Status Last Admin Dose Admin Acetaminophen (Tylenol) 650 mg Q4H PRN GT MILD/TEMP 01/01/20 09:45 01/31/20 09:44 Ascorbic Acid (Vitamin C) 500 mg DAILY GT 01/02/20 09:00 02/01/20 08:59 01/06/20 09:08 Carvedilol (Coreg) 3.125 mg EVERY 12 HOURS GT 01/04/20 09:00 02/03/20 08:59 01/06/20 09:08 Dextrose 1,000 ml @ 125 mls/hr Q8H IV 01/04/20 18:30 02/03/20 18:29 01/06/20 11:13 Famotidine (Pepcid I.v.) 20 mg DAILY IVP 01/01/20 10:00 01/31/20 09:59 01/06/20 09:23 Heparin Sodium (Porcine) (Heparin 5000 units/ml) 5,000 units EVERY 12 HOURS SUBQ 01/01/20 21:00 02/15/20 20:59 01/06/20 09:10 Levetiracetam (Keppra) 750 mg EVERY 12 HOURS GT 01/02/20 09:00 02/01/20 08:59 01/06/20 09:07 Levothyroxine Sodium (Synthroid) 50 mcg DAILY GT 01/02/20 09:00 02/01/20 08:59 01/06/20 09:08 Levothyroxine Sodium (Synthroid) 125 mcg DAILY GT 01/02/20 09:00 02/01/20 08:59 01/06/20 09:08 Meropenem 1 gm/ Sodium Chloride 110 ml @ 220 mls/hr Q12HR IVPB 01/04/20 13:30 01/09/20 13:29 01/06/20 09:24 Minocycline HCl (Minocin) 100 mg Q12HR ORAL 01/05/20 14:26 01/12/20 14:25 01/06/20 09:08 Heber Abraham MD Jan 06, 2020 12:11"
--- NOTE | 2020-01-06 12:21 | General Progress Note ---
Assessment/Plan Problem List: (1) JOHN (acute kidney injury) ICD Codes: N17.9 - Acute kidney failure, unspecified SNOMED: 4862985, 66854684 (2) Dehydration ICD Codes: E86.0 - Dehydration SNOMED: 70319282 (3) Suspected COVID-19 virus infection ICD Codes: R68.89 - Other general symptoms and signs SNOMED: 972881208 (4) Tracheal stenosis ICD Codes: J39.8 - Other specified diseases of upper respiratory tract SNOMED: 49958844 (5) Pneumonia ICD Codes: J18.9 - Pneumonia, unspecified organism SNOMED: 203271145 (6) Malnutrition ICD Codes: E46 - Unspecified protein-calorie malnutrition SNOMED: 88320290 (7) Respiratory insufficiency ICD Codes: R06.89 - Other abnormalities of breathing SNOMED: 429622470 Status: stable Assessment/Plan: cont current rx ivf iv abx follow up cultures monitor labs and cxr sz rx monitor bp dvt/stress ulcer prophylaxis transfuse as needed skin/wound care Subjective ROS Limited/Unobtainable: Yes Constitutional: Reports: malaise, weakness HEENT: Reports: no symptoms Cardiovascular: Reports: no symptoms Respiratory: Reports: cough, shortness of breath Gastrointestinal/Abdominal: Reports: difficulty swallowing Genitourinary: Reports: no symptoms Neurologic/Psychiatric: Reports: pre-existing deficit, seizure Endocrine: Reports: no symptoms Hematologic/Lymphatic: Reports: anemia Allergies: Coded Allergies: No Known Allergies (Unverified , 12/31/19) All Systems: reviewed and negative except above Subjective no events. stable on the vent. no fever or chills. labs improving. on iv abx. poorly responsive at baseline. no labs today. Objective Last 24 Hour Vital Signs Date Time Temp Pulse Resp B/P (MAP) Pulse Ox O2 Delivery O2 Flow Rate FiO2 01/06/20 12:00 98.4 72 18 136/77 (96) 100 01/06/20 09:11 80 23 65 01/06/20 09:08 87 138/84 01/06/20 08:00 98.2 87 24 138/84 (102) 100 01/06/20 08:00 Mechanical Ventilator 01/06/20 07:50 79 01/06/20 07:22 76 30 65 01/06/20 05:29 70 26 65 01/06/20 04:00 97.0 66 24 126/75 (92) 100 01/06/20 04:00 Mechanical Ventilator 01/06/20 03:55 79 01/06/20 03:30 73 24 65 01/06/20 00:00 Mechanical Ventilator 01/06/20 00:00 97.0 70 20 136/74 (94) 100 01/05/20 22:54 71 31 65 01/05/20 20:33 70 137/76 01/05/20 20:15 76 01/05/20 20:00 97.0 70 20 137/76 (96) 100 01/05/20 20:00 Mechanical Ventilator 01/05/20 19:28 62 20 65 01/05/20 16:00 68 01/05/20 16:00 96.6 67 28 158/84 (108) 100 01/05/20 16:00 Mechanical Ventilator 01/05/20 15:24 66 24 65 01/05/20 13:36 66 27 65 Intake and Output 01/05/20 01/06/20 19:00 07:00 Intake Total 2280 ml 2143.337 ml Output Total 1100 ml 900 ml Balance 1180 ml 1243.337 ml Free Water 200 ml 250 ml IV Total 1360 ml 1543.337 ml Tube Feeding 600 ml 350 ml Other 120 ml Output Urine Total 1100 ml 900 ml # Bowel Movements 2 3 Laboratory Tests 01/06/20 06:00: Sodium Level 140, Potassium Level 5.0, Chloride Level 108H, Carbon Dioxide Level 25, Anion Gap 7, Blood Urea Nitrogen 66H, Creatinine 1.4H, Estimat Glomerular Filtration Rate 49.1, Glucose Level 103, Calcium Level 10.2H Height (Feet): 5 Height (Inches): 5.00 Weight (Pounds): 120 Objective General Appearance: WD/WN, alert Neck: supple Cardiovascular: regular rhythm Respiratory/Chest: chest wall non-tender, rhonchi - bilaterally Abdomen: normal bowel sounds, non tender, soft, no organomegaly Edema: no edema noted Arm (L), no edema noted Arm (R), no edema noted Leg (L), no edema noted Leg (R), no edema noted Pedal (L), no edema noted Pedal (R), no edema noted Generalized Neurologic: disoriented, aphasia UVasquez kapoor MD Jan 06, 2020 12:21
--- NOTE | 2020-01-06 12:30 | NUR ---
NURSE NOTES: Seen by Dr. Lam and told RN to d/c droplet isolation due to Covid19 x 2 swab turned negative.
[2020-01-06] MEDS ORDERED: NS 275ml ONE (12:48)
[2020-01-06] MEDS ORDERED: Tubing IV Secondary IV ONE (12:48)
[2020-01-06] MEDS ORDERED: Sterile Water Irrig 1000ml IRRIG ONE (12:48)
--- NOTE | 2020-01-06 14:16 | Nephrology Progress Note ---
Assessment/Plan Problem List: (1) Hypernatremia (2) Dehydration (3) JOHN (acute kidney injury) (4) Respiratory insufficiency (5) Pneumonia (6) Protein-calorie malnutrition, severe (7) Hx of tracheostomy Plan continue hypotonic iv's, antibiotics BUN and Na improving Subjective ROS Limited/Unobtainable: Yes Objective Objective Last 24 Hour Vital Signs Date Time Temp Pulse Resp B/P (MAP) Pulse Ox O2 Delivery O2 Flow Rate FiO2 01/06/20 13:28 89 24 65 01/06/20 12:00 98.4 72 18 136/77 (96) 100 01/06/20 12:00 Mechanical Ventilator 01/06/20 12:00 70 01/06/20 10:52 74 23 65 01/06/20 09:11 80 23 65 01/06/20 09:08 87 138/84 01/06/20 08:00 98.2 87 24 138/84 (102) 100 01/06/20 08:00 Mechanical Ventilator 01/06/20 07:50 79 01/06/20 07:22 76 30 65 01/06/20 05:29 70 26 65 01/06/20 04:00 97.0 66 24 126/75 (92) 100 01/06/20 04:00 Mechanical Ventilator 01/06/20 03:55 79 01/06/20 03:30 73 24 65 01/06/20 00:00 Mechanical Ventilator 01/06/20 00:00 97.0 70 20 136/74 (94) 100 01/05/20 22:54 71 31 65 01/05/20 20:33 70 137/76 01/05/20 20:15 76 01/05/20 20:00 97.0 70 20 137/76 (96) 100 01/05/20 20:00 Mechanical Ventilator 01/05/20 19:28 62 20 65 01/05/20 16:00 68 01/05/20 16:00 96.6 67 28 158/84 (108) 100 01/05/20 16:00 Mechanical Ventilator 01/05/20 15:24 66 24 65 Intake and Output 01/05/20 01/06/20 19:00 07:00 Intake Total 2280 ml 2143.337 ml Output Total 1100 ml 900 ml Balance 1180 ml 1243.337 ml Free Water 200 ml 250 ml IV Total 1360 ml 1543.337 ml Tube Feeding 600 ml 350 ml Other 120 ml Output Urine Total 1100 ml 900 ml # Bowel Movements 2 3 Laboratory Tests 01/06/20 06:00: Sodium Level 140, Potassium Level 5.0, Chloride Level 108H, Carbon Dioxide Level 25, Anion Gap 7, Blood Urea Nitrogen 66H, Creatinine 1.4H, Estimat Glomerular Filtration Rate 49.1, Glucose Level 103, Calcium Level 10.2H Height (Feet): 5 Height (Inches): 5.00 Weight (Pounds): 120 General Appearance: no apparent distress, lethargic, confused Neck: normal alignment Cardiovascular: regular rhythm Respiratory/Chest: rhonchi - bilaterally Abdomen: soft Extremities: no edema Neurologic: motor weakness Pravin Abad MD Jan 06, 2020 14:16
--- NOTE | 2020-01-06 15:00 | NUR ---
NURSE NOTES: Mouth care done. Suction as needed. HOB elevated at all times.
[2020-01-06 16:00] VITALS: BP 101/65
--- NOTE | 2020-01-06 19:32 | NUR ---
HAND-OFF: Report given to Liya Howe RN. Pt. remain stable.
--- NOTE | 2020-01-06 19:33 | NUR ---
NURSE NOTES: received pt from Neri RN., pt is sleeping and resting on the bed, easy to arouse with touch. pt is obtunded. Gtube site intact, clean, and patent. condom cath is on place intact. left FA 22G IV site intact, clean, and patent. call light within reach. bed at the lowest position, alarmed and locked. will continue to monitor pt with plan of care.
--- NOTE | 2020-01-06 19:35 | Surgery Progress Note ---
Surgery Progress Note Subjective Additional Comments no acute events exam stable labs noted Objective Last 24 Hour Vital Signs Date Time Temp Pulse Resp B/P (MAP) Pulse Ox O2 Delivery O2 Flow Rate FiO2 01/06/20 17:19 73 32 65 01/06/20 16:00 Mechanical Ventilator 01/06/20 16:00 98.7 68 26 101/65 (77) 95 01/06/20 15:40 76 32 100 Mechanical Ventilator 85 01/06/20 15:22 66 01/06/20 14:39 76 18 65 01/06/20 13:28 89 24 65 01/06/20 12:00 98.4 72 18 136/77 (96) 100 01/06/20 12:00 Mechanical Ventilator 01/06/20 12:00 70 01/06/20 10:52 74 23 65 01/06/20 09:11 80 23 65 01/06/20 09:08 87 138/84 01/06/20 08:00 98.2 87 24 138/84 (102) 100 01/06/20 08:00 Mechanical Ventilator 01/06/20 07:50 79 01/06/20 07:22 76 30 65 01/06/20 05:29 70 26 65 01/06/20 04:00 97.0 66 24 126/75 (92) 100 01/06/20 04:00 Mechanical Ventilator 01/06/20 03:55 79 01/06/20 03:30 73 24 65 01/06/20 00:00 Mechanical Ventilator 01/06/20 00:00 97.0 70 20 136/74 (94) 100 01/05/20 22:54 71 31 65 01/05/20 20:33 70 137/76 01/05/20 20:15 76 01/05/20 20:00 97.0 70 20 137/76 (96) 100 01/05/20 20:00 Mechanical Ventilator I&O Intake and Output 01/05/20 01/06/20 19:00 07:00 Intake Total 2280 ml 2193.337 ml Output Total 1100 ml 900 ml Balance 1180 ml 1293.337 ml Free Water 200 ml 250 ml IV Total 1360 ml 1543.337 ml Tube Feeding 600 ml 400 ml Other 120 ml Output Urine Total 1100 ml 900 ml # Bowel Movements 2 3 Dressing: saturated Wound: clean Cardiovascular: RSR Respiratory: clear, decreased breath sounds Abdomen: soft, non-tender, present bowel sounds Extremities: no tenderness, no cyanosis Laboratory Tests Test 01/06/20 06:00 Sodium Level 140 MMOL/L (136-145) Potassium Level 5.0 MMOL/L (3.5-5.1) Chloride Level 108 MMOL/L (98-107) H Carbon Dioxide Level 25 MMOL/L (21-32) Anion Gap 7 mmol/L (5-15) Blood Urea Nitrogen 66 mg/dL (7-18) H Creatinine 1.4 MG/DL (0.55-1.30) H Estimat Glomerular Filtration Rate 49.1 mL/min (>60) Glucose Level 103 MG/DL (74-106) Calcium Level 10.2 MG/DL (8.5-10.1) H Plan Problems: (1) Decubitus skin ulcer Assessment & Plan: Pt presented on admission with contractures, multiple Skin Breakdown. Skin assessed under collar of trach and no skin breakdown noted.Category 3 Skin tear R elbow(L)4.5cm x (W)5cm. Full flap loss noted. Base of wound moist and viable,edges adherent. No exudate noted. No erythema or elevated skin temp periwound. Category 2 Skin tear L forearm. Full flap intact and reattached. Moderate amt sanguineous exudate noted. Silvasorb Gel applied and covered with Optifoam drsg. Reinforced with ABD Pad and Kerlix. DTPI noted to L Sacrum(L)3.5cm x (W)3cm. Base of wound is maroon and indurated. DTPI R Sacrum(L)7cm x (W)9.5cm. Wound is irregular shaped. Base of wound is maroon and indurated. Scattered areas of darker skin tone without induration or erythema periwound. DTPI L lateral malleolus(L)2.5cm x (W)2cm. Base of wound is fluctuant,purple with surrounding maroon borders. No erythema or elevation in skin temp periwound. Partial thickness wound L 1st metatarsal head (L)2.5cm x (W)2cm. Base of wound is moist and viable. Edges are macerated. Non-blanching erythema without fluctuance periwound. DTPI Dorso/lateral R foot(L)2.3cm x (W)4.3cm. Base of injury is indurated purple /maroon in colour. No erythema or elevation in skin temp periwound. Hyperpigmentation from previous wounds noted to R and L hallux. Tx.Plan: Cleanse Skin tears R Elbow and L forearm with Saline. Apply Silvasorb Gel. Cover each wounds with Optifoam drsgs. Change every 7 days and prn. Apply Triad Paste to R and L Sacrum. Cover with Optifoam drsg. Change every 3 days and prn. Apply Cavilon to [place] both feet, Both heels and Both hallux . Cover each site with Optifoam drsgs turn q2h nutritional optimization (2) Respiratory insufficiency (3) Malnutrition Assessment & Plan: DAILY ESTIMATED NEEDS: Needs based on Critical care, wounds/ 60kg abw 22-28 kcals/kg 5924-4402 total kcals 1.25-2 g protein/kg 75-120 g total protein 25-30 mL/kg 0749-1113 total fluid mLs NUTRITION DIAGNOSIS: Swallowing difficulty R/T respiratory status as evidenced by trach/vent dep, PEG dep. CURRENT TF:Glucerna 1.5 @ 50ml/hr x 20 hrs ENTERAL NUTRITION RECOMMENDATIONS: Glucerna 1.5 @ 50ml/hr x 20 hrs to provide 1000ml, 1500kcal, 82.5g prot, 759ml free water * Maintain current TF @ goal : meets 100% est kcal/prot needs * HOB Over 30 degrees/ water flush per MD * Hold Synthroid during 4 hrs that TF is off FOR 22 HRS RUN (total 2 hrs held for Synthroid) -> Glucerna 1.5 @ 45ml/hr x 22 hrs to provide 990ml, 1485kcal, 82g prot -> Hold TF 1 hr before and after Synthroid ADDITIONAL RECOMMENDATIONS: * Per SNF: HT=63", EA=467hih (as of 12/28/19) * Monitor lytes, replete as needed * Wound healing: f/up w/ WC eval : add Vit C 500mg QD, Jerome 1pkt BID (4) Pneumonia (5) Tracheal stenosis (6) Protein-calorie malnutrition, severe (7) Suspected COVID-19 virus infection Sabino Gold Jan 06, 2020 19:35
[2020-01-06 20:00] VITALS: BP 110/70
[2020-01-06] MEDS: Colistin for inhalation INH SCH (22:28)
[2020-01-07] VITALS: BP 123/78
--- NOTE | 2020-01-07 | NUR ---
NURSE NOTES: cleaned pt, provided new gown, provided oral care, and pt reposition her self at this moment. pt does not show SOB at this moment.
--- NOTE | 2020-01-07 01:45 | Progress Note ---
DATE: 01/06/2020 CARDIOLOGY PROGRESS NOTE SUBJECTIVE: The patient is on ventilator support. Secretions remain voluminous. He remains poorly responsive. PHYSICAL EXAMINATION: VITAL SIGNS: Blood pressure 136/77, pulse 72, respirations 18, afebrile. LUNGS: Coarse breath sounds, rhonchi. CARDIAC: Regular rhythm and rate. Normal S1, S2. A 1/6 systolic murmur at apex. ABDOMEN: Soft. EXTREMITIES: No edema. G-tube intact. LABORATORY DATA: Labs for today notable for sodium 140, potassium 5, bicarb 25, BUN 66, creatinine 1.4. IMPRESSION: 1. Respiratory failure. 2. Healthcare-associated pneumonia. 3. Acute renal failure, improved. 4. Dehydration and hypernatremia, resolved. 5. Acute myocardial ischemia due to acute respiratory infection is improving. 6. Acute on chronic diastolic congestive heart failure, clinically compensated. PLAN: At this time, plan includes respiratory therapy, ventilator support, antimicrobials, maintenance hydration, no role for diuretics presently, DVT prophylaxis. Tony Lobo M.D. DR: ANAM JOB#: [id number] CC:
[2020-01-07 04:00] VITALS: BP 117/70
--- NOTE | 2020-01-07 07:04 | NUR ---
HAND-OFF: Report given to Neri RN. pt remains stable at this moment. endorsed plan of care.
--- NOTE | 2020-01-07 07:13 | NUR ---
NURSE NOTES: Received updated report from Liya Howe RN. Pt. in bed, obtunded. No sign of distress. On mech. vent. with setting of AC18/VT450/Fi O2 of 65%/P5. No grimacing noted. HOB elevated at all times. On GTF Glucerna 1.2 at 50cc/hr. IV site at left FA #22g. in placed running 1/2 NS at 75cc/hr. Condom cath in placed draining yellow colored urine. Bed in low position, locked. Bed alarm on. Call light within reach. Will cont. to monitor.
[2020-01-07 07:36] LABS: ANION GAP 5 mmol/L (5-15); BLOOD UREA NITROGEN 62 mg/dL (7-18); CARBON DIOXIDE 26 MMOL/L (21-32); CHLORIDE 105 MMOL/L (98-107); CREATININE 1.3 MG/DL (0.55-1.30); POTASSIUM 5.1 MMOL/L (3.5-5.1); SODIUM 136 MMOL/L (136-145)
[2020-01-07 08:00] VITALS: BP 138/88
[2020-01-07] MEDS: Levothyroxine 125mcg tab GT SCH (08:32)
[2020-01-07] MEDS: Ascorbic Acid 500mg tab GT SCH (08:32)
[2020-01-07] MEDS: Meropenem 1gm/NS 110ml IVPB SCH ×4 (08:33→22:21)
[2020-01-07] MEDS: levETIRAcetam 500mg/5ml Liquid GT SCH ×2 (08:33→22:15)
[2020-01-07] MEDS: Heparin 5000 units/ml inj SUBQ SCH ×2 (08:34→22:04)
--- NOTE | 2020-01-07 09:04 | General Progress Note ---
Assessment/Plan Problem List: (1) JOHN (acute kidney injury) ICD Codes: N17.9 - Acute kidney failure, unspecified SNOMED: 2845479, 58068530 (2) Dehydration ICD Codes: E86.0 - Dehydration SNOMED: 60965602 (3) Suspected COVID-19 virus infection ICD Codes: R68.89 - Other general symptoms and signs SNOMED: 609142417 (4) Tracheal stenosis ICD Codes: J39.8 - Other specified diseases of upper respiratory tract SNOMED: 19364085 (5) Pneumonia ICD Codes: J18.9 - Pneumonia, unspecified organism SNOMED: 938158908 (6) Malnutrition ICD Codes: E46 - Unspecified protein-calorie malnutrition SNOMED: 48221381 (7) Respiratory insufficiency ICD Codes: R06.89 - Other abnormalities of breathing SNOMED: 967699447 Status: stable Assessment/Plan: cont current rx ivf iv abx follow up cultures monitor labs and cxr sz rx monitor bp dvt/stress ulcer prophylaxis transfuse as needed skin/wound care Subjective ROS Limited/Unobtainable: No Constitutional: Reports: malaise, weakness HEENT: Reports: no symptoms Cardiovascular: Reports: no symptoms Respiratory: Reports: shortness of breath, sputum Gastrointestinal/Abdominal: Reports: difficulty swallowing Genitourinary: Reports: no symptoms Neurologic/Psychiatric: Reports: emotional problems, pre-existing deficit Endocrine: Reports: no symptoms Hematologic/Lymphatic: Reports: anemia Allergies: Coded Allergies: No Known Allergies (Unverified , 12/31/19) All Systems: reviewed and negative except above Subjective no events. stable on the vent. no fever or chills. labs improving. on iv abx. poorly responsive at baseline. labs reviewed Objective Last 24 Hour Vital Signs Date Time Temp Pulse Resp B/P (MAP) Pulse Ox O2 Delivery O2 Flow Rate FiO2 01/07/20 08:32 76 138/88 01/07/20 08:00 97.5 76 23 138/88 (105) 100 01/07/20 07:05 74 23 60 01/07/20 04:37 77 28 60 01/07/20 04:00 98.2 88 24 117/70 (86) 98 01/07/20 04:00 Mechanical Ventilator 01/07/20 03:39 78 01/07/20 01:18 78 24 60 01/07/20 00:00 98.9 93 26 123/78 (93) 97 01/07/20 00:00 Mechanical Ventilator 01/06/20 23:49 94 01/06/20 22:29 97 33 99 Mechanical Ventilator 60 94 33 60 01/06/20 20:30 77 110/70 01/06/20 20:00 Mechanical Ventilator 01/06/20 20:00 98.4 74 25 110/70 (83) 97 01/06/20 19:29 84 34 60 01/06/20 19:25 73 01/06/20 17:19 73 32 65 01/06/20 16:00 Mechanical Ventilator 01/06/20 16:00 98.7 68 26 101/65 (77) 95 01/06/20 15:40 76 32 100 Mechanical Ventilator 85 01/06/20 15:22 66 01/06/20 14:39 76 18 65 01/06/20 13:28 89 24 65 01/06/20 12:00 98.4 72 18 136/77 (96) 100 01/06/20 12:00 Mechanical Ventilator 01/06/20 12:00 70 01/06/20 10:52 74 23 65 01/06/20 09:11 80 23 65 01/06/20 09:08 87 138/84 Intake and Output 01/06/20 01/07/20 19:00 07:00 Intake Total 1850 ml 1160 ml Output Total 450 ml 1100 ml Balance 1400 ml 60 ml Free Water 250 ml 200 ml IV Total 1000 ml 560 ml Tube Feeding 600 ml 400 ml Output Urine Total 450 ml 1100 ml # Bowel Movements 5 Laboratory Tests 01/07/20 06:18: Sodium Level 136, Potassium Level 5.1, Chloride Level 105, Carbon Dioxide Level 26, Anion Gap 5, Blood Urea Nitrogen 62H, Creatinine 1.3, Estimat Glomerular Filtration Rate 53.5, Glucose Level 97, Calcium Level 10.0 Height (Feet): 5 Height (Inches): 5.00 Weight (Pounds): 120 Objective General Appearance: WD/WN, alert Neck: supple Cardiovascular: regular rhythm Respiratory/Chest: chest wall non-tender, rhonchi - bilaterally Abdomen: normal bowel sounds, non tender, soft, no organomegaly Edema: no edema noted Arm (L), no edema noted Arm (R), no edema noted Leg (L), no edema noted Leg (R), no edema noted Pedal (L), no edema noted Pedal (R), no edema noted Generalized Neurologic: disoriented, aphasia Vasquez De Paz MD Jan 07, 2020 09:04
[2020-01-07] MEDS: Colistin for inhalation INH SCH ×2 (10:38→20:28)
[2020-01-07 12:00] VITALS: BP 115/70
--- NOTE | 2020-01-07 13:02 | Critical Care Progress Note ---
Assessment/Plan Assessment/Plan Impression: Pneumonia Sepsis Elevated troponin Renal failure Tracheostomy History of tracheal stenosis Ventilator Dependent Respiratory Failure Chronically altered mental status s/p previous CPA, anoxia Previous Seizures Previous pericardial effusion, Congestive Heart Failure, Atrial Fibrillation Diabetes, Hypothyroidism Previous Hematuria/UTI, previous sepsis GERD sp G tube polymicrobial infection PLAN vent management as is acid base noted; taper oxygen antibiotics reviewed ID and renal discussed follow up cultures and sensitivities- reviewed update monitor TSH feeds as able resume other meds seizure precautions monitor blood pressure and adjust cardiology noted note reviewed and edited care discussed with RN and RT critical time spent >40 minutes coordinating care and updating orders Critical Care - Subjective Interval Events: multi organ disease on vent bun improved wbc improved still anemic cultures reviewed ROS Limited/Unobtainable: Yes Condition: critical EKG Rhythm: Sinus Rhythm Residuals: minimal Tube Feeding Tolerated: yes I&O: Intake and Output 01/06/20 01/07/20 19:00 07:00 Intake Total 1850 ml 1235 ml Output Total 450 ml 1100 ml Balance 1400 ml 135 ml Free Water 250 ml 200 ml IV Total 1000 ml 635 ml Tube Feeding 600 ml 400 ml Output Urine Total 450 ml 1100 ml # Bowel Movements 5 Critical Care - Objective Last 24 Hour Vital Signs Date Time Temp Pulse Resp B/P (MAP) Pulse Ox O2 Delivery O2 Flow Rate FiO2 01/07/20 12:00 97.9 64 17 115/70 (85) 100 01/07/20 11:40 81 01/07/20 10:48 75 20 100 Mechanical Ventilator 60 69 18 60 01/07/20 08:32 76 138/88 01/07/20 08:00 97.5 76 23 138/88 (105) 100 01/07/20 08:00 Mechanical Ventilator 01/07/20 07:58 74 01/07/20 07:05 74 23 60 01/07/20 04:37 77 28 60 01/07/20 04:00 98.2 88 24 117/70 (86) 98 01/07/20 04:00 Mechanical Ventilator 01/07/20 03:39 78 01/07/20 01:18 78 24 60 01/07/20 00:00 98.9 93 26 123/78 (93) 97 01/07/20 00:00 Mechanical Ventilator 01/06/20 23:49 94 01/06/20 22:29 97 33 99 Mechanical Ventilator 60 94 33 60 01/06/20 20:30 77 110/70 01/06/20 20:00 Mechanical Ventilator 01/06/20 20:00 98.4 74 25 110/70 (83) 97 01/06/20 19:29 84 34 60 01/06/20 19:25 73 01/06/20 17:19 73 32 65 01/06/20 16:00 Mechanical Ventilator 01/06/20 16:00 98.7 68 26 101/65 (77) 95 01/06/20 15:40 76 32 100 Mechanical Ventilator 85 01/06/20 15:22 66 01/06/20 14:39 76 18 65 01/06/20 13:28 89 24 65 Labs: Labs Test 01/05/20 04:35 01/06/20 06:00 01/07/20 06:18 White Blood Count 12.7 K/UL (4.8-10.8) Red Blood Count 2.67 M/UL (4.70-6.10) Hemoglobin 8.7 G/DL (14.2-18.0) Hematocrit 25.9 % (42.0-52.0) Mean Corpuscular Volume 97 FL (80-99) Mean Corpuscular Hemoglobin 32.5 PG (27.0-31.0) Mean Corpuscular Hemoglobin Concent 33.5 G/DL (32.0-36.0) Red Cell Distribution Width 13.0 % (11.6-14.8) Platelet Count 205 K/UL (150-450) Mean Platelet Volume 7.7 FL (6.5-10.1) Neutrophils (%) (Auto) % (45.0-75.0) Lymphocytes (%) (Auto) % (20.0-45.0) Monocytes (%) (Auto) % (1.0-10.0) Eosinophils (%) (Auto) % (0.0-3.0) Basophils (%) (Auto) % (0.0-2.0) Sodium Level 146 MMOL/L (136-145) 140 MMOL/L (136-145) 136 MMOL/L (136-145) Potassium Level 4.9 MMOL/L (3.5-5.1) 5.0 MMOL/L (3.5-5.1) 5.1 MMOL/L (3.5-5.1) Chloride Level 113 MMOL/L (98-107) 108 MMOL/L (98-107) 105 MMOL/L (98-107) Carbon Dioxide Level 38 MMOL/L (21-32) 25 MMOL/L (21-32) 26 MMOL/L (21-32) Blood Urea Nitrogen 81 mg/dL (7-18) 66 mg/dL (7-18) 62 mg/dL (7-18) Creatinine 1.6 MG/DL (0.55-1.30) 1.4 MG/DL (0.55-1.30) 1.3 MG/DL (0.55-1.30) Estimat Glomerular Filtration Rate 42.1 mL/min (>60) 49.1 mL/min (>60) 53.5 mL/min (>60) Glucose Level 103 MG/DL (74-106) 103 MG/DL (74-106) 97 MG/DL (74-106) Calcium Level 9.4 MG/DL (8.5-10.1) 10.2 MG/DL (8.5-10.1) 10.0 MG/DL (8.5-10.1) Troponin I 0.083 ng/mL (0.000-0.056) Pro-B-Type Natriuretic Peptide 8156 pg/mL (0-125) Anion Gap 7 mmol/L (5-15) 5 mmol/L (5-15) Objective: WDWN NAD reduced breath sounds bilaterally without rhonchi or wheeze [id number] without MRG NABS nontender no HSM GT no CCE nonfocal trach reviewed and edited Dillon Harris MD Jan 07, 2020 13:02
--- NOTE | 2020-01-07 13:02 | Infectious Diseases Prog Note ---
"Assessment/Plan Assessment/Plan A 1. E.coli, Pseudomonas & Acinetobacter pneumonia COVID19 test negative 4.5.20, 4.8.20 2. leucocytosis improving 3. renal failure improving 4. + blood cultures with coag neg staph | diphtheroids likely contaminated 5. Ventilatory dependent respiratory failure P 1. continue meropenem 3 more days 2. Continue inhaled colistin 4. will follow up cultures Subjective ROS Limited/Unobtainable: Yes Constitutional: Denies: fever Allergies: Coded Allergies: No Known Allergies (Unverified , 12/31/19) Objective Vital Signs Last 24 Hour Vital Signs Date Time Temp Pulse Resp B/P (MAP) Pulse Ox O2 Delivery O2 Flow Rate FiO2 01/07/20 12:00 97.9 64 17 115/70 (85) 100 01/07/20 11:40 81 01/07/20 10:48 75 20 100 Mechanical Ventilator 60 69 18 60 01/07/20 08:32 76 138/88 01/07/20 08:00 97.5 76 23 138/88 (105) 100 01/07/20 08:00 Mechanical Ventilator 01/07/20 07:58 74 01/07/20 07:05 74 23 60 01/07/20 04:37 77 28 60 01/07/20 04:00 98.2 88 24 117/70 (86) 98 01/07/20 04:00 Mechanical Ventilator 01/07/20 03:39 78 01/07/20 01:18 78 24 60 01/07/20 00:00 98.9 93 26 123/78 (93) 97 01/07/20 00:00 Mechanical Ventilator 01/06/20 23:49 94 01/06/20 22:29 97 33 99 Mechanical Ventilator 60 94 33 60 01/06/20 20:30 77 110/70 01/06/20 20:00 Mechanical Ventilator 01/06/20 20:00 98.4 74 25 110/70 (83) 97 01/06/20 19:29 84 34 60 01/06/20 19:25 73 01/06/20 17:19 73 32 65 01/06/20 16:00 Mechanical Ventilator 01/06/20 16:00 98.7 68 26 101/65 (77) 95 01/06/20 15:40 76 32 100 Mechanical Ventilator 85 01/06/20 15:22 66 01/06/20 14:39 76 18 65 01/06/20 13:28 89 24 65 Height (Feet): 5 Height (Inches): 5.00 Weight (Pounds): 120 HEENT: status post trach, other - dry mouth Respiratory/Chest: other - on ventilator Cardiovascular: normal rate Abdomen: soft, non tender, other - GT feeding Extremities: no edema Skin: ulcers Laboratory Tests Test 01/07/20 06:18 Sodium Level 136 MMOL/L (136-145) Potassium Level 5.1 MMOL/L (3.5-5.1) Chloride Level 105 MMOL/L (98-107) Carbon Dioxide Level 26 MMOL/L (21-32) Anion Gap 5 mmol/L (5-15) Blood Urea Nitrogen 62 mg/dL (7-18) H Creatinine 1.3 MG/DL (0.55-1.30) Estimat Glomerular Filtration Rate 53.5 mL/min (>60) Glucose Level 97 MG/DL (74-106) Calcium Level 10.0 MG/DL (8.5-10.1) Current Medications Medications (Trade) Dose Ordered Sig/Pau Route PRN Reason Start Time Stop Time Status Last Admin Dose Admin Acetaminophen (Tylenol) 650 mg Q4H PRN GT MILD/TEMP 01/01/20 09:45 01/31/20 09:44 Ascorbic Acid (Vitamin C) 500 mg DAILY GT 01/02/20 09:00 02/01/20 08:59 01/07/20 08:32 Carvedilol (Coreg) 3.125 mg EVERY 12 HOURS GT 01/04/20 09:00 02/03/20 08:59 01/07/20 08:32 Colistimethate Sodium (Colistin *inhalation use only*) 75 mg Q12HR@10,22 INH 01/06/20 22:00 01/13/20 21:59 01/07/20 10:38 Famotidine (Pepcid I.v.) 20 mg DAILY IVP 01/01/20 10:00 01/31/20 09:59 01/07/20 08:38 Heparin Sodium (Porcine) (Heparin 5000 units/ml) 5,000 units EVERY 12 HOURS SUBQ 01/01/20 21:00 02/15/20 20:59 01/07/20 08:34 Levetiracetam (Keppra) 750 mg EVERY 12 HOURS GT 01/02/20 09:00 02/01/20 08:59 01/07/20 08:33 Levothyroxine Sodium (Synthroid) 50 mcg DAILY GT 01/02/20 09:00 02/01/20 08:59 01/07/20 08:32 Levothyroxine Sodium (Synthroid) 125 mcg DAILY GT 01/02/20 09:00 02/01/20 08:59 01/07/20 08:32 Meropenem 1 gm/ Sodium Chloride 110 ml @ 220 mls/hr Q12HR IVPB 01/04/20 13:30 01/09/20 13:29 01/07/20 08:33 Sodium Chloride 1,000 ml @ 75 mls/hr [id number] IV 01/07/20 01:00 02/06/20 00:59 01/07/20 00:18 Logan Henley MD Jan 07, 2020 13:02"
[2020-01-07] MEDS ORDERED: 1/2 NS 1000ml IV ONE (14:19)
[2020-01-07] MEDS ORDERED: NS 275ml ONE (14:19)
--- NOTE | 2020-01-07 14:59 | Surgery Progress Note ---
Surgery Progress Note Subjective Additional Comments no acute events labs improving wbc 12k exam stable comfortable appearing Objective Last 24 Hour Vital Signs Date Time Temp Pulse Resp B/P (MAP) Pulse Ox O2 Delivery O2 Flow Rate FiO2 01/07/20 12:00 97.9 64 17 115/70 (85) 100 01/07/20 12:00 Mechanical Ventilator 01/07/20 11:40 81 01/07/20 10:48 75 20 100 Mechanical Ventilator 60 69 18 60 01/07/20 08:32 76 138/88 01/07/20 08:00 97.5 76 23 138/88 (105) 100 01/07/20 08:00 Mechanical Ventilator 01/07/20 07:58 74 01/07/20 07:05 74 23 60 01/07/20 04:37 77 28 60 01/07/20 04:00 98.2 88 24 117/70 (86) 98 01/07/20 04:00 Mechanical Ventilator 01/07/20 03:39 78 01/07/20 01:18 78 24 60 01/07/20 00:00 98.9 93 26 123/78 (93) 97 01/07/20 00:00 Mechanical Ventilator 01/06/20 23:49 94 01/06/20 22:29 97 33 99 Mechanical Ventilator 60 94 33 60 01/06/20 20:30 77 110/70 01/06/20 20:00 Mechanical Ventilator 01/06/20 20:00 98.4 74 25 110/70 (83) 97 01/06/20 19:29 84 34 60 01/06/20 19:25 73 01/06/20 17:19 73 32 65 01/06/20 16:00 Mechanical Ventilator 01/06/20 16:00 98.7 68 26 101/65 (77) 95 01/06/20 15:40 76 32 100 Mechanical Ventilator 85 01/06/20 15:22 66 I&O Intake and Output 01/06/20 01/07/20 19:00 07:00 Intake Total 1850 ml 1235 ml Output Total 450 ml 1100 ml Balance 1400 ml 135 ml Free Water 250 ml 200 ml IV Total 1000 ml 635 ml Tube Feeding 600 ml 400 ml Output Urine Total 450 ml 1100 ml # Bowel Movements 5 Dressing: saturated Wound: other Drains: other Cardiovascular: RSR Respiratory: decreased breath sounds Abdomen: soft, non-tender, present bowel sounds Extremities: no tenderness, no cyanosis Laboratory Tests Test 01/07/20 06:18 Sodium Level 136 MMOL/L (136-145) Potassium Level 5.1 MMOL/L (3.5-5.1) Chloride Level 105 MMOL/L (98-107) Carbon Dioxide Level 26 MMOL/L (21-32) Anion Gap 5 mmol/L (5-15) Blood Urea Nitrogen 62 mg/dL (7-18) H Creatinine 1.3 MG/DL (0.55-1.30) Estimat Glomerular Filtration Rate 53.5 mL/min (>60) Glucose Level 97 MG/DL (74-106) Calcium Level 10.0 MG/DL (8.5-10.1) Plan Problems: (1) Decubitus skin ulcer Assessment & Plan: Pt presented on admission with contractures, multiple Skin Breakdown. Skin assessed under collar of trach and no skin breakdown noted.Category 3 Skin tear R elbow(L)4.5cm x (W)5cm. Full flap loss noted. Base of wound moist and viable,edges adherent. No exudate noted. No erythema or elevated skin temp periwound. Category 2 Skin tear L forearm. Full flap intact and reattached. Moderate amt sanguineous exudate noted. Silvasorb Gel applied and covered with Optifoam drsg. Reinforced with ABD Pad and Kerlix. DTPI noted to L Sacrum(L)3.5cm x (W)3cm. Base of wound is maroon and indurated. DTPI R Sacrum(L)7cm x (W)9.5cm. Wound is irregular shaped. Base of wound is maroon and indurated. Scattered areas of darker skin tone without induration or erythema periwound. DTPI L lateral malleolus(L)2.5cm x (W)2cm. Base of wound is fluctuant,purple with surrounding maroon borders. No erythema or elevation in skin temp periwound. Partial thickness wound L 1st metatarsal head (L)2.5cm x (W)2cm. Base of wound is moist and viable. Edges are macerated. Non-blanching erythema without fluctuance periwound. DTPI Dorso/lateral R foot(L)2.3cm x (W)4.3cm. Base of injury is indurated purple /maroon in colour. No erythema or elevation in skin temp periwound. Hyperpigmentation from previous wounds noted to R and L hallux. Tx.Plan: Cleanse Skin tears R Elbow and L forearm with Saline. Apply Silvasorb Gel. Cover each wounds with Optifoam drsgs. Change every 7 days and prn. Apply Triad Paste to R and L Sacrum. Cover with Optifoam drsg. Change every 3 days and prn. Apply Cavilon to Malleoli both feet, Both heels and Both hallux . Cover each site with Optifoam drsgs turn q2h nutritional optimization (2) Respiratory insufficiency (3) Malnutrition Assessment & Plan: DAILY ESTIMATED NEEDS: Needs based on Critical care, wounds/ 60kg abw 22-28 kcals/kg [id number] total kcals 1.25-2 g protein/kg 75-120 g total protein 25-30 mL/kg 1948-1765 total fluid mLs NUTRITION DIAGNOSIS: Swallowing difficulty R/T respiratory status as evidenced by trach/vent dep, PEG dep. CURRENT TF:Glucerna 1.5 @ 50ml/hr x 20 hrs ENTERAL NUTRITION RECOMMENDATIONS: Glucerna 1.5 @ 50ml/hr x 20 hrs to provide 1000ml, 1500kcal, 82.5g prot, 759ml free water * Maintain current TF @ goal : meets 100% est kcal/prot needs * HOB Over 30 degrees/ water flush per MD * Hold Synthroid during 4 hrs that TF is off FOR 22 HRS RUN (total 2 hrs held for Synthroid) -> Glucerna 1.5 @ 45ml/hr x 22 hrs to provide 990ml, 1485kcal, 82g prot -> Hold TF 1 hr before and after Synthroid ADDITIONAL RECOMMENDATIONS: * Per SNF: HT=63", XP=601yfz (as of 12/28/19) * Monitor lytes, replete as needed * Wound healing: f/up w/ WC eval : add Vit C 500mg QD, Jerome 1pkt BID (4) Pneumonia (5) Tracheal stenosis (6) Protein-calorie malnutrition, severe (7) Suspected COVID-19 virus infection Sabino Gold Jan 07, 2020 14:59
--- NOTE | 2020-01-07 15:22 | Nephrology Progress Note ---
Assessment/Plan Problem List: (1) Hypernatremia (2) Dehydration (3) JOHN (acute kidney injury) (4) Respiratory insufficiency (5) Pneumonia (6) Protein-calorie malnutrition, severe (7) Hx of tracheostomy Plan continue hypotonic iv's, antibiotics BUN and Na improving Subjective ROS Limited/Unobtainable: Yes Objective Objective Last 24 Hour Vital Signs Date Time Temp Pulse Resp B/P (MAP) Pulse Ox O2 Delivery O2 Flow Rate FiO2 01/07/20 15:13 85 33 60 01/07/20 12:00 97.9 64 17 115/70 (85) 100 01/07/20 12:00 Mechanical Ventilator 01/07/20 11:40 81 01/07/20 10:48 75 20 100 Mechanical Ventilator 60 69 18 60 01/07/20 08:32 76 138/88 01/07/20 08:00 97.5 76 23 138/88 (105) 100 01/07/20 08:00 Mechanical Ventilator 01/07/20 07:58 74 01/07/20 07:05 74 23 60 01/07/20 04:37 77 28 60 01/07/20 04:00 98.2 88 24 117/70 (86) 98 01/07/20 04:00 Mechanical Ventilator 01/07/20 03:39 78 01/07/20 01:18 78 24 60 01/07/20 00:00 98.9 93 26 123/78 (93) 97 01/07/20 00:00 Mechanical Ventilator 01/06/20 23:49 94 01/06/20 22:29 97 33 99 Mechanical Ventilator 60 94 33 60 01/06/20 20:30 77 110/70 01/06/20 20:00 Mechanical Ventilator 01/06/20 20:00 98.4 74 25 110/70 (83) 97 01/06/20 19:29 84 34 60 01/06/20 19:25 73 01/06/20 17:19 73 32 65 01/06/20 16:00 Mechanical Ventilator 01/06/20 16:00 98.7 68 26 101/65 (77) 95 01/06/20 15:40 76 32 100 Mechanical Ventilator 85 Intake and Output 01/06/20 01/07/20 19:00 07:00 Intake Total 1850 ml 1235 ml Output Total 450 ml 1100 ml Balance 1400 ml 135 ml Free Water 250 ml 200 ml IV Total 1000 ml 635 ml Tube Feeding 600 ml 400 ml Output Urine Total 450 ml 1100 ml # Bowel Movements 5 Laboratory Tests 01/07/20 06:18: Sodium Level 136, Potassium Level 5.1, Chloride Level 105, Carbon Dioxide Level 26, Anion Gap 5, Blood Urea Nitrogen 62H, Creatinine 1.3, Estimat Glomerular Filtration Rate 53.5, Glucose Level 97, Calcium Level 10.0 Height (Feet): 5 Height (Inches): 5.00 Weight (Pounds): 120 General Appearance: lethargic, other - on vent Cardiovascular: regular rhythm Respiratory/Chest: rhonchi - bilaterally Abdomen: no organomegaly Extremities: trace edema, other - contractures Neurologic: motor weakness, disoriented Pravin Abad MD Jan 07, 2020 15:22
[2020-01-07 16:00] VITALS: BP 137/91
--- NOTE | 2020-01-07 19:20 | NUR ---
HAND-OFF: Report given to Pita Caban. Pt. remain stable.
--- NOTE | 2020-01-07 19:36 | NUR ---
NURSE NOTES: Received report from ALETA Walters. Patient is asleep lying semi-crisostomo's; resting comfortably. No signs of acute distress or pain noted at this time. On Portex #8, A/C 18, Tidal volume: 450, FiO2 - 60%, PEEP - 8 mechanical ventilator settings. AOx0; unable to make needs known. Aphasic. IV site noted to be infiltrated. Will attempt to establish new IV access at a later time. On P200, low air loss mattress for appropriate wound management. G-tube in place. Glucerna 1.5 running at 45 mls/hr. Condom catheter draining to gravity. Wound dressings dry and intact. Bed at lowest position, brakes on, siderails up x3. Call light within reach. Will continue to monitor.
[2020-01-07 20:00] VITALS: BP 137/78
--- NOTE | 2020-01-07 21:54 | NUR ---
NURSE NOTES: Attempted to establish new IV access several times, however, unsuccessful. Notified Dr. Harris that patient is extremely hard stick and his left hand is already swollen. Also notified him that Merrem 1 gm IV and D5W at 75 mls/hr are to be administered, however, the patient has no IV access. Awaiting callback for any further orders.
--- NOTE | 2020-01-07 21:59 | NUR ---
NURSE NOTES: Received new order from Dr. Harris for PICC line placement. Noted and carried out.
--- NOTE | 2020-01-07 22:49 | NUR ---
NURSE NOTES: Attempted to reach Forrestalexander Doran, patient's friend, with regards to a decision maker who can provide consent on the patient's behalf as patient cannot make decisions for himself, but unsuccessful. Will reattempt at a later time.
[2020-01-08] VITALS: BP 141/86
[2020-01-08 04:00] VITALS: BP 152/92
[2020-01-08 06:10] LABS: ANION GAP 6 mmol/L (5-15); BLOOD UREA NITROGEN 54 mg/dL (7-18); CALCIUM 10.1 MG/DL (8.5-10.1); CARBON DIOXIDE 28 MMOL/L (21-32); CHLORIDE 103 MMOL/L (98-107); CREATININE 1.4 MG/DL (0.55-1.30); POTASSIUM 4.9 MMOL/L (3.5-5.1); SODIUM 136 MMOL/L (136-145)
--- NOTE | 2020-01-08 06:30 | Progress Note ---
DATE: 01/07/2020 CARDIOLOGY PROGRESS NOTE SUBJECTIVE: On ventilator support. Poorly responsive. Secretions slightly decreased. OBJECTIVE: VITAL SIGNS: Blood pressure 138/88, pulse 76, respirations 23, afebrile. Monitored rhythm sinus with atrial ectopy. LUNGS: Bilateral breath sounds. Rhonchi and rales. CARDIAC: Regular rhythm and rate. Normal S1 and S2. ABDOMEN: Soft. EXTREMITIES: No edema. LABORATORY DATA: Sodium 136, potassium 5.1, BUN 62, creatinine 1.3, and bicarb 26. IMPRESSION: 1. Respiratory failure. 2. Healthcare-associated pneumonia. 3. Acute renal failure, improved. 4. Dehydration. 5. Hyponatremia, corrected. 6. Acute on chronic diastolic congestive heart failure, clinically compensated. 7. Acute myocardial ischemia and possible non-ST elevation infarction. 8. Hypertension. PLAN: 1. Continue beta-minor and anti-platelet therapy. 2. Taper off IV fluids. 3. Thyroid replacement. 4. Monitor volume status and reassess for diuresis. Tony Lobo M.D. DR: BRAD JOB#: [id number] CC:
--- NOTE | 2020-01-08 06:52 | NUR ---
RESPIRATORY NOTE: Received pt on Portex, cuffed size 8.0, secured by trach guard/tie. Pt is vent dependent with the current vent settings. No SOB or resp distress noted. Alarms are set and audible, vent is plugged into the red outlet, ambu bag and spare trach kit are at bedside. Will continue to monitor.
--- NOTE | 2020-01-08 07:31 | NUR ---
HAND-OFF: Report given to ALETA Sahni. Patient is asleep lying semi-crisostomo's; resting comfortably. Condom catheter draining well to gravity. No seizure activity noted throughout shift. Glucerna 1.5 running at 45 mls/hr. In stable condition.
--- NOTE | 2020-01-08 07:40 | NUR ---
NURSE NOTES: Received patient from ALETA Lema. Patient resting in bed with no distress at this time. No pain noted at this time. Alert and oriented x 2, does not follow commands. Patient on Portex #8 mechanical ventilator with settings of A/C 18, tidal volume 450, FiO2 60%, peep 8. Left forearm 22G intact with no infiltration noted. Condom cath in place and intact. Wound dressings dry and intact. Bed at lowest position with brakes engaged.
--- NOTE | 2020-01-08 07:49 | General Progress Note ---
Assessment/Plan Problem List: (1) JOHN (acute kidney injury) ICD Codes: N17.9 - Acute kidney failure, unspecified SNOMED: 4248858, 06523613 (2) Dehydration ICD Codes: E86.0 - Dehydration SNOMED: 60092215 (3) Suspected COVID-19 virus infection ICD Codes: R68.89 - Other general symptoms and signs SNOMED: 986926479 (4) Tracheal stenosis ICD Codes: J39.8 - Other specified diseases of upper respiratory tract SNOMED: 56748207 (5) Pneumonia ICD Codes: J18.9 - Pneumonia, unspecified organism SNOMED: 177322641 (6) Malnutrition ICD Codes: E46 - Unspecified protein-calorie malnutrition SNOMED: 48848144 (7) Respiratory insufficiency ICD Codes: R06.89 - Other abnormalities of breathing SNOMED: 985610849 Status: stable Assessment/Plan: cont current rx ivf iv abx per id. follow up cultures monitor labs and cxr sz rx monitor bp dvt/stress ulcer prophylaxis transfuse as needed skin/wound care Subjective ROS Limited/Unobtainable: Yes Constitutional: Reports: malaise, weakness HEENT: Reports: no symptoms Cardiovascular: Reports: no symptoms Respiratory: Reports: shortness of breath, sputum Gastrointestinal/Abdominal: Reports: difficulty swallowing Genitourinary: Reports: no symptoms Neurologic/Psychiatric: Reports: pre-existing deficit, seizure Endocrine: Reports: no symptoms Hematologic/Lymphatic: Reports: anemia Allergies: Coded Allergies: No Known Allergies (Unverified , 12/31/19) All Systems: reviewed and negative except above Subjective no events. stable on the vent. no fever or chills. labs improving. on iv abx. poorly responsive at baseline. labs reviewed Objective Last 24 Hour Vital Signs Date Time Temp Pulse Resp B/P (MAP) Pulse Ox O2 Delivery O2 Flow Rate FiO2 01/08/20 06:52 76 26 60 01/08/20 04:00 97.6 80 21 152/92 (112) 100 01/08/20 04:00 76 01/08/20 04:00 Mechanical Ventilator 01/08/20 02:30 72 22 60 01/08/20 00:00 97.4 83 23 141/86 (104) 95 01/08/20 00:00 80 01/08/20 00:00 Mechanical Ventilator 01/07/20 23:00 77 20 60 01/07/20 22:14 80 137/78 01/07/20 20:28 74 18 100 Mechanical Ventilator 60 79 18 60 01/07/20 20:00 74 01/07/20 20:00 97.2 80 24 137/78 (97) 100 01/07/20 20:00 Mechanical Ventilator 01/07/20 17:24 84 33 60 01/07/20 16:00 97.1 80 24 137/91 (106) 100 01/07/20 16:00 Mechanical Ventilator 01/07/20 15:32 91 01/07/20 15:13 85 33 60 01/07/20 12:00 97.9 64 17 115/70 (85) 100 01/07/20 12:00 Mechanical Ventilator 01/07/20 11:40 81 01/07/20 10:48 75 20 100 Mechanical Ventilator 60 69 18 60 01/07/20 08:32 76 138/88 01/07/20 08:00 97.5 76 23 138/88 (105) 100 01/07/20 08:00 Mechanical Ventilator 01/07/20 07:58 74 Intake and Output 01/07/20 01/08/20 19:00 07:00 Intake Total 1225 ml 655 ml Output Total 500 ml 900 ml Balance 725 ml -245 ml Free Water 250 ml 160 ml IV Total 525 ml Tube Feeding 450 ml 495 ml Output Urine Total 500 ml 900 ml # Bowel Movements 3 2 Laboratory Tests 01/08/20 04:50: Sodium Level 136, Potassium Level 4.9, Chloride Level 103, Carbon Dioxide Level 28, Anion Gap 6, Blood Urea Nitrogen 54H, Creatinine 1.4H, Estimat Glomerular Filtration Rate 49.1, Glucose Level 102, Calcium Level 10.1 Height (Feet): 5 Height (Inches): 5.00 Weight (Pounds): 120 Objective General Appearance: WD/WN, alert Neck: supple Cardiovascular: regular rhythm Respiratory/Chest: chest wall non-tender, rhonchi - bilaterally Abdomen: normal bowel sounds, non tender, soft, no organomegaly Edema: no edema noted Arm (L), no edema noted Arm (R), no edema noted Leg (L), no edema noted Leg (R), no edema noted Pedal (L), no edema noted Pedal (R), no edema noted Generalized Neurologic: disoriented, aphasia Uomoto,Vasquez M. MD Jan 08, 2020 07:49
[2020-01-08 08:00] VITALS: BP 152/93
[2020-01-08] MEDS ORDERED: Lidocaine 1% Plain 30 ml INJ PRN (08:00)
[2020-01-08] MEDS ORDERED: Heparin1,000 units/500ml Premix(Conc:2 units/ml) IV PRN (08:00)
[2020-01-08] MEDS: Meropenem 1gm/NS 110ml IVPB SCH ×4 (08:09→20:35)
[2020-01-08] MEDS: Carvedilol 6.25mg Tab GT SCH ×2 (08:10→20:26)
[2020-01-08] MEDS: levETIRAcetam 500mg/5ml Liquid GT SCH ×2 (08:10→21:29)
[2020-01-08] MEDS: Levothyroxine 125mcg tab GT SCH (08:10)
[2020-01-08] MEDS: Ascorbic Acid 500mg tab GT SCH (08:10)
[2020-01-08] MEDS: Heparin 5000 units/ml inj SUBQ SCH ×2 (08:11→20:25)
--- NOTE | 2020-01-08 09:09 | Critical Care Progress Note ---
Assessment/Plan Assessment/Plan Impression: Pneumonia Sepsis Elevated troponin Renal failure Tracheostomy History of tracheal stenosis Ventilator Dependent Respiratory Failure Chronically altered mental status s/p previous CPA, anoxia Previous Seizures Previous pericardial effusion, Congestive Heart Failure, Atrial Fibrillation Diabetes, Hypothyroidism Previous Hematuria/UTI, previous sepsis GERD sp G tube polymicrobial infection PLAN vent management as is acid base noted; taper oxygen antibiotics reviewed PICC line ID and renal noted cultures noted monitor TSH after dc feeds as able resume other meds seizure precautions monitor blood pressure and adjust cardiology to monitor hemodynamics note reviewed and edited care discussed with RN and RT critical time spent >40 minutes coordinating care and updating orders Critical Care - Subjective Interval Events: care noted poor IV access care reviewed on vent ROS Limited/Unobtainable: Yes Condition: critical EKG Rhythm: Sinus Rhythm Residuals: minimal Tube Feeding Tolerated: yes I&O: Intake and Output 01/07/20 01/08/20 19:00 07:00 Intake Total 1225 ml 1359 ml Output Total 500 ml 900 ml Balance 725 ml 459 ml Free Water 250 ml 160 ml IV Total 525 ml 704 ml Tube Feeding 450 ml 495 ml Output Urine Total 500 ml 900 ml # Bowel Movements 3 2 Critical Care - Objective Last 24 Hour Vital Signs Date Time Temp Pulse Resp B/P (MAP) Pulse Ox O2 Delivery O2 Flow Rate FiO2 01/08/20 08:10 76 151/93 01/08/20 08:00 72 01/08/20 08:00 Mechanical Ventilator 01/08/20 08:00 96.9 96 21 152/93 (112) 100 01/08/20 06:52 76 26 60 01/08/20 04:00 97.6 80 21 152/92 (112) 100 01/08/20 04:00 76 01/08/20 04:00 Mechanical Ventilator 01/08/20 02:30 72 22 60 01/08/20 00:00 97.4 83 23 141/86 (104) 95 01/08/20 00:00 80 01/08/20 00:00 Mechanical Ventilator 01/07/20 23:00 77 20 60 01/07/20 22:14 80 137/78 01/07/20 20:28 74 18 100 Mechanical Ventilator 60 79 18 60 01/07/20 20:00 74 01/07/20 20:00 97.2 80 24 137/78 (97) 100 01/07/20 20:00 Mechanical Ventilator 01/07/20 17:24 84 33 60 01/07/20 16:00 97.1 80 24 137/91 (106) 100 01/07/20 16:00 Mechanical Ventilator 01/07/20 15:32 91 01/07/20 15:13 85 33 60 01/07/20 12:00 97.9 64 17 115/70 (85) 100 01/07/20 12:00 Mechanical Ventilator 01/07/20 11:40 81 01/07/20 10:48 75 20 100 Mechanical Ventilator 60 69 18 60 Labs: Labs Test 01/06/20 06:00 01/07/20 06:18 01/08/20 04:50 Sodium Level 140 MMOL/L (136-145) 136 MMOL/L (136-145) 136 MMOL/L (136-145) Potassium Level 5.0 MMOL/L (3.5-5.1) 5.1 MMOL/L (3.5-5.1) 4.9 MMOL/L (3.5-5.1) Chloride Level 108 MMOL/L (98-107) 105 MMOL/L (98-107) 103 MMOL/L (98-107) Carbon Dioxide Level 25 MMOL/L (21-32) 26 MMOL/L (21-32) 28 MMOL/L (21-32) Anion Gap 7 mmol/L (5-15) 5 mmol/L (5-15) 6 mmol/L (5-15) Blood Urea Nitrogen 66 mg/dL (7-18) 62 mg/dL (7-18) 54 mg/dL (7-18) Creatinine 1.4 MG/DL (0.55-1.30) 1.3 MG/DL (0.55-1.30) 1.4 MG/DL (0.55-1.30) Estimat Glomerular Filtration Rate 49.1 mL/min (>60) 53.5 mL/min (>60) 49.1 mL/min (>60) Glucose Level 103 MG/DL (74-106) 97 MG/DL (74-106) 102 MG/DL (74-106) Calcium Level 10.2 MG/DL (8.5-10.1) 10.0 MG/DL (8.5-10.1) 10.1 MG/DL (8.5-10.1) Objective: WDWN NAD reduced breath sounds bilaterally without rhonchi or wheeze [id number] without MRG NABS nontender no HSM GT no CCE nonfocal trach reviewed and edited Dillon Harris MD Jan 08, 2020 09:09
[2020-01-08] MEDS: Colistin for inhalation INH SCH ×2 (10:21→23:07)
--- NOTE | 2020-01-08 11:56 | Infectious Diseases Prog Note ---
"Assessment/Plan Assessment/Plan antibiotics : meropenem 4..20 - inhaled colistin 4..20 - A 1. e.coli | pseudomonas | acenitobacter pneumonia COVID 19 test negative 4.5.20, 4.8.20 2. leucocytosis improving 3. renal failure improving 4. + blood cultures with coag neg staph | diphtheroids likely contaminated 5. respiratory failure P 1. continue meropenem 2 more days 2. continue inhaled colistin 4 more days 3. will follow up cultures Subjective ROS Limited/Unobtainable: Yes Allergies: Coded Allergies: No Known Allergies (Unverified , 12/31/19) Objective Vital Signs Last 24 Hour Vital Signs Date Time Temp Pulse Resp B/P (MAP) Pulse Ox O2 Delivery O2 Flow Rate FiO2 01/08/20 10:31 67 20 100 Mechanical Ventilator 60 70 18 60 01/08/20 09:15 80 28 60 01/08/20 08:10 76 151/93 01/08/20 08:00 72 01/08/20 08:00 Mechanical Ventilator 01/08/20 08:00 96.9 96 21 152/93 (112) 100 01/08/20 06:52 76 26 60 01/08/20 04:00 97.6 80 21 152/92 (112) 100 01/08/20 04:00 76 01/08/20 04:00 Mechanical Ventilator 01/08/20 02:30 72 22 60 01/08/20 00:00 97.4 83 23 141/86 (104) 95 01/08/20 00:00 80 01/08/20 00:00 Mechanical Ventilator 01/07/20 23:00 77 20 60 01/07/20 22:14 80 137/78 01/07/20 20:28 74 18 100 Mechanical Ventilator 60 79 18 60 01/07/20 20:00 74 01/07/20 20:00 97.2 80 24 137/78 (97) 100 01/07/20 20:00 Mechanical Ventilator 01/07/20 17:24 84 33 60 01/07/20 16:00 97.1 80 24 137/91 (106) 100 01/07/20 16:00 Mechanical Ventilator 01/07/20 15:32 91 01/07/20 15:13 85 33 60 01/07/20 12:00 97.9 64 17 115/70 (85) 100 01/07/20 12:00 Mechanical Ventilator Height (Feet): 5 Height (Inches): 5.00 Weight (Pounds): 120 HEENT: status post trach Respiratory/Chest: lungs clear Cardiovascular: normal rate, regular rhythm, no gallop/murmur Abdomen: soft, non tender, other - GT Extremities: no edema Laboratory Tests Test 01/08/20 04:50 Sodium Level 136 MMOL/L (136-145) Potassium Level 4.9 MMOL/L (3.5-5.1) Chloride Level 103 MMOL/L (98-107) Carbon Dioxide Level 28 MMOL/L (21-32) Anion Gap 6 mmol/L (5-15) Blood Urea Nitrogen 54 mg/dL (7-18) H Creatinine 1.4 MG/DL (0.55-1.30) H Estimat Glomerular Filtration Rate 49.1 mL/min (>60) Glucose Level 102 MG/DL (74-106) Calcium Level 10.1 MG/DL (8.5-10.1) Current Medications Medications (Trade) Dose Ordered Sig/Pau Route PRN Reason Start Time Stop Time Status Last Admin Dose Admin Acetaminophen (Tylenol) 650 mg Q4H PRN GT MILD/TEMP 01/01/20 09:45 01/31/20 09:44 Ascorbic Acid (Vitamin C) 500 mg DAILY GT 01/02/20 09:00 02/01/20 08:59 01/08/20 08:10 Carvedilol (Coreg) 6.25 mg EVERY 12 HOURS GT 01/08/20 09:00 02/07/20 08:59 01/08/20 08:10 Chlorhexidine Gluconate (Radha-Hex 2%) 1 applic DAILY@1999 TOPIC 01/08/20 20:00 04/07/20 19:59 Colistimethate Sodium (Colistin *inhalation use only*) 75 mg Q12HR@10,22 INH 01/06/20 22:00 01/13/20 21:59 01/08/20 10:21 Dextrose 1,000 ml @ 75 mls/hr [id number] IV 01/07/20 15:45 02/06/20 15:44 01/08/20 06:14 Famotidine (Pepcid I.v.) 20 mg DAILY IVP 01/01/20 10:00 01/31/20 09:59 01/08/20 08:27 Heparin Sodium (Porcine) (Heparin 5000 units/ml) 5,000 units EVERY 12 HOURS SUBQ 01/01/20 21:00 02/15/20 20:59 01/08/20 08:11 Heparin Sodium/ Sodium Chloride (Heparin 1000 units/500ml Premix) 1,000 unit ONCE PRN IV PICC 01/08/20 08:00 01/08/20 23:59 Levetiracetam (Keppra) 750 mg EVERY 12 HOURS GT 01/02/20 09:00 02/01/20 08:59 01/08/20 08:10 Levothyroxine Sodium (Synthroid) 50 mcg DAILY GT 01/02/20 09:00 02/01/20 08:59 01/08/20 08:10 Levothyroxine Sodium (Synthroid) 125 mcg DAILY GT 01/02/20 09:00 02/01/20 08:59 01/08/20 08:10 Lidocaine HCl (Xylocaine 1% 30ml) 30 ml ONCE PRN INJ PICC 01/08/20 08:00 01/08/20 23:59 Meropenem 1 gm/ Sodium Chloride 110 ml @ 220 mls/hr Q12HR IVPB 01/04/20 13:30 01/09/20 13:29 01/08/20 08:09 Heber Abraham MD Jan 08, 2020 11:56"
[2020-01-08 12:00] VITALS: BP 152/84
--- NOTE | 2020-01-08 13:17 | Surgery Progress Note ---
Surgery Progress Note Subjective Additional Comments exam stable labs improved wbc improved renal functional fluctuating no n/v/f/c Objective Last 24 Hour Vital Signs Date Time Temp Pulse Resp B/P (MAP) Pulse Ox O2 Delivery O2 Flow Rate FiO2 01/08/20 12:30 70 23 50 01/08/20 12:00 Mechanical Ventilator 01/08/20 12:00 69 01/08/20 12:00 98.1 73 14 152/84 (106) 100 01/08/20 10:31 67 20 100 Mechanical Ventilator 60 70 18 60 01/08/20 09:15 80 28 60 01/08/20 08:10 76 151/93 01/08/20 08:00 72 01/08/20 08:00 Mechanical Ventilator 01/08/20 08:00 96.9 96 21 152/93 (112) 100 01/08/20 06:52 76 26 60 01/08/20 04:00 97.6 80 21 152/92 (112) 100 01/08/20 04:00 76 01/08/20 04:00 Mechanical Ventilator 01/08/20 02:30 72 22 60 01/08/20 00:00 97.4 83 23 141/86 (104) 95 01/08/20 00:00 80 01/08/20 00:00 Mechanical Ventilator 01/07/20 23:00 77 20 60 01/07/20 22:14 80 137/78 01/07/20 20:28 74 18 100 Mechanical Ventilator 60 79 18 60 01/07/20 20:00 74 01/07/20 20:00 97.2 80 24 137/78 (97) 100 01/07/20 20:00 Mechanical Ventilator 01/07/20 17:24 84 33 60 01/07/20 16:00 97.1 80 24 137/91 (106) 100 01/07/20 16:00 Mechanical Ventilator 01/07/20 15:32 91 01/07/20 15:13 85 33 60 I&O Intake and Output 01/07/20 01/08/20 19:00 07:00 Intake Total 1225 ml 1359 ml Output Total 500 ml 900 ml Balance 725 ml 459 ml Free Water 250 ml 160 ml IV Total 525 ml 704 ml Tube Feeding 450 ml 495 ml Output Urine Total 500 ml 900 ml # Bowel Movements 3 2 Dressing: saturated Wound: clean Cardiovascular: RSR Respiratory: decreased breath sounds Abdomen: soft, non-tender, present bowel sounds Extremities: no tenderness, no cyanosis Laboratory Tests Test 01/08/20 04:50 Sodium Level 136 MMOL/L (136-145) Potassium Level 4.9 MMOL/L (3.5-5.1) Chloride Level 103 MMOL/L (98-107) Carbon Dioxide Level 28 MMOL/L (21-32) Anion Gap 6 mmol/L (5-15) Blood Urea Nitrogen 54 mg/dL (7-18) H Creatinine 1.4 MG/DL (0.55-1.30) H Estimat Glomerular Filtration Rate 49.1 mL/min (>60) Glucose Level 102 MG/DL (74-106) Calcium Level 10.1 MG/DL (8.5-10.1) Plan Problems: (1) Decubitus skin ulcer Assessment & Plan: Pt presented on admission with contractures, multiple Skin Breakdown. Skin assessed under collar of trach and no skin breakdown noted.Category 3 Skin tear R elbow(L)4.5cm x (W)5cm. Full flap loss noted. Base of wound moist and viable,edges adherent. No exudate noted. No erythema or elevated skin temp periwound. Category 2 Skin tear L forearm. Full flap intact and reattached. Moderate amt sanguineous exudate noted. Silvasorb Gel applied and covered with Optifoam drsg. Reinforced with ABD Pad and Kerlix. DTPI noted to L Sacrum(L)3.5cm x (W)3cm. Base of wound is maroon and indurated. DTPI R Sacrum(L)7cm x (W)9.5cm. Wound is irregular shaped. Base of wound is maroon and indurated. Scattered areas of darker skin tone without induration or erythema periwound. DTPI L lateral malleolus(L)2.5cm x (W)2cm. Base of wound is fluctuant,purple with surrounding maroon borders. No erythema or elevation in skin temp periwound. Partial thickness wound L 1st metatarsal head (L)2.5cm x (W)2cm. Base of wound is moist and viable. Edges are macerated. Non-blanching erythema without fluctuance periwound. DTPI Dorso/lateral R foot(L)2.3cm x (W)4.3cm. Base of injury is indurated purple /maroon in colour. No erythema or elevation in skin temp periwound. Hyperpigmentation from previous wounds noted to R and L hallux. Tx.Plan: Cleanse Skin tears R Elbow and L forearm with Saline. Apply Silvasorb Gel. Cover each wounds with Optifoam drsgs. Change every 7 days and prn. Apply Triad Paste to R and L Sacrum. Cover with Optifoam drsg. Change every 3 days and prn. Apply Cavilon to Malleoli both feet, Both heels and Both hallux . Cover each site with Optifoam drsgs turn q2h nutritional optimization (2) Respiratory insufficiency (3) Malnutrition Assessment & Plan: DAILY ESTIMATED NEEDS: Needs based on Critical care, wounds/ 60kg abw 22-28 kcals/kg 1938-5927 total kcals 1.25-2 g protein/kg 75-120 g total protein 25-30 mL/kg 8033-6019 total fluid mLs NUTRITION DIAGNOSIS: Swallowing difficulty R/T respiratory status as evidenced by trach/vent dep, PEG dep. CURRENT TF:Glucerna 1.5 @ 50ml/hr x 20 hrs ENTERAL NUTRITION RECOMMENDATIONS: Glucerna 1.5 @ 50ml/hr x 20 hrs to provide 1000ml, 1500kcal, 82.5g prot, 759ml free water * Maintain current TF @ goal : meets 100% est kcal/prot needs * HOB Over 30 degrees/ water flush per MD * Hold Synthroid during 4 hrs that TF is off FOR 22 HRS RUN (total 2 hrs held for Synthroid) -> Glucerna 1.5 @ 45ml/hr x 22 hrs to provide 990ml, 1485kcal, 82g prot -> Hold TF 1 hr before and after Synthroid ADDITIONAL RECOMMENDATIONS: * Per SNF: HT=63", LN=045gwv (as of 12/28/19) * Monitor lytes, replete as needed * Wound healing: f/up w/ WC eval : add Vit C 500mg QD, Jerome 1pkt BID (4) Pneumonia (5) Tracheal stenosis (6) Protein-calorie malnutrition, severe (7) Suspected COVID-19 virus infection Assessment & Plan: negative Sabino Gold Jan 08, 2020 13:17
--- NOTE | 2020-01-08 15:36 | Nephrology Progress Note ---
Assessment/Plan Problem List: (1) Hypernatremia (2) Dehydration (3) JOHN (acute kidney injury) (4) Respiratory insufficiency (5) Pneumonia (6) Protein-calorie malnutrition, severe (7) Hx of tracheostomy Plan continue hypotonic iv's, antibiotics BUN and Na improving Subjective ROS Limited/Unobtainable: Yes Objective Objective Last 24 Hour Vital Signs Date Time Temp Pulse Resp B/P (MAP) Pulse Ox O2 Delivery O2 Flow Rate FiO2 01/08/20 15:00 69 24 40 01/08/20 12:30 70 23 50 01/08/20 12:00 Mechanical Ventilator 01/08/20 12:00 69 01/08/20 12:00 98.1 73 14 152/84 (106) 100 01/08/20 10:31 67 20 100 Mechanical Ventilator 60 70 18 60 01/08/20 09:15 80 28 60 01/08/20 08:10 76 151/93 01/08/20 08:00 72 01/08/20 08:00 Mechanical Ventilator 01/08/20 08:00 96.9 96 21 152/93 (112) 100 01/08/20 06:52 76 26 60 01/08/20 04:00 97.6 80 21 152/92 (112) 100 01/08/20 04:00 76 01/08/20 04:00 Mechanical Ventilator 01/08/20 02:30 72 22 60 01/08/20 00:00 97.4 83 23 141/86 (104) 95 01/08/20 00:00 80 01/08/20 00:00 Mechanical Ventilator 01/07/20 23:00 77 20 60 01/07/20 22:14 80 137/78 01/07/20 20:28 74 18 100 Mechanical Ventilator 60 79 18 60 01/07/20 20:00 74 01/07/20 20:00 97.2 80 24 137/78 (97) 100 01/07/20 20:00 Mechanical Ventilator 01/07/20 17:24 84 33 60 01/07/20 16:00 97.1 80 24 137/91 (106) 100 01/07/20 16:00 Mechanical Ventilator Intake and Output 01/07/20 01/08/20 19:00 07:00 Intake Total 1225 ml 1359 ml Output Total 500 ml 900 ml Balance 725 ml 459 ml Free Water 250 ml 160 ml IV Total 525 ml 704 ml Tube Feeding 450 ml 495 ml Output Urine Total 500 ml 900 ml # Bowel Movements 3 2 Laboratory Tests 01/08/20 04:50: Sodium Level 136, Potassium Level 4.9, Chloride Level 103, Carbon Dioxide Level 28, Anion Gap 6, Blood Urea Nitrogen 54H, Creatinine 1.4H, Estimat Glomerular Filtration Rate 49.1, Glucose Level 102, Calcium Level 10.1 Height (Feet): 5 Height (Inches): 5.00 Weight (Pounds): 120 General Appearance: lethargic Respiratory/Chest: rhonchi - bilaterally Abdomen: non tender, soft Extremities: trace edema Neurologic: motor weakness Pravin Abad MD Jan 08, 2020 15:36
[2020-01-08 16:00] VITALS: BP 121/73
--- NOTE | 2020-01-08 16:19 | NUR ---
*-* INSURANCE *-* UPDATED CLINICALS AND REVIEWS HAVE BEEN FAXED TO: NIKOLE Quiñonez # [phone] fax#[phone]
--- NOTE | 2020-01-08 17:08 | NUR ---
CASE MANAGEMENT: REVIEW SI: PNA . TRACH/VENT DEPENDENT . COVID-19 NOT DETECTED T 98.1 HR 73 RR 14 BP 152/84 SAT 100% MECH VENT FIO2 60 BUN 54 CR 1.4 IS: MEROPENEM IV Q12HR PEPCID IV QD HEPARIN SUBQ Q12HR D5W @ 75ML/HR STEP DOWN UNIT DCP: PATIENT IS FROM [facility]
--- NOTE | 2020-01-08 19:00 | NUR ---
NURSE NOTES: Received patient and report from ALETA Martin. Patient is observed resting in bed and remains alert and oriented x0-1. No pain noted upon assessment. Pt is trach to vent with the following settings: AC 10 TV 450 FiO2 100% PEEP 5 and no s/sx of acute distress. Pt noted to be SR on tele monitor with a current HR of 95 noted, no s/sx of acute distress. GT noted which remains intact and patent and infusing feeding as prescribed, no residual noted. Condom catheter noted and remains draining yellow urine to gravity. L FA 22g IV catheter remains intact, patent and infusing D5W at 75mL/hr as prescribed. Diagnostics reviewed. Skin alterations noted. Fall, Aspiration and Seizure precautions observed. COVID swabs pending, isolation precautions continued. Pt remains resting in bed; Bed remains in the lowest position with the safety wheels engaged, call light within reach, side rails up x3 and bed alarm activated. Will continue plan of care. Will continue to monitor.
--- NOTE | 2020-01-08 19:30 | NUR ---
HAND-OFF: Report given to ALETA Dawkins.
[2020-01-08 20:00] VITALS: BP 114/70
[2020-01-08] MEDS: Dyna-Hex 2% Top Sol 2oz TOPIC SCH (20:22)
--- NOTE | 2020-01-08 20:26 | NUR ---
NURSE NOTES: Coreg held due to current BP of 109/70 and HR of 59 noted. Called and spoke with [employer] in pharmacy regarding Keppra; rount top containers scan appropriately while squeeze containers show "NDC number unknown" when scanned in. [employer] to scan product in pharmacy. Keppra confirmed by second RN. (ALETA William) Will continue to monitor.
[2020-01-09] VITALS: BP 142/87
[2020-01-09] MEDS ORDERED: LORazepam Inj 2mg/ml 1ml IV PRN
--- NOTE | 2020-01-09 00:10 | NUR ---
NURSE NOTES: Seizure noted to have lasted for 3 minutes; pt exhibited tense body movements, excess salivation and loss of control of bowel and bladder. Pt became tachycardiac with a HR of 158 noted. O2 saturation noted to decrease to 90% during seizure activity. Ativan 2mg administered as ordered. No adverse effects noted. Pt HR and O2 saturation returned to normal, seizure activity stopped. Pt provided with a bed bath, oral care and linen change. Pt tolerated care well. ROM exercises performed as tolerated by pt Pt remains resting in bed; Bed remains in the lowest position with the safety wheels engaged, call light within reach, side rails up x3 and bed alarm activated. Will continue plan of care. Will continue to monitor.
[2020-01-09 04:00] VITALS: BP 102/63
--- NOTE | 2020-01-09 04:00 | NUR ---
NURSE NOTES: Pt provided with a bed bath, oral care and linen change. Pt tolerated care well. ROM exercises performed as tolerated by pt. No further seizure activity noted. Temperature noted to be elevated to 101.1, blankets removed and pt temperature reassessed and noted to be 99.0. Will continue to leave pt covered by loose sheet, reassess temperature and administer PRN Tylenol as needed. Pt remains resting in bed; Bed remains in the lowest position with the safety wheels engaged, call light within reach, side rails up x3 and bed alarm activated. Will continue plan of care. Will continue to monitor.
[2020-01-09 05:38] LABS: HEMATOCRIT 21.2 % (42.0-52.0); HEMOGLOBIN 7.1 G/DL (14.2-18.0); MEAN CORPUSCULAR VOLUME 96 FL (80-99); PLATELET COUNT 193 K/UL (150-450); RED BLOOD COUNT 2.19 M/UL (4.70-6.10); RED CELL DISTRIBUTION WIDTH 12.8 % (11.6-14.8); WHITE BLOOD COUNT 6.8 K/UL (4.8-10.8)
[2020-01-09 06:15] LABS: BLOOD UREA NITROGEN 48 mg/dL (7-18); CALCIUM 9.6 MG/DL (8.5-10.1); CARBON DIOXIDE 29 MMOL/L (21-32); CHLORIDE 102 MMOL/L (98-107); CREATININE 1.5 MG/DL (0.55-1.30); POTASSIUM 5.6 MMOL/L (3.5-5.1); SODIUM 135 MMOL/L (136-145)
--- NOTE | 2020-01-09 06:23 | NUR ---
NURSE NOTES: Called and spoke with [facility] pharmacist. Tylenol order current in eMAR but not found in pyxis. Order to be re-entered in attempt to fix technical problem. Order not discontinued.
--- NOTE | 2020-01-09 06:50 | NUR ---
NURSE NOTES: Attempted to call Dr Abad to report AM lab values twice. Will await a call back. Will continue to monitor. Will endorse follow up to oncoming shift.
--- NOTE | 2020-01-09 07:13 | NUR ---
HAND-OFF: Report given to ALETA Walters. Patient remains stable at this time.
--- NOTE | 2020-01-09 07:25 | NUR ---
NURSE NOTES: Received report from Mariza RIVER. Pt. in bed, obtunded. Pt. no sign of distress. On mech. vent with setting AC18/VT50/Fi O2 at 40%/P5. No grimacing noted. HOB elevated at all times. On GTF Glucerna 1.5 at 45cc/hr. IV at left FA #22g. in placed running D5W at 75cc/hr. Padded side rails in placed. Bed in low position, locked. Call light within reach. Will cont. to monitor.
[2020-01-09 08:00] VITALS: BP 127/65
--- NOTE | 2020-01-09 08:06 | NUR ---
NURSE NOTES: Called Dr. Harris and left a message regarding H/H 7.1/21.2 and Mg. 1.7 and K+ 5.6 awaiting for response.
--- NOTE | 2020-01-09 08:11 | NUR ---
NURSE NOTES: Received a T.O from Dr. Harris to transfuse 2u PRBC, 2grams of Mg. 30g. of Kayaxelate via gt. and insert rectal tube. Noted and carried out.
[2020-01-09] MEDS ORDERED: Sodium Polystyrene Sulfonate 15gm Powder GT SCH (09:00)
[2020-01-09] MEDS: levETIRAcetam 500mg/5ml Liquid GT SCH ×2 (09:24→20:08)
[2020-01-09] MEDS: Levothyroxine 125mcg tab GT SCH (09:24)
[2020-01-09] MEDS: Carvedilol 6.25mg Tab GT SCH ×2 (09:25→20:09)
[2020-01-09] MEDS: Ascorbic Acid 500mg tab GT SCH (09:25)
[2020-01-09] MEDS: Heparin 5000 units/ml inj SUBQ SCH ×2 (09:27→20:09)
[2020-01-09] MEDS: Meropenem 1gm/NS 110ml IVPB SCH ×4 (09:42→20:08)
--- NOTE | 2020-01-09 10:33 | NUR ---
NURSE NOTES: Received a call from [facility] bank and was told blood is ready but notify tech that pt. still receiving Mg.
--- NOTE | 2020-01-09 10:37 | NUR ---
*-* INSURANCE *-* UPDATED CLINICALS AND REVIEWS HAVE BEEN FAXED TO: NIKOLE Quiñonez # [phone] fax#[phone]
--- NOTE | 2020-01-09 10:49 | Critical Care Progress Note ---
Assessment/Plan Assessment/Plan Impression: Pneumonia Sepsis Elevated troponin Renal failure Tracheostomy History of tracheal stenosis Ventilator Dependent Respiratory Failure Chronically altered mental status s/p previous CPA, anoxia Previous Seizures Previous pericardial effusion, Congestive Heart Failure, Atrial Fibrillation Diabetes, Hypothyroidism Previous Hematuria/UTI, previous sepsis GERD sp G tube polymicrobial infection diarrhea worsening anemia PLAN rectal tube transfuse vent management as is acid base noted; taper oxygen antibiotics reviewed PICC line ID and renal noted gi to see for further recommendations cultures noted monitor TSH after dc feeds as able resume other meds seizure precautions imodium as needed and check Cdif follow up HH and other labs cardiology to monitor hemodynamics note reviewed and edited care discussed with RN and RT critical time spent >40 minutes coordinating care and updating orders Critical Care - Subjective Interval Events: diarrhea poor IV access worsening anemia ROS Limited/Unobtainable: Yes Condition: critical EKG Rhythm: Sinus Rhythm Residuals: minimal Tube Feeding Tolerated: yes I&O: Intake and Output 01/08/20 01/09/20 19:00 07:00 Intake Total 870 ml 1196.25 ml Output Total 1000 ml 1800 ml Balance -130 ml -603.75 ml Free Water 300 ml 100 ml IV Total 75 ml 826.25 ml Tube Feeding 495 ml 270 ml Output Urine Total 1000 ml 1800 ml # Bowel Movements 2 2 Critical Care - Objective Last 24 Hour Vital Signs Date Time Temp Pulse Resp B/P (MAP) Pulse Ox O2 Delivery O2 Flow Rate FiO2 01/09/20 09:25 76 127/65 01/09/20 08:57 76 22 40 01/09/20 08:00 99.4 76 23 127/65 (85) 100 01/09/20 08:00 76 01/09/20 07:03 79 25 40 01/09/20 05:30 80 18 40 01/09/20 04:00 Mechanical Ventilator 01/09/20 04:00 101.1 81 24 102/63 (76) 100 01/09/20 03:39 73 01/09/20 03:30 70 22 40 01/09/20 00:00 Mechanical Ventilator 01/09/20 00:00 99.3 70 24 142/87 (105) 100 01/08/20 23:29 106 01/08/20 23:01 74 28 100 Mechanical Ventilator 40 76 28 40 01/08/20 20:00 98.2 66 20 114/70 (85) 100 01/08/20 20:00 Mechanical Ventilator 01/08/20 19:30 72 22 40 01/08/20 19:11 66 01/08/20 17:48 61 01/08/20 16:00 97.0 68 14 121/73 (89) 100 01/08/20 16:00 Mechanical Ventilator 01/08/20 15:00 69 24 40 01/08/20 12:30 70 23 50 01/08/20 12:00 Mechanical Ventilator 01/08/20 12:00 69 01/08/20 12:00 98.1 73 14 152/84 (106) 100 Labs: Labs Test 01/07/20 06:18 01/08/20 04:50 01/09/20 03:30 Sodium Level 136 MMOL/L (136-145) 136 MMOL/L (136-145) 135 MMOL/L (136-145) Potassium Level 5.1 MMOL/L (3.5-5.1) 4.9 MMOL/L (3.5-5.1) 5.6 MMOL/L (3.5-5.1) Chloride Level 105 MMOL/L (98-107) 103 MMOL/L (98-107) 102 MMOL/L (98-107) Carbon Dioxide Level 26 MMOL/L (21-32) 28 MMOL/L (21-32) 29 MMOL/L (21-32) Anion Gap 5 mmol/L (5-15) 6 mmol/L (5-15) Blood Urea Nitrogen 62 mg/dL (7-18) 54 mg/dL (7-18) 48 mg/dL (7-18) Creatinine 1.3 MG/DL (0.55-1.30) 1.4 MG/DL (0.55-1.30) 1.5 MG/DL (0.55-1.30) Estimat Glomerular Filtration Rate 53.5 mL/min (>60) 49.1 mL/min (>60) 45.4 mL/min (>60) Glucose Level 97 MG/DL (74-106) 102 MG/DL (74-106) 75 MG/DL (74-106) Calcium Level 10.0 MG/DL (8.5-10.1) 10.1 MG/DL (8.5-10.1) 9.6 MG/DL (8.5-10.1) White Blood Count 6.8 K/UL (4.8-10.8) Red Blood Count 2.19 M/UL (4.70-6.10) Hemoglobin 7.1 G/DL (14.2-18.0) Hematocrit 21.2 % (42.0-52.0) Mean Corpuscular Volume 96 FL (80-99) Mean Corpuscular Hemoglobin 32.4 PG (27.0-31.0) Mean Corpuscular Hemoglobin Concent 33.6 G/DL (32.0-36.0) Red Cell Distribution Width 12.8 % (11.6-14.8) Platelet Count 193 K/UL (150-450) Mean Platelet Volume 8.3 FL (6.5-10.1) Neutrophils (%) (Auto) % (45.0-75.0) Lymphocytes (%) (Auto) % (20.0-45.0) Monocytes (%) (Auto) % (1.0-10.0) Eosinophils (%) (Auto) % (0.0-3.0) Basophils (%) (Auto) % (0.0-2.0) Differential Total Cells Counted 100 Neutrophils % (Manual) 78 % (45-75) Lymphocytes % (Manual) 16 % (20-45) Monocytes % (Manual) 4 % (1-10) Eosinophils % (Manual) 1 % (0-3) Basophils % (Manual) 0 % (0-2) Band Neutrophils 1 % (0-8) Platelet Estimate Adequate Platelet Morphology Normal Macrocytosis 1+ Magnesium Level 1.7 MG/DL (1.8-2.4) Troponin I 0.018 ng/mL (0.000-0.056) Pro-B-Type Natriuretic Peptide 5454 pg/mL (0-125) Objective: WDWN NAD reduced breath sounds bilaterally without rhonchi or wheeze [id number] without MRG NABS nontender no HSM GT no CCE nonfocal trach reviewed and edited Dillon Harris MD Jan 09, 2020 10:49
[2020-01-09] MEDS: Colistin for inhalation INH SCH ×2 (10:54→23:26)
--- NOTE | 2020-01-09 10:55 | Infectious Diseases Prog Note ---
"Assessment/Plan Assessment/Plan antibiotics : meropenem 4.9.20 - inhaled colistin 4.11.20 - A 1. e.coli | pseudomonas | acenitobacter pneumonia COVID 19 test negative 4.5.20, 4.8.20 2. leucocytosis improving 3. renal failure improving 4. + blood cultures with coag neg staph | diphtheroids likely contaminated 5. respiratory failure P 1. continue meropenem 1 more day 2. continue inhaled colistin 3 more days 3. will follow up cultures Subjective ROS Limited/Unobtainable: Yes Allergies: Coded Allergies: No Known Allergies (Unverified , 12/31/19) Objective Vital Signs Last 24 Hour Vital Signs Date Time Temp Pulse Resp B/P (MAP) Pulse Ox O2 Delivery O2 Flow Rate FiO2 01/09/20 09:25 76 127/65 01/09/20 08:57 76 22 40 01/09/20 08:00 99.4 76 23 127/65 (85) 100 01/09/20 08:00 76 01/09/20 07:03 79 25 40 01/09/20 05:30 80 18 40 01/09/20 04:00 Mechanical Ventilator 01/09/20 04:00 101.1 81 24 102/63 (76) 100 01/09/20 03:39 73 01/09/20 03:30 70 22 40 01/09/20 00:00 Mechanical Ventilator 01/09/20 00:00 99.3 70 24 142/87 (105) 100 01/08/20 23:29 106 01/08/20 23:01 74 28 100 Mechanical Ventilator 40 76 28 40 01/08/20 20:00 98.2 66 20 114/70 (85) 100 01/08/20 20:00 Mechanical Ventilator 01/08/20 19:30 72 22 40 01/08/20 19:11 66 01/08/20 17:48 61 01/08/20 16:00 97.0 68 14 121/73 (89) 100 01/08/20 16:00 Mechanical Ventilator 01/08/20 15:00 69 24 40 01/08/20 12:30 70 23 50 01/08/20 12:00 Mechanical Ventilator 01/08/20 12:00 69 01/08/20 12:00 98.1 73 14 152/84 (106) 100 Height (Feet): 5 Height (Inches): 5.00 Weight (Pounds): 120 HEENT: status post trach Respiratory/Chest: lungs clear Cardiovascular: normal rate, regular rhythm, no gallop/murmur Abdomen: soft, non tender, other - GT Extremities: no edema Laboratory Tests Test 01/09/20 03:30 White Blood Count 6.8 K/UL (4.8-10.8) Red Blood Count 2.19 M/UL (4.70-6.10) L Hemoglobin 7.1 G/DL (14.2-18.0) L Hematocrit 21.2 % (42.0-52.0) L Mean Corpuscular Volume 96 FL (80-99) Mean Corpuscular Hemoglobin 32.4 PG (27.0-31.0) H Mean Corpuscular Hemoglobin Concent 33.6 G/DL (32.0-36.0) Red Cell Distribution Width 12.8 % (11.6-14.8) Platelet Count 193 K/UL (150-450) Mean Platelet Volume 8.3 FL (6.5-10.1) Neutrophils (%) (Auto) % (45.0-75.0) Lymphocytes (%) (Auto) % (20.0-45.0) Monocytes (%) (Auto) % (1.0-10.0) Eosinophils (%) (Auto) % (0.0-3.0) Basophils (%) (Auto) % (0.0-2.0) Differential Total Cells Counted 100 Neutrophils % (Manual) 78 % (45-75) H Lymphocytes % (Manual) 16 % (20-45) L Monocytes % (Manual) 4 % (1-10) Eosinophils % (Manual) 1 % (0-3) Basophils % (Manual) 0 % (0-2) Band Neutrophils 1 % (0-8) Platelet Estimate Adequate Platelet Morphology Normal Macrocytosis 1+ Sodium Level 135 MMOL/L (136-145) L Potassium Level 5.6 MMOL/L (3.5-5.1) H Chloride Level 102 MMOL/L (98-107) Carbon Dioxide Level 29 MMOL/L (21-32) Blood Urea Nitrogen 48 mg/dL (7-18) H Creatinine 1.5 MG/DL (0.55-1.30) H Estimat Glomerular Filtration Rate 45.4 mL/min (>60) Glucose Level 75 MG/DL (74-106) Calcium Level 9.6 MG/DL (8.5-10.1) Magnesium Level 1.7 MG/DL (1.8-2.4) L Troponin I 0.018 ng/mL (0.000-0.056) Pro-B-Type Natriuretic Peptide 5454 pg/mL (0-125) H Current Medications Medications (Trade) Dose Ordered Sig/Pau Route PRN Reason Start Time Stop Time Status Last Admin Dose Admin Acetaminophen (Tylenol) 650 mg Q4H PRN GT MILD/TEMP 01/09/20 06:30 02/08/20 06:29 Ascorbic Acid (Vitamin C) 500 mg DAILY GT 01/02/20 09:00 02/01/20 08:59 01/09/20 09:25 Carvedilol (Coreg) 6.25 mg EVERY 12 HOURS GT 01/08/20 09:00 02/07/20 08:59 01/09/20 09:25 Chlorhexidine Gluconate (Radha-Hex 2%) 1 applic DAILY@2000 TOPIC 01/08/20 20:00 04/07/20 19:59 01/08/20 20:22 Colistimethate Sodium (Colistin *inhalation use only*) 75 mg Q12HR@10,22 INH 01/06/20 22:00 01/13/20 21:59 01/08/20 23:07 Dextrose 1,000 ml @ 75 mls/hr [id number] IV 01/07/20 15:45 02/06/20 15:44 01/09/20 06:38 Famotidine (Pepcid I.v.) 20 mg DAILY IVP 01/09/20 09:00 02/08/20 08:59 01/09/20 10:11 Heparin Sodium (Porcine) (Heparin 5000 units/ml) 5,000 units EVERY 12 HOURS SUBQ 01/01/20 21:00 02/15/20 20:59 01/09/20 09:27 Levetiracetam (Keppra) 750 mg EVERY 12 HOURS GT 01/02/20 09:00 02/01/20 08:59 01/09/20 09:24 Levothyroxine Sodium (Synthroid) 50 mcg DAILY GT 01/02/20 09:00 02/01/20 08:59 01/09/20 09:24 Levothyroxine Sodium (Synthroid) 125 mcg DAILY GT 01/02/20 09:00 02/01/20 08:59 01/09/20 09:24 Lorazepam (Ativan 2mg/ml 1ml) 2 mg Q4H PRN IV For Seizures 01/09/20 00:00 01/16/20 00:00 01/09/20 00:03 Magnesium Sulfate 100 ml @ 100 mls/hr Q1H IVPB 01/09/20 09:00 01/09/20 10:59 01/09/20 10:53 Meropenem 1 gm/ Sodium Chloride 110 ml @ 220 mls/hr Q12HR IVPB 01/04/20 13:30 01/10/20 23:59 01/09/20 09:42 Heber Abraham MD Jan 09, 2020 10:55"
--- NOTE | 2020-01-09 11:42 | NUR ---
RD ASSESSMENT & RECOMMENDATIONS SEE CARE ACTIVITY FOR COMPLETE ASSESSMENT DAILY ESTIMATED NEEDS: Needs based on Critical care, wounds/ 60kg abw 22-28 kcals/kg 5305-9222 total kcals 1.25-2 g protein/kg 75-120 g total protein 25-30 mL/kg 2802-2445 total fluid mLs NUTRITION DIAGNOSIS: * Swallowing difficulty R/T respiratory status as evidenced by trach/vent dep, PEG dep. * Increased kcal/prot needs R/T wound healing as evidenced by pt admitted w/ multiple wounds, including DTPI x4, partial thickness x 1, and category 3 Skin tear, refer to eval. CURRENT TF:Glucerna 1.5 @ 45ml/hr x 22 hrs ENTERAL NUTRITION RECOMMENDATIONS: Glucerna 1.5 @ 50ml/hr x 20 hrs to provide 1000ml, 1500kcal, 82.5g prot, 759ml free water * Maintain current TF @ goal : meets 100% est kcal/prot needs * HOB Over 30 degrees/ water flush per MD * Hold Synthroid during 4 hrs that TF is off ------- FOR 22 HRS RUN (total 2 hrs held for Synthroid) -> Glucerna 1.5 @ 45ml/hr x 22 hrs to provide 990ml, 1485kcal, 82g prot -> Hold TF 1 hr before and after Synthroid ADDITIONAL RECOMMENDATIONS: * Per SNF: HT=63", TW=390cvs (as of 12/28/19) * Monitor lytes, replete as needed * Wound healing: w/ diarrhea, rec lower Vit C-> 250mg daily add Jerome 1pkt BID * Monitor K, renal labs, need for renal formula * calibrated bed scale wt as able
[2020-01-09 12:00] VITALS: BP 114/73
--- NOTE | 2020-01-09 13:01 | General Progress Note ---
Assessment/Plan Problem List: (1) JOHN (acute kidney injury) ICD Codes: N17.9 - Acute kidney failure, unspecified SNOMED: 6186011, 16163994 (2) Dehydration ICD Codes: E86.0 - Dehydration SNOMED: 21642315 (3) Suspected COVID-19 virus infection ICD Codes: R68.89 - Other general symptoms and signs SNOMED: 471602099 (4) Tracheal stenosis ICD Codes: J39.8 - Other specified diseases of upper respiratory tract SNOMED: 58812861 (5) Pneumonia ICD Codes: J18.9 - Pneumonia, unspecified organism SNOMED: 894861263 (6) Malnutrition ICD Codes: E46 - Unspecified protein-calorie malnutrition SNOMED: 46439838 (7) Respiratory insufficiency ICD Codes: R06.89 - Other abnormalities of breathing SNOMED: 589619458 Status: stable Assessment/Plan: cont current rx ivf iv abx per id. follow up cultures monitor labs and cxr sz rx monitor bp dvt/stress ulcer prophylaxis transfuse as needed skin/wound care Subjective ROS Limited/Unobtainable: Yes Constitutional: Reports: malaise, weakness HEENT: Reports: no symptoms Cardiovascular: Reports: no symptoms Respiratory: Reports: no symptoms Gastrointestinal/Abdominal: Reports: no symptoms Genitourinary: Reports: no symptoms Neurologic/Psychiatric: Reports: pre-existing deficit, seizure Endocrine: Reports: no symptoms Hematologic/Lymphatic: Reports: anemia Allergies: Coded Allergies: No Known Allergies (Unverified , 12/31/19) All Systems: reviewed and negative except above Subjective no events. stable on the vent. no fever or chills. labs reviewed. decreased h/h noted. no reports of bleeding. on iv abx. poorly responsive at baseline. labs reviewed Objective Last 24 Hour Vital Signs Date Time Temp Pulse Resp B/P (MAP) Pulse Ox O2 Delivery O2 Flow Rate FiO2 01/09/20 12:44 70 20 40 01/09/20 11:09 72 18 100 Mechanical Ventilator 40 72 18 40 01/09/20 09:25 76 127/65 01/09/20 08:57 76 22 40 01/09/20 08:00 99.4 76 23 127/65 (85) 100 01/09/20 08:00 76 01/09/20 08:00 Mechanical Ventilator 01/09/20 07:03 79 25 40 01/09/20 05:30 80 18 40 01/09/20 04:00 Mechanical Ventilator 01/09/20 04:00 101.1 81 24 102/63 (76) 100 01/09/20 03:39 73 01/09/20 03:30 70 22 40 01/09/20 00:00 Mechanical Ventilator 01/09/20 00:00 99.3 70 24 142/87 (105) 100 01/08/20 23:29 106 01/08/20 23:01 74 28 100 Mechanical Ventilator 40 76 28 40 01/08/20 20:00 98.2 66 20 114/70 (85) 100 01/08/20 20:00 Mechanical Ventilator 01/08/20 19:30 72 22 40 01/08/20 19:11 66 01/08/20 17:48 61 01/08/20 16:00 97.0 68 14 121/73 (89) 100 01/08/20 16:00 Mechanical Ventilator 01/08/20 15:00 69 24 40 Intake and Output 01/08/20 01/09/20 19:00 07:00 Intake Total 870 ml 1196.25 ml Output Total 1000 ml 1800 ml Balance -130 ml -603.75 ml Free Water 300 ml 100 ml IV Total 75 ml 826.25 ml Tube Feeding 495 ml 270 ml Output Urine Total 1000 ml 1800 ml # Bowel Movements 2 2 Laboratory Tests 01/09/20 03:30: White Blood Count 6.8, Red Blood Count 2.19L, Hemoglobin 7.1L, Hematocrit 21.2L , Mean Corpuscular Volume 96, Mean Corpuscular Hemoglobin 32.4H, Mean Corpuscular Hemoglobin Concent 33.6, Red Cell Distribution Width 12.8, Platelet Count 193, Mean Platelet Volume 8.3, Neutrophils (%) (Auto) , Lymphocytes (%) ( Auto) , Monocytes (%) (Auto) , Eosinophils (%) (Auto) , Basophils (%) (Auto) , Differential Total Cells Counted 100, Neutrophils % (Manual) 78H, Lymphocytes % (Manual) 16L, Monocytes % (Manual) 4, Eosinophils % (Manual) 1, Basophils % ( Manual) 0, Band Neutrophils 1, Platelet Estimate Adequate, Platelet Morphology Normal, Macrocytosis 1+, Sodium Level 135L, Potassium Level 5.6H, Chloride Level 102, Carbon Dioxide Level 29, Blood Urea Nitrogen 48H, Creatinine 1.5H, Estimat Glomerular Filtration Rate 45.4, Glucose Level 75, Calcium Level 9.6, Magnesium Level 1.7L, Troponin I 0.018, Pro-B-Type Natriuretic Peptide 5454H Height (Feet): 5 Height (Inches): 5.00 Weight (Pounds): 120 Objective General Appearance: WD/WN, alert Neck: supple Cardiovascular: regular rhythm Respiratory/Chest: chest wall non-tender, rhonchi - bilaterally Abdomen: normal bowel sounds, non tender, soft, no organomegaly Edema: no edema noted Arm (L), no edema noted Arm (R), no edema noted Leg (L), no edema noted Leg (R), no edema noted Pedal (L), no edema noted Pedal (R), no edema noted Generalized Neurologic: disoriented, aphasia Vasquez De Paz MD Jan 09, 2020 13:01
--- NOTE | 2020-01-09 13:33 | Surgery Progress Note ---
Surgery Progress Note Subjective Additional Comments leukocytosis resolved anemia trend h/h exam stable otherwise Objective Last 24 Hour Vital Signs Date Time Temp Pulse Resp B/P (MAP) Pulse Ox O2 Delivery O2 Flow Rate FiO2 01/09/20 12:44 70 20 40 01/09/20 11:09 72 18 100 Mechanical Ventilator 40 72 18 40 01/09/20 09:25 76 127/65 01/09/20 08:57 76 22 40 01/09/20 08:00 99.4 76 23 127/65 (85) 100 01/09/20 08:00 76 01/09/20 08:00 Mechanical Ventilator 01/09/20 07:03 79 25 40 01/09/20 05:30 80 18 40 01/09/20 04:00 Mechanical Ventilator 01/09/20 04:00 101.1 81 24 102/63 (76) 100 01/09/20 03:39 73 01/09/20 03:30 70 22 40 01/09/20 00:00 Mechanical Ventilator 01/09/20 00:00 99.3 70 24 142/87 (105) 100 01/08/20 23:29 106 01/08/20 23:01 74 28 100 Mechanical Ventilator 40 76 28 40 01/08/20 20:00 98.2 66 20 114/70 (85) 100 01/08/20 20:00 Mechanical Ventilator 01/08/20 19:30 72 22 40 01/08/20 19:11 66 01/08/20 17:48 61 01/08/20 16:00 97.0 68 14 121/73 (89) 100 01/08/20 16:00 Mechanical Ventilator 01/08/20 15:00 69 24 40 I&O Intake and Output 01/08/20 01/09/20 19:00 07:00 Intake Total 870 ml 1196.25 ml Output Total 1000 ml 1800 ml Balance -130 ml -603.75 ml Free Water 300 ml 100 ml IV Total 75 ml 826.25 ml Tube Feeding 495 ml 270 ml Output Urine Total 1000 ml 1800 ml # Bowel Movements 2 2 Dressing: saturated Wound: other Drains: other Cardiovascular: RSR Respiratory: decreased breath sounds Abdomen: soft, non-tender, present bowel sounds Extremities: no tenderness, no cyanosis Laboratory Tests Test 01/09/20 03:30 White Blood Count 6.8 K/UL (4.8-10.8) Red Blood Count 2.19 M/UL (4.70-6.10) L Hemoglobin 7.1 G/DL (14.2-18.0) L Hematocrit 21.2 % (42.0-52.0) L Mean Corpuscular Volume 96 FL (80-99) Mean Corpuscular Hemoglobin 32.4 PG (27.0-31.0) H Mean Corpuscular Hemoglobin Concent 33.6 G/DL (32.0-36.0) Red Cell Distribution Width 12.8 % (11.6-14.8) Platelet Count 193 K/UL (150-450) Mean Platelet Volume 8.3 FL (6.5-10.1) Neutrophils (%) (Auto) % (45.0-75.0) Lymphocytes (%) (Auto) % (20.0-45.0) Monocytes (%) (Auto) % (1.0-10.0) Eosinophils (%) (Auto) % (0.0-3.0) Basophils (%) (Auto) % (0.0-2.0) Differential Total Cells Counted 100 Neutrophils % (Manual) 78 % (45-75) H Lymphocytes % (Manual) 16 % (20-45) L Monocytes % (Manual) 4 % (1-10) Eosinophils % (Manual) 1 % (0-3) Basophils % (Manual) 0 % (0-2) Band Neutrophils 1 % (0-8) Platelet Estimate Adequate Platelet Morphology Normal Macrocytosis 1+ Sodium Level 135 MMOL/L (136-145) L Potassium Level 5.6 MMOL/L (3.5-5.1) H Chloride Level 102 MMOL/L (98-107) Carbon Dioxide Level 29 MMOL/L (21-32) Blood Urea Nitrogen 48 mg/dL (7-18) H Creatinine 1.5 MG/DL (0.55-1.30) H Estimat Glomerular Filtration Rate 45.4 mL/min (>60) Glucose Level 75 MG/DL (74-106) Calcium Level 9.6 MG/DL (8.5-10.1) Magnesium Level 1.7 MG/DL (1.8-2.4) L Troponin I 0.018 ng/mL (0.000-0.056) Pro-B-Type Natriuretic Peptide 5454 pg/mL (0-125) H Plan Problems: (1) Decubitus skin ulcer Assessment & Plan: Pt presented on admission with contractures, multiple Skin Breakdown. Skin assessed under collar of trach and no skin breakdown noted.Category 3 Skin tear R elbow(L)4.5cm x (W)5cm. Full flap loss noted. Base of wound moist and viable,edges adherent. No exudate noted. No erythema or elevated skin temp periwound. Category 2 Skin tear L forearm. Full flap intact and reattached. Moderate amt sanguineous exudate noted. Silvasorb Gel applied and covered with Optifoam drsg. Reinforced with ABD Pad and Kerlix. DTPI noted to L Sacrum(L)3.5cm x (W)3cm. Base of wound is maroon and indurated. DTPI R Sacrum(L)7cm x (W)9.5cm. Wound is irregular shaped. Base of wound is maroon and indurated. Scattered areas of darker skin tone without induration or erythema periwound. DTPI L lateral malleolus(L)2.5cm x (W)2cm. Base of wound is fluctuant,purple with surrounding maroon borders. No erythema or elevation in skin temp periwound. Partial thickness wound L 1st metatarsal head (L)2.5cm x (W)2cm. Base of wound is moist and viable. Edges are macerated. Non-blanching erythema without fluctuance periwound. DTPI Dorso/lateral R foot(L)2.3cm x (W)4.3cm. Base of injury is indurated purple /maroon in colour. No erythema or elevation in skin temp periwound. Hyperpigmentation from previous wounds noted to R and L hallux. Tx.Plan: Cleanse Skin tears R Elbow and L forearm with Saline. Apply Silvasorb Gel. Cover each wounds with Optifoam drsgs. Change every 7 days and prn. Apply Triad Paste to R and L Sacrum. Cover with Optifoam drsg. Change every 3 days and prn. Apply Cavilon to Malleoli both feet, Both heels and Both hallux . Cover each site with Optifoam drsgs turn q2h nutritional optimization (2) Respiratory insufficiency (3) Malnutrition Assessment & Plan: DAILY ESTIMATED NEEDS: Needs based on Critical care, wounds/ 60kg abw 22-28 kcals/kg 0601-6625 total kcals 1.25-2 g protein/kg 75-120 g total protein 25-30 mL/kg 4717-4877 total fluid mLs NUTRITION DIAGNOSIS: Swallowing difficulty R/T respiratory status as evidenced by trach/vent dep, PEG dep. CURRENT TF:Glucerna 1.5 @ 50ml/hr x 20 hrs ENTERAL NUTRITION RECOMMENDATIONS: Glucerna 1.5 @ 50ml/hr x 20 hrs to provide 1000ml, 1500kcal, 82.5g prot, 759ml free water * Maintain current TF @ goal : meets 100% est kcal/prot needs * HOB Over 30 degrees/ water flush per MD * Hold Synthroid during 4 hrs that TF is off FOR 22 HRS RUN (total 2 hrs held for Synthroid) -> Glucerna 1.5 @ 45ml/hr x 22 hrs to provide 990ml, 1485kcal, 82g prot -> Hold TF 1 hr before and after Synthroid ADDITIONAL RECOMMENDATIONS: * Per SNF: HT=63", RN=559edc (as of 12/28/19) * Monitor lytes, replete as needed * Wound healing: f/up w/ WC eval : add Vit C 500mg QD, Jerome 1pkt BID (4) Pneumonia (5) Tracheal stenosis (6) Protein-calorie malnutrition, severe (7) Suspected COVID-19 virus infection Assessment & Plan: negative Sabino Gold Jan 09, 2020 13:33
--- NOTE | 2020-01-09 13:45 | NUR ---
NURSE NOTES: Started infusing blood. Afebrile. No s/sx of adverse reaction at present. No sign of distress. No grimacing noted. Will cont. to monitor.
--- NOTE | 2020-01-09 13:59 | Progress Note ---
DATE: 01/08/2020 CARDIOLOGY PROGRESS NOTE SUBJECTIVE: The patient remains on vent. Secretions slightly better, no respiratory distress or fever spikes. PHYSICAL EXAMINATION: LUNGS: Bilateral breath sounds. Rhonchi. HEART: Regular rhythm and rate. Normal S1 and S2 with a fourth heart sound. Sinus rhythm. Rare atrial ectopics. EXTREMITIES: No edema. ABDOMEN: G-tube site intact. LABORATORY DATA: Chemistry panel reviewed. IMPRESSION: Slow progress. PLANS: 1. Recheck labs, chest x-ray, and troponin levels. 2. Therapy adjustments based on clinical parameters including anti-anginal, anti-platelet, and IV fluids ordered. Tony Lobo M.D. DR: Dariusz JOB#: [id number] CC:
--- NOTE | 2020-01-09 15:30 | NUR ---
CASE MANAGEMENT: REVIEW SI: PNA . TRACH/VENT DEPENDENT . COVID-19 NOT DETECTED T 101.1 HR 81 RR 25 BP 102/63 SAT 100% MECH VENT FIO2 40 H/H 7.1/21.2 NA 135 K+ 5.6 OB STOOL PENDING IS: KAYEXALATE 30GM GT x1 MEROPENEM IV Q12HR PEPCID IV QD HEPARIN SUBQ Q12HR D5W @ 75ML/HR RECTAL TUBE STEP DOWN UNIT DCP: PATIENT IS FROM [facility]
[2020-01-09 16:00] VITALS: BP 135/86
--- NOTE | 2020-01-09 16:10 | NUR ---
NURSE NOTES: S/P 1 unit PRBC. No a/r noted. Tolerated well. Remain stable.
--- NOTE | 2020-01-09 17:10 | NUR ---
NURSE NOTES: Started the 2nd 1unit of PRBC. No a/r noted. Afebrile 96.4 pt. remain stable.
--- NOTE | 2020-01-09 19:00 | General Progress Note ---
Assessment/Plan Problem List: (1) Hypernatremia ICD Codes: E87.0 - Hyperosmolality and hypernatremia SNOMED: 270542996 (2) Dehydration ICD Codes: E86.0 - Dehydration SNOMED: 50971595 (3) JOHN (acute kidney injury) ICD Codes: N17.9 - Acute kidney failure, unspecified SNOMED: 8503124, 85355782 (4) Respiratory insufficiency ICD Codes: R06.89 - Other abnormalities of breathing SNOMED: 921957457 (5) Pneumonia ICD Codes: J18.9 - Pneumonia, unspecified organism SNOMED: 892829769 (6) Protein-calorie malnutrition, severe ICD Codes: E43 - Unspecified severe protein-calorie malnutrition SNOMED: 176686705, 651426834, 667442173 (7) Hx of tracheostomy ICD Codes: Z98.890 - Other specified postprocedural states SNOMED: 816695166 Status: stable Assessment/Plan: dehydration better, high K, adjust iv Subjective ROS Limited/Unobtainable: Yes Allergies: Coded Allergies: No Known Allergies (Unverified , 12/31/19) Objective Last 24 Hour Vital Signs Date Time Temp Pulse Resp B/P (MAP) Pulse Ox O2 Delivery O2 Flow Rate FiO2 01/09/20 17:03 72 24 40 01/09/20 16:00 97.6 69 19 135/86 (102) 100 01/09/20 16:00 Mechanical Ventilator 01/09/20 15:42 87 01/09/20 15:02 71 21 40 01/09/20 12:44 70 20 40 01/09/20 12:00 98.4 74 22 114/73 (87) 100 01/09/20 12:00 Mechanical Ventilator 01/09/20 11:47 77 01/09/20 11:09 72 18 100 Mechanical Ventilator 40 72 18 40 01/09/20 09:25 76 127/65 01/09/20 08:57 76 22 40 01/09/20 08:00 99.4 76 23 127/65 (85) 100 01/09/20 08:00 76 01/09/20 08:00 Mechanical Ventilator 01/09/20 07:03 79 25 40 01/09/20 05:30 80 18 40 01/09/20 04:00 Mechanical Ventilator 01/09/20 04:00 101.1 81 24 102/63 (76) 100 01/09/20 03:39 73 01/09/20 03:30 70 22 40 01/09/20 00:00 Mechanical Ventilator 01/09/20 00:00 99.3 70 24 142/87 (105) 100 01/08/20 23:29 106 01/08/20 23:01 74 28 100 Mechanical Ventilator 40 76 28 40 01/08/20 20:00 98.2 66 20 114/70 (85) 100 01/08/20 20:00 Mechanical Ventilator 01/08/20 19:30 72 22 40 01/08/20 19:11 66 Intake and Output 01/08/20 01/09/20 19:00 07:00 Intake Total 870 ml 1241.25 ml Output Total 1000 ml 1800 ml Balance -130 ml -558.75 ml Free Water 300 ml 100 ml IV Total 75 ml 826.25 ml Tube Feeding 495 ml 315 ml Output Urine Total 1000 ml 1800 ml # Bowel Movements 2 2 Laboratory Tests 01/09/20 03:30: White Blood Count 6.8, Red Blood Count 2.19L, Hemoglobin 7.1L, Hematocrit 21.2L , Mean Corpuscular Volume 96, Mean Corpuscular Hemoglobin 32.4H, Mean Corpuscular Hemoglobin Concent 33.6, Red Cell Distribution Width 12.8, Platelet Count 193, Mean Platelet Volume 8.3, Neutrophils (%) (Auto) , Lymphocytes (%) ( Auto) , Monocytes (%) (Auto) , Eosinophils (%) (Auto) , Basophils (%) (Auto) , Differential Total Cells Counted 100, Neutrophils % (Manual) 78H, Lymphocytes % (Manual) 16L, Monocytes % (Manual) 4, Eosinophils % (Manual) 1, Basophils % ( Manual) 0, Band Neutrophils 1, Platelet Estimate Adequate, Platelet Morphology Normal, Macrocytosis 1+, Sodium Level 135L, Potassium Level 5.6H, Chloride Level 102, Carbon Dioxide Level 29, Blood Urea Nitrogen 48H, Creatinine 1.5H, Estimat Glomerular Filtration Rate 45.4, Glucose Level 75, Calcium Level 9.6, Magnesium Level 1.7L, Troponin I 0.018, Pro-B-Type Natriuretic Peptide 5454H Height (Feet): 5 Height (Inches): 5.00 Weight (Pounds): 120 General Appearance: lethargic Neck: normal alignment Cardiovascular: regular rhythm Respiratory/Chest: rhonchi - bilaterally Abdomen: non tender Extremities: other - contracted Neurologic: motor weakness, disoriented Pravin Abad MD Jan 09, 2020 19:00
--- NOTE | 2020-01-09 19:05 | NUR ---
NURSE NOTES: Received patient and report from ALETA Walters. Patient is observed resting in bed and remains alert and oriented x0-1. No pain noted upon assessment. Pt is trach to vent with the following settings: AC 10 TV 450 FiO2 100% PEEP 5 and no s/sx of acute distress. Pt noted to be SR on tele monitor with a current HR of 70 noted, no s/sx of acute distress. GT noted which remains intact and patent and infusing feeding as prescribed, no residual noted. Condom catheter noted and remains draining yellow urine to gravity. L FA 22g IV catheter remains intact, patent and infusing 1 unit of packed RBCs as prescribed. Was endorsed that one unit had already been administered. Diagnostics reviewed. Skin alterations noted. Fall, Aspiration and Seizure precautions observed. Pt remains resting in bed; Bed remains in the lowest position with the safety wheels engaged, call light within reach, side rails up x3 and bed alarm activated. Will continue plan of care. Will continue to monitor.
--- NOTE | 2020-01-09 19:20 | NUR ---
HAND-OFF: Report given to Mariza RIVER. Endorsed 2nd. bag of PRBC still on going. Pt. remain stable. Afebrile. No a/r noted.
[2020-01-09 20:00] VITALS: BP 138/79
--- NOTE | 2020-01-09 20:00 | NUR ---
NURSE NOTES: Attempted to place new IV catheter. Attempt unsuccessful. Current IV catheter remains intact, patent and asymptomatic. Dressing and tubing change performed. PICC placement unsuccessful per radiology on 01/08/20 due to patient's being being too small. Will continue to monitor.
--- NOTE | 2020-01-09 20:05 | NUR ---
NURSE NOTES: Post blood transfusion VS remains within normal limits, no adverse effects noted. D5W and Merrem administered as ordered immediately after blood transfusion ended and pt was assessed for adverse reactions.
[2020-01-09] MEDS: Dyna-Hex 2% Top Sol 2oz TOPIC SCH (20:09)
--- NOTE | 2020-01-09 22:15 | Progress Note ---
DATE: 01/09/2020 CARDIOLOGY PROGRESS NOTE SUBJECTIVE: The patient remains on ventilator support, poorly responsive. No signs of active bleeding yet hemoglobin levels have dropped. The patient has been hydrated however for several days. PHYSICAL EXAMINATION: VITAL SIGNS: Temperature max 101.1, blood pressure 127/65, heart rate 76, respiratory rate 23. LUNGS: Bilateral breath sounds. Thick secretions. Moderate rhonchi. HEART: Regular rhythm and rate. Normal S1, S2. ABDOMEN: Soft. G-tube site intact. EXTREMITIES: Trace edema. LABORATORY DATA: White count 6.8, hemoglobin 7.1. Sodium 135, potassium 5.6, BUN 48, creatinine 1.5, bicarb 29, magnesium 1.7. Pro natriuretic peptide is 5400. IMPRESSION: 1. Healthcare associated pneumonia. 2. Respiratory failure with tracheostomy. 3. Acute myocardial ischemia. 4. Non ST-elevation myocardial infarction. 5. Dehydration. 6. Hyponatremia, corrected. 7. Anemia. 8. Hyperkalemia. 9. Acute on chronic renal failure. 10. Hypomagnesemia. PLAN: 1. Stool occult blood. 2. Transfuse packed red blood cells. 3. Antimicrobials. 4. Respiratory hygiene. 5. IV magnesium. 6. Hold aspirin if actively bleeding. 7. Titrate beta-minor. 8. Monitor volume status and cardiorenal parameters closely. 9. DVT prophylaxis. Tony Lobo M.D. DR: Dariusz JOB#: [id number] CC:
--- NOTE | 2020-01-09 23:01 | NUR ---
NURSE NOTES: Pt provided with a bed bath, linen change and oral care. Wound care performed per order. Pt tolerated care well. Pt remains resting in bed; Bed remains in the lowest position with the safety wheels engaged, call light within reach, side rails up x3 and bed alarm activated. Will continue plan of care. Will continue to monitor.
[2020-01-10] VITALS: BP 139/77
[2020-01-10 04:00] VITALS: BP 122/74
--- NOTE | 2020-01-10 04:15 | NUR ---
NURSE NOTES: Attempted to place new IV catheter per protocol. Attempts unsuccessful. IV dressing changed, IV tubing changed and IV site cleaned. IV catheter remains intact, asymptomatic and patent. Pt remains resting in bed; Bed remains in the lowest position with the safety wheels engaged, call light within reach, side rails up x3 and bed alarm activated. Will continue plan of care. Will continue to monitor.
--- NOTE | 2020-01-10 07:20 | NUR ---
NURSE NOTES: RECEIVED REPORT FROM JANEE RIVER. RECEIVED PT ON ISOLATION ROOM ACTIVE MRSA & ESBL IN SPUTUM. RECEIVED PT WITH HOB ELEVATED 45 DEGREE ,OBTUNDED TRACH TO VENT.PT WITH PORTEX # 8 PATENT AND WELL SECURED. PT TOLERATING WELL CURRENTS VENT SETTINGS,AC-18, TV 500,PEEP 5 and fio2 40%, o2 sat 100%.RENDERED TRACH CARE AND ORAL HYGIENE , MOD AMT OF WHITE TICK SECRETIONS NOTED. PT RECEIVING GLUCERNA 1.5 VIA GT ,TOLERATING WELL NO RESIDUAL NOTED AT THIS TIME.PT REPOSITIONED IN BED TO PROVIDE COMFORT AND TO PREVENT FURTHERS SKIN BREAK DOWN.PT WITH HJamil G# 22 ON LT FA PATENT. FULL BODY ASSESSMENT DONE. NO ACUTE DISTRESS NOTED AT THIS TIME. WILL CONT TO MONITOR.
[2020-01-10 07:33] LABS: BASOPHILS % (AUTO) 0.8 % (0.0-2.0); EOSINOPHILS % (AUTO) 4.2 % (0.0-3.0); HEMATOCRIT 28.5 % (42.0-52.0); LYMPHOCYTES % (AUTO) 18.4 % (20.0-45.0); MEAN CORPUSCULAR VOLUME 92 FL (80-99); MONOCYTES % (AUTO) 13.1 % (1.0-10.0); NEUTROPHILS % (AUTO) 63.5 % (45.0-75.0); PLATELET COUNT 179 K/UL (150-450); RED CELL DISTRIBUTION WIDTH 14.1 % (11.6-14.8); WHITE BLOOD COUNT 6.4 K/UL (4.8-10.8)
[2020-01-10 08:00] VITALS: BP 122/74
[2020-01-10 08:04] LABS: ANION GAP 10 mmol/L (5-15); BLOOD UREA NITROGEN 47 mg/dL (7-18); CALCIUM 9.2 MG/DL (8.5-10.1); CARBON DIOXIDE 26 MMOL/L (21-32); CHLORIDE 102 MMOL/L (98-107); CREATININE 1.5 MG/DL (0.55-1.30); POTASSIUM 4.5 MMOL/L (3.5-5.1); SODIUM 138 MMOL/L (136-145)
[2020-01-10] MEDS: Meropenem 1gm/NS 110ml IVPB SCH ×4 (09:24→20:32)
[2020-01-10] MEDS: Levothyroxine 125mcg tab GT SCH (09:25)
[2020-01-10] MEDS: Carvedilol 6.25mg Tab GT SCH ×2 (09:25→20:16)
[2020-01-10] MEDS: levETIRAcetam 500mg/5ml Liquid GT SCH ×2 (09:25→20:15)
[2020-01-10] MEDS: Ascorbic Acid 500mg tab GT SCH (09:25)
[2020-01-10] MEDS: Heparin 5000 units/ml inj SUBQ SCH ×2 (09:27→20:18)
--- NOTE | 2020-01-10 09:46 | Surgery Progress Note ---
Surgery Progress Note Subjective Additional Comments t max 101.0 labs reviewed h/h good no acute events comfortable on lateral decubitus off loading well Objective Last 24 Hour Vital Signs Date Time Temp Pulse Resp B/P (MAP) Pulse Ox O2 Delivery O2 Flow Rate FiO2 01/10/20 09:25 64 122/74 01/10/20 08:00 97.9 18 122/74 (90) 100 01/10/20 08:00 Mechanical Ventilator 01/10/20 07:10 64 21 40 01/10/20 05:26 68 24 40 01/10/20 04:00 98.2 66 19 122/74 (90) 100 01/10/20 04:00 Mechanical Ventilator 01/10/20 04:00 100 01/10/20 03:34 67 01/10/20 03:30 66 22 40 01/10/20 00:39 89 28 40 01/10/20 00:00 100 01/10/20 00:00 97.6 65 21 139/77 (97) 100 01/10/20 00:00 Mechanical Ventilator 01/09/20 23:28 65 01/09/20 23:26 75 29 100 Mechanical Ventilator 40 79 31 40 01/09/20 21:30 87 30 40 01/09/20 20:09 72 132/88 01/09/20 20:00 Mechanical Ventilator 01/09/20 20:00 100 01/09/20 20:00 97.0 69 18 138/79 (98) 100 01/09/20 19:34 68 01/09/20 19:30 69 21 40 01/09/20 17:03 72 24 40 01/09/20 16:00 97.6 69 19 135/86 (102) 100 01/09/20 16:00 Mechanical Ventilator 01/09/20 15:42 87 01/09/20 15:02 71 21 40 01/09/20 12:44 70 20 40 01/09/20 12:00 98.4 74 22 114/73 (87) 100 01/09/20 12:00 Mechanical Ventilator 01/09/20 11:47 77 01/09/20 11:09 72 18 100 Mechanical Ventilator 40 72 18 40 I&O Intake and Output 01/09/20 01/10/20 19:00 07:00 Intake Total 740 ml 1592 ml Output Total 1800 ml 1050 ml Balance -1060 ml 542 ml Free Water 200 ml 250 ml IV Total 642 ml Tube Feeding 540 ml 450 ml Blood Product 250 ml Output Urine Total 1700 ml 900 ml Stool Total 100 ml 150 ml Dressing: saturated Wound: clean Drains: other Cardiovascular: RSR Respiratory: decreased breath sounds Abdomen: soft, non-tender, present bowel sounds Extremities: no tenderness, no cyanosis, other Laboratory Tests Test 01/10/20 03:40 01/10/20 03:42 Stool Occult Blood Pending White Blood Count 6.4 K/UL (4.8-10.8) Red Blood Count 3.10 M/UL (4.70-6.10) L Hemoglobin 10.0 G/DL (14.2-18.0) #L Hematocrit 28.5 % (42.0-52.0) #L Mean Corpuscular Volume 92 FL (80-99) Mean Corpuscular Hemoglobin 32.2 PG (27.0-31.0) H Mean Corpuscular Hemoglobin Concent 35.0 G/DL (32.0-36.0) Red Cell Distribution Width 14.1 % (11.6-14.8) Platelet Count 179 K/UL (150-450) Mean Platelet Volume 7.1 FL (6.5-10.1) Neutrophils (%) (Auto) 63.5 % (45.0-75.0) Lymphocytes (%) (Auto) 18.4 % (20.0-45.0) L Monocytes (%) (Auto) 13.1 % (1.0-10.0) H Eosinophils (%) (Auto) 4.2 % (0.0-3.0) H Basophils (%) (Auto) 0.8 % (0.0-2.0) Sodium Level 138 MMOL/L (136-145) Potassium Level 4.5 MMOL/L (3.5-5.1) Chloride Level 102 MMOL/L (98-107) Carbon Dioxide Level 26 MMOL/L (21-32) Anion Gap 10 mmol/L (5-15) Blood Urea Nitrogen 47 mg/dL (7-18) H Creatinine 1.5 MG/DL (0.55-1.30) H Estimat Glomerular Filtration Rate 45.4 mL/min (>60) Glucose Level 78 MG/DL (74-106) Calcium Level 9.2 MG/DL (8.5-10.1) Magnesium Level 2.1 MG/DL (1.8-2.4) Plan Problems: (1) Decubitus skin ulcer Assessment & Plan: Pt presented on admission with contractures, multiple Skin Breakdown. Skin assessed under collar of trach and no skin breakdown noted.Category 3 Skin tear R elbow(L)4.5cm x (W)5cm. Full flap loss noted. Base of wound moist and viable,edges adherent. No exudate noted. No erythema or elevated skin temp periwound. Category 2 Skin tear L forearm. Full flap intact and reattached. Moderate amt sanguineous exudate noted. Silvasorb Gel applied and covered with Optifoam drsg. Reinforced with ABD Pad and Kerlix. DTPI noted to L Sacrum(L)3.5cm x (W)3cm. Base of wound is maroon and indurated. DTPI R Sacrum(L)7cm x (W)9.5cm. Wound is irregular shaped. Base of wound is maroon and indurated. Scattered areas of darker skin tone without induration or erythema periwound. DTPI L lateral malleolus(L)2.5cm x (W)2cm. Base of wound is fluctuant,purple with surrounding maroon borders. No erythema or elevation in skin temp periwound. Partial thickness wound L 1st metatarsal head (L)2.5cm x (W)2cm. Base of wound is moist and viable. Edges are macerated. Non-blanching erythema without fluctuance periwound. DTPI Dorso/lateral R foot(L)2.3cm x (W)4.3cm. Base of injury is indurated purple /maroon in colour. No erythema or elevation in skin temp periwound. Hyperpigmentation from previous wounds noted to R and L hallux. Tx.Plan: Cleanse Skin tears R Elbow and L forearm with Saline. Apply Silvasorb Gel. Cover each wounds with Optifoam drsgs. Change every 7 days and prn. Apply Triad Paste to R and L Sacrum. Cover with Optifoam drsg. Change every 3 days and prn. Apply Cavilon to Malleoli both feet, Both heels and Both hallux . Cover each site with Optifoam drsgs turn q2h nutritional optimization (2) Respiratory insufficiency (3) Malnutrition Assessment & Plan: DAILY ESTIMATED NEEDS: Needs based on Critical care, wounds/ 60kg abw 22-28 kcals/kg 9490-8921 total kcals 1.25-2 g protein/kg 75-120 g total protein 25-30 mL/kg 7430-3102 total fluid mLs NUTRITION DIAGNOSIS: Swallowing difficulty R/T respiratory status as evidenced by trach/vent dep, PEG dep. CURRENT TF:Glucerna 1.5 @ 50ml/hr x 20 hrs ENTERAL NUTRITION RECOMMENDATIONS: Glucerna 1.5 @ 50ml/hr x 20 hrs to provide 1000ml, 1500kcal, 82.5g prot, 759ml free water * Maintain current TF @ goal : meets 100% est kcal/prot needs * HOB Over 30 degrees/ water flush per MD * Hold Synthroid during 4 hrs that TF is off FOR 22 HRS RUN (total 2 hrs held for Synthroid) -> Glucerna 1.5 @ 45ml/hr x 22 hrs to provide 990ml, 1485kcal, 82g prot -> Hold TF 1 hr before and after Synthroid ADDITIONAL RECOMMENDATIONS: * Per SNF: HT=63", LE=900qwu (as of 12/28/19) * Monitor lytes, replete as needed * Wound healing: f/up w/ WC eval : add Vit C 500mg QD, Jerome 1pkt BID (4) Pneumonia (5) Tracheal stenosis (6) Protein-calorie malnutrition, severe (7) Suspected COVID-19 virus infection Assessment & Plan: negative Sabino Gold Jan 10, 2020 09:46
--- NOTE | 2020-01-10 11:00 | Infectious Diseases Prog Note ---
"Assessment/Plan Assessment/Plan antibiotics : meropenem 4..20 - inhaled colistin 4.11.20 - A 1. e.coli | pseudomonas | acenitobacter pneumonia COVID 19 test negative 4.5.20, 4.8.20 2. leucocytosis improving 3. renal failure improving 4. + blood cultures with coag neg staph | diphtheroids likely contaminated 5. respiratory failure P 1. d/c meropenem 2. continue inhaled colistin 2 more days 3. will follow up cultures Subjective ROS Limited/Unobtainable: Yes Allergies: Coded Allergies: No Known Allergies (Unverified , 12/31/19) Objective Vital Signs Last 24 Hour Vital Signs Date Time Temp Pulse Resp B/P (MAP) Pulse Ox O2 Delivery O2 Flow Rate FiO2 01/10/20 09:25 64 122/74 01/10/20 08:00 97.9 18 122/74 (90) 100 01/10/20 08:00 Mechanical Ventilator 01/10/20 07:10 64 21 40 01/10/20 05:26 68 24 40 01/10/20 04:00 98.2 66 19 122/74 (90) 100 01/10/20 04:00 Mechanical Ventilator 01/10/20 04:00 100 01/10/20 03:34 67 01/10/20 03:30 66 22 40 01/10/20 00:39 89 28 40 01/10/20 00:00 100 01/10/20 00:00 97.6 65 21 139/77 (97) 100 01/10/20 00:00 Mechanical Ventilator 01/09/20 23:28 65 01/09/20 23:26 75 29 100 Mechanical Ventilator 40 79 31 40 01/09/20 21:30 87 30 40 01/09/20 20:09 72 132/88 01/09/20 20:00 Mechanical Ventilator 01/09/20 20:00 100 01/09/20 20:00 97.0 69 18 138/79 (98) 100 01/09/20 19:34 68 01/09/20 19:30 69 21 40 01/09/20 17:03 72 24 40 01/09/20 16:00 97.6 69 19 135/86 (102) 100 01/09/20 16:00 Mechanical Ventilator 01/09/20 15:42 87 01/09/20 15:02 71 21 40 01/09/20 12:44 70 20 40 01/09/20 12:00 98.4 74 22 114/73 (87) 100 01/09/20 12:00 Mechanical Ventilator 01/09/20 11:47 77 01/09/20 11:09 72 18 100 Mechanical Ventilator 40 72 18 40 Height (Feet): 5 Height (Inches): 5.00 Weight (Pounds): 121 HEENT: status post trach Respiratory/Chest: lungs clear Cardiovascular: normal rate, regular rhythm, no gallop/murmur Abdomen: soft, non tender, other - GT Extremities: no edema Laboratory Tests Test 01/10/20 03:40 01/10/20 03:42 Stool Occult Blood Pending White Blood Count 6.4 K/UL (4.8-10.8) Red Blood Count 3.10 M/UL (4.70-6.10) L Hemoglobin 10.0 G/DL (14.2-18.0) #L Hematocrit 28.5 % (42.0-52.0) #L Mean Corpuscular Volume 92 FL (80-99) Mean Corpuscular Hemoglobin 32.2 PG (27.0-31.0) H Mean Corpuscular Hemoglobin Concent 35.0 G/DL (32.0-36.0) Red Cell Distribution Width 14.1 % (11.6-14.8) Platelet Count 179 K/UL (150-450) Mean Platelet Volume 7.1 FL (6.5-10.1) Neutrophils (%) (Auto) 63.5 % (45.0-75.0) Lymphocytes (%) (Auto) 18.4 % (20.0-45.0) L Monocytes (%) (Auto) 13.1 % (1.0-10.0) H Eosinophils (%) (Auto) 4.2 % (0.0-3.0) H Basophils (%) (Auto) 0.8 % (0.0-2.0) Sodium Level 138 MMOL/L (136-145) Potassium Level 4.5 MMOL/L (3.5-5.1) Chloride Level 102 MMOL/L (98-107) Carbon Dioxide Level 26 MMOL/L (21-32) Anion Gap 10 mmol/L (5-15) Blood Urea Nitrogen 47 mg/dL (7-18) H Creatinine 1.5 MG/DL (0.55-1.30) H Estimat Glomerular Filtration Rate 45.4 mL/min (>60) Glucose Level 78 MG/DL (74-106) Calcium Level 9.2 MG/DL (8.5-10.1) Magnesium Level 2.1 MG/DL (1.8-2.4) Current Medications Medications (Trade) Dose Ordered Sig/Pau Route PRN Reason Start Time Stop Time Status Last Admin Dose Admin Acetaminophen (Tylenol) 650 mg Q4H PRN GT MILD/TEMP 01/09/20 06:30 02/08/20 06:29 Ascorbic Acid (Vitamin C) 500 mg DAILY GT 01/02/20 09:00 02/01/20 08:59 01/10/20 09:25 Carvedilol (Coreg) 6.25 mg EVERY 12 HOURS GT 01/08/20 09:00 02/07/20 08:59 01/10/20 09:25 Chlorhexidine Gluconate (Radha-Hex 2%) 1 applic DAILY@2000 TOPIC 01/08/20 20:00 04/07/20 19:59 01/09/20 20:09 Colistimethate Sodium (Colistin *inhalation use only*) 75 mg Q12HR@10,22 INH 01/06/20 22:00 01/13/20 21:59 01/09/20 23:26 Dextrose 1,000 ml @ 60 mls/hr [id number] IV 01/09/20 19:01 02/08/20 19:00 01/09/20 20:08 Famotidine (Pepcid I.v.) 20 mg DAILY IVP 01/09/20 09:00 02/08/20 08:59 01/10/20 09:26 Heparin Sodium (Porcine) (Heparin 5000 units/ml) 5,000 units EVERY 12 HOURS SUBQ 01/01/20 21:00 02/15/20 20:59 01/10/20 09:27 Levetiracetam (Keppra) 750 mg EVERY 12 HOURS GT 01/02/20 09:00 02/01/20 08:59 01/10/20 09:25 Levothyroxine Sodium (Synthroid) 50 mcg DAILY GT 01/02/20 09:00 02/01/20 08:59 01/10/20 09:25 Levothyroxine Sodium (Synthroid) 125 mcg DAILY GT 01/02/20 09:00 02/01/20 08:59 01/10/20 09:25 Lorazepam (Ativan 2mg/ml 1ml) 2 mg Q4H PRN IV For Seizures 01/09/20 00:00 01/16/20 00:00 01/09/20 00:03 Meropenem 1 gm/ Sodium Chloride 110 ml @ 220 mls/hr Q12HR IVPB 01/04/20 13:30 01/10/20 23:59 01/10/20 09:24 Heber Abraham MD Jan 10, 2020 11:00"
[2020-01-10 12:00] VITALS: BP 133/60
[2020-01-10] MEDS: Colistin for inhalation INH SCH ×2 (12:31→21:17)
--- NOTE | 2020-01-10 13:25 | General Progress Note ---
Assessment/Plan Problem List: (1) JOHN (acute kidney injury) ICD Codes: N17.9 - Acute kidney failure, unspecified SNOMED: 5236157, 90932627 (2) Dehydration ICD Codes: E86.0 - Dehydration SNOMED: 64361807 (3) Suspected COVID-19 virus infection ICD Codes: R68.89 - Other general symptoms and signs SNOMED: 758561856 (4) Tracheal stenosis ICD Codes: J39.8 - Other specified diseases of upper respiratory tract SNOMED: 94918260 (5) Pneumonia ICD Codes: J18.9 - Pneumonia, unspecified organism SNOMED: 022673637 (6) Malnutrition ICD Codes: E46 - Unspecified protein-calorie malnutrition SNOMED: 42341992 (7) Respiratory insufficiency ICD Codes: R06.89 - Other abnormalities of breathing SNOMED: 007194317 Status: stable Assessment/Plan: cont current rx iv abx per id. follow up cultures monitor labs and cxr sz rx monitor bp dvt/stress ulcer prophylaxis transfuse as needed skin/wound care dc planning Subjective ROS Limited/Unobtainable: Yes Constitutional: Reports: malaise, weakness HEENT: Reports: no symptoms Cardiovascular: Reports: no symptoms Respiratory: Reports: shortness of breath, sputum Gastrointestinal/Abdominal: Reports: difficulty swallowing Genitourinary: Reports: no symptoms Neurologic/Psychiatric: Reports: pre-existing deficit, seizure Endocrine: Reports: no symptoms Hematologic/Lymphatic: Reports: anemia Allergies: Coded Allergies: No Known Allergies (Unverified , 12/31/19) All Systems: reviewed and negative except above Subjective no events. stable on the vent. no fever or chills. labs reviewed. decreased h/h noted. no reports of bleeding. on iv abx. poorly responsive at baseline. labs reviewed ID noted. on colistin inhaled Objective Last 24 Hour Vital Signs Date Time Temp Pulse Resp B/P (MAP) Pulse Ox O2 Delivery O2 Flow Rate FiO2 01/10/20 12:32 87 23 100 Mechanical Ventilator 40 83 18 40 01/10/20 12:00 100 01/10/20 12:00 Mechanical Ventilator 01/10/20 11:36 64 01/10/20 11:12 84 21 40 01/10/20 09:25 64 122/74 01/10/20 08:00 97.9 18 122/74 (90) 100 01/10/20 08:00 Mechanical Ventilator 01/10/20 08:00 75 01/10/20 07:10 64 21 40 01/10/20 05:26 68 24 40 01/10/20 04:00 98.2 66 19 122/74 (90) 100 01/10/20 04:00 Mechanical Ventilator 01/10/20 04:00 100 01/10/20 03:34 67 01/10/20 03:30 66 22 40 01/10/20 00:39 89 28 40 01/10/20 00:00 100 01/10/20 00:00 97.6 65 21 139/77 (97) 100 01/10/20 00:00 Mechanical Ventilator 01/09/20 23:28 65 01/09/20 23:26 75 29 100 Mechanical Ventilator 40 79 31 40 01/09/20 21:30 87 30 40 01/09/20 20:09 72 132/88 01/09/20 20:00 Mechanical Ventilator 01/09/20 20:00 100 01/09/20 20:00 97.0 69 18 138/79 (98) 100 01/09/20 19:34 68 01/09/20 19:30 69 21 40 01/09/20 17:03 72 24 40 01/09/20 16:00 97.6 69 19 135/86 (102) 100 01/09/20 16:00 Mechanical Ventilator 01/09/20 15:42 87 01/09/20 15:02 71 21 40 Intake and Output 01/09/20 01/10/20 19:00 07:00 Intake Total 740 ml 1697 ml Output Total 1800 ml 1050 ml Balance -1060 ml 647 ml Free Water 200 ml 250 ml IV Total 702 ml Tube Feeding 540 ml 495 ml Blood Product 250 ml Output Urine Total 1700 ml 900 ml Stool Total 100 ml 150 ml Laboratory Tests 01/10/20 03:40: Stool Occult Blood Negative 01/10/20 03:42: White Blood Count 6.4, Red Blood Count 3.10L, Hemoglobin 10.0#L, Hematocrit 28.5 #L, Mean Corpuscular Volume 92, Mean Corpuscular Hemoglobin 32.2H, Mean Corpuscular Hemoglobin Concent 35.0, Red Cell Distribution Width 14.1, Platelet Count 179, Mean Platelet Volume 7.1, Neutrophils (%) (Auto) 63.5, Lymphocytes (% ) (Auto) 18.4L, Monocytes (%) (Auto) 13.1H, Eosinophils (%) (Auto) 4.2H, Basophils (%) (Auto) 0.8, Sodium Level 138, Potassium Level 4.5, Chloride Level 102, Carbon Dioxide Level 26, Anion Gap 10, Blood Urea Nitrogen 47H, Creatinine 1.5H, Estimat Glomerular Filtration Rate 45.4, Glucose Level 78, Calcium Level 9.2, Magnesium Level 2.1 Height (Feet): 5 Height (Inches): 5.00 Weight (Pounds): 121 Objective General Appearance: WD/WN, alert Neck: supple Cardiovascular: regular rhythm Respiratory/Chest: chest wall non-tender, rhonchi - bilaterally Abdomen: normal bowel sounds, non tender, soft, no organomegaly Edema: no edema noted Arm (L), no edema noted Arm (R), no edema noted Leg (L), no edema noted Leg (R), no edema noted Pedal (L), no edema noted Pedal (R), no edema noted Generalized Neurologic: disoriented, aphasia Vasquez De Paz MD Jan 10, 2020 13:25
--- NOTE | 2020-01-10 13:41 | NUR ---
*-* INSURANCE *-* UPDATED CLINICALS AND REVIEWS HAVE BEEN FAXED TO: NIKOLE Quiñonez # [phone] fax#[phone]
--- NOTE | 2020-01-10 13:43 | NUR ---
CASE MANAGEMENT: REVIEW SI: PNA . TRACH/VENT DEPENDENT . COVID-19 NOT DETECTED T 97.9 HR 75 RR 28 BP 122/74 SAT 100% MECH VENT FIO2 100 H/H 10.0/28.5 BUN 47 CR 1.5 IS: MEROPENEM IV Q12HR COLISTIN INH Q12HR PEPCID IV QD KEPPRA 750MG GT Q12HR HEPARIN SUBQ Q12HR D5W @ 75ML/HR TRANSFUSE PRBC NEEDED WOUND CARE RECTAL TUBE STEP DOWN UNIT DCP: PATIENT IS FROM [facility]
[2020-01-10 16:00] VITALS: BP 106/64
--- NOTE | 2020-01-10 16:40 | NUR ---
NURSE NOTES:WOUND CARE FOLLOW-UP NOTES: Pt contracted in foetal position. Skin assessed under collar of trach and no evidence of skin breakdown noted. DTPI R sacrum (L)1.5cm x (W)2.5cm. Base of wound is indurated, maroon in colour. Dry, peeling skin periwound. DTPI R Iliac(L)1.5cm x (W)1.5cm. Base of wound is indurated,purple in center with maroon borders. Dry peeling skin periwound. Non-blanching erythema without induration R ischium. Scrotum is grossly erythematous and excoriated. Partial thickness wound noted at base of Scrotum.(L)2.6cm x (W)3cm. Base of wound is moist and viable. Stable dry eschar L lateral Malleolus(L)2.2cm x (W)2.9cm. DTPI L Heel. Blood filled blister with maroon borders.(L)4.5cm x (W)5.5cm. Periwound L heel is boggy but blanchable Darker Skin tone without erythema,induration or fluctuance distal/lateral R foot. Resolving pressure injury R hallux/R 1st metatarsal. Base of wound is moist and viable. No odor or exudate noted. Wound Tx. are effective and continued as ordered. All wound prevention protocols continued as care-planned.
--- NOTE | 2020-01-10 16:53 | Critical Care Progress Note ---
Assessment/Plan Assessment/Plan Impression: Pneumonia Sepsis Elevated troponin Renal failure Tracheostomy History of tracheal stenosis Ventilator Dependent Respiratory Failure Chronically altered mental status s/p previous CPA, anoxia Previous Seizures Previous pericardial effusion, Congestive Heart Failure, Atrial Fibrillation Diabetes, Hypothyroidism Previous Hematuria/UTI, previous sepsis GERD sp G tube polymicrobial infection diarrhea worsening anemia PLAN rectal tube dc iv antibiotics vent management as is acid base noted; taper oxygen antibiotic regimen reviewed PICC line ID and renal noted gi to see for further recommendations cultures noted monitor for change feeds as able SNF meds noted seizure precautions consider GI eval follow up HH and other labs cardiology to monitor hemodynamics note reviewed and edited care discussed with RN and RT dc planning to snf if diarrhea improves critical time spent >40 minutes coordinating care and updating orders Critical Care - Subjective Interval Events: care noted ID noted on vent IV antibiotics discontinued on vent poorly responsive ROS Limited/Unobtainable: Yes Condition: unchanged EKG Rhythm: Sinus Rhythm Residuals: minimal Tube Feeding Tolerated: yes I&O: Intake and Output 01/09/20 01/10/20 19:00 07:00 Intake Total 740 ml 1697 ml Output Total 1800 ml 1050 ml Balance -1060 ml 647 ml Free Water 200 ml 250 ml IV Total 702 ml Tube Feeding 540 ml 495 ml Blood Product 250 ml Output Urine Total 1700 ml 900 ml Stool Total 100 ml 150 ml Critical Care - Objective Last 24 Hour Vital Signs Date Time Temp Pulse Resp B/P (MAP) Pulse Ox O2 Delivery O2 Flow Rate FiO2 01/10/20 15:02 75 18 40 01/10/20 12:32 87 23 100 Mechanical Ventilator 40 83 18 40 01/10/20 12:00 98.2 70 20 133/60 (84) 99 01/10/20 12:00 100 01/10/20 12:00 Mechanical Ventilator 01/10/20 11:36 64 01/10/20 11:12 84 21 40 01/10/20 09:25 64 122/74 01/10/20 08:00 Mechanical Ventilator 01/10/20 08:00 75 01/10/20 08:00 97.9 69 18 122/74 (90) 100 01/10/20 07:10 64 21 40 01/10/20 05:26 68 24 40 01/10/20 04:00 98.2 66 19 122/74 (90) 100 01/10/20 04:00 Mechanical Ventilator 01/10/20 04:00 100 01/10/20 03:34 67 01/10/20 03:30 66 22 40 01/10/20 00:39 89 28 40 01/10/20 00:00 100 01/10/20 00:00 97.6 65 21 139/77 (97) 100 01/10/20 00:00 Mechanical Ventilator 01/09/20 23:28 65 01/09/20 23:26 75 29 100 Mechanical Ventilator 40 79 31 40 01/09/20 21:30 87 30 40 01/09/20 20:09 72 132/88 01/09/20 20:00 Mechanical Ventilator 01/09/20 20:00 100 01/09/20 20:00 97.0 69 18 138/79 (98) 100 01/09/20 19:34 68 01/09/20 19:30 69 21 40 01/09/20 17:03 72 24 40 Labs: Labs Test 01/08/20 04:50 01/09/20 03:30 01/10/20 03:40 01/10/20 03:42 Sodium Level 136 MMOL/L (136-145) 135 MMOL/L (136-145) 138 MMOL/L (136-145) Potassium Level 4.9 MMOL/L (3.5-5.1) 5.6 MMOL/L (3.5-5.1) 4.5 MMOL/L (3.5-5.1) Chloride Level 103 MMOL/L (98-107) 102 MMOL/L (98-107) 102 MMOL/L (98-107) Carbon Dioxide Level 28 MMOL/L (21-32) 29 MMOL/L (21-32) 26 MMOL/L (21-32) Anion Gap 6 mmol/L (5-15) 10 mmol/L (5-15) Blood Urea Nitrogen 54 mg/dL (7-18) 48 mg/dL (7-18) 47 mg/dL (7-18) Creatinine 1.4 MG/DL (0.55-1.30) 1.5 MG/DL (0.55-1.30) 1.5 MG/DL (0.55-1.30) Estimat Glomerular Filtration Rate 49.1 mL/min (>60) 45.4 mL/min (>60) 45.4 mL/min (>60) Glucose Level 102 MG/DL (74-106) 75 MG/DL (74-106) 78 MG/DL (74-106) Calcium Level 10.1 MG/DL (8.5-10.1) 9.6 MG/DL (8.5-10.1) 9.2 MG/DL (8.5-10.1) White Blood Count 6.8 K/UL (4.8-10.8) 6.4 K/UL (4.8-10.8) Red Blood Count 2.19 M/UL (4.70-6.10) 3.10 M/UL (4.70-6.10) Hemoglobin 7.1 G/DL (14.2-18.0) 10.0 G/DL (14.2-18.0) Hematocrit 21.2 % (42.0-52.0) 28.5 % (42.0-52.0) Mean Corpuscular Volume 96 FL (80-99) 92 FL (80-99) Mean Corpuscular Hemoglobin 32.4 PG (27.0-31.0) 32.2 PG (27.0-31.0) Mean Corpuscular Hemoglobin Concent 33.6 G/DL (32.0-36.0) 35.0 G/DL (32.0-36.0) Red Cell Distribution Width 12.8 % (11.6-14.8) 14.1 % (11.6-14.8) Platelet Count 193 K/UL (150-450) 179 K/UL (150-450) Mean Platelet Volume 8.3 FL (6.5-10.1) 7.1 FL (6.5-10.1) Neutrophils (%) (Auto) % (45.0-75.0) 63.5 % (45.0-75.0) Lymphocytes (%) (Auto) % (20.0-45.0) 18.4 % (20.0-45.0) Monocytes (%) (Auto) % (1.0-10.0) 13.1 % (1.0-10.0) Eosinophils (%) (Auto) % (0.0-3.0) 4.2 % (0.0-3.0) Basophils (%) (Auto) % (0.0-2.0) 0.8 % (0.0-2.0) Differential Total Cells Counted 100 Neutrophils % (Manual) 78 % (45-75) Lymphocytes % (Manual) 16 % (20-45) Monocytes % (Manual) 4 % (1-10) Eosinophils % (Manual) 1 % (0-3) Basophils % (Manual) 0 % (0-2) Band Neutrophils 1 % (0-8) Platelet Estimate Adequate Platelet Morphology Normal Macrocytosis 1+ Magnesium Level 1.7 MG/DL (1.8-2.4) 2.1 MG/DL (1.8-2.4) Troponin I 0.018 ng/mL (0.000-0.056) Pro-B-Type Natriuretic Peptide 5454 pg/mL (0-125) Stool Occult Blood Negative (NEGATIVE) Objective: WDWN NAD reduced breath sounds bilaterally without rhonchi or wheeze [id number] without MRG NABS nontender no HSM GT no CCE nonfocal trach reviewed and edited Dillon Harris MD Jan 10, 2020 16:53
--- NOTE | 2020-01-10 19:00 | NUR ---
RESPIRATORY NOTE: PT RECEIVED STABLE ON CMV WITH CURRENT SETTINGS: AC/VC 18, 450, 40%, +8. ALARMS ARE ON AND AUDIBLE. VENT CIRCUIT SECURE AND OUT OF THE WAY. NO S/S OF RESPIRATORY DISTRESS NOTED AT THIS TIME. WILL CONTINUE TO CLOSELY MONITOR.
--- NOTE | 2020-01-10 19:15 | NUR ---
HAND-OFF: Report given to .AMISHA RIVER
--- NOTE | 2020-01-10 19:20 | NUR ---
NURSE NOTES: received pt from Larry RIVER., pt is sleeping and resting on the bed easy to arouse. pt is obtunded. no SOB noted with vent. O2sat is at 98% at this moment. Gtube site clean, intact, and patent. left FA 22G is intact clean, and patent. rectal tube in place draining well with gravity. condom cath is on intact and patent. side rails are padded. call light within reach. bed at the lowest position, alarmed, and locked. will continue to monitor pt with plan of care.
[2020-01-10 20:00] VITALS: BP 117/74
[2020-01-10] MEDS: Dyna-Hex 2% Top Sol 2oz TOPIC SCH (20:15)
--- NOTE | 2020-01-10 20:24 | Nephrology Progress Note ---
Assessment/Plan Problem List: (1) Hypernatremia (2) Dehydration (3) JOHN (acute kidney injury) (4) Respiratory insufficiency (5) Pneumonia (6) Protein-calorie malnutrition, severe (7) Hx of tracheostomy Plan continue hypotonic iv's, antibiotics BUN and Na improving Subjective ROS Limited/Unobtainable: Yes Objective Objective Last 24 Hour Vital Signs Date Time Temp Pulse Resp B/P (MAP) Pulse Ox O2 Delivery O2 Flow Rate FiO2 01/10/20 20:16 65 117/96 01/10/20 16:00 Mechanical Ventilator 01/10/20 16:00 100 01/10/20 16:00 97.4 77 20 106/64 (78) 97 01/10/20 16:00 60 01/10/20 15:02 75 18 40 01/10/20 12:32 87 23 100 Mechanical Ventilator 40 83 18 40 01/10/20 12:00 98.2 70 20 133/60 (84) 99 01/10/20 12:00 100 01/10/20 12:00 Mechanical Ventilator 01/10/20 11:36 64 01/10/20 11:12 84 21 40 01/10/20 09:25 64 122/74 01/10/20 08:00 Mechanical Ventilator 01/10/20 08:00 75 01/10/20 08:00 97.9 69 18 122/74 (90) 100 01/10/20 07:10 64 21 40 01/10/20 05:26 68 24 40 01/10/20 04:00 98.2 66 19 122/74 (90) 100 01/10/20 04:00 Mechanical Ventilator 01/10/20 04:00 100 01/10/20 03:34 67 01/10/20 03:30 66 22 40 01/10/20 00:39 89 28 40 01/10/20 00:00 100 01/10/20 00:00 97.6 65 21 139/77 (97) 100 01/10/20 00:00 Mechanical Ventilator 01/09/20 23:28 65 01/09/20 23:26 75 29 100 Mechanical Ventilator 40 79 31 40 01/09/20 21:30 87 30 40 Intake and Output 01/09/20 01/10/20 19:00 07:00 Intake Total 740 ml 1697 ml Output Total 1800 ml 1050 ml Balance -1060 ml 647 ml Free Water 200 ml 250 ml IV Total 702 ml Tube Feeding 540 ml 495 ml Blood Product 250 ml Output Urine Total 1700 ml 900 ml Stool Total 100 ml 150 ml Laboratory Tests 01/10/20 03:40: Stool Occult Blood Negative 01/10/20 03:42: White Blood Count 6.4, Red Blood Count 3.10L, Hemoglobin 10.0#L, Hematocrit 28.5 #L, Mean Corpuscular Volume 92, Mean Corpuscular Hemoglobin 32.2H, Mean Corpuscular Hemoglobin Concent 35.0, Red Cell Distribution Width 14.1, Platelet Count 179, Mean Platelet Volume 7.1, Neutrophils (%) (Auto) 63.5, Lymphocytes (% ) (Auto) 18.4L, Monocytes (%) (Auto) 13.1H, Eosinophils (%) (Auto) 4.2H, Basophils (%) (Auto) 0.8, Sodium Level 138, Potassium Level 4.5, Chloride Level 102, Carbon Dioxide Level 26, Anion Gap 10, Blood Urea Nitrogen 47H, Creatinine 1.5H, Estimat Glomerular Filtration Rate 45.4, Glucose Level 78, Calcium Level 9.2, Magnesium Level 2.1 Height (Feet): 5 Height (Inches): 5.00 Weight (Pounds): 121 General Appearance: lethargic, confused, other - trach vent Cardiovascular: regular rhythm Respiratory/Chest: rhonchi - bilaterally Abdomen: soft Extremities: trace edema Neurologic: disoriented Pravin Abad MD Jan 10, 2020 20:24
[2020-01-11] VITALS: BP 130/80
--- NOTE | 2020-01-11 | NUR ---
NURSE NOTES: provided new gown, new blanket, and oral care. changed position q 2hrs. no SOB noted at this moment. call light within reach.
--- NOTE | 2020-01-11 02:15 | Progress Note ---
DATE: 01/10/2020 CARDIOLOGY PROGRESS NOTE SUBJECTIVE: Patient is on ventilator support. No fevers or chills. No bleeding problems. Poorly responsive at baseline mentation. Monitored rhythm sinus. Rare ectopy and atrial ectopy. PHYSICAL EXAMINATION: HEENT: Thin trach secretions. LUNGS: Bilateral rhonchi. CARDIAC: Regular rhythm and rate. ABDOMEN: Soft. G-tube intact. EXTREMITIES: No edema. VITAL SIGNS: Blood pressure 122/74, heart rate 84, respiratory rate 18 to 21. LABORATORY DATA: White count 6.4, hemoglobin 10. Potassium 4.5, BUN 47, creatinine 1.5. Magnesium now is 2.1. IMPRESSION: 1. Respiratory failure. 2. Healthcare-associated pneumonia. 3. Acute myocardial ischemia. 4. Hypomagnesemia. 5. Acute on chronic renal failure, improved. 6. Acute on chronic diastolic congestive heart failure. PLAN: 1. Antimicrobials. 2. Ventilator support. 3. Respiratory hygiene. 4. Additional diuresis. Tony Lobo M.D. DR: YOUSIF JOB#: [id number] CC:
[2020-01-11 04:00] VITALS: BP 138/86
--- NOTE | 2020-01-11 05:00 | NUR ---
RESPIRATORY NOTE: PT REMAINED STABLE ON CMV WITH CURRENT SETTINGS. SX PRN. AIRWAY IS SECURE AND PATENT. VENT CIRCUIT IS SECURE AND OUT OF THE WAY. NO S/S OF RESPIRATORY DISTRESS NOTED AT THIS TIME. HHN TX GIVEN PER RESPIRATORY ORDERS AND TOLERATED WELL.
[2020-01-11 05:52] LABS: BASOPHILS % (AUTO) 1.1 % (0.0-2.0); EOSINOPHILS % (AUTO) 4.7 % (0.0-3.0); HEMATOCRIT 29.2 % (42.0-52.0); HEMOGLOBIN 10.1 G/DL (14.2-18.0); LYMPHOCYTES % (AUTO) 22.3 % (20.0-45.0); MEAN CORPUSCULAR VOLUME 92 FL (80-99); MONOCYTES % (AUTO) 13.7 % (1.0-10.0); NEUTROPHILS % (AUTO) 58.2 % (45.0-75.0); PLATELET COUNT 196 K/UL (150-450); RED BLOOD COUNT 3.17 M/UL (4.70-6.10); RED CELL DISTRIBUTION WIDTH 13.9 % (11.6-14.8); WHITE BLOOD COUNT 7.1 K/UL (4.8-10.8)
[2020-01-11 06:27] LABS: ANION GAP 4 mmol/L (5-15); BLOOD UREA NITROGEN 43 mg/dL (7-18); CALCIUM 9.1 MG/DL (8.5-10.1); CARBON DIOXIDE 33 MMOL/L (21-32); CHLORIDE 98 MMOL/L (98-107); CREATININE 1.5 MG/DL (0.55-1.30); SODIUM 135 MMOL/L (136-145)
--- NOTE | 2020-01-11 07:10 | NUR ---
HAND-OFF: Report given to Min RN. pt remains stable condition, endorsed plan of care.
[2020-01-11 07:39] VITALS: BP_SYST 104; BP_SYST 141; BP_DIAS 59; BP_DIAS 61
--- NOTE | 2020-01-11 07:56 | NUR ---
NURSE NOTES: Pt in bed awake, open his eyes but not responsive to verbal tactile. No c/o pain. IV site in LFA 22G SL running with D5W @60ml/hr patent and asymptomatic. G-tube site intact and patent running with Glucerna 1.2 @45ml/hr patent and asymptomatic. On condom cath intact and patent. Rectal tube patent and intact. Side railsx3 padded up for safety. Call light within easy reach. HOB elevated with 45degree. Will continue to plan of care.
[2020-01-11] MEDS: Carvedilol 6.25mg Tab GT SCH ×2 (09:26→20:17)
[2020-01-11] MEDS: Ascorbic Acid 500mg tab GT SCH (09:27)
[2020-01-11] MEDS: Levothyroxine 125mcg tab GT SCH (09:27)
[2020-01-11] MEDS: levETIRAcetam 500mg/5ml Liquid GT SCH ×2 (09:27→20:16)
--- NOTE | 2020-01-11 09:27 | Critical Care Progress Note ---
Assessment/Plan Assessment/Plan Impression: Pneumonia Sepsis Elevated troponin Renal failure Tracheostomy History of tracheal stenosis Ventilator Dependent Respiratory Failure Chronically altered mental status s/p previous CPA, anoxia Previous Seizures Previous pericardial effusion, Congestive Heart Failure, Atrial Fibrillation Diabetes, Hypothyroidism Previous Hematuria/UTI, previous sepsis GERD sp G tube polymicrobial infection diarrhea worsening anemia PLAN rectal tube dc iv antibiotics vent management as is acid base noted; taper oxygen antibiotic regimen reviewed PICC line ID and renal noted gi to see for further recommendations cultures noted monitor for change feeds as able SNF meds noted seizure precautions consider GI eval follow up HH and other labs cardiology to monitor hemodynamics note reviewed and edited care discussed with RN and RT dc planning to snf if diarrhea improves/ d/w gi critical time spent >40 minutes coordinating care and updating orders Critical Care - Subjective Interval Events: care noted and reviewed on vent ROS Limited/Unobtainable: Yes Condition: unchanged EKG Rhythm: Sinus Rhythm Residuals: minimal Tube Feeding Tolerated: yes I&O: Intake and Output 01/10/20 01/11/20 19:00 07:00 Intake Total 1160 ml 1050 ml Output Total 700 ml 1400 ml Balance 460 ml -350 ml Free Water 300 ml 150 ml IV Total 410 ml 360 ml Tube Feeding 450 ml 540 ml Output Urine Total 600 ml 1400 ml Stool Total 100 ml # Bowel Movements 30 Critical Care - Objective Last 24 Hour Vital Signs Date Time Temp Pulse Resp B/P (MAP) Pulse Ox O2 Delivery O2 Flow Rate FiO2 01/11/20 08:00 Mechanical Ventilator 01/11/20 08:00 40 01/11/20 07:48 65 01/11/20 07:39 99.2 67 19 141/59 (86) 100 01/11/20 07:22 66 18 40 01/11/20 05:00 67 21 40 01/11/20 04:00 100 01/11/20 04:00 97.5 80 18 138/86 (103) 100 01/11/20 04:00 Mechanical Ventilator 01/11/20 03:38 66 01/11/20 03:00 65 18 40 01/11/20 01:00 67 19 40 01/11/20 00:00 98.3 80 20 130/80 (97) 100 01/11/20 00:00 Mechanical Ventilator 01/10/20 23:25 78 01/10/20 23:00 65 25 40 01/10/20 21:16 63 21 100 Mechanical Ventilator 40 65 18 01/10/20 21:00 100 01/10/20 20:16 65 117/96 01/10/20 20:00 Mechanical Ventilator 01/10/20 20:00 98.0 77 19 117/74 (88) 100 01/10/20 20:00 100 01/10/20 19:04 60 01/10/20 19:00 61 19 40 01/10/20 16:00 Mechanical Ventilator 01/10/20 16:00 100 01/10/20 16:00 97.4 77 20 106/64 (78) 97 01/10/20 16:00 60 01/10/20 15:02 75 18 40 01/10/20 12:32 87 23 100 Mechanical Ventilator 40 83 18 40 01/10/20 12:00 98.2 70 20 133/60 (84) 99 01/10/20 12:00 100 01/10/20 12:00 Mechanical Ventilator 01/10/20 11:36 64 01/10/20 11:12 84 21 40 Labs: Labs Test 01/09/20 03:30 01/10/20 03:40 01/10/20 03:42 01/11/20 04:55 White Blood Count 6.8 K/UL (4.8-10.8) 6.4 K/UL (4.8-10.8) 7.1 K/UL (4.8-10.8) Red Blood Count 2.19 M/UL (4.70-6.10) 3.10 M/UL (4.70-6.10) 3.17 M/UL (4.70-6.10) Hemoglobin 7.1 G/DL (14.2-18.0) 10.0 G/DL (14.2-18.0) 10.1 G/DL (14.2-18.0) Hematocrit 21.2 % (42.0-52.0) 28.5 % (42.0-52.0) 29.2 % (42.0-52.0) Mean Corpuscular Volume 96 FL (80-99) 92 FL (80-99) 92 FL (80-99) Mean Corpuscular Hemoglobin 32.4 PG (27.0-31.0) 32.2 PG (27.0-31.0) 32.1 PG (27.0-31.0) Mean Corpuscular Hemoglobin Concent 33.6 G/DL (32.0-36.0) 35.0 G/DL (32.0-36.0) 34.8 G/DL (32.0-36.0) Red Cell Distribution Width 12.8 % (11.6-14.8) 14.1 % (11.6-14.8) 13.9 % (11.6-14.8) Platelet Count 193 K/UL (150-450) 179 K/UL (150-450) 196 K/UL (150-450) Mean Platelet Volume 8.3 FL (6.5-10.1) 7.1 FL (6.5-10.1) 8.1 FL (6.5-10.1) Neutrophils (%) (Auto) % (45.0-75.0) 63.5 % (45.0-75.0) 58.2 % (45.0-75.0) Lymphocytes (%) (Auto) % (20.0-45.0) 18.4 % (20.0-45.0) 22.3 % (20.0-45.0) Monocytes (%) (Auto) % (1.0-10.0) 13.1 % (1.0-10.0) 13.7 % (1.0-10.0) Eosinophils (%) (Auto) % (0.0-3.0) 4.2 % (0.0-3.0) 4.7 % (0.0-3.0) Basophils (%) (Auto) % (0.0-2.0) 0.8 % (0.0-2.0) 1.1 % (0.0-2.0) Differential Total Cells Counted 100 Neutrophils % (Manual) 78 % (45-75) Lymphocytes % (Manual) 16 % (20-45) Monocytes % (Manual) 4 % (1-10) Eosinophils % (Manual) 1 % (0-3) Basophils % (Manual) 0 % (0-2) Band Neutrophils 1 % (0-8) Platelet Estimate Adequate Platelet Morphology Normal Macrocytosis 1+ Sodium Level 135 MMOL/L (136-145) 138 MMOL/L (136-145) 135 MMOL/L (136-145) Potassium Level 5.6 MMOL/L (3.5-5.1) 4.5 MMOL/L (3.5-5.1) 4.0 MMOL/L (3.5-5.1) Chloride Level 102 MMOL/L (98-107) 102 MMOL/L (98-107) 98 MMOL/L (98-107) Carbon Dioxide Level 29 MMOL/L (21-32) 26 MMOL/L (21-32) 33 MMOL/L (21-32) Blood Urea Nitrogen 48 mg/dL (7-18) 47 mg/dL (7-18) 43 mg/dL (7-18) Creatinine 1.5 MG/DL (0.55-1.30) 1.5 MG/DL (0.55-1.30) 1.5 MG/DL (0.55-1.30) Estimat Glomerular Filtration Rate 45.4 mL/min (>60) 45.4 mL/min (>60) 45.4 mL/min (>60) Glucose Level 75 MG/DL (74-106) 78 MG/DL (74-106) 94 MG/DL (74-106) Calcium Level 9.6 MG/DL (8.5-10.1) 9.2 MG/DL (8.5-10.1) 9.1 MG/DL (8.5-10.1) Magnesium Level 1.7 MG/DL (1.8-2.4) 2.1 MG/DL (1.8-2.4) 1.7 MG/DL (1.8-2.4) Troponin I 0.018 ng/mL (0.000-0.056) Pro-B-Type Natriuretic Peptide 5454 pg/mL (0-125) 3530 pg/mL (0-125) Stool Occult Blood Negative (NEGATIVE) Anion Gap 10 mmol/L (5-15) 4 mmol/L (5-15) Objective: WDWN NAD reduced breath sounds bilaterally without rhonchi or wheeze [id number] without MRG NABS nontender no HSM GT no CCE nonfocal trach reviewed and edited Dillon Harris MD Jan 11, 2020 09:27
[2020-01-11] MEDS: Heparin 5000 units/ml inj SUBQ SCH ×3 (09:28→20:32)
[2020-01-11] MEDS: Colistin for inhalation INH SCH ×2 (09:47→22:46)
--- NOTE | 2020-01-11 10:03 | Nephrology Progress Note ---
Assessment/Plan Problem List: (1) Hypernatremia (2) Dehydration (3) JOHN (acute kidney injury) (4) Respiratory insufficiency (5) Pneumonia (6) Protein-calorie malnutrition, severe (7) Hx of tracheostomy Plan continue hypotonic iv's, reduced rate antibiotics BUN and Na improving Subjective ROS Limited/Unobtainable: Yes Objective Objective Last 24 Hour Vital Signs Date Time Temp Pulse Resp B/P (MAP) Pulse Ox O2 Delivery O2 Flow Rate FiO2 01/11/20 09:26 65 141/59 01/11/20 08:00 Mechanical Ventilator 01/11/20 08:00 40 01/11/20 07:48 65 01/11/20 07:39 99.2 67 19 141/59 (86) 100 01/11/20 07:22 66 18 40 01/11/20 05:00 67 21 40 01/11/20 04:00 100 01/11/20 04:00 97.5 80 18 138/86 (103) 100 01/11/20 04:00 Mechanical Ventilator 01/11/20 03:38 66 01/11/20 03:00 65 18 40 01/11/20 01:00 67 19 40 01/11/20 00:00 98.3 80 20 130/80 (97) 100 01/11/20 00:00 Mechanical Ventilator 01/10/20 23:25 78 01/10/20 23:00 65 25 40 01/10/20 21:16 63 21 100 Mechanical Ventilator 40 65 18 01/10/20 21:00 100 01/10/20 20:16 65 117/96 01/10/20 20:00 Mechanical Ventilator 01/10/20 20:00 98.0 77 19 117/74 (88) 100 01/10/20 20:00 100 01/10/20 19:04 60 01/10/20 19:00 61 19 40 01/10/20 16:00 Mechanical Ventilator 01/10/20 16:00 100 01/10/20 16:00 97.4 77 20 106/64 (78) 97 01/10/20 16:00 60 01/10/20 15:02 75 18 40 01/10/20 12:32 87 23 100 Mechanical Ventilator 40 83 18 40 01/10/20 12:00 98.2 70 20 133/60 (84) 99 4/15/20 12:00 100 01/10/20 12:00 Mechanical Ventilator 01/10/20 11:36 64 01/10/20 11:12 84 21 40 Intake and Output 01/10/20 01/11/20 19:00 07:00 Intake Total 1160 ml 1050 ml Output Total 700 ml 1400 ml Balance 460 ml -350 ml Free Water 300 ml 150 ml IV Total 410 ml 360 ml Tube Feeding 450 ml 540 ml Output Urine Total 600 ml 1400 ml Stool Total 100 ml # Bowel Movements 30 Laboratory Tests 01/11/20 04:55: White Blood Count 7.1, Red Blood Count 3.17L, Hemoglobin 10.1L, Hematocrit 29.2L , Mean Corpuscular Volume 92, Mean Corpuscular Hemoglobin 32.1H, Mean Corpuscular Hemoglobin Concent 34.8, Red Cell Distribution Width 13.9, Platelet Count 196, Mean Platelet Volume 8.1, Neutrophils (%) (Auto) 58.2, Lymphocytes (% ) (Auto) 22.3, Monocytes (%) (Auto) 13.7H, Eosinophils (%) (Auto) 4.7H, Basophils (%) (Auto) 1.1, Sodium Level 135L, Potassium Level 4.0, Chloride Level 98, Carbon Dioxide Level 33H, Anion Gap 4L, Blood Urea Nitrogen 43H, Creatinine 1.5H, Estimat Glomerular Filtration Rate 45.4, Glucose Level 94, Calcium Level 9.1, Magnesium Level 1.7L, Pro-B-Type Natriuretic Peptide 3530H Height (Feet): 5 Height (Inches): 5.00 Weight (Pounds): 121 General Appearance: lethargic, confused Neck: normal alignment Cardiovascular: regular rhythm Respiratory/Chest: rhonchi - bilaterally Abdomen: non tender Neurologic: 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
--- NOTE | 2020-01-11 10:26 | Infectious Diseases Prog Note ---
"Assessment/Plan Assessment/Plan A 1. E.coli, Pseudomonas & Acinetobacter pneumonia COVID19 test negative 4.5.20, 4.8.20 2. leucocytosis improving 3. renal failure improving 4. + blood cultures with coag neg staph | diphtheroids likely contaminated 5. Ventilatory dependent respiratory failure P 1. Continue inhaled colistin X 1 day Subjective ROS Limited/Unobtainable: Yes Allergies: Coded Allergies: No Known Allergies (Unverified , 12/31/19) Objective Vital Signs Last 24 Hour Vital Signs Date Time Temp Pulse Resp B/P (MAP) Pulse Ox O2 Delivery O2 Flow Rate FiO2 01/11/20 09:50 65 20 Mechanical Ventilator 40 69 20 100 01/11/20 09:26 65 141/59 01/11/20 08:00 Mechanical Ventilator 01/11/20 08:00 40 01/11/20 07:48 65 01/11/20 07:39 99.2 67 19 141/59 (86) 100 01/11/20 07:22 66 18 40 01/11/20 05:00 67 21 40 01/11/20 04:00 100 01/11/20 04:00 97.5 80 18 138/86 (103) 100 01/11/20 04:00 Mechanical Ventilator 01/11/20 03:38 66 01/11/20 03:00 65 18 40 01/11/20 01:00 67 19 40 01/11/20 00:00 98.3 80 20 130/80 (97) 100 01/11/20 00:00 Mechanical Ventilator 01/10/20 23:25 78 01/10/20 23:00 65 25 40 01/10/20 21:16 63 21 100 Mechanical Ventilator 40 65 18 01/10/20 21:00 100 01/10/20 20:16 65 117/96 01/10/20 20:00 Mechanical Ventilator 01/10/20 20:00 98.0 77 19 117/74 (88) 100 01/10/20 20:00 100 01/10/20 19:04 60 01/10/20 19:00 61 19 40 01/10/20 16:00 Mechanical Ventilator 01/10/20 16:00 100 01/10/20 16:00 97.4 77 20 106/64 (78) 97 01/10/20 16:00 60 01/10/20 15:02 75 18 40 01/10/20 12:32 87 23 100 Mechanical Ventilator 40 83 18 40 01/10/20 12:00 98.2 70 20 133/60 (84) 99 01/10/20 12:00 100 01/10/20 12:00 Mechanical Ventilator 01/10/20 11:36 64 01/10/20 11:12 84 21 40 Height (Feet): 5 Height (Inches): 5.00 Weight (Pounds): 121 General Appearance: no acute distress HEENT: status post trach Respiratory/Chest: lungs clear, other - on ventilator Cardiovascular: normal rate Abdomen: soft, non tender, other - GT & rectal tube Extremities: no edema, other - contracted Neurologic/Psychiatric: aphasia Laboratory Tests Test 01/11/20 04:55 White Blood Count 7.1 K/UL (4.8-10.8) Red Blood Count 3.17 M/UL (4.70-6.10) L Hemoglobin 10.1 G/DL (14.2-18.0) L Hematocrit 29.2 % (42.0-52.0) L Mean Corpuscular Volume 92 FL (80-99) Mean Corpuscular Hemoglobin 32.1 PG (27.0-31.0) H Mean Corpuscular Hemoglobin Concent 34.8 G/DL (32.0-36.0) Red Cell Distribution Width 13.9 % (11.6-14.8) Platelet Count 196 K/UL (150-450) Mean Platelet Volume 8.1 FL (6.5-10.1) Neutrophils (%) (Auto) 58.2 % (45.0-75.0) Lymphocytes (%) (Auto) 22.3 % (20.0-45.0) Monocytes (%) (Auto) 13.7 % (1.0-10.0) H Eosinophils (%) (Auto) 4.7 % (0.0-3.0) H Basophils (%) (Auto) 1.1 % (0.0-2.0) Sodium Level 135 MMOL/L (136-145) L Potassium Level 4.0 MMOL/L (3.5-5.1) Chloride Level 98 MMOL/L (98-107) Carbon Dioxide Level 33 MMOL/L (21-32) H Anion Gap 4 mmol/L (5-15) L Blood Urea Nitrogen 43 mg/dL (7-18) H Creatinine 1.5 MG/DL (0.55-1.30) H Estimat Glomerular Filtration Rate 45.4 mL/min (>60) Glucose Level 94 MG/DL (74-106) Calcium Level 9.1 MG/DL (8.5-10.1) Magnesium Level 1.7 MG/DL (1.8-2.4) L Pro-B-Type Natriuretic Peptide 3530 pg/mL (0-125) H Current Medications Medications (Trade) Dose Ordered Sig/Pau Route PRN Reason Start Time Stop Time Status Last Admin Dose Admin Acetaminophen (Tylenol) 650 mg Q4H PRN GT MILD/TEMP 01/09/20 06:30 02/08/20 06:29 Ascorbic Acid (Vitamin C) 500 mg DAILY GT 01/02/20 09:00 02/01/20 08:59 01/11/20 09:27 Carvedilol (Coreg) 6.25 mg EVERY 12 HOURS GT 01/08/20 09:00 02/07/20 08:59 01/11/20 09:26 Chlorhexidine Gluconate (Radha-Hex 2%) 1 applic DAILY@1999 TOPIC 01/08/20 20:00 04/07/20 19:59 01/10/20 20:15 Colistimethate Sodium (Colistin *inhalation use only*) 75 mg Q12HR@10,22 INH 01/06/20 22:00 01/13/20 21:59 01/11/20 09:47 Dextrose 1,000 ml @ 40 mls/hr Q24H IV 01/11/20 11:00 02/10/20 10:59 Famotidine (Pepcid I.v.) 20 mg DAILY IVP 01/09/20 09:00 02/08/20 08:59 01/11/20 09:27 Heparin Sodium (Porcine) (Heparin 5000 units/ml) 5,000 units EVERY 12 HOURS SUBQ 01/01/20 21:00 02/15/20 20:59 01/11/20 09:28 Levetiracetam (Keppra) 750 mg EVERY 12 HOURS GT 01/02/20 09:00 02/01/20 08:59 01/11/20 09:27 Levothyroxine Sodium (Synthroid) 50 mcg DAILY GT 01/02/20 09:00 02/01/20 08:59 01/11/20 09:27 Levothyroxine Sodium (Synthroid) 125 mcg DAILY GT 01/02/20 09:00 02/01/20 08:59 01/11/20 09:27 Lorazepam (Ativan 2mg/ml 1ml) 2 mg Q4H PRN IV For Seizures 01/09/20 00:00 01/16/20 00:00 01/09/20 00:03 Logan Henley MD Jan 11, 2020 10:26"
--- NOTE | 2020-01-11 10:41 | NUR ---
*-* INSURANCE *-* UPDATED CLINICALS AND REVIEWS HAVE BEEN FAXED TO: NIKOLE Quiñonez # [phone] fax#[phone]
[2020-01-11 12:00] VITALS: BP 133/78
--- NOTE | 2020-01-11 13:34 | General Progress Note ---
Assessment/Plan Problem List: (1) JOHN (acute kidney injury) ICD Codes: N17.9 - Acute kidney failure, unspecified SNOMED: 9313292, 98655033 (2) Dehydration ICD Codes: E86.0 - Dehydration SNOMED: 22158659 (3) Suspected COVID-19 virus infection ICD Codes: R68.89 - Other general symptoms and signs SNOMED: 514596645 (4) Tracheal stenosis ICD Codes: J39.8 - Other specified diseases of upper respiratory tract SNOMED: 67568992 (5) Pneumonia ICD Codes: J18.9 - Pneumonia, unspecified organism SNOMED: 818314119 (6) Malnutrition ICD Codes: E46 - Unspecified protein-calorie malnutrition SNOMED: 47712748 (7) Respiratory insufficiency ICD Codes: R06.89 - Other abnormalities of breathing SNOMED: 613999551 Status: stable Assessment/Plan: cont current rx iv abx per id. follow up cultures monitor labs and cxr sz rx monitor bp dvt/stress ulcer prophylaxis transfuse as needed skin/wound care dc planning Subjective ROS Limited/Unobtainable: Yes Constitutional: Reports: malaise, weakness HEENT: Reports: no symptoms Cardiovascular: Reports: no symptoms Respiratory: Reports: cough Gastrointestinal/Abdominal: Reports: difficulty swallowing Genitourinary: Reports: no symptoms Neurologic/Psychiatric: Reports: pre-existing deficit, seizure Endocrine: Reports: no symptoms Hematologic/Lymphatic: Reports: anemia Allergies: Coded Allergies: No Known Allergies (Unverified , 12/31/19) All Systems: reviewed and negative except above Subjective no events. stable on the vent. no fever or chills. labs reviewed. decreased h/h noted. no reports of bleeding. on colistin. poorly responsive at baseline. labs reviewed ID noted Objective Last 24 Hour Vital Signs Date Time Temp Pulse Resp B/P (MAP) Pulse Ox O2 Delivery O2 Flow Rate FiO2 01/11/20 12:00 Mechanical Ventilator 01/11/20 12:00 98.5 70 18 133/78 (96) 100 01/11/20 12:00 40 01/11/20 12:00 68 01/11/20 09:50 65 20 Mechanical Ventilator 40 69 20 100 01/11/20 09:26 65 141/59 01/11/20 08:00 Mechanical Ventilator 01/11/20 08:00 40 01/11/20 07:48 65 01/11/20 07:39 99.2 67 19 141/59 (86) 100 01/11/20 07:22 66 18 40 01/11/20 05:00 67 21 40 01/11/20 04:00 100 01/11/20 04:00 97.5 80 18 138/86 (103) 100 01/11/20 04:00 Mechanical Ventilator 01/11/20 03:38 66 01/11/20 03:00 65 18 40 01/11/20 01:00 67 19 40 01/11/20 00:00 98.3 80 20 130/80 (97) 100 01/11/20 00:00 Mechanical Ventilator 01/10/20 23:25 78 01/10/20 23:00 65 25 40 01/10/20 21:16 63 21 100 Mechanical Ventilator 40 65 18 01/10/20 21:00 100 01/10/20 20:16 65 117/96 01/10/20 20:00 Mechanical Ventilator 01/10/20 20:00 98.0 77 19 117/74 (88) 100 01/10/20 20:00 100 01/10/20 19:04 60 01/10/20 19:00 61 19 40 01/10/20 16:00 Mechanical Ventilator 01/10/20 16:00 100 01/10/20 16:00 97.4 77 20 106/64 (78) 97 01/10/20 16:00 60 01/10/20 15:02 75 18 40 Intake and Output 01/10/20 01/11/20 19:00 07:00 Intake Total 1160 ml 1050 ml Output Total 700 ml 1400 ml Balance 460 ml -350 ml Free Water 300 ml 150 ml IV Total 410 ml 360 ml Tube Feeding 450 ml 540 ml Output Urine Total 600 ml 1400 ml Stool Total 100 ml # Bowel Movements 30 Laboratory Tests 01/11/20 04:55: White Blood Count 7.1, Red Blood Count 3.17L, Hemoglobin 10.1L, Hematocrit 29.2L , Mean Corpuscular Volume 92, Mean Corpuscular Hemoglobin 32.1H, Mean Corpuscular Hemoglobin Concent 34.8, Red Cell Distribution Width 13.9, Platelet Count 196, Mean Platelet Volume 8.1, Neutrophils (%) (Auto) 58.2, Lymphocytes (% ) (Auto) 22.3, Monocytes (%) (Auto) 13.7H, Eosinophils (%) (Auto) 4.7H, Basophils (%) (Auto) 1.1, Sodium Level 135L, Potassium Level 4.0, Chloride Level 98, Carbon Dioxide Level 33H, Anion Gap 4L, Blood Urea Nitrogen 43H, Creatinine 1.5H, Estimat Glomerular Filtration Rate 45.4, Glucose Level 94, Calcium Level 9.1, Magnesium Level 1.7L, Pro-B-Type Natriuretic Peptide 3530H Height (Feet): 5 Height (Inches): 5.00 Weight (Pounds): 121 Objective General Appearance: WD/WN, alert Neck: supple Cardiovascular: regular rhythm Respiratory/Chest: chest wall non-tender, rhonchi - bilaterally Abdomen: normal bowel sounds, non tender, soft, no organomegaly Edema: no edema noted Arm (L), no edema noted Arm (R), no edema noted Leg (L), no edema noted Leg (R), no edema noted Pedal (L), no edema noted Pedal (R), no edema noted Generalized Neurologic: disoriented, aphasia Vasquez De Paz MD Jan 11, 2020 13:34
--- NOTE | 2020-01-11 13:40 | NUR ---
NURSE NOTES: GI consult with Dr. Carmichael ordered by Dr. Harris due to diarrhea
--- NOTE | 2020-01-11 13:43 | Surgery Progress Note ---
Surgery Progress Note Subjective Additional Comments no acute events labs improved no n/v/f/c comfortable Objective Last 24 Hour Vital Signs Date Time Temp Pulse Resp B/P (MAP) Pulse Ox O2 Delivery O2 Flow Rate FiO2 01/11/20 13:36 70 24 40 01/11/20 12:00 Mechanical Ventilator 01/11/20 12:00 98.5 70 18 133/78 (96) 100 01/11/20 12:00 40 01/11/20 12:00 68 01/11/20 09:50 65 20 Mechanical Ventilator 40 69 20 100 01/11/20 09:26 65 141/59 01/11/20 08:00 Mechanical Ventilator 01/11/20 08:00 40 01/11/20 07:48 65 01/11/20 07:39 99.2 67 19 141/59 (86) 100 01/11/20 07:22 66 18 40 01/11/20 05:00 67 21 40 01/11/20 04:00 100 01/11/20 04:00 97.5 80 18 138/86 (103) 100 01/11/20 04:00 Mechanical Ventilator 01/11/20 03:38 66 01/11/20 03:00 65 18 40 01/11/20 01:00 67 19 40 01/11/20 00:00 98.3 80 20 130/80 (97) 100 01/11/20 00:00 Mechanical Ventilator 01/10/20 23:25 78 01/10/20 23:00 65 25 40 01/10/20 21:16 63 21 100 Mechanical Ventilator 40 65 18 01/10/20 21:00 100 01/10/20 20:16 65 117/96 01/10/20 20:00 Mechanical Ventilator 01/10/20 20:00 98.0 77 19 117/74 (88) 100 01/10/20 20:00 100 01/10/20 19:04 60 01/10/20 19:00 61 19 40 01/10/20 16:00 Mechanical Ventilator 01/10/20 16:00 100 01/10/20 16:00 97.4 77 20 106/64 (78) 97 01/10/20 16:00 60 01/10/20 15:02 75 18 40 I&O Intake and Output 01/10/20 01/11/20 19:00 07:00 Intake Total 1160 ml 1050 ml Output Total 700 ml 1400 ml Balance 460 ml -350 ml Free Water 300 ml 150 ml IV Total 410 ml 360 ml Tube Feeding 450 ml 540 ml Output Urine Total 600 ml 1400 ml Stool Total 100 ml # Bowel Movements 30 Dressing: saturated Wound: clean Cardiovascular: RSR Respiratory: decreased breath sounds Abdomen: soft, non-tender, present bowel sounds Extremities: no tenderness, no cyanosis Laboratory Tests Test 01/11/20 04:55 White Blood Count 7.1 K/UL (4.8-10.8) Red Blood Count 3.17 M/UL (4.70-6.10) L Hemoglobin 10.1 G/DL (14.2-18.0) L Hematocrit 29.2 % (42.0-52.0) L Mean Corpuscular Volume 92 FL (80-99) Mean Corpuscular Hemoglobin 32.1 PG (27.0-31.0) H Mean Corpuscular Hemoglobin Concent 34.8 G/DL (32.0-36.0) Red Cell Distribution Width 13.9 % (11.6-14.8) Platelet Count 196 K/UL (150-450) Mean Platelet Volume 8.1 FL (6.5-10.1) Neutrophils (%) (Auto) 58.2 % (45.0-75.0) Lymphocytes (%) (Auto) 22.3 % (20.0-45.0) Monocytes (%) (Auto) 13.7 % (1.0-10.0) H Eosinophils (%) (Auto) 4.7 % (0.0-3.0) H Basophils (%) (Auto) 1.1 % (0.0-2.0) Sodium Level 135 MMOL/L (136-145) L Potassium Level 4.0 MMOL/L (3.5-5.1) Chloride Level 98 MMOL/L (98-107) Carbon Dioxide Level 33 MMOL/L (21-32) H Anion Gap 4 mmol/L (5-15) L Blood Urea Nitrogen 43 mg/dL (7-18) H Creatinine 1.5 MG/DL (0.55-1.30) H Estimat Glomerular Filtration Rate 45.4 mL/min (>60) Glucose Level 94 MG/DL (74-106) Calcium Level 9.1 MG/DL (8.5-10.1) Magnesium Level 1.7 MG/DL (1.8-2.4) L Pro-B-Type Natriuretic Peptide 3530 pg/mL (0-125) H Plan Problems: (1) Decubitus skin ulcer Assessment & Plan: Pt presented on admission with contractures, multiple Skin Breakdown. Skin assessed under collar of trach and no skin breakdown noted.Category 3 Skin tear R elbow(L)4.5cm x (W)5cm. Full flap loss noted. Base of wound moist and viable,edges adherent. No exudate noted. No erythema or elevated skin temp periwound. Category 2 Skin tear L forearm. Full flap intact and reattached. Moderate amt sanguineous exudate noted. Silvasorb Gel applied and covered with Optifoam drsg. Reinforced with ABD Pad and Kerlix. DTPI noted to L Sacrum(L)3.5cm x (W)3cm. Base of wound is maroon and indurated. DTPI R Sacrum(L)7cm x (W)9.5cm. Wound is irregular shaped. Base of wound is maroon and indurated. Scattered areas of darker skin tone without induration or erythema periwound. DTPI L lateral malleolus(L)2.5cm x (W)2cm. Base of wound is fluctuant,purple with surrounding maroon borders. No erythema or elevation in skin temp periwound. Partial thickness wound L 1st metatarsal head (L)2.5cm x (W)2cm. Base of wound is moist and viable. Edges are macerated. Non-blanching erythema without fluctuance periwound. DTPI Dorso/lateral R foot(L)2.3cm x (W)4.3cm. Base of injury is indurated purple /maroon in colour. No erythema or elevation in skin temp periwound. Hyperpigmentation from previous wounds noted to R and L hallux. Tx.Plan: Cleanse Skin tears R Elbow and L forearm with Saline. Apply Silvasorb Gel. Cover each wounds with Optifoam drsgs. Change every 7 days and prn. Apply Triad Paste to R and L Sacrum. Cover with Optifoam drsg. Change every 3 days and prn. Apply Cavilon to Malleoli both feet, Both heels and Both hallux . Cover each site with Optifoam drsgs turn q2h nutritional optimization (2) Respiratory insufficiency (3) Malnutrition Assessment & Plan: DAILY ESTIMATED NEEDS: Needs based on Critical care, wounds/ 60kg abw 22-28 kcals/kg 5658-9237 total kcals 1.25-2 g protein/kg 75-120 g total protein 25-30 mL/kg 9829-9571 total fluid mLs NUTRITION DIAGNOSIS: Swallowing difficulty R/T respiratory status as evidenced by trach/vent dep, PEG dep. CURRENT TF:Glucerna 1.5 @ 50ml/hr x 20 hrs ENTERAL NUTRITION RECOMMENDATIONS: Glucerna 1.5 @ 50ml/hr x 20 hrs to provide 1000ml, 1500kcal, 82.5g prot, 759ml free water * Maintain current TF @ goal : meets 100% est kcal/prot needs * HOB Over 30 degrees/ water flush per MD * Hold Synthroid during 4 hrs that TF is off FOR 22 HRS RUN (total 2 hrs held for Synthroid) -> Glucerna 1.5 @ 45ml/hr x 22 hrs to provide 990ml, 1485kcal, 82g prot -> Hold TF 1 hr before and after Synthroid ADDITIONAL RECOMMENDATIONS: * Per SNF: HT=63", PZ=400otb (as of 12/28/19) * Monitor lytes, replete as needed * Wound healing: f/up w/ WC eval : add Vit C 500mg QD, Jerome 1pkt BID (4) Pneumonia (5) Tracheal stenosis (6) Protein-calorie malnutrition, severe (7) Suspected COVID-19 virus infection Assessment & Plan: negative Sabino Gold Jan 11, 2020 13:43
--- NOTE | 2020-01-11 14:26 | NUR ---
CASE MANAGEMENT: REVIEW 01/11/2020 SI:Respiratory failure. Healthcare-associated pneumonia. VS: T 98.5 HR 70 RR 18 B/P 133/78 SATS 100% ON MECH VENT FIO2 40 LABS: NA 135 BUN 43 CR 1.5 MG 1.7 BNP 3530 IS:DEXTROSE IV @ 40 ML/HR KEPPRA GT Q12H COREG PO Q12H MEROPENEM IV Q12H COLISTIN INH Q12H SDU
[2020-01-11 16:00] VITALS: BP 114/71
--- NOTE | 2020-01-11 16:00 | NUR ---
NURSE NOTES: Made Dr. Álvarez aware of episode of Quadrigeminy. No new orders received. Will continue plan of care. Addendum: 01/11/20 at 1806 by Scott Royal RN wrong patient
--- NOTE | 2020-01-11 17:33 | NUR ---
NURSE NOTES: Dr. Zuniga paged for downgrade pt to telemetry. Per Dr. Zuniga, Hospice to be set up and all consults to clear before discharge to SNF
--- NOTE | 2020-01-11 19:31 | NUR ---
HAND-OFF: Report given to Lizzie RIVER. Pt remains stable.
--- NOTE | 2020-01-11 19:32 | NUR ---
NURSE NOTES: received pt from Min RN., pt is awake and resting on the bed obtunded. no SOB noted with vent. Gtube site intact, clean, and patent. condom cath is in place and clean. rectal tube in place, no leaking noted. left FA 22G IV site cath intact, clean, and patent. bed at the lowest position, alarmed, and locked. call light within reach. will continue to monitor pt with plan of care.
[2020-01-11 20:00] VITALS: BP 119/73
[2020-01-11] MEDS: Dyna-Hex 2% Top Sol 2oz TOPIC SCH (20:16)
[2020-01-12] VITALS: BP 119/73
--- NOTE | 2020-01-12 | NUR ---
NURSE NOTES: cleaned pt, oral care give. new gown, new blanket, bath given. call light within reach. no SOB Noted.
[2020-01-12 04:00] VITALS: BP 127/77
[2020-01-12 07:26] LABS: ANION GAP 6 mmol/L (5-15); BLOOD UREA NITROGEN 43 mg/dL (7-18); CALCIUM 8.9 MG/DL (8.5-10.1); CARBON DIOXIDE 31 MMOL/L (21-32); CHLORIDE 98 MMOL/L (98-107); CREATININE 1.5 MG/DL (0.55-1.30); POTASSIUM 4.4 MMOL/L (3.5-5.1); SODIUM 135 MMOL/L (136-145)
--- NOTE | 2020-01-12 07:26 | NUR ---
HAND-OFF: Report given to Min RN. pt remains stable condition, endorsed plan of care
--- NOTE | 2020-01-12 07:26 | NUR ---
NURSE NOTES: Received report from Lizzie RIVER. Pt in bed awake, responsive to pain stimuli. No c/o pain on facial scale. On vent setting with AC,18, TV 450, Fio2 40%, peep 8 with trach with portex 8. Noted rectal and small amount of liquid diarrhea in collection bag. On condom cath patent and intact. On LIV mattress. All extremities contracted. HOB elevated greater than 45 degree. Side railsx3 up for safety. Call light within easy reach. Will continue to plan of care.
[2020-01-12 08:00] VITALS: BP 123/79
[2020-01-12] MEDS: Levothyroxine 125mcg tab GT SCH (08:18)
[2020-01-12] MEDS: levETIRAcetam 500mg/5ml Liquid GT SCH ×2 (08:18→20:31)
[2020-01-12] MEDS: Carvedilol 6.25mg Tab GT SCH ×2 (08:19→20:32)
[2020-01-12] MEDS: Ascorbic Acid 500mg tab GT SCH (08:19)
[2020-01-12 08:24] LABS: BASOPHILS % (AUTO) 0.9 % (0.0-2.0); EOSINOPHILS % (AUTO) 4.6 % (0.0-3.0); HEMATOCRIT 28.5 % (42.0-52.0); HEMOGLOBIN 9.7 G/DL (14.2-18.0); LYMPHOCYTES % (AUTO) 25.2 % (20.0-45.0); MEAN CORPUSCULAR VOLUME 92 FL (80-99); MONOCYTES % (AUTO) 13.8 % (1.0-10.0); NEUTROPHILS % (AUTO) 55.5 % (45.0-75.0); PLATELET COUNT 190 K/UL (150-450); RED CELL DISTRIBUTION WIDTH 13.8 % (11.6-14.8); WHITE BLOOD COUNT 6.4 K/UL (4.8-10.8)
--- NOTE | 2020-01-12 08:43 | Consultation ---
DATE OF CONSULTATION: 01/11/2020 CONSULTING PHYSICIAN: Jovany Kong M.D. CHIEF COMPLAINT: Diarrhea. HISTORY OF PRESENT ILLNESS: Most of the history per chart. A 79-year-old male from skilled nursing came in with history of dysphagia with G-tube, respiratory failure with chronic trach, vented patient, came to the hospital with shortness of breath, was suspicious for pneumonia. Since admission, patient has been having COVID negative x2. He is being followed by Infectious Disease for UTI and pneumonia. Patient is on Glucerna 1.5 at the age of 47 with diarrhea, so GI consult requested for evaluation. PAST MEDICAL HISTORY: 1. History of chronic respiratory failure, on vent. 2. Dysphagia with G-tube. 3. Diabetes. 4. Renal insufficiency. 5. Anemia. 6. History of tracheal stenosis. ALLERGIES: No known drug allergies. MEDICATIONS: Please see medication reconciliation list. FAMILY HISTORY: Noncontributory. SOCIAL HISTORY: Currently lives in a skilled nursing. No history of tobacco, alcohol, or drug abuse. REVIEW OF SYSTEMS: Unable to obtain. PHYSICAL EXAMINATION: VITAL SIGNS: Temperature 98.5, pulse 70, respirations 18, blood pressure is 133/78. HEENT: Normocephalic and atraumatic. Mild pale conjunctivae. NECK: Supple. No evidence of obvious lymphadenopathy. CARDIOVASCULAR: Regular rate and rhythm. Plus S1-S2. LUNGS: Decreased breath sounds bilaterally based on supine exam. ABDOMEN: Soft, nontender. G-tube in place. No rebound. No guarding. No peritoneal sign. EXTREMITIES: No cyanosis. No clubbing. No edema. LABORATORY DATA: White count 7.1, hemoglobin 10, hematocrit 29, platelets 196. Sodium 134, potassium 4.0, BUN 43, creatinine 1.5. ASSESSMENT: A 79-year-old male with COVID negative x2, pneumonia, UTI, diabetes, dysphagia, chronic vent patient. PLAN: Wait for the C. diff results to come back. If C. diff is negative, we are going to add Imodium. Meanwhile, we are going to change the Glucerna 1.5 to 1.2 and increase the rate from 45 to 55 to see if that is going to help with the diarrhea. Pending for tomorrow if the diarrhea is not improved by changing the tube feeding, we are going to add some FiberCon to see if this can slow down the diarrhea. In terms of rectal tube, we are going to hold the removal of rectal tube until diarrhea is better controlled. Jovany Alma Kong DR: CORTES JOB#: [id number] CC:
--- NOTE | 2020-01-12 08:44 | Progress Note ---
DATE: 01/11/2020 CARDIOLOGY PROGRESS NOTE SUBJECTIVE: The patient on inhaled antimicrobials, poorly responsive on ventilator support. Still with moderate secretions. Monitored rhythm sinus with rare atrial ectopics. OBJECTIVE: VITAL SIGNS: Blood pressure 133/78, heart rate 68, respiratory rate 20. LUNGS: Coarse breath sounds, rhonchi. CARDIAC: Regular rhythm rate. Normal S1, S2. ABDOMEN: Soft. EXTREMITIES: Trace edema. LABORATORY DATA: White count 7, hemoglobin 10. Potassium 4, BUN 43, creatinine 1.5. Magnesium 1.7. IMPRESSION: 1. Hypomagnesemia. 2. Healthcare-associated pneumonia. 3. Respiratory failure with tracheostomy. 4. Acute myocardial ischemia. 5. Acute on chronic diastolic congestive heart failure. PLAN: 1. Periodic diuresis. 2. Ventilator support. 3. Respiratory hygiene. 4. Antimicrobials. 5. Intravenous magnesium. 6. Follow up electrolytes. 7. DVT prophylaxis. Tony Lobo M.D. DR: FARHAN JOB#: [id number] CC:
[2020-01-12] MEDS: Heparin 5000 units/ml inj SUBQ SCH ×2 (08:45→20:33)
--- NOTE | 2020-01-12 09:23 | NUR ---
CASE MANAGEMENT: REVIEW 01/12/2020 SI:Respiratory failure. Healthcare-associated pneumonia. VS: T 98.2 HR 69 RR 17 B/P 123/79 SATS 100% ON MECH VENT FIO2 40 LABS: NA 135 BUN 43 CR 1.5 IS:DEXTROSE IV @ 40 ML/HR KEPPRA GT Q12H COREG PO Q12H MEROPENEM IV Q12H COLISTIN INH Q12H SDU
[2020-01-12] MEDS: Colistin for inhalation INH SCH (10:00)
--- NOTE | 2020-01-12 10:07 | NUR ---
NURSE NOTES: Made Dr. Kong aware of negative results to C-diff. Awaiting for reply
--- NOTE | 2020-01-12 10:18 | General Progress Note ---
Assessment/Plan Status: stable Assessment/Plan: 1. History of chronic respiratory failure, on vent. 2. Dysphagia with G-tube. 3. Diabetes. 4. Renal insufficiency. 5. Anemia. 6. History of tracheal stenosis. 7. Diarrhea C.diff neg add imodium prn GTF add fiber to GTF will fu Subjective ROS Limited/Unobtainable: No Allergies: Coded Allergies: No Known Allergies (Unverified , 12/31/19) Objective Last 24 Hour Vital Signs Date Time Temp Pulse Resp B/P (MAP) Pulse Ox O2 Delivery O2 Flow Rate FiO2 01/12/20 08:19 69 123/79 01/12/20 08:00 Mechanical Ventilator 01/12/20 08:00 98.2 69 17 123/79 (94) 100 01/12/20 08:00 40 01/12/20 07:44 69 01/12/20 07:00 67 22 40 01/12/20 05:00 65 19 40 01/12/20 04:00 Mechanical Ventilator 01/12/20 04:00 40 01/12/20 04:00 98.6 72 20 127/77 (94) 100 01/12/20 03:49 73 01/12/20 02:48 67 21 40 01/12/20 01:00 74 21 40 01/12/20 00:00 98.6 72 20 119/73 (88) 100 01/12/20 00:00 Mechanical Ventilator 01/12/20 00:00 69 01/11/20 22:46 69 20 99 Mechanical Ventilator 40 74 22 40 01/11/20 20:20 65 22 40 01/11/20 20:17 75 119/71 01/11/20 20:00 98.2 65 19 119/73 (88) 100 01/11/20 20:00 Mechanical Ventilator 01/11/20 20:00 75 01/11/20 20:00 40 01/11/20 17:30 67 19 40 01/11/20 16:00 68 01/11/20 16:00 98.6 65 19 114/71 (85) 100 01/11/20 16:00 Mechanical Ventilator 01/11/20 16:00 40 01/11/20 13:36 70 24 40 01/11/20 12:00 Mechanical Ventilator 01/11/20 12:00 98.5 70 18 133/78 (96) 100 01/11/20 12:00 40 01/11/20 12:00 68 Intake and Output 01/11/20 01/12/20 19:00 07:00 Intake Total 740 ml 1145 ml Output Total 1050 ml 1060 ml Balance -310 ml 85 ml Free Water 100 ml 100 ml IV Total 40 ml 440 ml Tube Feeding 600 ml 605 ml Output Urine Total 1050 ml 1050 ml Stool Total 10 ml Laboratory Tests 01/12/20 06:00: White Blood Count 6.4, Red Blood Count 3.10L, Hemoglobin 9.7L, Hematocrit 28.5L , Mean Corpuscular Volume 92, Mean Corpuscular Hemoglobin 31.3H, Mean Corpuscular Hemoglobin Concent 34.1, Red Cell Distribution Width 13.8, Platelet Count 190, Mean Platelet Volume 8.0, Neutrophils (%) (Auto) 55.5, Lymphocytes (% ) (Auto) 25.2, Monocytes (%) (Auto) 13.8H, Eosinophils (%) (Auto) 4.6H, Basophils (%) (Auto) 0.9, Sodium Level 135L, Potassium Level 4.4, Chloride Level 98, Carbon Dioxide Level 31, Anion Gap 6, Blood Urea Nitrogen 43H, Creatinine 1.5H, Estimat Glomerular Filtration Rate 45.4, Glucose Level 105, Calcium Level 8.9 Height (Feet): 5 Height (Inches): 5.00 Weight (Pounds): 121 General Appearance: no apparent distress EENT: normal ENT inspection Neck: supple Cardiovascular: normal rate Respiratory/Chest: decreased breath sounds Abdomen: normal bowel sounds, non tender, soft Extremities: non-tender Jovany Kong MD Jan 12, 2020 10:18
--- NOTE | 2020-01-12 11:00 | Critical Care Progress Note ---
Assessment/Plan Assessment/Plan Impression: Pneumonia Sepsis Elevated troponin Renal failure Tracheostomy History of tracheal stenosis Ventilator Dependent Respiratory Failure Chronically altered mental status s/p previous CPA, anoxia Previous Seizures Previous pericardial effusion, Congestive Heart Failure, Atrial Fibrillation Diabetes, Hypothyroidism Previous Hematuria/UTI, previous sepsis GERD sp G tube polymicrobial infection diarrhea worsening anemia PLAN rectal tube Cdif negative; gi to recommend dc iv antibiotics vent management as is acid base noted; taper oxygen antibiotic regimen reviewed PICC line ID and renal noted gi clearance needed monitor for change feeds as able SNF meds noted seizure precautions follow up HH and other labs cardiology to monitor hemodynamics note reviewed and edited care discussed with RN and RT dc planning to snf if diarrhea improves GI eval appreciated critical time spent >40 minutes coordinating care and updating orders Critical Care - Subjective ROS Limited/Unobtainable: Yes Condition: unchanged EKG Rhythm: Sinus Rhythm Residuals: minimal Tube Feeding Tolerated: yes I&O: Intake and Output 01/11/20 01/12/20 19:00 07:00 Intake Total 740 ml 1145 ml Output Total 1050 ml 1060 ml Balance -310 ml 85 ml Free Water 100 ml 100 ml IV Total 40 ml 440 ml Tube Feeding 600 ml 605 ml Output Urine Total 1050 ml 1050 ml Stool Total 10 ml Critical Care - Objective Last 24 Hour Vital Signs Date Time Temp Pulse Resp B/P (MAP) Pulse Ox O2 Delivery O2 Flow Rate FiO2 01/12/20 08:19 69 123/79 01/12/20 08:00 Mechanical Ventilator 01/12/20 08:00 98.2 69 17 123/79 (94) 100 01/12/20 08:00 40 01/12/20 07:44 69 01/12/20 07:00 67 22 40 01/12/20 05:00 65 19 40 01/12/20 04:00 Mechanical Ventilator 01/12/20 04:00 40 01/12/20 04:00 98.6 72 20 127/77 (94) 100 01/12/20 03:49 73 01/12/20 02:48 67 21 40 01/12/20 01:00 74 21 40 01/12/20 00:00 98.6 72 20 119/73 (88) 100 01/12/20 00:00 Mechanical Ventilator 01/12/20 00:00 69 01/11/20 22:46 69 20 99 Mechanical Ventilator 40 74 22 40 01/11/20 20:20 65 22 40 01/11/20 20:17 75 119/71 01/11/20 20:00 98.2 65 19 119/73 (88) 100 01/11/20 20:00 Mechanical Ventilator 01/11/20 20:00 75 01/11/20 20:00 40 01/11/20 17:30 67 19 40 01/11/20 16:00 68 01/11/20 16:00 98.6 65 19 114/71 (85) 100 01/11/20 16:00 Mechanical Ventilator 01/11/20 16:00 40 01/11/20 13:36 70 24 40 01/11/20 12:00 Mechanical Ventilator 01/11/20 12:00 98.5 70 18 133/78 (96) 100 01/11/20 12:00 40 01/11/20 12:00 68 Labs: Labs Test 01/10/20 03:40 01/10/20 03:42 01/11/20 04:55 01/12/20 06:00 Stool Occult Blood Negative (NEGATIVE) White Blood Count 6.4 K/UL (4.8-10.8) 7.1 K/UL (4.8-10.8) 6.4 K/UL (4.8-10.8) Red Blood Count 3.10 M/UL (4.70-6.10) 3.17 M/UL (4.70-6.10) 3.10 M/UL (4.70-6.10) Hemoglobin 10.0 G/DL (14.2-18.0) 10.1 G/DL (14.2-18.0) 9.7 G/DL (14.2-18.0) Hematocrit 28.5 % (42.0-52.0) 29.2 % (42.0-52.0) 28.5 % (42.0-52.0) Mean Corpuscular Volume 92 FL (80-99) 92 FL (80-99) 92 FL (80-99) Mean Corpuscular Hemoglobin 32.2 PG (27.0-31.0) 32.1 PG (27.0-31.0) 31.3 PG (27.0-31.0) Mean Corpuscular Hemoglobin Concent 35.0 G/DL (32.0-36.0) 34.8 G/DL (32.0-36.0) 34.1 G/DL (32.0-36.0) Red Cell Distribution Width 14.1 % (11.6-14.8) 13.9 % (11.6-14.8) 13.8 % (11.6-14.8) Platelet Count 179 K/UL (150-450) 196 K/UL (150-450) 190 K/UL (150-450) Mean Platelet Volume 7.1 FL (6.5-10.1) 8.1 FL (6.5-10.1) 8.0 FL (6.5-10.1) Neutrophils (%) (Auto) 63.5 % (45.0-75.0) 58.2 % (45.0-75.0) 55.5 % (45.0-75.0) Lymphocytes (%) (Auto) 18.4 % (20.0-45.0) 22.3 % (20.0-45.0) 25.2 % (20.0-45.0) Monocytes (%) (Auto) 13.1 % (1.0-10.0) 13.7 % (1.0-10.0) 13.8 % (1.0-10.0) Eosinophils (%) (Auto) 4.2 % (0.0-3.0) 4.7 % (0.0-3.0) 4.6 % (0.0-3.0) Basophils (%) (Auto) 0.8 % (0.0-2.0) 1.1 % (0.0-2.0) 0.9 % (0.0-2.0) Sodium Level 138 MMOL/L (136-145) 135 MMOL/L (136-145) 135 MMOL/L (136-145) Potassium Level 4.5 MMOL/L (3.5-5.1) 4.0 MMOL/L (3.5-5.1) 4.4 MMOL/L (3.5-5.1) Chloride Level 102 MMOL/L (98-107) 98 MMOL/L (98-107) 98 MMOL/L (98-107) Carbon Dioxide Level 26 MMOL/L (21-32) 33 MMOL/L (21-32) 31 MMOL/L (21-32) Anion Gap 10 mmol/L (5-15) 4 mmol/L (5-15) 6 mmol/L (5-15) Blood Urea Nitrogen 47 mg/dL (7-18) 43 mg/dL (7-18) 43 mg/dL (7-18) Creatinine 1.5 MG/DL (0.55-1.30) 1.5 MG/DL (0.55-1.30) 1.5 MG/DL (0.55-1.30) Estimat Glomerular Filtration Rate 45.4 mL/min (>60) 45.4 mL/min (>60) 45.4 mL/min (>60) Glucose Level 78 MG/DL (74-106) 94 MG/DL (74-106) 105 MG/DL (74-106) Calcium Level 9.2 MG/DL (8.5-10.1) 9.1 MG/DL (8.5-10.1) 8.9 MG/DL (8.5-10.1) Magnesium Level 2.1 MG/DL (1.8-2.4) 1.7 MG/DL (1.8-2.4) Pro-B-Type Natriuretic Peptide 3530 pg/mL (0-125) Objective: WDWN NAD reduced breath sounds bilaterally without rhonchi or wheeze [id number] without MRG NABS nontender no HSM GT no CCE nonfocal trach reviewed and edited Micro: Microbiology Date/Time Source Procedure Growth Status 01/11/20 13:45 Stool Clostridium difficile Toxin Assay - Final Complete Dillon Harris MD Jan 12, 2020 11:00
--- NOTE | 2020-01-12 11:15 | Infectious Diseases Prog Note ---
"Assessment/Plan Assessment/Plan antibiotics : inhaled colistin .20 - A 1. e.coli | pseudomonas | acenitobacter pneumonia COVID 19 test negative 4.5.20, 4.8.20 2. leucocytosis improving 3. renal failure improving 4. + blood cultures with coag neg staph | diphtheroids likely contaminated 5. respiratory failure P 1. d/c inhaled colistin 2. observe off antibiotics 3. will follow up cultures Subjective ROS Limited/Unobtainable: Yes Allergies: Coded Allergies: No Known Allergies (Unverified , 12/31/19) Objective Vital Signs Last 24 Hour Vital Signs Date Time Temp Pulse Resp B/P (MAP) Pulse Ox O2 Delivery O2 Flow Rate FiO2 01/12/20 08:19 69 123/79 01/12/20 08:00 Mechanical Ventilator 01/12/20 08:00 98.2 69 17 123/79 (94) 100 01/12/20 08:00 40 01/12/20 07:44 69 01/12/20 07:00 67 22 40 01/12/20 05:00 65 19 40 01/12/20 04:00 Mechanical Ventilator 01/12/20 04:00 40 01/12/20 04:00 98.6 72 20 127/77 (94) 100 01/12/20 03:49 73 01/12/20 02:48 67 21 40 01/12/20 01:00 74 21 40 01/12/20 00:00 98.6 72 20 119/73 (88) 100 01/12/20 00:00 Mechanical Ventilator 01/12/20 00:00 69 01/11/20 22:46 69 20 99 Mechanical Ventilator 40 74 22 40 01/11/20 20:20 65 22 40 01/11/20 20:17 75 119/71 01/11/20 20:00 98.2 65 19 119/73 (88) 100 01/11/20 20:00 Mechanical Ventilator 01/11/20 20:00 75 01/11/20 20:00 40 01/11/20 17:30 67 19 40 01/11/20 16:00 68 01/11/20 16:00 98.6 65 19 114/71 (85) 100 01/11/20 16:00 Mechanical Ventilator 01/11/20 16:00 40 01/11/20 13:36 70 24 40 01/11/20 12:00 Mechanical Ventilator 01/11/20 12:00 98.5 70 18 133/78 (96) 100 01/11/20 12:00 40 01/11/20 12:00 68 Height (Feet): 5 Height (Inches): 5.00 Weight (Pounds): 121 HEENT: status post trach Respiratory/Chest: lungs clear Cardiovascular: normal rate, regular rhythm, no gallop/murmur Abdomen: soft, non tender, other - GT Extremities: no edema Microbiology Date/Time Source Procedure Growth Status 01/11/20 13:45 Stool Clostridium difficile Toxin Assay - Final Complete Laboratory Tests Test 01/12/20 06:00 White Blood Count 6.4 K/UL (4.8-10.8) Red Blood Count 3.10 M/UL (4.70-6.10) L Hemoglobin 9.7 G/DL (14.2-18.0) L Hematocrit 28.5 % (42.0-52.0) L Mean Corpuscular Volume 92 FL (80-99) Mean Corpuscular Hemoglobin 31.3 PG (27.0-31.0) H Mean Corpuscular Hemoglobin Concent 34.1 G/DL (32.0-36.0) Red Cell Distribution Width 13.8 % (11.6-14.8) Platelet Count 190 K/UL (150-450) Mean Platelet Volume 8.0 FL (6.5-10.1) Neutrophils (%) (Auto) 55.5 % (45.0-75.0) Lymphocytes (%) (Auto) 25.2 % (20.0-45.0) Monocytes (%) (Auto) 13.8 % (1.0-10.0) H Eosinophils (%) (Auto) 4.6 % (0.0-3.0) H Basophils (%) (Auto) 0.9 % (0.0-2.0) Sodium Level 135 MMOL/L (136-145) L Potassium Level 4.4 MMOL/L (3.5-5.1) Chloride Level 98 MMOL/L (98-107) Carbon Dioxide Level 31 MMOL/L (21-32) Anion Gap 6 mmol/L (5-15) Blood Urea Nitrogen 43 mg/dL (7-18) H Creatinine 1.5 MG/DL (0.55-1.30) H Estimat Glomerular Filtration Rate 45.4 mL/min (>60) Glucose Level 105 MG/DL (74-106) Calcium Level 8.9 MG/DL (8.5-10.1) Current Medications Medications (Trade) Dose Ordered Sig/Pau Route PRN Reason Start Time Stop Time Status Last Admin Dose Admin Acetaminophen (Tylenol) 650 mg Q4H PRN GT MILD/TEMP 01/09/20 06:30 02/08/20 06:29 Ascorbic Acid (Vitamin C) 500 mg DAILY GT 01/02/20 09:00 02/01/20 08:59 01/12/20 08:19 Carvedilol (Coreg) 6.25 mg EVERY 12 HOURS GT 01/08/20 09:00 02/07/20 08:59 01/12/20 08:19 Chlorhexidine Gluconate (Radha-Hex 2%) 1 applic DAILY@1999 TOPIC 01/08/20 20:00 04/07/20 19:59 01/11/20 20:16 Colistimethate Sodium (Colistin *inhalation use only*) 75 mg Q12HR@10,22 INH 01/06/20 22:00 01/13/20 21:59 01/11/20 22:46 Dextrose 1,000 ml @ 40 mls/hr Q24H IV 01/11/20 11:00 02/10/20 10:59 01/11/20 11:19 Famotidine (Pepcid I.v.) 20 mg DAILY IVP 01/09/20 09:00 02/08/20 08:59 01/12/20 08:19 Heparin Sodium (Porcine) (Heparin 5000 units/ml) 5,000 units EVERY 12 HOURS SUBQ 01/01/20 21:00 02/15/20 20:59 01/12/20 08:45 Levetiracetam (Keppra) 750 mg EVERY 12 HOURS GT 01/02/20 09:00 02/01/20 08:59 01/12/20 08:18 Levothyroxine Sodium (Synthroid) 50 mcg DAILY GT 01/02/20 09:00 02/01/20 08:59 01/12/20 08:18 Levothyroxine Sodium (Synthroid) 125 mcg DAILY GT 01/02/20 09:00 02/01/20 08:59 01/12/20 08:18 Loperamide HCl (Imodium) 2 mg Q6H PRN NG Diarrhea 01/12/20 10:30 02/11/20 10:29 Lorazepam (Ativan 2mg/ml 1ml) 2 mg Q4H PRN IV For Seizures 01/09/20 00:00 01/16/20 00:00 01/09/20 00:03 Heber Abraham MD Jan 12, 2020 11:15"
--- NOTE | 2020-01-12 11:40 | NUR ---
*-* INSURANCE *-* UPDATED CLINICALS AND REVIEWS HAVE BEEN FAXED TO: NIKOLE Quiñonez # [phone] fax#[phone]
--- NOTE | 2020-01-12 11:41 | Nephrology Progress Note ---
Assessment/Plan Problem List: (1) Hypernatremia (2) Dehydration (3) JOHN (acute kidney injury) (4) Respiratory insufficiency (5) Pneumonia (6) Protein-calorie malnutrition, severe (7) Hx of tracheostomy Plan continue hypotonic iv's, reduced rate antibiotics BUN and Na improving Subjective ROS Limited/Unobtainable: Yes Objective Objective Last 24 Hour Vital Signs Date Time Temp Pulse Resp B/P (MAP) Pulse Ox O2 Delivery O2 Flow Rate FiO2 01/12/20 11:17 77 21 40 01/12/20 08:19 69 123/79 01/12/20 08:00 Mechanical Ventilator 01/12/20 08:00 98.2 69 17 123/79 (94) 100 01/12/20 08:00 40 01/12/20 07:44 69 01/12/20 07:00 67 22 40 01/12/20 05:00 65 19 40 01/12/20 04:00 Mechanical Ventilator 01/12/20 04:00 40 01/12/20 04:00 98.6 72 20 127/77 (94) 100 01/12/20 03:49 73 01/12/20 02:48 67 21 40 01/12/20 01:00 74 21 40 01/12/20 00:00 98.6 72 20 119/73 (88) 100 01/12/20 00:00 Mechanical Ventilator 01/12/20 00:00 69 01/11/20 22:46 69 20 99 Mechanical Ventilator 40 74 22 40 01/11/20 20:20 65 22 40 01/11/20 20:17 75 119/71 01/11/20 20:00 98.2 65 19 119/73 (88) 100 01/11/20 20:00 Mechanical Ventilator 01/11/20 20:00 75 01/11/20 20:00 40 01/11/20 17:30 67 19 40 01/11/20 16:00 68 01/11/20 16:00 98.6 65 19 114/71 (85) 100 01/11/20 16:00 Mechanical Ventilator 01/11/20 16:00 40 01/11/20 13:36 70 24 40 01/11/20 12:00 Mechanical Ventilator 01/11/20 12:00 98.5 70 18 133/78 (96) 100 01/11/20 12:00 40 01/11/20 12:00 68 Intake and Output 01/11/20 01/12/20 19:00 07:00 Intake Total 740 ml 1145 ml Output Total 1050 ml 1060 ml Balance -310 ml 85 ml Free Water 100 ml 100 ml IV Total 40 ml 440 ml Tube Feeding 600 ml 605 ml Output Urine Total 1050 ml 1050 ml Stool Total 10 ml Laboratory Tests 01/12/20 06:00: White Blood Count 6.4, Red Blood Count 3.10L, Hemoglobin 9.7L, Hematocrit 28.5L , Mean Corpuscular Volume 92, Mean Corpuscular Hemoglobin 31.3H, Mean Corpuscular Hemoglobin Concent 34.1, Red Cell Distribution Width 13.8, Platelet Count 190, Mean Platelet Volume 8.0, Neutrophils (%) (Auto) 55.5, Lymphocytes (% ) (Auto) 25.2, Monocytes (%) (Auto) 13.8H, Eosinophils (%) (Auto) 4.6H, Basophils (%) (Auto) 0.9, Sodium Level 135L, Potassium Level 4.4, Chloride Level 98, Carbon Dioxide Level 31, Anion Gap 6, Blood Urea Nitrogen 43H, Creatinine 1.5H, Estimat Glomerular Filtration Rate 45.4, Glucose Level 105, Calcium Level 8.9 Height (Feet): 5 Height (Inches): 5.00 Weight (Pounds): 121 General Appearance: no apparent distress, lethargic EENT: normal ENT inspection Cardiovascular: regular rhythm Respiratory/Chest: rhonchi - bilaterally Abdomen: non tender Neurologic: unresponsive Pravin Abad MD Jan 12, 2020 11:41
--- NOTE | 2020-01-12 11:45 | NUR ---
NURSE NOTES: Report given tp [place] RIVER @[facility]
[2020-01-12 12:00] VITALS: BP 128/88
--- NOTE | 2020-01-12 12:43 | NUR ---
RD ASSESSMENT & RECOMMENDATIONS SEE CARE ACTIVITY FOR COMPLETE ASSESSMENT DAILY ESTIMATED NEEDS: Needs based on Critical care, wounds/ 60kg abw 22-28 kcals/kg 1540-5945 total kcals 1.25-2 g protein/kg 75-120 g total protein 25-30 mL/kg 2719-6847 total fluid mLs NUTRITION DIAGNOSIS: * Swallowing difficulty R/T respiratory status as evidenced by trach/vent dep, PEG dep. * Increased kcal/prot needs R/T wound healing as evidenced by pt admitted w/ multiple wounds, including DTPI x4, partial thickness x 1, and category 3 Skin tear, refer to eval. CURRENT TF:Glucerna 1.5 @ 45ml/hr x 22 hrs-> now Glucerna 1.2 @55ml x22 ENTERAL NUTRITION RECOMMENDATIONS: Glucerna 1.2 @ 57ml/hr x 22 hrs to provide 1254ml, 1505kcal, 75g prot, 1009ml free water * Rec to increase current updated TF to goal of 57ml/hr x22 hrs to better meet est kcal and pro needs * HOB Over 30 degrees/ water flush per MD * Hold Synthroid during 4 hrs that TF is off ADDITIONAL RECOMMENDATIONS: * Per SNF: HT=63", CQ=693tiq (as of 12/28/19) * Monitor lytes, replete as needed * Wound healing: w/ diarrhea, rec lower Vit C-> 250mg daily add Jerome 1pkt BID * Monitor K, renal labs, need for renal formula * calibrated bed scale wt as able
--- NOTE | 2020-01-12 13:29 | General Progress Note ---
Assessment/Plan Problem List: (1) JOHN (acute kidney injury) ICD Codes: N17.9 - Acute kidney failure, unspecified SNOMED: 3599329, 23132221 (2) Dehydration ICD Codes: E86.0 - Dehydration SNOMED: 76645275 (3) Suspected COVID-19 virus infection ICD Codes: R68.89 - Other general symptoms and signs SNOMED: 523512200 (4) Tracheal stenosis ICD Codes: J39.8 - Other specified diseases of upper respiratory tract SNOMED: 30005163 (5) Pneumonia ICD Codes: J18.9 - Pneumonia, unspecified organism SNOMED: 530265519 (6) Malnutrition ICD Codes: E46 - Unspecified protein-calorie malnutrition SNOMED: 72755975 (7) Respiratory insufficiency ICD Codes: R06.89 - Other abnormalities of breathing SNOMED: 551728118 Status: stable Assessment/Plan: cont current rx iv abx per id. follow up cultures monitor labs and cxr sz rx monitor bp dvt/stress ulcer prophylaxis transfuse as needed skin/wound care gi eval monitor lytes prn ivf dc planning Subjective ROS Limited/Unobtainable: Yes Constitutional: Reports: malaise, weakness HEENT: Reports: no symptoms Cardiovascular: Reports: no symptoms Respiratory: Reports: shortness of breath, sputum Gastrointestinal/Abdominal: Reports: difficulty swallowing Genitourinary: Reports: no symptoms Neurologic/Psychiatric: Reports: pre-existing deficit, seizure Endocrine: Reports: no symptoms Hematologic/Lymphatic: Reports: anemia Allergies: Coded Allergies: No Known Allergies (Unverified , 12/31/19) All Systems: reviewed and negative except above Subjective no events. having diarrhea. cdiff neg. stable on the vent. no fever or chills. labs reviewed. decreased h/h noted. no reports of bleeding poorly responsive at baseline. labs reviewed ID noted. GI noted. Objective Last 24 Hour Vital Signs Date Time Temp Pulse Resp B/P (MAP) Pulse Ox O2 Delivery O2 Flow Rate FiO2 01/12/20 12:00 40 01/12/20 12:00 99.1 68 18 128/88 (101) 95 01/12/20 12:00 Mechanical Ventilator 01/12/20 11:44 59 01/12/20 11:17 77 21 40 01/12/20 08:19 69 123/79 01/12/20 08:00 Mechanical Ventilator 01/12/20 08:00 98.2 69 17 123/79 (94) 100 01/12/20 08:00 40 01/12/20 07:44 69 01/12/20 07:00 67 22 40 01/12/20 05:00 65 19 40 01/12/20 04:00 Mechanical Ventilator 01/12/20 04:00 40 01/12/20 04:00 98.6 72 20 127/77 (94) 100 01/12/20 03:49 73 01/12/20 02:48 67 21 40 01/12/20 01:00 74 21 40 01/12/20 00:00 98.6 72 20 119/73 (88) 100 01/12/20 00:00 Mechanical Ventilator 01/12/20 00:00 69 01/11/20 22:46 69 20 99 Mechanical Ventilator 40 74 22 40 01/11/20 20:20 65 22 40 01/11/20 20:17 75 119/71 01/11/20 20:00 98.2 65 19 119/73 (88) 100 01/11/20 20:00 Mechanical Ventilator 01/11/20 20:00 75 01/11/20 20:00 40 01/11/20 17:30 67 19 40 01/11/20 16:00 68 01/11/20 16:00 98.6 65 19 114/71 (85) 100 01/11/20 16:00 Mechanical Ventilator 01/11/20 16:00 40 01/11/20 13:36 70 24 40 Intake and Output 01/11/20 01/12/20 19:00 07:00 Intake Total 1020 ml 1185 ml Output Total 1050 ml 1060 ml Balance -30 ml 125 ml Free Water 100 ml 100 ml IV Total 320 ml 480 ml Tube Feeding 600 ml 605 ml Output Urine Total 1050 ml 1050 ml Stool Total 10 ml Laboratory Tests 01/12/20 06:00: White Blood Count 6.4, Red Blood Count 3.10L, Hemoglobin 9.7L, Hematocrit 28.5L , Mean Corpuscular Volume 92, Mean Corpuscular Hemoglobin 31.3H, Mean Corpuscular Hemoglobin Concent 34.1, Red Cell Distribution Width 13.8, Platelet Count 190, Mean Platelet Volume 8.0, Neutrophils (%) (Auto) 55.5, Lymphocytes (% ) (Auto) 25.2, Monocytes (%) (Auto) 13.8H, Eosinophils (%) (Auto) 4.6H, Basophils (%) (Auto) 0.9, Sodium Level 135L, Potassium Level 4.4, Chloride Level 98, Carbon Dioxide Level 31, Anion Gap 6, Blood Urea Nitrogen 43H, Creatinine 1.5H, Estimat Glomerular Filtration Rate 45.4, Glucose Level 105, Calcium Level 8.9 Height (Feet): 5 Height (Inches): 5.00 Weight (Pounds): 121 Objective General Appearance: WD/WN, alert Neck: supple Cardiovascular: regular rhythm Respiratory/Chest: chest wall non-tender, rhonchi - bilaterally Abdomen: normal bowel sounds, non tender, soft, no organomegaly Edema: no edema noted Arm (L), no edema noted Arm (R), no edema noted Leg (L), no edema noted Leg (R), no edema noted Pedal (L), no edema noted Pedal (R), no edema noted Generalized Neurologic: disoriented, aphasia Vasquez De Paz MD Jan 12, 2020 13:29
[2020-01-12 16:00] VITALS: BP 119/76
--- NOTE | 2020-01-12 19:15 | NUR ---
HAND-OFF: Report given to Lizzie RIVER. Pt remains stable.
[2020-01-12 20:00] VITALS: BP 107/62
--- NOTE | 2020-01-12 20:23 | Surgery Progress Note ---
Surgery Progress Note Subjective Additional Comments doing well improving no acute event labs okay Objective Last 24 Hour Vital Signs Date Time Temp Pulse Resp B/P (MAP) Pulse Ox O2 Delivery O2 Flow Rate FiO2 01/12/20 19:15 59 20 40 01/12/20 17:29 59 18 40 01/12/20 16:00 98.0 72 20 119/76 (90) 100 01/12/20 16:00 62 01/12/20 16:00 Mechanical Ventilator 01/12/20 16:00 40 01/12/20 15:09 62 23 40 01/12/20 12:00 40 01/12/20 12:00 99.1 68 18 128/88 (101) 95 01/12/20 12:00 Mechanical Ventilator 01/12/20 11:44 59 01/12/20 11:17 77 21 40 01/12/20 08:19 69 123/79 01/12/20 08:00 Mechanical Ventilator 01/12/20 08:00 98.2 69 17 123/79 (94) 100 01/12/20 08:00 40 01/12/20 07:44 69 01/12/20 07:00 67 22 40 01/12/20 05:00 65 19 40 01/12/20 04:00 Mechanical Ventilator 01/12/20 04:00 40 01/12/20 04:00 98.6 72 20 127/77 (94) 100 01/12/20 03:49 73 01/12/20 02:48 67 21 40 01/12/20 01:00 74 21 40 01/12/20 00:00 98.6 72 20 119/73 (88) 100 01/12/20 00:00 Mechanical Ventilator 01/12/20 00:00 69 01/11/20 22:46 69 20 99 Mechanical Ventilator 40 74 22 40 I&O Intake and Output 01/11/20 01/12/20 19:00 07:00 Intake Total 1020 ml 1240 ml Output Total 1050 ml 1060 ml Balance -30 ml 180 ml Free Water 100 ml 100 ml IV Total 320 ml 480 ml Tube Feeding 600 ml 660 ml Output Urine Total 1050 ml 1050 ml Stool Total 10 ml Dressing: saturated Wound: clean Cardiovascular: RSR Respiratory: decreased breath sounds Abdomen: soft, non-tender, present bowel sounds Extremities: no tenderness, no cyanosis Laboratory Tests Test 01/12/20 06:00 White Blood Count 6.4 K/UL (4.8-10.8) Red Blood Count 3.10 M/UL (4.70-6.10) L Hemoglobin 9.7 G/DL (14.2-18.0) L Hematocrit 28.5 % (42.0-52.0) L Mean Corpuscular Volume 92 FL (80-99) Mean Corpuscular Hemoglobin 31.3 PG (27.0-31.0) H Mean Corpuscular Hemoglobin Concent 34.1 G/DL (32.0-36.0) Red Cell Distribution Width 13.8 % (11.6-14.8) Platelet Count 190 K/UL (150-450) Mean Platelet Volume 8.0 FL (6.5-10.1) Neutrophils (%) (Auto) 55.5 % (45.0-75.0) Lymphocytes (%) (Auto) 25.2 % (20.0-45.0) Monocytes (%) (Auto) 13.8 % (1.0-10.0) H Eosinophils (%) (Auto) 4.6 % (0.0-3.0) H Basophils (%) (Auto) 0.9 % (0.0-2.0) Sodium Level 135 MMOL/L (136-145) L Potassium Level 4.4 MMOL/L (3.5-5.1) Chloride Level 98 MMOL/L (98-107) Carbon Dioxide Level 31 MMOL/L (21-32) Anion Gap 6 mmol/L (5-15) Blood Urea Nitrogen 43 mg/dL (7-18) H Creatinine 1.5 MG/DL (0.55-1.30) H Estimat Glomerular Filtration Rate 45.4 mL/min (>60) Glucose Level 105 MG/DL (74-106) Calcium Level 8.9 MG/DL (8.5-10.1) Plan Problems: (1) Decubitus skin ulcer Assessment & Plan: Pt presented on admission with contractures, multiple Skin Breakdown. Skin assessed under collar of trach and no skin breakdown noted.Category 3 Skin tear R elbow(L)4.5cm x (W)5cm. Full flap loss noted. Base of wound moist and viable,edges adherent. No exudate noted. No erythema or elevated skin temp periwound. Category 2 Skin tear L forearm. Full flap intact and reattached. Moderate amt sanguineous exudate noted. Silvasorb Gel applied and covered with Optifoam drsg. Reinforced with ABD Pad and Kerlix. DTPI noted to L Sacrum(L)3.5cm x (W)3cm. Base of wound is maroon and indurated. DTPI R Sacrum(L)7cm x (W)9.5cm. Wound is irregular shaped. Base of wound is maroon and indurated. Scattered areas of darker skin tone without induration or erythema periwound. DTPI L lateral malleolus(L)2.5cm x (W)2cm. Base of wound is fluctuant,purple with surrounding maroon borders. No erythema or elevation in skin temp periwound. Partial thickness wound L 1st metatarsal head (L)2.5cm x (W)2cm. Base of wound is moist and viable. Edges are macerated. Non-blanching erythema without fluctuance periwound. DTPI Dorso/lateral R foot(L)2.3cm x (W)4.3cm. Base of injury is indurated purple /maroon in colour. No erythema or elevation in skin temp periwound. Hyperpigmentation from previous wounds noted to R and L hallux. Tx.Plan: Cleanse Skin tears R Elbow and L forearm with Saline. Apply Silvasorb Gel. Cover each wounds with Optifoam drsgs. Change every 7 days and prn. Apply Triad Paste to R and L Sacrum. Cover with Optifoam drsg. Change every 3 days and prn. Apply Cavilon to Malleoli both feet, Both heels and Both hallux . Cover each site with Optifoam drsgs turn q2h nutritional optimization (2) Respiratory insufficiency (3) Malnutrition Assessment & Plan: DAILY ESTIMATED NEEDS: Needs based on Critical care, wounds/ 60kg abw 22-28 kcals/kg [id number] total kcals 1.25-2 g protein/kg 75-120 g total protein 25-30 mL/kg [id number] total fluid mLs NUTRITION DIAGNOSIS: * Swallowing difficulty R/T respiratory status as evidenced by trach/vent dep, PEG dep. * Increased kcal/prot needs R/T wound healing as evidenced by pt admitted w/ multiple wounds, including DTPI x4, partial thickness x 1, and category 3 Skin tear, refer to WC eval. CURRENT TF:Glucerna 1.5 @ 45ml/hr x 22 hrs-> now Glucerna 1.2 @55ml x22 ENTERAL NUTRITION RECOMMENDATIONS: Glucerna 1.2 @ 57ml/hr x 22 hrs to provide 1254ml, 1505kcal, 75g prot, 1009ml free water * Rec to increase current updated TF to goal of 57ml/hr x22 hrs to better meet est kcal and pro needs * HOB Over 30 degrees/ water flush per MD * Hold Synthroid during 4 hrs that TF is off ADDITIONAL RECOMMENDATIONS: * Per SN[facility]: HT=63", WO=883mtl (as of 12/28/19) * Monitor lytes, replete as needed * Wound healing: w/ diarrhea, rec lower Vit C-> 250mg daily add Jerome 1pkt BID * Monitor K, renal labs, need for renal formula * calibrated bed scale wt as able (4) Pneumonia (5) Tracheal stenosis (6) Protein-calorie malnutrition, severe (7) Suspected COVID-19 virus infection Assessment & Plan: negative Sabino Gold Jan 12, 2020 20:23
[2020-01-12] MEDS: Dyna-Hex 2% Top Sol 2oz TOPIC SCH (20:31)
[2020-01-13] VITALS (7 sets, daily range): BP systolic 109–124; BP diastolic 39–71
--- NOTE | 2020-01-13 02:00 | NUR ---
NURSE NOTES: cleaned pt, provided new gown, new blanket. oral care given. changed position q 2 hrs. call light within reach. no SOB note.d
--- NOTE | 2020-01-13 02:45 | Progress Note ---
DATE: 01/12/2020 CARDIOLOGY PROGRESS NOTE SUBJECTIVE: Patient remains on ventilator support. Noncommunicative. Moderate secretions. Now with diarrhea. C. diff has been negative. Monitored rhythm sinus with atrial ectopics. No tachyarrhythmias. PHYSICAL EXAMINATION: LUNGS: Coarse breath sounds. Rhonchi. CARDIAC: Regular rhythm and rate. Normal S1, S2. ABDOMEN: Soft. EXTREMITIES: Trace edema. VITAL SIGNS: T-max 99.1. Blood pressure 128/88, heart rate 68, respiratory rate 18. LABORATORY DATA: Sodium 135, potassium 4.4, bicarb 31, BUN 43, creatinine 1.5. White count 6.4, hemoglobin 9.7, platelets 190,000. IMPRESSION: 1. Healthcare-associated pneumonia. 2. Ventilator-dependent respiratory failure. 3. Acute myocardial ischemia and possible [id number] myocardial infarction. 4. Acute on chronic diastolic congestive heart failure. 5. Hypovolemia and dehydration corrected. 6. Hypomagnesemia. PLAN: 1. Discontinue hypotonic IV fluids. 2. Continue nutrition by feeding tube. 3. Monitor volume status and cardiorenal parameters. 4. Periodic diuresis. 5. Trend natriuretic peptide assay. 6. Antimicrobials. 7. DVT prophylaxis. 8. Replace potassium and magnesium as needed. Tony Lobo M.D. DR: YOUSIF JOB#: [id number] CC:
--- NOTE | 2020-01-13 06:00 | NUR ---
HAND-OFF: Report given to min RN,. pt remains stable condition, endorsed plan of care.
--- NOTE | 2020-01-13 07:00 | NUR ---
NURSE NOTES: Received report from Lizzie RIVER. Pt in bed awake, responsive to pain stimuli. No c/o pain on facial scale. On vent setting with AC,18, TV 450, Fio2 40%, peep 8 with trach with portex 8. All extremities contracted. HOB elevated greater than 45 degree. G-tube patent and intact running with Glucerna 1.2 @55ml/hr. On rectal tube patent and intact. On condom cath patent and intact. On LIV mattress. Side railsx3 up for safety. Call light within easy reach. Will continue to plan of care.
--- NOTE | 2020-01-13 07:24 | General Progress Note ---
Assessment/Plan Status: stable Assessment/Plan: 1. History of chronic respiratory failure, on vent. 2. Dysphagia with G-tube. 3. Diabetes. 4. Renal insufficiency. 5. Anemia. 6. History of tracheal stenosis. 7. Diarrhea C.diff neg lomotil and imodium prn GTF GT care repeat labs in am will fu Subjective Allergies: Coded Allergies: No Known Allergies (Unverified , 12/31/19) Objective Last 24 Hour Vital Signs Date Time Temp Pulse Resp B/P (MAP) Pulse Ox O2 Delivery O2 Flow Rate FiO2 01/13/20 04:00 Mechanical Ventilator 01/13/20 04:00 71 01/13/20 04:00 40 01/13/20 04:00 98.0 65 20 120/71 (87) 100 01/13/20 03:12 69 20 40 01/13/20 00:00 98.6 62 18 112/70 (84) 100 01/13/20 00:00 Mechanical Ventilator 01/12/20 23:41 65 01/12/20 23:15 67 20 40 01/12/20 20:32 59 112/70 01/12/20 20:00 40 01/12/20 20:00 98.3 58 21 107/62 (77) 100 01/12/20 20:00 Mechanical Ventilator 01/12/20 19:29 58 01/12/20 19:15 59 20 40 01/12/20 17:29 59 18 40 01/12/20 16:00 98.0 72 20 119/76 (90) 100 01/12/20 16:00 62 01/12/20 16:00 Mechanical Ventilator 01/12/20 16:00 40 01/12/20 15:09 62 23 40 01/12/20 12:00 40 01/12/20 12:00 99.1 68 18 128/88 (101) 95 01/12/20 12:00 Mechanical Ventilator 01/12/20 11:44 59 01/12/20 11:17 77 21 40 01/12/20 08:19 69 123/79 01/12/20 08:00 Mechanical Ventilator 01/12/20 08:00 98.2 69 17 123/79 (94) 100 01/12/20 08:00 40 01/12/20 07:44 69 Intake and Output 01/12/20 01/13/20 19:00 07:00 Intake Total 1290 ml 1040 ml Output Total 1430 ml 1200 ml Balance -140 ml -160 ml Free Water 150 ml 180 ml IV Total 480 ml 200 ml Tube Feeding 660 ml 660 ml Output Urine Total 1350 ml 1200 ml Stool Total 80 ml # Bowel Movements 5 Height (Feet): 5 Height (Inches): 5.00 Weight (Pounds): 121 General Appearance: no apparent distress EENT: normal ENT inspection Neck: supple Cardiovascular: normal rate Respiratory/Chest: decreased breath sounds Abdomen: normal bowel sounds, non tender, soft Extremities: non-tender Jovany Kong MD Jan 13, 2020 07:24
[2020-01-13] MEDS ORDERED: Lomotil 2.5mg tab ORAL PRN (07:30)
[2020-01-13 07:49] LABS: BASOPHILS % (AUTO) 1.2 % (0.0-2.0); EOSINOPHILS % (AUTO) 2.6 % (0.0-3.0); HEMATOCRIT 27.5 % (42.0-52.0); HEMOGLOBIN 9.5 G/DL (14.2-18.0); LYMPHOCYTES % (AUTO) 22.9 % (20.0-45.0); MEAN CORPUSCULAR VOLUME 92 FL (80-99); MONOCYTES % (AUTO) 13.1 % (1.0-10.0); NEUTROPHILS % (AUTO) 60.2 % (45.0-75.0); PLATELET COUNT 179 K/UL (150-450); RED BLOOD COUNT 2.97 M/UL (4.70-6.10); RED CELL DISTRIBUTION WIDTH 13.4 % (11.6-14.8)
[2020-01-13 08:09] LABS: ANION GAP 2 mmol/L (5-15); BLOOD UREA NITROGEN 47 mg/dL (7-18); CALCIUM 9.4 MG/DL (8.5-10.1); CARBON DIOXIDE 32 MMOL/L (21-32); CHLORIDE 97 MMOL/L (98-107); CREATININE 1.6 MG/DL (0.55-1.30); POTASSIUM 4.7 MMOL/L (3.5-5.1); SODIUM 131 MMOL/L (136-145)
[2020-01-13] MEDS: levETIRAcetam 500mg/5ml Liquid GT SCH ×2 (08:27→20:05)
[2020-01-13] MEDS: Carvedilol 6.25mg Tab GT SCH ×2 (08:27→20:06)
[2020-01-13] MEDS: Levothyroxine 125mcg tab GT SCH (08:27)
[2020-01-13] MEDS: Ascorbic Acid 500mg tab GT SCH (08:27)
[2020-01-13] MEDS: Heparin 5000 units/ml inj SUBQ SCH ×2 (08:41→20:07)
--- NOTE | 2020-01-13 10:37 | Infectious Diseases Prog Note ---
"Assessment/Plan Assessment/Plan antibiotics : none A 1. e.coli | pseudomonas | acenitobacter pneumonia s/p rx COVID 19 test negative 4.5.20, 4.8.20 2. leucocytosis resolved 3. renal failure 4. + blood cultures with coag neg staph | diphtheroids likely contaminated 5. respiratory failure P 1. observe off antibiotics 2. will follow up cultures Subjective ROS Limited/Unobtainable: Yes Allergies: Coded Allergies: No Known Allergies (Unverified , 12/31/19) Objective Vital Signs Last 24 Hour Vital Signs Date Time Temp Pulse Resp B/P (MAP) Pulse Ox O2 Delivery O2 Flow Rate FiO2 01/13/20 09:20 72 24 40 01/13/20 08:27 68 110/67 01/13/20 08:00 98.5 68 25 110/67 (81) 100 01/13/20 07:51 69 20 40 01/13/20 07:39 74 01/13/20 04:00 Mechanical Ventilator 01/13/20 04:00 71 01/13/20 04:00 40 01/13/20 04:00 98.0 65 20 120/71 (87) 100 01/13/20 03:12 69 20 40 01/13/20 00:00 98.6 62 18 112/70 (84) 100 01/13/20 00:00 Mechanical Ventilator 01/12/20 23:41 65 01/12/20 23:15 67 20 40 01/12/20 20:32 59 112/70 01/12/20 20:00 40 01/12/20 20:00 98.3 58 21 107/62 (77) 100 01/12/20 20:00 Mechanical Ventilator 01/12/20 19:29 58 01/12/20 19:15 59 20 40 01/12/20 17:29 59 18 40 01/12/20 16:00 98.0 72 20 119/76 (90) 100 01/12/20 16:00 62 01/12/20 16:00 Mechanical Ventilator 01/12/20 16:00 40 01/12/20 15:09 62 23 40 01/12/20 12:00 40 01/12/20 12:00 99.1 68 18 128/88 (101) 95 01/12/20 12:00 Mechanical Ventilator 01/12/20 11:44 59 01/12/20 11:17 77 21 40 Height (Feet): 5 Height (Inches): 5.00 Weight (Pounds): 121 HEENT: status post trach Respiratory/Chest: lungs clear Cardiovascular: normal rate, regular rhythm, no gallop/murmur Abdomen: soft, non tender, other - GT Extremities: no edema Microbiology Date/Time Source Procedure Growth Status 01/11/20 13:45 Stool Clostridium difficile Toxin Assay - Final Complete Laboratory Tests Test 01/13/20 07:00 White Blood Count 8.0 K/UL (4.8-10.8) Red Blood Count 2.97 M/UL (4.70-6.10) L Hemoglobin 9.5 G/DL (14.2-18.0) L Hematocrit 27.5 % (42.0-52.0) L Mean Corpuscular Volume 92 FL (80-99) Mean Corpuscular Hemoglobin 31.9 PG (27.0-31.0) H Mean Corpuscular Hemoglobin Concent 34.5 G/DL (32.0-36.0) Red Cell Distribution Width 13.4 % (11.6-14.8) Platelet Count 179 K/UL (150-450) Mean Platelet Volume 7.8 FL (6.5-10.1) Neutrophils (%) (Auto) 60.2 % (45.0-75.0) Lymphocytes (%) (Auto) 22.9 % (20.0-45.0) Monocytes (%) (Auto) 13.1 % (1.0-10.0) H Eosinophils (%) (Auto) 2.6 % (0.0-3.0) Basophils (%) (Auto) 1.2 % (0.0-2.0) Sodium Level 131 MMOL/L (136-145) L Potassium Level 4.7 MMOL/L (3.5-5.1) Chloride Level 97 MMOL/L (98-107) L Carbon Dioxide Level 32 MMOL/L (21-32) Anion Gap 2 mmol/L (5-15) L Blood Urea Nitrogen 47 mg/dL (7-18) H Creatinine 1.6 MG/DL (0.55-1.30) H Estimat Glomerular Filtration Rate 42.1 mL/min (>60) Glucose Level 98 MG/DL (74-106) Calcium Level 9.4 MG/DL (8.5-10.1) Current Medications Medications (Trade) Dose Ordered Sig/Pau Route PRN Reason Start Time Stop Time Status Last Admin Dose Admin Acetaminophen (Tylenol) 650 mg Q4H PRN GT MILD/TEMP 01/09/20 06:30 02/08/20 06:29 Ascorbic Acid (Vitamin C) 500 mg DAILY GT 01/02/20 09:00 02/01/20 08:59 01/13/20 08:27 Carvedilol (Coreg) 6.25 mg EVERY 12 HOURS GT 01/08/20 09:00 02/07/20 08:59 01/13/20 08:27 Chlorhexidine Gluconate (Radha-Hex 2%) 1 applic DAILY@199901/08/20 20:00 04/07/20 19:59 01/12/20 20:31 Diphenoxylate HCl/ Atropine (Lomotil) 2.5 mg Q4H PRN GT Diarrhea 01/13/20 07:30 02/12/20 07:29 Famotidine (Pepcid) 20 mg BID GT 01/13/20 09:00 04/12/20 08:59 01/13/20 08:27 Heparin Sodium (Porcine) (Heparin 5000 units/ml) 5,000 units EVERY 12 HOURS SUBQ 01/01/20 21:00 02/15/20 20:59 01/13/20 08:41 Levetiracetam (Keppra) 750 mg EVERY 12 HOURS GT 01/02/20 09:00 02/01/20 08:59 01/13/20 08:27 Levothyroxine Sodium (Synthroid) 50 mcg DAILY GT 01/02/20 09:00 02/01/20 08:59 01/13/20 08:27 Levothyroxine Sodium (Synthroid) 125 mcg DAILY GT 01/02/20 09:00 02/01/20 08:59 01/13/20 08:27 Loperamide HCl (Imodium) 2 mg Q6H PRN NG Diarrhea 01/12/20 10:30 02/11/20 10:29 01/12/20 13:22 Lorazepam (Ativan 2mg/ml 1ml) 2 mg Q4H PRN IV For Seizures 01/09/20 00:00 01/16/20 00:00 01/09/20 00:03 Heber Abraham MD Jan 13, 2020 10:37"
--- NOTE | 2020-01-13 11:10 | NUR ---
NURSE NOTES: Made Dr. Abad aware of abnormal blood test results
--- NOTE | 2020-01-13 11:43 | Nephrology Progress Note ---
Assessment/Plan Problem List: (1) Hypernatremia (2) Dehydration (3) JOHN (acute kidney injury) (4) Respiratory insufficiency (5) Pneumonia (6) Protein-calorie malnutrition, severe (7) Hx of tracheostomy (8) CKD (chronic kidney disease) stage 3, GFR 30-59 ml/min Plan continue hypotonic iv's, reduced rate antibiotics BUN and Na improving Subjective ROS Limited/Unobtainable: Yes Objective Objective Last 24 Hour Vital Signs Date Time Temp Pulse Resp B/P (MAP) Pulse Ox O2 Delivery O2 Flow Rate FiO2 01/13/20 11:14 66 25 40 01/13/20 09:20 72 24 40 01/13/20 08:27 68 110/67 01/13/20 08:00 Mechanical Ventilator 01/13/20 08:00 98.5 68 25 110/67 (81) 100 01/13/20 08:00 40 01/13/20 07:51 69 20 40 01/13/20 07:39 74 01/13/20 04:00 Mechanical Ventilator 01/13/20 04:00 71 01/13/20 04:00 40 01/13/20 04:00 98.0 65 20 120/71 (87) 100 01/13/20 03:12 69 20 40 01/13/20 00:00 98.6 62 18 112/70 (84) 100 01/13/20 00:00 Mechanical Ventilator 01/12/20 23:41 65 01/12/20 23:15 67 20 40 01/12/20 20:32 59 112/70 01/12/20 20:00 40 01/12/20 20:00 98.3 58 21 107/62 (77) 100 01/12/20 20:00 Mechanical Ventilator 01/12/20 19:29 58 01/12/20 19:15 59 20 40 01/12/20 17:29 59 18 40 01/12/20 16:00 98.0 72 20 119/76 (90) 100 01/12/20 16:00 62 01/12/20 16:00 Mechanical Ventilator 01/12/20 16:00 40 01/12/20 15:09 62 23 40 01/12/20 12:00 40 01/12/20 12:00 99.1 68 18 128/88 (101) 95 01/12/20 12:00 Mechanical Ventilator 01/12/20 11:44 59 Intake and Output 01/12/20 01/13/20 19:00 07:00 Intake Total 1290 ml 1040 ml Output Total 1430 ml 1200 ml Balance -140 ml -160 ml Free Water 150 ml 180 ml IV Total 480 ml 200 ml Tube Feeding 660 ml 660 ml Output Urine Total 1350 ml 1200 ml Stool Total 80 ml # Bowel Movements 5 Laboratory Tests 01/13/20 07:00: White Blood Count 8.0, Red Blood Count 2.97L, Hemoglobin 9.5L, Hematocrit 27.5L , Mean Corpuscular Volume 92, Mean Corpuscular Hemoglobin 31.9H, Mean Corpuscular Hemoglobin Concent 34.5, Red Cell Distribution Width 13.4, Platelet Count 179, Mean Platelet Volume 7.8, Neutrophils (%) (Auto) 60.2, Lymphocytes (% ) (Auto) 22.9, Monocytes (%) (Auto) 13.1H, Eosinophils (%) (Auto) 2.6, Basophils (%) (Auto) 1.2, Sodium Level 131L, Potassium Level 4.7, Chloride Level 97L, Carbon Dioxide Level 32, Anion Gap 2L, Blood Urea Nitrogen 47H, Creatinine 1.6H, Estimat Glomerular Filtration Rate 42.1, Glucose Level 98, Calcium Level 9.4 Height (Feet): 5 Height (Inches): 5.00 Weight (Pounds): 121 General Appearance: lethargic Neck: normal alignment Cardiovascular: regular rhythm Respiratory/Chest: rhonchi - bilaterally Abdomen: soft Neurologic: unresponsive Pravin Abad MD Jan 13, 2020 11:43
--- NOTE | 2020-01-13 13:21 | General Progress Note ---
Assessment/Plan Problem List: (1) JOHN (acute kidney injury) ICD Codes: N17.9 - Acute kidney failure, unspecified SNOMED: 2577538, 54712904 (2) Dehydration ICD Codes: E86.0 - Dehydration SNOMED: 30550351 (3) Suspected COVID-19 virus infection ICD Codes: R68.89 - Other general symptoms and signs SNOMED: 055312022 (4) Tracheal stenosis ICD Codes: J39.8 - Other specified diseases of upper respiratory tract SNOMED: 91604821 (5) Pneumonia ICD Codes: J18.9 - Pneumonia, unspecified organism SNOMED: 706575235 (6) Malnutrition ICD Codes: E46 - Unspecified protein-calorie malnutrition SNOMED: 19129557 (7) Respiratory insufficiency ICD Codes: R06.89 - Other abnormalities of breathing SNOMED: 765330757 Status: stable Assessment/Plan: cont current rx iv abx per id. monitor na off ivf sz rx monitor bp dvt/stress ulcer prophylaxis transfuse as needed skin/wound care prn ivf dc planning when diarrhea better Subjective ROS Limited/Unobtainable: Yes Constitutional: Reports: malaise, weakness HEENT: Reports: no symptoms Cardiovascular: Reports: no symptoms Respiratory: Reports: shortness of breath, sputum Gastrointestinal/Abdominal: Reports: diarrhea, difficulty swallowing Genitourinary: Reports: incontinence Neurologic/Psychiatric: Reports: pre-existing deficit, seizure Endocrine: Reports: no symptoms Hematologic/Lymphatic: Reports: anemia Allergies: Coded Allergies: No Known Allergies (Unverified , 12/31/19) All Systems: reviewed and negative except above Subjective no events. having diarrhea but less. cdiff neg. stable on the vent. no fever or chills. labs reviewed. decreased h/h noted. no reports of bleeding poorly responsive at baseline. ID noted. GI noted. Objective Last 24 Hour Vital Signs Date Time Temp Pulse Resp B/P (MAP) Pulse Ox O2 Delivery O2 Flow Rate FiO2 01/13/20 12:59 66 21 40 01/13/20 12:00 Mechanical Ventilator 01/13/20 12:00 40 01/13/20 12:00 98.8 70 24 109/62 (78) 100 01/13/20 11:46 63 01/13/20 11:14 66 25 40 01/13/20 09:20 72 24 40 01/13/20 08:27 68 110/67 01/13/20 08:00 Mechanical Ventilator 01/13/20 08:00 98.5 68 25 110/67 (81) 100 01/13/20 08:00 40 01/13/20 07:51 69 20 40 01/13/20 07:39 74 01/13/20 04:00 Mechanical Ventilator 01/13/20 04:00 71 01/13/20 04:00 40 01/13/20 04:00 98.0 65 20 120/71 (87) 100 01/13/20 03:12 69 20 40 01/13/20 00:00 98.6 62 18 112/70 (84) 100 01/13/20 00:00 Mechanical Ventilator 01/12/20 23:41 65 01/12/20 23:15 67 20 40 01/12/20 20:32 59 112/70 01/12/20 20:00 40 01/12/20 20:00 98.3 58 21 107/62 (77) 100 01/12/20 20:00 Mechanical Ventilator 01/12/20 19:29 58 01/12/20 19:15 59 20 40 01/12/20 17:29 59 18 40 01/12/20 16:00 98.0 72 20 119/76 (90) 100 01/12/20 16:00 62 01/12/20 16:00 Mechanical Ventilator 01/12/20 16:00 40 01/12/20 15:09 62 23 40 Intake and Output 01/12/20 01/13/20 19:00 07:00 Intake Total 1290 ml 1040 ml Output Total 1430 ml 1200 ml Balance -140 ml -160 ml Free Water 150 ml 180 ml IV Total 480 ml 200 ml Tube Feeding 660 ml 660 ml Output Urine Total 1350 ml 1200 ml Stool Total 80 ml # Bowel Movements 5 Laboratory Tests 01/13/20 07:00: White Blood Count 8.0, Red Blood Count 2.97L, Hemoglobin 9.5L, Hematocrit 27.5L , Mean Corpuscular Volume 92, Mean Corpuscular Hemoglobin 31.9H, Mean Corpuscular Hemoglobin Concent 34.5, Red Cell Distribution Width 13.4, Platelet Count 179, Mean Platelet Volume 7.8, Neutrophils (%) (Auto) 60.2, Lymphocytes (% ) (Auto) 22.9, Monocytes (%) (Auto) 13.1H, Eosinophils (%) (Auto) 2.6, Basophils (%) (Auto) 1.2, Sodium Level 131L, Potassium Level 4.7, Chloride Level 97L, Carbon Dioxide Level 32, Anion Gap 2L, Blood Urea Nitrogen 47H, Creatinine 1.6H, Estimat Glomerular Filtration Rate 42.1, Glucose Level 98, Calcium Level 9.4 Height (Feet): 5 Height (Inches): 5.00 Weight (Pounds): 121 Objective General Appearance: WD/WN, alert Neck: supple Cardiovascular: regular rhythm Respiratory/Chest: chest wall non-tender, rhonchi - bilaterally Abdomen: normal bowel sounds, non tender, soft, no organomegaly Edema: no edema noted Arm (L), no edema noted Arm (R), no edema noted Leg (L), no edema noted Leg (R), no edema noted Pedal (L), no edema noted Pedal (R), no edema noted Generalized Neurologic: disoriented, aphasia Vasquez De Paz MD Jan 13, 2020 13:21
[2020-01-13] MEDS ORDERED: Tubing IV Secondary IV ONE (13:55)
[2020-01-13] MEDS ORDERED: NS 275ml ONE (13:55)
[2020-01-13] MEDS ORDERED: Tubing IV Blood Pump IV ONE (13:55)
[2020-01-13] MEDS ORDERED: D5W 275ml ONE (13:55)
--- NOTE | 2020-01-13 14:53 | Surgery Progress Note ---
Surgery Progress Note Subjective Additional Comments stable comfortable tolerating feeds labs okay Objective Last 24 Hour Vital Signs Date Time Temp Pulse Resp B/P (MAP) Pulse Ox O2 Delivery O2 Flow Rate FiO2 01/13/20 14:48 65 25 40 01/13/20 12:59 66 21 40 01/13/20 12:00 Mechanical Ventilator 01/13/20 12:00 40 01/13/20 12:00 98.8 70 24 109/62 (78) 100 01/13/20 11:46 63 01/13/20 11:14 66 25 40 01/13/20 09:20 72 24 40 01/13/20 08:27 68 110/67 01/13/20 08:00 Mechanical Ventilator 01/13/20 08:00 98.5 68 25 110/67 (81) 100 01/13/20 08:00 40 01/13/20 07:51 69 20 40 01/13/20 07:39 74 01/13/20 04:00 Mechanical Ventilator 01/13/20 04:00 71 01/13/20 04:00 40 01/13/20 04:00 98.0 65 20 120/71 (87) 100 01/13/20 03:12 69 20 40 01/13/20 00:00 98.6 62 18 112/70 (84) 100 01/13/20 00:00 Mechanical Ventilator 01/12/20 23:41 65 01/12/20 23:15 67 20 40 01/12/20 20:32 59 112/70 01/12/20 20:00 40 01/12/20 20:00 98.3 58 21 107/62 (77) 100 01/12/20 20:00 Mechanical Ventilator 01/12/20 19:29 58 01/12/20 19:15 59 20 40 01/12/20 17:29 59 18 40 01/12/20 16:00 98.0 72 20 119/76 (90) 100 01/12/20 16:00 62 01/12/20 16:00 Mechanical Ventilator 01/12/20 16:00 40 01/12/20 15:09 62 23 40 I&O Intake and Output 01/12/20 01/13/20 19:00 07:00 Intake Total 1290 ml 1040 ml Output Total 1430 ml 1200 ml Balance -140 ml -160 ml Free Water 150 ml 180 ml IV Total 480 ml 200 ml Tube Feeding 660 ml 660 ml Output Urine Total 1350 ml 1200 ml Stool Total 80 ml # Bowel Movements 5 Dressing: saturated Wound: other Drains: other Cardiovascular: RSR Respiratory: decreased breath sounds Abdomen: soft, non-tender, present bowel sounds Extremities: no tenderness, no cyanosis Laboratory Tests Test 01/13/20 07:00 White Blood Count 8.0 K/UL (4.8-10.8) Red Blood Count 2.97 M/UL (4.70-6.10) L Hemoglobin 9.5 G/DL (14.2-18.0) L Hematocrit 27.5 % (42.0-52.0) L Mean Corpuscular Volume 92 FL (80-99) Mean Corpuscular Hemoglobin 31.9 PG (27.0-31.0) H Mean Corpuscular Hemoglobin Concent 34.5 G/DL (32.0-36.0) Red Cell Distribution Width 13.4 % (11.6-14.8) Platelet Count 179 K/UL (150-450) Mean Platelet Volume 7.8 FL (6.5-10.1) Neutrophils (%) (Auto) 60.2 % (45.0-75.0) Lymphocytes (%) (Auto) 22.9 % (20.0-45.0) Monocytes (%) (Auto) 13.1 % (1.0-10.0) H Eosinophils (%) (Auto) 2.6 % (0.0-3.0) Basophils (%) (Auto) 1.2 % (0.0-2.0) Sodium Level 131 MMOL/L (136-145) L Potassium Level 4.7 MMOL/L (3.5-5.1) Chloride Level 97 MMOL/L (98-107) L Carbon Dioxide Level 32 MMOL/L (21-32) Anion Gap 2 mmol/L (5-15) L Blood Urea Nitrogen 47 mg/dL (7-18) H Creatinine 1.6 MG/DL (0.55-1.30) H Estimat Glomerular Filtration Rate 42.1 mL/min (>60) Glucose Level 98 MG/DL (74-106) Calcium Level 9.4 MG/DL (8.5-10.1) Plan Problems: (1) Decubitus skin ulcer Assessment & Plan: Pt presented on admission with contractures, multiple Skin Breakdown. Skin assessed under collar of trach and no skin breakdown noted.Category 3 Skin tear R elbow(L)4.5cm x (W)5cm. Full flap loss noted. Base of wound moist and viable,edges adherent. No exudate noted. No erythema or elevated skin temp periwound. Category 2 Skin tear L forearm. Full flap intact and reattached. Moderate amt sanguineous exudate noted. Silvasorb Gel applied and covered with Optifoam drsg. Reinforced with ABD Pad and Kerlix. DTPI noted to L Sacrum(L)3.5cm x (W)3cm. Base of wound is maroon and indurated. DTPI R Sacrum(L)7cm x (W)9.5cm. Wound is irregular shaped. Base of wound is maroon and indurated. Scattered areas of darker skin tone without induration or erythema periwound. DTPI L lateral malleolus(L)2.5cm x (W)2cm. Base of wound is fluctuant,purple with surrounding maroon borders. No erythema or elevation in skin temp periwound. Partial thickness wound L 1st metatarsal head (L)2.5cm x (W)2cm. Base of wound is moist and viable. Edges are macerated. Non-blanching erythema without fluctuance periwound. DTPI Dorso/lateral R foot(L)2.3cm x (W)4.3cm. Base of injury is indurated purple /maroon in colour. No erythema or elevation in skin temp periwound. Hyperpigmentation from previous wounds noted to R and L hallux. Tx.Plan: Cleanse Skin tears R Elbow and L forearm with Saline. Apply Silvasorb Gel. Cover each wounds with Optifoam drsgs. Change every 7 days and prn. Apply Triad Paste to R and L Sacrum. Cover with Optifoam drsg. Change every 3 days and prn. Apply Cavilon to Malleoli both feet, Both heels and Both hallux . Cover each site with Optifoam drsgs turn q2h nutritional optimization (2) Respiratory insufficiency (3) Malnutrition Assessment & Plan: DAILY ESTIMATED NEEDS: Needs based on Critical care, wounds/ 60kg abw 22-28 kcals/kg 4945-1664 total kcals 1.25-2 g protein/kg 75-120 g total protein 25-30 mL/kg 5549-6952 total fluid mLs NUTRITION DIAGNOSIS: * Swallowing difficulty R/T respiratory status as evidenced by trach/vent dep, PEG dep. * Increased kcal/prot needs R/T wound healing as evidenced by pt admitted w/ multiple wounds, including DTPI x4, partial thickness x 1, and category 3 Skin tear, refer to WC eval. CURRENT TF:Glucerna 1.5 @ 45ml/hr x 22 hrs-> now Glucerna 1.2 @55ml x22 ENTERAL NUTRITION RECOMMENDATIONS: Glucerna 1.2 @ 57ml/hr x 22 hrs to provide 1254ml, 1505kcal, 75g prot, 1009ml free water * Rec to increase current updated TF to goal of 57ml/hr x22 hrs to better meet est kcal and pro needs * HOB Over 30 degrees/ water flush per MD * Hold Synthroid during 4 hrs that TF is off ADDITIONAL RECOMMENDATIONS: * Per SNF: HT=63", [id number] (as of 12/28/19) * Monitor lytes, replete as needed * Wound healing: w/ diarrhea, rec lower Vit C-> 250mg daily add Jerome 1pkt BID * Monitor K, renal labs, need for renal formula * calibrated bed scale wt as able (4) Pneumonia (5) Tracheal stenosis (6) Protein-calorie malnutrition, severe (7) Suspected COVID-19 virus infection Assessment & Plan: negative Sabino Gold Jan 13, 2020 14:53
[2020-01-13] MEDS: Lomotil 2.5mg tab GT PRN (18:29)
--- NOTE | 2020-01-13 19:13 | NUR ---
HAND-OFF: Report given to Mary RIVER. Pt remains stable.
--- NOTE | 2020-01-13 19:32 | NUR ---
NURSE NOTES: Report received from ALETA Flowers. Observed pt lying in the bed. Obtunded. SR with HR of 60s noted. Trach to vent, Portex 8, AC 18, TV 450, FIO2 40%, PEEP 8, tolerating well with current vent setting. GT intact running Glucerna 1.2 at 55cc/hr. Condom cath placed. IV on L FA 22G, TKO, asymptomatic. Bed in the lowest position. Side rails up x3. Will continue to monitor.
[2020-01-13] MEDS: Dyna-Hex 2% Top Sol 2oz TOPIC SCH (20:05)
--- NOTE | 2020-01-13 22:28 | Pulmonology Progress Note ---
Assessment/Plan Assessment/Plan Pulmonary Progress Note Assessment/Plan Impression: Pneumonia Sepsis Elevated troponin Renal failure Tracheostomy History of tracheal stenosis Ventilator Dependent Respiratory Failure Chronically altered mental status s/p previous CPA, anoxia Previous Seizures Previous pericardial effusion, Congestive Heart Failure, Atrial Fibrillation Diabetes, Hypothyroidism Previous Hematuria/UTI, previous sepsis GERD sp G tube polymicrobial infection diarrhea anemia PLAN rectal tube Cdif negative; gi following dc iv antibiotics vent management as is acid base noted; taper oxygen antibiotic regimen reviewed PICC line ID and renal noted gi clearance needed monitor for change feeds as able SNF meds noted seizure precautions follow up HH and other labs cardiology to monitor hemodynamics note reviewed and edited care discussed with RN and RT dc planning to snf if diarrhea improves GI eval appreciated Subjective ROS Limited/Unobtainable: Yes Condition: unchanged EKG Rhythm: Sinus Rhythm Residuals: minimal Tube Feeding Tolerated: yes I&O: Intake and Output 01/11/20 01/12/20 19:00 07:00 Intake Total 740 ml 1145 ml Output Total 1050 ml 1060 ml Balance -310 ml 85 ml Free Water 100 ml 100 ml IV Total 40 ml 440 ml Tube Feeding 600 ml 605 ml Output Urine Total 1050 ml 1050 ml Stool Total 10 ml Objective Vital Signs Noted Labs Test 01/10/20 03:40 01/10/20 03:42 01/11/20 04:55 01/12/20 06:00 Stool Occult Blood Negative (NEGATIVE) White Blood Count 6.4 K/UL (4.8-10.8) 7.1 K/UL (4.8-10.8) 6.4 K/UL (4.8-10.8) Red Blood Count 3.10 M/UL (4.70-6.10) 3.17 M/UL (4.70-6.10) 3.10 M/UL (4.70-6.10) Hemoglobin 10.0 G/DL (14.2-18.0) 10.1 G/DL (14.2-18.0) 9.7 G/DL (14.2-18.0) Hematocrit 28.5 % (42.0-52.0) 29.2 % (42.0-52.0) 28.5 % (42.0-52.0) Mean Corpuscular Volume 92 FL (80-99) 92 FL (80-99) 92 FL (80-99) Mean Corpuscular Hemoglobin 32.2 PG (27.0-31.0) 32.1 PG (27.0-31.0) 31.3 PG (27.0-31.0) Mean Corpuscular Hemoglobin Concent 35.0 G/DL (32.0-36.0) 34.8 G/DL (32.0-36.0) 34.1 G/DL (32.0-36.0) Red Cell Distribution Width 14.1 % (11.6-14.8) 13.9 % (11.6-14.8) 13.8 % (11.6-14.8) Platelet Count 179 K/UL (150-450) 196 K/UL (150-450) 190 K/UL (150-450) Mean Platelet Volume 7.1 FL (6.5-10.1) 8.1 FL (6.5-10.1) 8.0 FL (6.5-10.1) Neutrophils (%) (Auto) 63.5 % (45.0-75.0) 58.2 % (45.0-75.0) 55.5 % (45.0-75.0) Lymphocytes (%) (Auto) 18.4 % (20.0-45.0) 22.3 % (20.0-45.0) 25.2 % (20.0-45.0) Monocytes (%) (Auto) 13.1 % (1.0-10.0) 13.7 % (1.0-10.0) 13.8 % (1.0-10.0) Eosinophils (%) (Auto) 4.2 % (0.0-3.0) 4.7 % (0.0-3.0) 4.6 % (0.0-3.0) Basophils (%) (Auto) 0.8 % (0.0-2.0) 1.1 % (0.0-2.0) 0.9 % (0.0-2.0) Sodium Level 138 MMOL/L (136-145) 135 MMOL/L (136-145) 135 MMOL/L (136-145) Potassium Level 4.5 MMOL/L (3.5-5.1) 4.0 MMOL/L (3.5-5.1) 4.4 MMOL/L (3.5-5.1) Chloride Level 102 MMOL/L (98-107) 98 MMOL/L (98-107) 98 MMOL/L (98-107) Carbon Dioxide Level 26 MMOL/L (21-32) 33 MMOL/L (21-32) 31 MMOL/L (21-32) Anion Gap 10 mmol/L (5-15) 4 mmol/L (5-15) 6 mmol/L (5-15) Blood Urea Nitrogen 47 mg/dL (7-18) 43 mg/dL (7-18) 43 mg/dL (7-18) Creatinine 1.5 MG/DL (0.55-1.30) 1.5 MG/DL (0.55-1.30) 1.5 MG/DL (0.55-1.30) Estimat Glomerular Filtration Rate 45.4 mL/min (>60) 45.4 mL/min (>60) 45.4 mL/min (>60) Glucose Level 78 MG/DL (74-106) 94 MG/DL (74-106) 105 MG/DL (74-106) Calcium Level 9.2 MG/DL (8.5-10.1) 9.1 MG/DL (8.5-10.1) 8.9 MG/DL (8.5-10.1) Magnesium Level 2.1 MG/DL (1.8-2.4) 1.7 MG/DL (1.8-2.4) Pro-B-Type Natriuretic Peptide 3530 pg/mL (0-125) Objective: WDWN NAD reduced breath sounds bilaterally without rhonchi or wheeze [id number] without MRG NABS nontender no HSM GT no CCE nonfocal trach reviewed and edited Micro: Microbiology Date/Time Source Procedure Growth Status 01/11/20 13:45 Stool Clostridium difficile Toxin Assay - Final Complete Subjective ROS Limited/Unobtainable: No Allergies: Coded Allergies: No Known Allergies (Unverified , 12/31/19) Objective Last 24 Hour Vital Signs Date Time Temp Pulse Resp B/P (MAP) Pulse Ox O2 Delivery O2 Flow Rate FiO2 01/13/20 21:38 65 24 40 01/13/20 20:40 98.8 60 24 115/63 (80) 99 01/13/20 20:31 73 23 124/39 (67) 97 01/13/20 20:06 77 124/59 01/13/20 20:00 Mechanical Ventilator 01/13/20 20:00 40 01/13/20 20:00 61 01/13/20 19:41 73 22 40 01/13/20 16:49 66 24 40 01/13/20 15:54 40 01/13/20 15:53 Mechanical Ventilator 01/13/20 15:47 99.3 68 24 110/63 (79) 99 01/13/20 15:13 66 01/13/20 14:48 65 25 40 01/13/20 12:59 66 21 40 01/13/20 12:00 Mechanical Ventilator 01/13/20 12:00 40 01/13/20 12:00 98.8 70 24 109/62 (78) 100 01/13/20 11:46 63 01/13/20 11:14 66 25 40 01/13/20 09:20 72 24 40 01/13/20 08:27 68 110/67 01/13/20 08:00 Mechanical Ventilator 01/13/20 08:00 98.5 68 25 110/67 (81) 100 01/13/20 08:00 40 01/13/20 07:51 69 20 40 01/13/20 07:39 74 01/13/20 04:00 Mechanical Ventilator 01/13/20 04:00 71 01/13/20 04:00 40 01/13/20 04:00 98.0 65 20 120/71 (87) 100 01/13/20 03:12 69 20 40 01/13/20 00:00 98.6 62 18 112/70 (84) 100 01/13/20 00:00 Mechanical Ventilator 01/12/20 23:41 65 01/12/20 23:15 67 20 40 Intake and Output 01/12/20 01/13/20 19:00 07:00 Intake Total 1290 ml 1040 ml Output Total 1430 ml 1200 ml Balance -140 ml -160 ml Free Water 150 ml 180 ml IV Total 480 ml 200 ml Tube Feeding 660 ml 660 ml Output Urine Total 1350 ml 1200 ml Stool Total 80 ml # Bowel Movements 5 Microbiology Date/Time Source Procedure Growth Status 01/11/20 13:45 Stool Clostridium difficile Toxin Assay - Final Complete Laboratory Tests 01/13/20 07:00: White Blood Count 8.0, Red Blood Count 2.97L, Hemoglobin 9.5L, Hematocrit 27.5L , Mean Corpuscular Volume 92, Mean Corpuscular Hemoglobin 31.9H, Mean Corpuscular Hemoglobin Concent 34.5, Red Cell Distribution Width 13.4, Platelet Count 179, Mean Platelet Volume 7.8, Neutrophils (%) (Auto) 60.2, Lymphocytes (% ) (Auto) 22.9, Monocytes (%) (Auto) 13.1H, Eosinophils (%) (Auto) 2.6, Basophils (%) (Auto) 1.2, Sodium Level 131L, Potassium Level 4.7, Chloride Level 97L, Carbon Dioxide Level 32, Anion Gap 2L, Blood Urea Nitrogen 47H, Creatinine 1.6H, Estimat Glomerular Filtration Rate 42.1, Glucose Level 98, Calcium Level 9.4 Current Medications Medications (Trade) Dose Ordered Sig/Pau Route PRN Reason Start Time Stop Time Status Last Admin Dose Admin Acetaminophen (Tylenol) 650 mg Q4H PRN GT MILD/TEMP 01/09/20 06:30 02/08/20 06:29 Ascorbic Acid (Vitamin C) 500 mg DAILY GT 01/02/20 09:00 02/01/20 08:59 01/13/20 08:27 Carvedilol (Coreg) 6.25 mg EVERY 12 HOURS GT 01/08/20 09:00 02/07/20 08:59 01/13/20 20:06 Chlorhexidine Gluconate (Radha-Hex 2%) 1 applic DAILY@1999 TOPIC 01/08/20 20:00 04/07/20 19:59 01/13/20 20:05 Diphenoxylate HCl/ Atropine (Lomotil) 2.5 mg Q4H PRN GT Diarrhea 01/13/20 07:30 02/12/20 07:29 01/13/20 18:29 Famotidine (Pepcid) 20 mg BID GT 01/13/20 09:00 04/12/20 08:59 01/13/20 17:40 Heparin Sodium (Porcine) (Heparin 5000 units/ml) 5,000 units EVERY 12 HOURS SUBQ 01/01/20 21:00 02/15/20 20:59 01/13/20 20:07 Levetiracetam (Keppra) 750 mg EVERY 12 HOURS GT 01/02/20 09:00 02/01/20 08:59 01/13/20 20:05 Levothyroxine Sodium (Synthroid) 50 mcg DAILY GT 01/02/20 09:00 02/01/20 08:59 01/13/20 08:27 Levothyroxine Sodium (Synthroid) 125 mcg DAILY GT 01/02/20 09:00 02/01/20 08:59 01/13/20 08:27 Loperamide HCl (Imodium) 2 mg Q6H PRN NG Diarrhea 01/12/20 10:30 02/11/20 10:29 01/12/20 13:22 Lorazepam (Ativan 2mg/ml 1ml) 2 mg Q4H PRN IV For Seizures 01/09/20 00:00 01/16/20 00:00 01/09/20 00:03 Tony Costa MD Jan 13, 2020 22:28
[2020-01-14] VITALS: BP 105/61
--- NOTE | 2020-01-14 | NUR ---
NURSE NOTES: No acute distress noted at this time. Reposition done q 2hr. Oral care given. Tolerating well with current vent setting. GT intact, no residual and flushing well noted. Will continue to monitor.
[2020-01-14 04:00] VITALS: BP 102/58
--- NOTE | 2020-01-14 04:00 | Progress Note ---
DATE: 01/13/2020 CARDIOLOGY PROGRESS NOTE SUBJECTIVE: Still with diarrhea, but decreasing in quantity. C. diff remains negative. No active bleeding. Remains on chronic ventilator support with decreasing secretions. PHYSICAL EXAMINATION: VITALS: Blood pressure 124/59, pulse 77, respirations 22, afebrile. LUNGS: Good breath sounds. Thinner secretions. Bilateral rhonchi. CARDIAC: Regular rhythm and rate. Normal S1, S2. Monitored rhythm, sinus. ABDOMEN: Soft. EXTREMITIES: No edema. LABORATORY DATA: White count 8, hemoglobin 9.5. Sodium 131, potassium 4.7. BUN 47, creatinine 1.6, bicarb 32. IMPRESSION: 1. Respiratory failure. 2. Healthcare-associated pneumonia. 3. Myocardial ischemia. 4. Acute on chronic diastolic congestive heart failure. 5. Prerenal azotemia. 6. Hyponatremia. 7. Ventilator-dependent respiratory failure. PLAN: 1. Discontinue intravenous fluids. 2. Continue beta-blockade. 3. Respiratory hygiene ventilator support. 4. Antimicrobials. 5. Thyroid replacement. 6. Trend natriuretic peptide assay. 7. Follow up chest radiograph. Tony Lobo M.D. DR: Delia JOB#: [id number] CC:
--- NOTE | 2020-01-14 06:54 | NUR ---
HAND-OFF: Report given to ALETA Flowers. Charted by Mary Chaudhari
[2020-01-14 06:55] LABS: BASOPHILS % (AUTO) 1.6 % (0.0-2.0); EOSINOPHILS % (AUTO) 3.3 % (0.0-3.0); HEMATOCRIT 28.5 % (42.0-52.0); HEMOGLOBIN 9.9 G/DL (14.2-18.0); LYMPHOCYTES % (AUTO) 17.7 % (20.0-45.0); MEAN CORPUSCULAR VOLUME 92 FL (80-99); MONOCYTES % (AUTO) 14.7 % (1.0-10.0); NEUTROPHILS % (AUTO) 62.7 % (45.0-75.0); PLATELET COUNT 168 K/UL (150-450); RED BLOOD COUNT 3.09 M/UL (4.70-6.10); WHITE BLOOD COUNT 7.3 K/UL (4.8-10.8)
--- NOTE | 2020-01-14 06:55 | NUR ---
NURSE NOTES: Received report from Laurent RN. Pt in bed awake and confused. IV site in LFA 22G TKO patent and intact. No c/o pain on facial pain scale. On vent with setting with [id number]%, PEEP 8. On trach portex8 inatact. Bed in lowest position and locked. Call light within easy reach. Side railsx3 up with pads for safety. G-tube intact and patent Will continue to plan of care.
[2020-01-14 07:03] LABS: ANION GAP 6 mmol/L (5-15); BLOOD UREA NITROGEN 50 mg/dL (7-18); CALCIUM 8.8 MG/DL (8.5-10.1); CARBON DIOXIDE 28 MMOL/L (21-32); CHLORIDE 100 MMOL/L (98-107); CREATININE 1.5 MG/DL (0.55-1.30); POTASSIUM 4.9 MMOL/L (3.5-5.1); SODIUM 134 MMOL/L (136-145)
[2020-01-14 08:00] VITALS: BP 118/69
[2020-01-14] MEDS: Levothyroxine 125mcg tab GT SCH (08:48)
[2020-01-14] MEDS: Ascorbic Acid 500mg tab GT SCH (08:49)
[2020-01-14] MEDS: levETIRAcetam 500mg/5ml Liquid GT SCH ×2 (08:49→20:01)
[2020-01-14] MEDS: Carvedilol 6.25mg Tab GT SCH ×2 (08:49→20:01)
[2020-01-14] MEDS: Lomotil 2.5mg tab GT PRN (08:49)
[2020-01-14] MEDS: Heparin 5000 units/ml inj SUBQ SCH ×2 (08:57→20:02)
--- NOTE | 2020-01-14 09:21 | Diagnostic Imaging Report ---
EXAM: XR Chest, 1 View CLINICAL HISTORY: ABN CHST TECHNIQUE: Frontal view of the chest. COMPARISON: Chest x-ray dated 12/31/19 FINDINGS: Lungs: Interval improved aeration throughout the right lung, with residual reticular interstitial markings. Persistent diffuse patchy interstitial and airspace opacities throughout the left lung, not significantly changed. Pleural space: Unremarkable. The costophrenic angles are sharp. No visible pneumothorax. Heart: Unremarkable. No cardiomegaly. Mediastinum: Unremarkable. Bones/joints: Mild degenerative changes throughout the visualized spine. Tubes, lines and devices: Tracheostomy tube in place. Telemetry leads overlie the thorax. Upper abdomen: Radiodense clips project over the left upper abdominal quadrant. IMPRESSION: 1. Interval improved aeration throughout the right lung, with residual reticular interstitial markings. 2. Persistent diffuse patchy interstitial and airspace opacities throughout the left lung, not significantly changed, concerning for pneumonia.
--- NOTE | 2020-01-14 09:57 | General Progress Note ---
Assessment/Plan Problem List: (1) JOHN (acute kidney injury) ICD Codes: N17.9 - Acute kidney failure, unspecified SNOMED: 2278864, 96542916 (2) Dehydration ICD Codes: E86.0 - Dehydration SNOMED: 17541124 (3) Suspected COVID-19 virus infection ICD Codes: R68.89 - Other general symptoms and signs SNOMED: 922299108 (4) Tracheal stenosis ICD Codes: J39.8 - Other specified diseases of upper respiratory tract SNOMED: 91700442 (5) Pneumonia ICD Codes: J18.9 - Pneumonia, unspecified organism SNOMED: 712471491 (6) Malnutrition ICD Codes: E46 - Unspecified protein-calorie malnutrition SNOMED: 97264955 (7) Respiratory insufficiency ICD Codes: R06.89 - Other abnormalities of breathing SNOMED: 380185100 Status: stable Assessment/Plan: cont current rx iv abx per id. monitor na off ivf sz rx monitor bp dvt/stress ulcer prophylaxis transfuse as needed skin/wound care prn ivf dc planning? Subjective ROS Limited/Unobtainable: No Constitutional: Reports: malaise, weakness HEENT: Reports: no symptoms Cardiovascular: Reports: no symptoms Respiratory: Reports: cough, shortness of breath, sputum Gastrointestinal/Abdominal: Reports: difficulty swallowing Genitourinary: Reports: no symptoms Neurologic/Psychiatric: Reports: pre-existing deficit Endocrine: Reports: no symptoms Hematologic/Lymphatic: Reports: anemia Allergies: Coded Allergies: No Known Allergies (Unverified , 12/31/19) All Systems: reviewed and negative except above Subjective no events. diarrhea less. cdiff neg. stable on the vent. no fever or chills. labs reviewed. decreased h/h noted. no reports of bleeding poorly responsive at baseline. ID noted. GI noted. Objective Last 24 Hour Vital Signs Date Time Temp Pulse Resp B/P (MAP) Pulse Ox O2 Delivery O2 Flow Rate FiO2 01/14/20 09:07 73 28 40 01/14/20 08:49 70 118/69 01/14/20 08:00 40 01/14/20 08:00 Mechanical Ventilator 01/14/20 08:00 98.5 80 22 118/69 (85) 100 01/14/20 08:00 70 01/14/20 07:18 67 23 40 01/14/20 05:15 77 28 40 01/14/20 04:00 79 01/14/20 04:00 Mechanical Ventilator 01/14/20 04:00 97.6 68 30 102/58 (73) 98 01/14/20 04:00 40 01/14/20 03:36 71 22 40 01/14/20 01:45 64 22 40 01/14/20 00:00 98.5 70 24 105/61 (76) 99 01/14/20 00:00 Mechanical Ventilator 01/14/20 00:00 40 01/13/20 23:57 61 01/13/20 22:41 61 21 40 01/13/20 21:38 65 24 40 01/13/20 20:40 98.8 60 24 115/63 (80) 99 01/13/20 20:31 73 23 124/39 (67) 97 01/13/20 20:06 77 124/59 01/13/20 20:00 Mechanical Ventilator 01/13/20 20:00 40 01/13/20 20:00 61 01/13/20 19:41 73 22 40 01/13/20 16:49 66 24 40 01/13/20 15:54 40 01/13/20 15:53 Mechanical Ventilator 01/13/20 15:47 99.3 68 24 110/63 (79) 99 01/13/20 15:13 66 01/13/20 14:48 65 25 40 01/13/20 12:59 66 21 40 01/13/20 12:00 Mechanical Ventilator 01/13/20 12:00 40 01/13/20 12:00 98.8 70 24 109/62 (78) 100 01/13/20 11:46 63 01/13/20 11:14 66 25 40 Intake and Output 01/13/20 01/14/20 19:00 07:00 Intake Total 700 ml 270 ml Output Total 1180 ml 850 ml Balance -480 ml -580 ml Free Water 150 ml 50 ml Tube Feeding 550 ml 220 ml Output Urine Total 1100 ml 850 ml Stool Total 80 ml Laboratory Tests 01/14/20 05:45: White Blood Count 7.3, Red Blood Count 3.09L, Hemoglobin 9.9L, Hematocrit 28.5L , Mean Corpuscular Volume 92, Mean Corpuscular Hemoglobin 32.1H, Mean Corpuscular Hemoglobin Concent 34.8, Red Cell Distribution Width 13.0, Platelet Count 168, Mean Platelet Volume 8.3, Neutrophils (%) (Auto) 62.7, Lymphocytes (% ) (Auto) 17.7L, Monocytes (%) (Auto) 14.7H, Eosinophils (%) (Auto) 3.3H, Basophils (%) (Auto) 1.6, Sodium Level 134L, Potassium Level 4.9, Chloride Level 100, Carbon Dioxide Level 28, Anion Gap 6, Blood Urea Nitrogen 50H, Creatinine 1.5H, Estimat Glomerular Filtration Rate 45.4, Glucose Level 101, Calcium Level 8.8, Magnesium Level 2.0, Pro-B-Type Natriuretic Peptide 1968H Height (Feet): 5 Height (Inches): 5.00 Weight (Pounds): 121 Objective General Appearance: WD/WN, alert Neck: supple Cardiovascular: regular rhythm Respiratory/Chest: chest wall non-tender, rhonchi - bilaterally Abdomen: normal bowel sounds, non tender, soft, no organomegaly Edema: no edema noted Arm (L), no edema noted Arm (R), no edema noted Leg (L), no edema noted Leg (R), no edema noted Pedal (L), no edema noted Pedal (R), no edema noted Generalized Neurologic: disoriented, aphasia Vasquez De Paz MD Jan 14, 2020 09:57
--- NOTE | 2020-01-14 11:19 | Nephrology Progress Note ---
Assessment/Plan Problem List: (1) Hypernatremia (2) Dehydration (3) JOHN (acute kidney injury) (4) Respiratory insufficiency (5) Pneumonia (6) Protein-calorie malnutrition, severe (7) Hx of tracheostomy (8) CKD (chronic kidney disease) stage 3, GFR 30-59 ml/min Plan continue hypotonic iv's, reduced rate antibiotics BUN and Na improving Subjective ROS Limited/Unobtainable: Yes Objective Objective Last 24 Hour Vital Signs Date Time Temp Pulse Resp B/P (MAP) Pulse Ox O2 Delivery O2 Flow Rate FiO2 01/14/20 11:12 68 24 40 01/14/20 09:07 73 28 40 01/14/20 08:49 70 118/69 01/14/20 08:00 40 01/14/20 08:00 Mechanical Ventilator 01/14/20 08:00 98.5 80 22 118/69 (85) 100 01/14/20 08:00 70 01/14/20 07:18 67 23 40 01/14/20 05:15 77 28 40 01/14/20 04:00 79 01/14/20 04:00 Mechanical Ventilator 01/14/20 04:00 97.6 68 30 102/58 (73) 98 01/14/20 04:00 40 01/14/20 03:36 71 22 40 01/14/20 01:45 64 22 40 01/14/20 00:00 98.5 70 24 105/61 (76) 99 01/14/20 00:00 Mechanical Ventilator 01/14/20 00:00 40 01/13/20 23:57 61 01/13/20 22:41 61 21 40 01/13/20 21:38 65 24 40 01/13/20 20:40 98.8 60 24 115/63 (80) 99 01/13/20 20:31 73 23 124/39 (67) 97 01/13/20 20:06 77 124/59 01/13/20 20:00 Mechanical Ventilator 01/13/20 20:00 40 01/13/20 20:00 61 01/13/20 19:41 73 22 40 01/13/20 16:49 66 24 40 01/13/20 15:54 40 01/13/20 15:53 Mechanical Ventilator 01/13/20 15:47 99.3 68 24 110/63 (79) 99 01/13/20 15:13 66 01/13/20 14:48 65 25 40 01/13/20 12:59 66 21 40 01/13/20 12:00 Mechanical Ventilator 01/13/20 12:00 40 01/13/20 12:00 98.8 70 24 109/62 (78) 100 01/13/20 11:46 63 Intake and Output 01/13/20 01/14/20 19:00 07:00 Intake Total 700 ml 270 ml Output Total 1180 ml 850 ml Balance -480 ml -580 ml Free Water 150 ml 50 ml Tube Feeding 550 ml 220 ml Output Urine Total 1100 ml 850 ml Stool Total 80 ml Laboratory Tests 01/14/20 05:45: White Blood Count 7.3, Red Blood Count 3.09L, Hemoglobin 9.9L, Hematocrit 28.5L , Mean Corpuscular Volume 92, Mean Corpuscular Hemoglobin 32.1H, Mean Corpuscular Hemoglobin Concent 34.8, Red Cell Distribution Width 13.0, Platelet Count 168, Mean Platelet Volume 8.3, Neutrophils (%) (Auto) 62.7, Lymphocytes (% ) (Auto) 17.7L, Monocytes (%) (Auto) 14.7H, Eosinophils (%) (Auto) 3.3H, Basophils (%) (Auto) 1.6, Sodium Level 134L, Potassium Level 4.9, Chloride Level 100, Carbon Dioxide Level 28, Anion Gap 6, Blood Urea Nitrogen 50H, Creatinine 1.5H, Estimat Glomerular Filtration Rate 45.4, Glucose Level 101, Calcium Level 8.8, Magnesium Level 2.0, Pro-B-Type Natriuretic Peptide 1968H Height (Feet): 5 Height (Inches): 5.00 Weight (Pounds): 121 General Appearance: lethargic, confused Cardiovascular: regular rhythm Respiratory/Chest: rhonchi - bilaterally Abdomen: non tender Extremities: trace edema Neurologic: abnormal powder blender II-XII, motor weakness, disoriented Pravin Abad MD Jan 14, 2020 11:19
--- NOTE | 2020-01-14 11:48 | Infectious Diseases Prog Note ---
"Assessment/Plan Assessment/Plan A 1. E.coli, Pseudomonas & Acinetobacter pneumonia COVID19 test negative 4.5.20, 4.8.20 2. leucocytosis improving 3. renal failure improving 4. + blood cultures with coag neg staph | diphtheroids likely contaminated 5. Ventilatory dependent respiratory failure 6. Diarrhea, negative C. difficile P 1. Observe off antibiotic Subjective ROS Limited/Unobtainable: Yes Gastrointestinal/Abdominal: Reports: diarrhea Allergies: Coded Allergies: No Known Allergies (Unverified , 12/31/19) Objective Vital Signs Last 24 Hour Vital Signs Date Time Temp Pulse Resp B/P (MAP) Pulse Ox O2 Delivery O2 Flow Rate FiO2 01/14/20 11:12 68 24 40 01/14/20 09:07 73 28 40 01/14/20 08:49 70 118/69 01/14/20 08:00 40 01/14/20 08:00 Mechanical Ventilator 01/14/20 08:00 98.5 80 22 118/69 (85) 100 01/14/20 08:00 70 01/14/20 07:18 67 23 40 01/14/20 05:15 77 28 40 01/14/20 04:00 79 01/14/20 04:00 Mechanical Ventilator 01/14/20 04:00 97.6 68 30 102/58 (73) 98 01/14/20 04:00 40 01/14/20 03:36 71 22 40 01/14/20 01:45 64 22 40 01/14/20 00:00 98.5 70 24 105/61 (76) 99 01/14/20 00:00 Mechanical Ventilator 01/14/20 00:00 40 01/13/20 23:57 61 01/13/20 22:41 61 21 40 01/13/20 21:38 65 24 40 01/13/20 20:40 98.8 60 24 115/63 (80) 99 01/13/20 20:31 73 23 124/39 (67) 97 01/13/20 20:06 77 124/59 01/13/20 20:00 Mechanical Ventilator 01/13/20 20:00 40 01/13/20 20:00 61 01/13/20 19:41 73 22 40 01/13/20 16:49 66 24 40 01/13/20 15:54 40 01/13/20 15:53 Mechanical Ventilator 01/13/20 15:47 99.3 68 24 110/63 (79) 99 01/13/20 15:13 66 01/13/20 14:48 65 25 40 01/13/20 12:59 66 21 40 01/13/20 12:00 Mechanical Ventilator 01/13/20 12:00 40 01/13/20 12:00 98.8 70 24 109/62 (78) 100 Height (Feet): 5 Height (Inches): 5.00 Weight (Pounds): 121 General Appearance: no acute distress HEENT: mucous membranes moist Respiratory/Chest: lungs clear, other - on ventilator Abdomen: soft, non tender, other - GT feeding Extremities: no edema Neurologic/Psychiatric: aphasia Microbiology Date/Time Source Procedure Growth Status 01/11/20 13:45 Stool Clostridium difficile Toxin Assay - Final Complete Laboratory Tests Test 01/14/20 05:45 White Blood Count 7.3 K/UL (4.8-10.8) Red Blood Count 3.09 M/UL (4.70-6.10) L Hemoglobin 9.9 G/DL (14.2-18.0) L Hematocrit 28.5 % (42.0-52.0) L Mean Corpuscular Volume 92 FL (80-99) Mean Corpuscular Hemoglobin 32.1 PG (27.0-31.0) H Mean Corpuscular Hemoglobin Concent 34.8 G/DL (32.0-36.0) Red Cell Distribution Width 13.0 % (11.6-14.8) Platelet Count 168 K/UL (150-450) Mean Platelet Volume 8.3 FL (6.5-10.1) Neutrophils (%) (Auto) 62.7 % (45.0-75.0) Lymphocytes (%) (Auto) 17.7 % (20.0-45.0) L Monocytes (%) (Auto) 14.7 % (1.0-10.0) H Eosinophils (%) (Auto) 3.3 % (0.0-3.0) H Basophils (%) (Auto) 1.6 % (0.0-2.0) Sodium Level 134 MMOL/L (136-145) L Potassium Level 4.9 MMOL/L (3.5-5.1) Chloride Level 100 MMOL/L (98-107) Carbon Dioxide Level 28 MMOL/L (21-32) Anion Gap 6 mmol/L (5-15) Blood Urea Nitrogen 50 mg/dL (7-18) H Creatinine 1.5 MG/DL (0.55-1.30) H Estimat Glomerular Filtration Rate 45.4 mL/min (>60) Glucose Level 101 MG/DL (74-106) Calcium Level 8.8 MG/DL (8.5-10.1) Magnesium Level 2.0 MG/DL (1.8-2.4) Pro-B-Type Natriuretic Peptide 1968 pg/mL (0-125) H Current Medications Medications (Trade) Dose Ordered Sig/Pau Route PRN Reason Start Time Stop Time Status Last Admin Dose Admin Acetaminophen (Tylenol) 650 mg Q4H PRN GT MILD/TEMP 01/09/20 06:30 02/08/20 06:29 Ascorbic Acid (Vitamin C) 500 mg DAILY GT 01/02/20 09:00 02/01/20 08:59 01/14/20 08:49 Carvedilol (Coreg) 6.25 mg EVERY 12 HOURS GT 01/08/20 09:00 02/07/20 08:59 01/14/20 08:49 Chlorhexidine Gluconate (Radha-Hex 2%) 1 applic DAILY@2000 TOPIC 01/08/20 20:00 04/07/20 19:59 01/13/20 20:05 Dextrose 1,000 ml @ 50 mls/hr Q20H IV 01/14/20 11:30 02/13/20 11:29 01/14/20 11:41 Diphenoxylate HCl/ Atropine (Lomotil) 2.5 mg Q4H PRN GT Diarrhea 01/13/20 07:30 02/12/20 07:29 01/14/20 08:49 Famotidine (Pepcid) 20 mg BID GT 01/13/20 09:00 04/12/20 08:59 01/14/20 08:49 Heparin Sodium (Porcine) (Heparin 5000 units/ml) 5,000 units EVERY 12 HOURS SUBQ 01/01/20 21:00 02/15/20 20:59 01/14/20 08:57 Levetiracetam (Keppra) 750 mg EVERY 12 HOURS GT 01/02/20 09:00 02/01/20 08:59 01/14/20 08:49 Levothyroxine Sodium (Synthroid) 50 mcg DAILY GT 01/02/20 09:00 02/01/20 08:59 01/14/20 08:48 Levothyroxine Sodium (Synthroid) 125 mcg DAILY GT 01/02/20 09:00 02/01/20 08:59 01/14/20 08:48 Loperamide HCl (Imodium) 2 mg Q6H PRN NG Diarrhea 01/12/20 10:30 02/11/20 10:29 01/12/20 13:22 Lorazepam (Ativan 2mg/ml 1ml) 2 mg Q4H PRN IV For Seizures 01/09/20 00:00 01/16/20 00:00 01/09/20 00:03 Logan Henley MD Jan 14, 2020 11:48"
[2020-01-14 12:00] VITALS: BP 111/64
[2020-01-14] MEDS ORDERED: NS 275ml ONE (13:21)
--- NOTE | 2020-01-14 13:26 | Surgery Progress Note ---
Surgery Progress Note Subjective Additional Comments labs okay imaging reviewd Objective Last 24 Hour Vital Signs Date Time Temp Pulse Resp B/P (MAP) Pulse Ox O2 Delivery O2 Flow Rate FiO2 01/14/20 13:09 65 21 40 01/14/20 12:00 99.7 71 21 111/64 (80) 100 01/14/20 12:00 Mechanical Ventilator 01/14/20 12:00 40 01/14/20 12:00 62 01/14/20 11:12 68 24 40 01/14/20 09:07 73 28 40 01/14/20 08:49 70 118/69 01/14/20 08:00 40 01/14/20 08:00 Mechanical Ventilator 01/14/20 08:00 98.5 80 22 118/69 (85) 100 01/14/20 08:00 70 01/14/20 07:18 67 23 40 01/14/20 05:15 77 28 40 01/14/20 04:00 79 01/14/20 04:00 Mechanical Ventilator 01/14/20 04:00 97.6 68 30 102/58 (73) 98 01/14/20 04:00 40 01/14/20 03:36 71 22 40 01/14/20 01:45 64 22 40 01/14/20 00:00 98.5 70 24 105/61 (76) 99 01/14/20 00:00 Mechanical Ventilator 01/14/20 00:00 40 01/13/20 23:57 61 01/13/20 22:41 61 21 40 01/13/20 21:38 65 24 40 01/13/20 20:40 98.8 60 24 115/63 (80) 99 01/13/20 20:31 73 23 124/39 (67) 97 01/13/20 20:06 77 124/59 01/13/20 20:00 Mechanical Ventilator 01/13/20 20:00 40 01/13/20 20:00 61 01/13/20 19:41 73 22 40 01/13/20 16:49 66 24 40 01/13/20 15:54 40 01/13/20 15:53 Mechanical Ventilator 01/13/20 15:47 99.3 68 24 110/63 (79) 99 01/13/20 15:13 66 01/13/20 14:48 65 25 40 I&O Intake and Output 01/13/20 01/14/20 19:00 07:00 Intake Total 700 ml 270 ml Output Total 1180 ml 850 ml Balance -480 ml -580 ml Free Water 150 ml 50 ml Tube Feeding 550 ml 220 ml Output Urine Total 1100 ml 850 ml Stool Total 80 ml Dressing: other Wound: other Drains: other Cardiovascular: RSR Respiratory: decreased breath sounds Abdomen: soft, non-tender, present bowel sounds Extremities: no cyanosis Laboratory Tests Test 01/14/20 05:45 White Blood Count 7.3 K/UL (4.8-10.8) Red Blood Count 3.09 M/UL (4.70-6.10) L Hemoglobin 9.9 G/DL (14.2-18.0) L Hematocrit 28.5 % (42.0-52.0) L Mean Corpuscular Volume 92 FL (80-99) Mean Corpuscular Hemoglobin 32.1 PG (27.0-31.0) H Mean Corpuscular Hemoglobin Concent 34.8 G/DL (32.0-36.0) Red Cell Distribution Width 13.0 % (11.6-14.8) Platelet Count 168 K/UL (150-450) Mean Platelet Volume 8.3 FL (6.5-10.1) Neutrophils (%) (Auto) 62.7 % (45.0-75.0) Lymphocytes (%) (Auto) 17.7 % (20.0-45.0) L Monocytes (%) (Auto) 14.7 % (1.0-10.0) H Eosinophils (%) (Auto) 3.3 % (0.0-3.0) H Basophils (%) (Auto) 1.6 % (0.0-2.0) Sodium Level 134 MMOL/L (136-145) L Potassium Level 4.9 MMOL/L (3.5-5.1) Chloride Level 100 MMOL/L (98-107) Carbon Dioxide Level 28 MMOL/L (21-32) Anion Gap 6 mmol/L (5-15) Blood Urea Nitrogen 50 mg/dL (7-18) H Creatinine 1.5 MG/DL (0.55-1.30) H Estimat Glomerular Filtration Rate 45.4 mL/min (>60) Glucose Level 101 MG/DL (74-106) Calcium Level 8.8 MG/DL (8.5-10.1) Magnesium Level 2.0 MG/DL (1.8-2.4) Pro-B-Type Natriuretic Peptide 1968 pg/mL (0-125) H Plan Problems: (1) Decubitus skin ulcer Assessment & Plan: Pt presented on admission with contractures, multiple Skin Breakdown. Skin assessed under collar of trach and no skin breakdown noted.Category 3 Skin tear R elbow(L)4.5cm x (W)5cm. Full flap loss noted. Base of wound moist and viable,edges adherent. No exudate noted. No erythema or elevated skin temp periwound. Category 2 Skin tear L forearm. Full flap intact and reattached. Moderate amt sanguineous exudate noted. Silvasorb Gel applied and covered with Optifoam drsg. Reinforced with ABD Pad and Kerlix. DTPI noted to L Sacrum(L)3.5cm x (W)3cm. Base of wound is maroon and indurated. DTPI R Sacrum(L)7cm x (W)9.5cm. Wound is irregular shaped. Base of wound is maroon and indurated. Scattered areas of darker skin tone without induration or erythema periwound. DTPI L lateral malleolus(L)2.5cm x (W)2cm. Base of wound is fluctuant,purple with surrounding maroon borders. No erythema or elevation in skin temp periwound. Partial thickness wound L 1st metatarsal head (L)2.5cm x (W)2cm. Base of wound is moist and viable. Edges are macerated. Non-blanching erythema without fluctuance periwound. DTPI Dorso/lateral R foot(L)2.3cm x (W)4.3cm. Base of injury is indurated purple /maroon in colour. No erythema or elevation in skin temp periwound. Hyperpigmentation from previous wounds noted to R and L hallux. Tx.Plan: Cleanse Skin tears R Elbow and L forearm with Saline. Apply Silvasorb Gel. Cover each wounds with Optifoam drsgs. Change every 7 days and prn. Apply Triad Paste to R and L Sacrum. Cover with Optifoam drsg. Change every 3 days and prn. Apply Cavilon to Malleoli both feet, Both heels and Both hallux . Cover each site with Optifoam drsgs turn q2h nutritional optimization (2) Respiratory insufficiency (3) Malnutrition Assessment & Plan: DAILY ESTIMATED NEEDS: Needs based on Critical care, wounds/ 60kg abw 22-28 kcals/kg 6096-2684 total kcals 1.25-2 g protein/kg 75-120 g total protein 25-30 mL/kg 0871-3143 total fluid mLs NUTRITION DIAGNOSIS: * Swallowing difficulty R/T respiratory status as evidenced by trach/vent dep, PEG dep. * Increased kcal/prot needs R/T wound healing as evidenced by pt admitted w/ multiple wounds, including DTPI x4, partial thickness x 1, and category 3 Skin tear, refer to eval. CURRENT TF:Glucerna 1.5 @ 45ml/hr x 22 hrs-> now Glucerna 1.2 @55ml x22 ENTERAL NUTRITION RECOMMENDATIONS: Glucerna 1.2 @ 57ml/hr x 22 hrs to provide 1254ml, 1505kcal, 75g prot, 1009ml free water * Rec to increase current updated TF to goal of 57ml/hr x22 hrs to better meet est kcal and pro needs * HOB Over 30 degrees/ water flush per MD * Hold Synthroid during 4 hrs that TF is off ADDITIONAL RECOMMENDATIONS: * Per SNF: HT=63", SK=080lkn (as of 12/28/19) * Monitor lytes, replete as needed * Wound healing: w/ diarrhea, rec lower Vit C-> 250mg daily add Jerome 1pkt BID * Monitor K, renal labs, need for renal formula * calibrated bed scale wt as able (4) Pneumonia (5) Tracheal stenosis (6) Protein-calorie malnutrition, severe (7) Suspected COVID-19 virus infection Assessment & Plan: negative Sabino Gold Jan 14, 2020 13:26
[2020-01-14] MEDS: Acetaminophen 650mg/20.3ml GT PRN (15:47)
[2020-01-14 16:00] VITALS: BP 109/63
--- NOTE | 2020-01-14 19:19 | NUR ---
HAND-OFF: Report given to Mariza RIVER. Pt remains stable.
--- NOTE | 2020-01-14 19:20 | NUR ---
NURSE NOTES: Received patient and report from ALETA Flowers. Patient is observed resting in bed and remains alert and oriented x0-1. No pain noted upon assessment. Pt is trach to vent with the following settings: AC 10 TV 450 FiO2 100% PEEP 5 and no s/sx of acute distress. Pt noted to be SR on tele monitor with a current HR of 68 noted, no s/sx of acute distress. GT noted which remains intact and patent and infusing feeding as prescribed, no residual noted. Condom catheter noted and remains draining yellow urine to gravity. Rectal tube noted which remains draining a small amount of brown liquid stool. R FA 22g IV catheter remains intact, patent and infusing D5W as prescribed. Diagnostics reviewed. Skin alterations noted. Fall, Aspiration and Seizure precautions observed. Pt remains resting in bed; Bed remains in the lowest position with the safety wheels engaged, call light within reach, side rails up x3 and bed alarm activated. Will continue plan of care. Will continue to monitor.
[2020-01-14 20:00] VITALS: BP 105/55
--- NOTE | 2020-01-14 22:30 | Pulmonology Progress Note ---
Assessment/Plan Assessment/Plan Pulmonary Progress Note Assessment/Plan Impression: Pneumonia Sepsis Elevated troponin Renal failure Tracheostomy History of tracheal stenosis Ventilator Dependent Respiratory Failure Chronically altered mental status s/p previous CPA, anoxia Previous Seizures Previous pericardial effusion, Congestive Heart Failure, Atrial Fibrillation Diabetes, Hypothyroidism Previous Hematuria/UTI, previous sepsis GERD sp G tube polymicrobial infection diarrhea anemia PLAN rectal tube Cdif negative; gi following dc iv antibiotics vent management as is acid base noted; taper oxygen antibiotic regimen reviewed PICC line ID and renal noted gi clearance needed monitor for change feeds as able SNF meds noted seizure precautions follow up HH and other labs cardiology to monitor hemodynamics note reviewed and edited care discussed with RN and RT dc planning to snf if diarrhea improves GI eval appreciated Subjective ROS Limited/Unobtainable: Yes Condition: unchanged EKG Rhythm: Sinus Rhythm Residuals: minimal Tube Feeding Tolerated: yes Objective Vital Signs Noted Labs Noted Objective: WDWN NAD reduced breath sounds bilaterally without rhonchi or wheeze [id number] without MRG NABS nontender no HSM GT no CCE nonfocal trach reviewed and edited Micro: Microbiology Date/Time Source Procedure Growth Status 01/11/20 13:45 Stool Clostridium difficile Toxin Assay - Final Complete Subjective ROS Limited/Unobtainable: No Allergies: Coded Allergies: No Known Allergies (Unverified , 12/31/19) Objective Last 24 Hour Vital Signs Date Time Temp Pulse Resp B/P (MAP) Pulse Ox O2 Delivery O2 Flow Rate FiO2 01/14/20 21:30 73 27 40 01/14/20 20:00 Mechanical Ventilator 01/14/20 20:00 98.9 65 22 105/55 (72) 99 01/14/20 20:00 40 01/14/20 19:56 65 23 40 01/14/20 19:02 66 01/14/20 17:49 99.0 01/14/20 17:16 67 23 40 01/14/20 16:00 Mechanical Ventilator 01/14/20 16:00 40 01/14/20 16:00 67 01/14/20 16:00 100.1 68 24 109/63 (78) 98 01/14/20 13:09 65 21 40 01/14/20 12:00 99.7 71 21 111/64 (80) 100 01/14/20 12:00 Mechanical Ventilator 01/14/20 12:00 40 01/14/20 12:00 62 01/14/20 11:12 68 24 40 01/14/20 09:07 73 28 40 01/14/20 08:49 70 118/69 01/14/20 08:00 40 01/14/20 08:00 Mechanical Ventilator 01/14/20 08:00 98.5 80 22 118/69 (85) 100 01/14/20 08:00 70 01/14/20 07:18 67 23 40 01/14/20 05:15 77 28 40 01/14/20 04:00 79 01/14/20 04:00 Mechanical Ventilator 01/14/20 04:00 97.6 68 30 102/58 (73) 98 01/14/20 04:00 40 01/14/20 03:36 71 22 40 01/14/20 01:45 64 22 40 01/14/20 00:00 98.5 70 24 105/61 (76) 99 01/14/20 00:00 Mechanical Ventilator 01/14/20 00:00 40 01/13/20 23:57 61 01/13/20 22:41 61 21 40 Intake and Output 01/13/20 01/14/20 19:00 07:00 Intake Total 700 ml 270 ml Output Total 1180 ml 850 ml Balance -480 ml -580 ml Free Water 150 ml 50 ml Tube Feeding 550 ml 220 ml Output Urine Total 1100 ml 850 ml Stool Total 80 ml Laboratory Tests 01/14/20 05:45: White Blood Count 7.3, Red Blood Count 3.09L, Hemoglobin 9.9L, Hematocrit 28.5L , Mean Corpuscular Volume 92, Mean Corpuscular Hemoglobin 32.1H, Mean Corpuscular Hemoglobin Concent 34.8, Red Cell Distribution Width 13.0, Platelet Count 168, Mean Platelet Volume 8.3, Neutrophils (%) (Auto) 62.7, Lymphocytes (% ) (Auto) 17.7L, Monocytes (%) (Auto) 14.7H, Eosinophils (%) (Auto) 3.3H, Basophils (%) (Auto) 1.6, Sodium Level 134L, Potassium Level 4.9, Chloride Level 100, Carbon Dioxide Level 28, Anion Gap 6, Blood Urea Nitrogen 50H, Creatinine 1.5H, Estimat Glomerular Filtration Rate 45.4, Glucose Level 101, Calcium Level 8.8, Magnesium Level 2.0, Pro-B-Type Natriuretic Peptide 1968H Current Medications Medications (Trade) Dose Ordered Sig/Pau Route PRN Reason Start Time Stop Time Status Last Admin Dose Admin Acetaminophen (Tylenol) 650 mg Q4H PRN GT MILD/TEMP 01/09/20 06:30 02/08/20 06:29 01/14/20 15:47 Ascorbic Acid (Vitamin C) 500 mg DAILY GT 01/02/20 09:00 02/01/20 08:59 01/14/20 08:49 Carvedilol (Coreg) 6.25 mg EVERY 12 HOURS GT 01/08/20 09:00 02/07/20 08:59 01/14/20 08:49 Dextrose 1,000 ml @ 50 mls/hr Q20H IV 01/14/20 11:30 02/13/20 11:29 01/14/20 11:41 Diphenoxylate HCl/ Atropine (Lomotil) 2.5 mg Q4H PRN GT Diarrhea 01/13/20 07:30 02/12/20 07:29 01/14/20 08:49 Famotidine (Pepcid) 20 mg BID GT 01/13/20 09:00 04/12/20 08:59 01/14/20 17:42 Heparin Sodium (Porcine) (Heparin 5000 units/ml) 5,000 units EVERY 12 HOURS SUBQ 01/01/20 21:00 02/15/20 20:59 01/14/20 20:02 Levetiracetam (Keppra) 750 mg EVERY 12 HOURS GT 01/02/20 09:00 02/01/20 08:59 01/14/20 20:01 Levothyroxine Sodium (Synthroid) 50 mcg DAILY GT 01/02/20 09:00 02/01/20 08:59 01/14/20 08:48 Levothyroxine Sodium (Synthroid) 125 mcg DAILY GT 01/02/20 09:00 02/01/20 08:59 01/14/20 08:48 Loperamide HCl (Imodium) 2 mg Q6H PRN NG Diarrhea 01/12/20 10:30 02/11/20 10:29 01/14/20 13:45 Lorazepam (Ativan 2mg/ml 1ml) 2 mg Q4H PRN IV For Seizures 01/09/20 00:00 01/16/20 00:00 01/09/20 00:03 Tony Costa MD Jan 14, 2020 22:30
--- NOTE | 2020-01-14 23:00 | NUR ---
NURSE NOTES: Pt provided with a bed bath, oral care, linen change and suctioning for excess secretions. ROM exercises performed per patient tolerance. Pt tolerated care well and remains clean and dry. Fall, Aspiration and Seizure precautions observed. Pt remains resting in bed; Bed remains in the lowest position with the safety wheels engaged, call light within reach, side rails up x3 and bed alarm activated. Will continue plan of care. Will continue to monitor.
[2020-01-15] VITALS: BP 101/56
--- NOTE | 2020-01-15 03:00 | NUR ---
NURSE NOTES: Pt provided with a bed bath, oral care and suctioning for excess secretions. Rectal tube noted to be leaking; approximately 50mL of liquid stool noted.ROM exercises performed per patient tolerance. Pt tolerated care well and remains clean and dry. Fall, Aspiration and Seizure precautions observed. Pt remains resting in bed; Bed remains in the lowest position with the safety wheels engaged, call light within reach, side rails up x3 and bed alarm activated. Will continue plan of care. Will continue to monitor.
[2020-01-15 04:00] VITALS: BP 100/59
--- NOTE | 2020-01-15 05:05 | NUR ---
NURSE NOTES: New bag of D5W started early due to getting caught on medical coding technician and breaking sterility.
[2020-01-15 05:06] LABS: BASOPHILS % (AUTO) 1.1 % (0.0-2.0); EOSINOPHILS % (AUTO) 3.1 % (0.0-3.0); HEMATOCRIT 26.1 % (42.0-52.0); LYMPHOCYTES % (AUTO) 28.6 % (20.0-45.0); MEAN CORPUSCULAR VOLUME 93 FL (80-99); MONOCYTES % (AUTO) 12.7 % (1.0-10.0); NEUTROPHILS % (AUTO) 54.5 % (45.0-75.0); PLATELET COUNT 184 K/UL (150-450); RED BLOOD COUNT 2.82 M/UL (4.70-6.10); RED CELL DISTRIBUTION WIDTH 12.8 % (11.6-14.8); WHITE BLOOD COUNT 6.9 K/UL (4.8-10.8)
[2020-01-15 05:38] LABS: ALANINE AMINOTRANSFERASE 51 U/L (12-78); ALBUMIN 1.8 G/DL (3.4-5.0); ALBUMIN/GLOBULIN RATIO 0.3 (1.0-2.7); ALKALINE PHOSPHATASE 126 U/L (46-116); ANION GAP 9 mmol/L (5-15); ASPARTATE AMINO TRANSFERASE 50 U/L (15-37); BILIRUBIN,TOTAL 0.3 MG/DL (0.2-1.0); BLOOD UREA NITROGEN 55 mg/dL (7-18); CALCIUM 8.4 MG/DL (8.5-10.1); CARBON DIOXIDE 27 MMOL/L (21-32); CHLORIDE 98 MMOL/L (98-107); CREATININE 1.6 MG/DL (0.55-1.30); POTASSIUM 4.6 MMOL/L (3.5-5.1); SODIUM 134 MMOL/L (136-145)
--- NOTE | 2020-01-15 06:45 | Progress Note ---
DATE: 01/14/2020 CARDIOLOGY PROGRESS NOTE SUBJECTIVE: Monitored rhythm, sinus. Rare atrial ectopics. Remains on ventilator support. Secretions have decreased. Diarrhea is decreasing. C. difficile negative. OBJECTIVE: VITAL SIGNS: Blood pressure 118/69, heart rate 70, respiratory rate 22 to 28, afebrile. LUNGS: Bilateral breath sounds. Rhonchi. CARDIAC: Regular rhythm and rate. Normal S1, S2. ABDOMEN: Soft. EXTREMITIES: Trace edema. LABORATORY AND DIAGNOSTIC DATA: White count 7.3, hemoglobin 9.9. Sodium 134, potassium 4.9, bicarb 28, BUN 50, creatinine 1.5. Pro-natriuretic peptide has decreased to 1968. Chest x-ray today reveals improved aeration on the right, increased interstitial markings, patchy airspace disease and interstitial disease suggestive of pneumonia. IMPRESSION: 1. Healthcare-associated pneumonia. 2. Respiratory failure with tracheostomy. 3. Acute diastolic congestive heart failure, improved. 4. Paroxysmal atrial ectopy. 5. Acute myocardial ischemia, resolved, with possible [id number] infarction, uncomplicated. 6. Hypomagnesemia, corrected. PLAN: 1. Additional diuresis. 2. Other cardiovascular therapy without change. Tony Lobo M.D. DR: Cathy JOB#: [id number] CC:
--- NOTE | 2020-01-15 07:06 | NUR ---
HAND-OFF: Report given to Lionel RN. Pt remains stable at this time.
--- NOTE | 2020-01-15 07:06 | NUR ---
NURSE NOTES: Received report from Mariza RIVER. Pt in bed resting, awake and confused, non-verbal and unable to follow the directions. All extremities contracted. No c/o pain on facial pain scale. SBP running 100s all night long. Pt on vent setting with [id number]%(peep 8)with trach portex 8. Bed railsx3 up for safety. Bed in lowest position and locked. IV site in RFA 22G running with D5W @50ml/hr patent and asymptomatic. G-tube patent and intact running with Glucerna 1.2 @55ml/hr on hold for thyroid meds scheduled at 9am. condom cath intact and asymptomatic. rectal tube patent and intact. Call light within easy reach. will continue to plan of care.
--- NOTE | 2020-01-15 07:06 | NUR ---
NURSE NOTES: Received report from Mariza RIVER. Pt in bed resting, awake and orientedx2, non-verbal and able to follow the directions. No c/o pain. Denied SOB. Pt on vent setting with [id number]%(peep 5) with trach portex. Bed railsx3 up for safety. Bed in lowest position and locked. IV site in RFA 24G SL, BASILIO 20G TKO patent and asymptomatic. G-tube patent and intact running with Glucerna 1.2 @65ml/hr. F/C intact and asymptomatic. Call light within easy reach. will continue to plan of care. Addendum: 01/15/20 at 0725 by Scott Royal RN wrong patient.
[2020-01-15 08:00] VITALS: BP 93/69
[2020-01-15] MEDS: Ascorbic Acid 500mg tab GT SCH (08:41)
[2020-01-15] MEDS: Levothyroxine 125mcg tab GT SCH (08:41)
[2020-01-15] MEDS: levETIRAcetam 500mg/5ml Liquid GT SCH ×2 (08:41→20:07)
[2020-01-15] MEDS: Carvedilol 6.25mg Tab GT SCH ×2 (08:42→20:08)
[2020-01-15] MEDS: Heparin 5000 units/ml inj SUBQ SCH ×2 (08:43→20:08)
--- NOTE | 2020-01-15 08:52 | General Progress Note ---
Assessment/Plan Status: stable Assessment/Plan: 1. History of chronic respiratory failure, on vent. 2. Dysphagia with G-tube. 3. Diabetes. 4. Renal insufficiency. 5. Anemia. 6. History of tracheal stenosis. 7. Diarrhea C.diff neg lomotil and imodium prn GTF GT care repeat labs in am change TF to vital AF dc pepcid will fu Subjective ROS Limited/Unobtainable: No Allergies: Coded Allergies: No Known Allergies (Unverified , 12/31/19) Objective Last 24 Hour Vital Signs Date Time Temp Pulse Resp B/P (MAP) Pulse Ox O2 Delivery O2 Flow Rate FiO2 01/15/20 08:42 71 93/69 01/15/20 04:00 98.0 60 18 100/59 (73) 100 01/15/20 04:00 Mechanical Ventilator 01/15/20 04:00 40 01/15/20 03:43 63 01/15/20 02:59 65 22 40 01/15/20 00:17 67 01/15/20 00:00 98.2 66 20 101/56 (71) 100 01/15/20 00:00 Mechanical Ventilator 01/14/20 23:14 64 23 40 01/14/20 20:00 Mechanical Ventilator 01/14/20 20:00 98.9 65 22 105/55 (72) 99 01/14/20 20:00 40 01/14/20 19:56 65 23 40 01/14/20 19:02 66 01/14/20 17:49 99.0 01/14/20 17:16 67 23 40 01/14/20 16:00 Mechanical Ventilator 01/14/20 16:00 40 01/14/20 16:00 67 01/14/20 16:00 100.1 68 24 109/63 (78) 98 01/14/20 13:09 65 21 40 01/14/20 12:00 99.7 71 21 111/64 (80) 100 01/14/20 12:00 Mechanical Ventilator 01/14/20 12:00 40 01/14/20 12:00 62 01/14/20 11:12 68 24 40 01/14/20 09:07 73 28 40 Intake and Output 01/14/20 01/15/20 19:00 07:00 Intake Total 1180 ml 1405.833 ml Output Total 1100 ml 800 ml Balance 80 ml 605.833 ml Free Water 200 ml 150 ml IV Total 375 ml 595.833 ml Tube Feeding 605 ml 660 ml Output Urine Total 1100 ml 800 ml Stool Total 0 ml # Bowel Movements 50 Laboratory Tests 01/15/20 03:15: White Blood Count 6.9, Red Blood Count 2.82L, Hemoglobin 9.0L, Hematocrit 26.1L , Mean Corpuscular Volume 93, Mean Corpuscular Hemoglobin 31.8H, Mean Corpuscular Hemoglobin Concent 34.3, Red Cell Distribution Width 12.8, Platelet Count 184, Mean Platelet Volume 7.7, Neutrophils (%) (Auto) 54.5, Lymphocytes (% ) (Auto) 28.6, Monocytes (%) (Auto) 12.7H, Eosinophils (%) (Auto) 3.1H, Basophils (%) (Auto) 1.1, Sodium Level 134L, Potassium Level 4.6, Chloride Level 98, Carbon Dioxide Level 27, Anion Gap 9, Blood Urea Nitrogen 55H, Creatinine 1.6H, Estimat Glomerular Filtration Rate 42.1, Glucose Level 102, Calcium Level 8.4L, Total Bilirubin 0.3, Aspartate Amino Transf (AST/SGOT) 50H, Alanine Aminotransferase (ALT/SGPT) 51, Alkaline Phosphatase 126H, Total Protein 7.7, Albumin 1.8L, Globulin 5.9, Albumin/Globulin Ratio 0.3L Height (Feet): 5 Height (Inches): 5.00 Weight (Pounds): 121 General Appearance: no apparent distress EENT: PERRL/EOMI Neck: supple Cardiovascular: normal rate Respiratory/Chest: decreased breath sounds Abdomen: normal bowel sounds, non tender, soft Extremities: non-tender Jovany Kong MD Jan 15, 2020 08:52
--- NOTE | 2020-01-15 09:24 | General Progress Note ---
Assessment/Plan Problem List: (1) JOHN (acute kidney injury) ICD Codes: N17.9 - Acute kidney failure, unspecified SNOMED: 5518474, 28197446 (2) Dehydration ICD Codes: E86.0 - Dehydration SNOMED: 89040593 (3) Suspected COVID-19 virus infection ICD Codes: R68.89 - Other general symptoms and signs SNOMED: 778406678 (4) Tracheal stenosis ICD Codes: J39.8 - Other specified diseases of upper respiratory tract SNOMED: 02617299 (5) Pneumonia ICD Codes: J18.9 - Pneumonia, unspecified organism SNOMED: 855155943 (6) Malnutrition ICD Codes: E46 - Unspecified protein-calorie malnutrition SNOMED: 57442622 (7) Respiratory insufficiency ICD Codes: R06.89 - Other abnormalities of breathing SNOMED: 636030735 Status: stable Assessment/Plan: cont current rx iv abx per id. monitor labs off ivf sz rx monitor bp dvt/stress ulcer prophylaxis transfuse as needed skin/wound care prn ivf dc planning? Subjective ROS Limited/Unobtainable: Yes Constitutional: Reports: malaise, weakness HEENT: Reports: no symptoms Cardiovascular: Reports: no symptoms Respiratory: Reports: cough, shortness of breath, sputum Gastrointestinal/Abdominal: Reports: difficulty swallowing Genitourinary: Reports: no symptoms Neurologic/Psychiatric: Reports: pre-existing deficit, seizure Endocrine: Reports: no symptoms Hematologic/Lymphatic: Reports: no symptoms Allergies: Coded Allergies: No Known Allergies (Unverified , 12/31/19) All Systems: reviewed and negative except above Subjective no events. diarrhea less. cdiff neg. stable on the vent. no fever or chills. labs reviewed. decreased h/h noted. no reports of bleeding poorly responsive at baseline. ID noted. GI noted. Objective Last 24 Hour Vital Signs Date Time Temp Pulse Resp B/P (MAP) Pulse Ox O2 Delivery O2 Flow Rate FiO2 01/15/20 08:42 71 93/69 01/15/20 04:00 98.0 60 18 100/59 (73) 100 01/15/20 04:00 Mechanical Ventilator 01/15/20 04:00 40 01/15/20 03:43 63 01/15/20 02:59 65 22 40 01/15/20 00:17 67 01/15/20 00:00 98.2 66 20 101/56 (71) 100 01/15/20 00:00 Mechanical Ventilator 01/14/20 23:14 64 23 40 01/14/20 20:00 Mechanical Ventilator 01/14/20 20:00 98.9 65 22 105/55 (72) 99 01/14/20 20:00 40 01/14/20 19:56 65 23 40 01/14/20 19:02 66 01/14/20 17:49 99.0 01/14/20 17:16 67 23 40 01/14/20 16:00 Mechanical Ventilator 01/14/20 16:00 40 01/14/20 16:00 67 01/14/20 16:00 100.1 68 24 109/63 (78) 98 01/14/20 13:09 65 21 40 01/14/20 12:00 99.7 71 21 111/64 (80) 100 01/14/20 12:00 Mechanical Ventilator 01/14/20 12:00 40 01/14/20 12:00 62 01/14/20 11:12 68 24 40 Intake and Output 01/14/20 01/15/20 19:00 07:00 Intake Total 1180 ml 1405.833 ml Output Total 1100 ml 800 ml Balance 80 ml 605.833 ml Free Water 200 ml 150 ml IV Total 375 ml 595.833 ml Tube Feeding 605 ml 660 ml Output Urine Total 1100 ml 800 ml Stool Total 0 ml # Bowel Movements 50 Laboratory Tests 01/15/20 03:15: White Blood Count 6.9, Red Blood Count 2.82L, Hemoglobin 9.0L, Hematocrit 26.1L , Mean Corpuscular Volume 93, Mean Corpuscular Hemoglobin 31.8H, Mean Corpuscular Hemoglobin Concent 34.3, Red Cell Distribution Width 12.8, Platelet Count 184, Mean Platelet Volume 7.7, Neutrophils (%) (Auto) 54.5, Lymphocytes (% ) (Auto) 28.6, Monocytes (%) (Auto) 12.7H, Eosinophils (%) (Auto) 3.1H, Basophils (%) (Auto) 1.1, Sodium Level 134L, Potassium Level 4.6, Chloride Level 98, Carbon Dioxide Level 27, Anion Gap 9, Blood Urea Nitrogen 55H, Creatinine 1.6H, Estimat Glomerular Filtration Rate 42.1, Glucose Level 102, Calcium Level 8.4L, Total Bilirubin 0.3, Aspartate Amino Transf (AST/SGOT) 50H, Alanine Aminotransferase (ALT/SGPT) 51, Alkaline Phosphatase 126H, Total Protein 7.7, Albumin 1.8L, Globulin 5.9, Albumin/Globulin Ratio 0.3L Height (Feet): 5 Height (Inches): 5.00 Weight (Pounds): 121 Objective General Appearance: WD/WN, alert Neck: supple Cardiovascular: regular rhythm Respiratory/Chest: chest wall non-tender, rhonchi - bilaterally Abdomen: normal bowel sounds, non tender, soft, no organomegaly Edema: no edema noted Arm (L), no edema noted Arm (R), no edema noted Leg (L), no edema noted Leg (R), no edema noted Pedal (L), no edema noted Pedal (R), no edema noted Generalized Neurologic: disoriented, aphasia Vasquez De Paz MD Jan 15, 2020 09:24
--- NOTE | 2020-01-15 09:57 | Surgery Progress Note ---
Surgery Progress Note Subjective Additional Comments tolerating tube feeds comfortable labs okay cxr improved Objective Last 24 Hour Vital Signs Date Time Temp Pulse Resp B/P (MAP) Pulse Ox O2 Delivery O2 Flow Rate FiO2 01/15/20 08:42 71 93/69 01/15/20 08:00 40 01/15/20 08:00 Mechanical Ventilator 01/15/20 08:00 98.7 71 25 93/69 (77) 100 01/15/20 07:25 73 24 40 01/15/20 04:00 98.0 60 18 100/59 (73) 100 01/15/20 04:00 Mechanical Ventilator 01/15/20 04:00 40 01/15/20 03:43 63 01/15/20 02:59 65 22 40 01/15/20 00:17 67 01/15/20 00:00 98.2 66 20 101/56 (71) 100 01/15/20 00:00 Mechanical Ventilator 01/14/20 23:14 64 23 40 01/14/20 20:00 Mechanical Ventilator 01/14/20 20:00 98.9 65 22 105/55 (72) 99 01/14/20 20:00 40 01/14/20 19:56 65 23 40 01/14/20 19:02 66 01/14/20 17:49 99.0 01/14/20 17:16 67 23 40 01/14/20 16:00 Mechanical Ventilator 01/14/20 16:00 40 01/14/20 16:00 67 01/14/20 16:00 100.1 68 24 109/63 (78) 98 01/14/20 13:09 65 21 40 01/14/20 12:00 99.7 71 21 111/64 (80) 100 01/14/20 12:00 Mechanical Ventilator 01/14/20 12:00 40 01/14/20 12:00 62 01/14/20 11:12 68 24 40 I&O Intake and Output 01/14/20 01/15/20 19:00 07:00 Intake Total 1180 ml 1405.833 ml Output Total 1100 ml 800 ml Balance 80 ml 605.833 ml Free Water 200 ml 150 ml IV Total 375 ml 595.833 ml Tube Feeding 605 ml 660 ml Output Urine Total 1100 ml 800 ml Stool Total 0 ml # Bowel Movements 50 Dressing: other Wound: other Drains: other Cardiovascular: RSR Respiratory: decreased breath sounds Abdomen: soft, non-tender, present bowel sounds Extremities: no tenderness, no cyanosis Laboratory Tests Test 01/15/20 03:15 White Blood Count 6.9 K/UL (4.8-10.8) Red Blood Count 2.82 M/UL (4.70-6.10) L Hemoglobin 9.0 G/DL (14.2-18.0) L Hematocrit 26.1 % (42.0-52.0) L Mean Corpuscular Volume 93 FL (80-99) Mean Corpuscular Hemoglobin 31.8 PG (27.0-31.0) H Mean Corpuscular Hemoglobin Concent 34.3 G/DL (32.0-36.0) Red Cell Distribution Width 12.8 % (11.6-14.8) Platelet Count 184 K/UL (150-450) Mean Platelet Volume 7.7 FL (6.5-10.1) Neutrophils (%) (Auto) 54.5 % (45.0-75.0) Lymphocytes (%) (Auto) 28.6 % (20.0-45.0) Monocytes (%) (Auto) 12.7 % (1.0-10.0) H Eosinophils (%) (Auto) 3.1 % (0.0-3.0) H Basophils (%) (Auto) 1.1 % (0.0-2.0) Sodium Level 134 MMOL/L (136-145) L Potassium Level 4.6 MMOL/L (3.5-5.1) Chloride Level 98 MMOL/L (98-107) Carbon Dioxide Level 27 MMOL/L (21-32) Anion Gap 9 mmol/L (5-15) Blood Urea Nitrogen 55 mg/dL (7-18) H Creatinine 1.6 MG/DL (0.55-1.30) H Estimat Glomerular Filtration Rate 42.1 mL/min (>60) Glucose Level 102 MG/DL (74-106) Calcium Level 8.4 MG/DL (8.5-10.1) L Total Bilirubin 0.3 MG/DL (0.2-1.0) Aspartate Amino Transf (AST/SGOT) 50 U/L (15-37) H Alanine Aminotransferase (ALT/SGPT) 51 U/L (12-78) Alkaline Phosphatase 126 U/L (46-116) H Total Protein 7.7 G/DL (6.4-8.2) Albumin 1.8 G/DL (3.4-5.0) L Globulin 5.9 g/dL Albumin/Globulin Ratio 0.3 (1.0-2.7) L Plan Problems: (1) Decubitus skin ulcer Assessment & Plan: Pt presented on admission with contractures, multiple Skin Breakdown. Skin assessed under collar of trach and no skin breakdown noted.Category 3 Skin tear R elbow(L)4.5cm x (W)5cm. Full flap loss noted. Base of wound moist and viable,edges adherent. No exudate noted. No erythema or elevated skin temp periwound. Category 2 Skin tear L forearm. Full flap intact and reattached. Moderate amt sanguineous exudate noted. Silvasorb Gel applied and covered with Optifoam drsg. Reinforced with ABD Pad and Kerlix. DTPI noted to L Sacrum(L)3.5cm x (W)3cm. Base of wound is maroon and indurated. DTPI R Sacrum(L)7cm x (W)9.5cm. Wound is irregular shaped. Base of wound is maroon and indurated. Scattered areas of darker skin tone without induration or erythema periwound. DTPI L lateral malleolus(L)2.5cm x (W)2cm. Base of wound is fluctuant,purple with surrounding maroon borders. No erythema or elevation in skin temp periwound. Partial thickness wound L 1st metatarsal head (L)2.5cm x (W)2cm. Base of wound is moist and viable. Edges are macerated. Non-blanching erythema without fluctuance periwound. DTPI Dorso/lateral R foot(L)2.3cm x (W)4.3cm. Base of injury is indurated purple /maroon in colour. No erythema or elevation in skin temp periwound. Hyperpigmentation from previous wounds noted to R and L hallux. Tx.Plan: Cleanse Skin tears R Elbow and L forearm with Saline. Apply Silvasorb Gel. Cover each wounds with Optifoam drsgs. Change every 7 days and prn. Apply Triad Paste to R and L Sacrum. Cover with Optifoam drsg. Change every 3 days and prn. Apply Cavilon to Malleoli both feet, Both heels and Both hallux . Cover each site with Optifoam drsgs turn q2h nutritional optimization (2) Respiratory insufficiency (3) Malnutrition Assessment & Plan: DAILY ESTIMATED NEEDS: Needs based on Critical care, wounds/ 60kg abw 22-28 kcals/kg 4468-6708 total kcals 1.25-2 g protein/kg 75-120 g total protein 25-30 mL/kg [id number] total fluid mLs NUTRITION DIAGNOSIS: * Swallowing difficulty R/T respiratory status as evidenced by trach/vent dep, PEG dep. * Increased kcal/prot needs R/T wound healing as evidenced by pt admitted w/ multiple wounds, including DTPI x4, partial thickness x 1, and category 3 Skin tear, refer to eval. CURRENT TF:Glucerna 1.5 @ 45ml/hr x 22 hrs-> now Glucerna 1.2 @55ml x22 ENTERAL NUTRITION RECOMMENDATIONS: Glucerna 1.2 @ 57ml/hr x 22 hrs to provide 1254ml, 1505kcal, 75g prot, 1009ml free water * Rec to increase current updated TF to goal of 57ml/hr x22 hrs to better meet est kcal and pro needs * HOB Over 30 degrees/ water flush per MD * Hold Synthroid during 4 hrs that TF is off ADDITIONAL RECOMMENDATIONS: * Per SNF: HT=63", YN=064sxy (as of 12/28/19) * Monitor lytes, replete as needed * Wound healing: w/ diarrhea, rec lower Vit C-> 250mg daily add Jerome 1pkt BID * Monitor K, renal labs, need for renal formula * calibrated bed scale wt as able (4) Pneumonia (5) Tracheal stenosis (6) Protein-calorie malnutrition, severe (7) Suspected COVID-19 virus infection Assessment & Plan: negative 1. Interval improved aeration throughout the right lung, with residual reticular interstitial markings. 2. Persistent diffuse patchy interstitial and airspace opacities throughout the left lung, not significantly changed, concerning for pneumonia. Sabino Gold Jan 15, 2020 09:57
--- NOTE | 2020-01-15 10:55 | Infectious Diseases Prog Note ---
"Assessment/Plan Assessment/Plan antibiotics : none A 1. e.coli | pseudomonas | acenitobacter pneumonia s/p rx COVID 19 test negative 4.5.20, 4.8.20 2. leucocytosis resolved 3. renal failure 4. + blood cultures with coag neg staph | diphtheroids likely contaminated 5. respiratory failure P 1. observe off antibiotics 2. will follow up cultures Subjective ROS Limited/Unobtainable: Yes Allergies: Coded Allergies: No Known Allergies (Unverified , 12/31/19) Objective Vital Signs Last 24 Hour Vital Signs Date Time Temp Pulse Resp B/P (MAP) Pulse Ox O2 Delivery O2 Flow Rate FiO2 01/15/20 08:42 71 93/69 01/15/20 08:00 40 01/15/20 08:00 Mechanical Ventilator 01/15/20 08:00 69 01/15/20 08:00 98.7 71 25 93/69 (77) 100 01/15/20 07:25 73 24 40 01/15/20 04:00 98.0 60 18 100/59 (73) 100 01/15/20 04:00 Mechanical Ventilator 01/15/20 04:00 40 01/15/20 03:43 63 01/15/20 02:59 65 22 40 01/15/20 00:17 67 01/15/20 00:00 98.2 66 20 101/56 (71) 100 01/15/20 00:00 Mechanical Ventilator 01/14/20 23:14 64 23 40 01/14/20 20:00 Mechanical Ventilator 01/14/20 20:00 98.9 65 22 105/55 (72) 99 01/14/20 20:00 40 01/14/20 19:56 65 23 40 01/14/20 19:02 66 01/14/20 17:49 99.0 01/14/20 17:16 67 23 40 01/14/20 16:00 Mechanical Ventilator 01/14/20 16:00 40 01/14/20 16:00 67 01/14/20 16:00 100.1 68 24 109/63 (78) 98 01/14/20 13:09 65 21 40 01/14/20 12:00 99.7 71 21 111/64 (80) 100 01/14/20 12:00 Mechanical Ventilator 01/14/20 12:00 40 01/14/20 12:00 62 01/14/20 11:12 68 24 40 Height (Feet): 5 Height (Inches): 5.00 Weight (Pounds): 121 HEENT: status post trach Respiratory/Chest: lungs clear Cardiovascular: normal rate, regular rhythm, no gallop/murmur Abdomen: soft, non tender, other - GT Extremities: no edema Laboratory Tests Test 01/15/20 03:15 White Blood Count 6.9 K/UL (4.8-10.8) Red Blood Count 2.82 M/UL (4.70-6.10) L Hemoglobin 9.0 G/DL (14.2-18.0) L Hematocrit 26.1 % (42.0-52.0) L Mean Corpuscular Volume 93 FL (80-99) Mean Corpuscular Hemoglobin 31.8 PG (27.0-31.0) H Mean Corpuscular Hemoglobin Concent 34.3 G/DL (32.0-36.0) Red Cell Distribution Width 12.8 % (11.6-14.8) Platelet Count 184 K/UL (150-450) Mean Platelet Volume 7.7 FL (6.5-10.1) Neutrophils (%) (Auto) 54.5 % (45.0-75.0) Lymphocytes (%) (Auto) 28.6 % (20.0-45.0) Monocytes (%) (Auto) 12.7 % (1.0-10.0) H Eosinophils (%) (Auto) 3.1 % (0.0-3.0) H Basophils (%) (Auto) 1.1 % (0.0-2.0) Sodium Level 134 MMOL/L (136-145) L Potassium Level 4.6 MMOL/L (3.5-5.1) Chloride Level 98 MMOL/L (98-107) Carbon Dioxide Level 27 MMOL/L (21-32) Anion Gap 9 mmol/L (5-15) Blood Urea Nitrogen 55 mg/dL (7-18) H Creatinine 1.6 MG/DL (0.55-1.30) H Estimat Glomerular Filtration Rate 42.1 mL/min (>60) Glucose Level 102 MG/DL (74-106) Calcium Level 8.4 MG/DL (8.5-10.1) L Total Bilirubin 0.3 MG/DL (0.2-1.0) Aspartate Amino Transf (AST/SGOT) 50 U/L (15-37) H Alanine Aminotransferase (ALT/SGPT) 51 U/L (12-78) Alkaline Phosphatase 126 U/L (46-116) H Total Protein 7.7 G/DL (6.4-8.2) Albumin 1.8 G/DL (3.4-5.0) L Globulin 5.9 g/dL Albumin/Globulin Ratio 0.3 (1.0-2.7) L Current Medications Medications (Trade) Dose Ordered Sig/Pau Route PRN Reason Start Time Stop Time Status Last Admin Dose Admin Acetaminophen (Tylenol) 650 mg Q4H PRN GT MILD/TEMP 01/09/20 06:30 02/08/20 06:29 01/14/20 15:47 Ascorbic Acid (Vitamin C) 500 mg DAILY GT 01/02/20 09:00 02/01/20 08:59 01/15/20 08:41 Carvedilol (Coreg) 6.25 mg EVERY 12 HOURS GT 01/08/20 09:00 02/07/20 08:59 01/14/20 08:49 Dextrose 1,000 ml @ 50 mls/hr Q20H IV 01/14/20 11:30 02/13/20 11:29 01/15/20 05:05 Diphenoxylate HCl/ Atropine (Lomotil) 2.5 mg Q4H PRN GT Diarrhea 01/13/20 07:30 02/12/20 07:29 01/14/20 08:49 Heparin Sodium (Porcine) (Heparin 5000 units/ml) 5,000 units EVERY 12 HOURS SUBQ 01/01/20 21:00 02/15/20 20:59 01/15/20 08:43 Levetiracetam (Keppra) 750 mg EVERY 12 HOURS GT 01/02/20 09:00 02/01/20 08:59 01/15/20 08:41 Levothyroxine Sodium (Synthroid) 50 mcg DAILY GT 01/02/20 09:00 02/01/20 08:59 01/15/20 08:41 Levothyroxine Sodium (Synthroid) 125 mcg DAILY GT 01/02/20 09:00 02/01/20 08:59 01/15/20 08:41 Loperamide HCl (Imodium) 2 mg Q6H PRN NG Diarrhea 01/12/20 10:30 02/11/20 10:29 01/14/20 13:45 Lorazepam (Ativan 2mg/ml 1ml) 2 mg Q4H PRN IV For Seizures 01/09/20 00:00 01/16/20 00:00 01/09/20 00:03 Heber Abraham MD Jan 15, 2020 10:55"
--- NOTE | 2020-01-15 10:55 | Critical Care Progress Note ---
Assessment/Plan Assessment/Plan Impression: Pneumonia Sepsis Elevated troponin Renal failure Tracheostomy History of tracheal stenosis Ventilator Dependent Respiratory Failure Chronically altered mental status s/p previous CPA, anoxia Previous Seizures Previous pericardial effusion, Congestive Heart Failure, Atrial Fibrillation Diabetes, Hypothyroidism Previous Hematuria/UTI, previous sepsis GERD sp G tube polymicrobial infection diarrhea worsening anemia PLAN rectal tube GI follow up off antibiotics vent management as is acid base noted; taper oxygen antibiotic regimen reviewed PICC line ID and renal noted gi clearance needed monitor for change feeds as able SNF meds noted seizure precautions follow up HH and other labs cardiology to monitor hemodynamics note reviewed and edited care discussed with RN and RT dc planning to snf if diarrhea improves GI eval appreciated critical time spent >40 minutes coordinating care and updating orders Critical Care - Subjective Interval Events: care noted events reviewed on vent poor LOC Condition: unchanged EKG Rhythm: Sinus Rhythm Residuals: high I&O: Intake and Output 01/14/20 01/15/20 19:00 07:00 Intake Total 1180 ml 1405.833 ml Output Total 1100 ml 800 ml Balance 80 ml 605.833 ml Free Water 200 ml 150 ml IV Total 375 ml 595.833 ml Tube Feeding 605 ml 660 ml Output Urine Total 1100 ml 800 ml Stool Total 0 ml # Bowel Movements 50 Critical Care - Objective Last 24 Hour Vital Signs Date Time Temp Pulse Resp B/P (MAP) Pulse Ox O2 Delivery O2 Flow Rate FiO2 01/15/20 08:42 71 93/69 01/15/20 08:00 40 01/15/20 08:00 Mechanical Ventilator 01/15/20 08:00 69 01/15/20 08:00 98.7 71 25 93/69 (77) 100 01/15/20 07:25 73 24 40 01/15/20 04:00 98.0 60 18 100/59 (73) 100 01/15/20 04:00 Mechanical Ventilator 01/15/20 04:00 40 01/15/20 03:43 63 01/15/20 02:59 65 22 40 01/15/20 00:17 67 01/15/20 00:00 98.2 66 20 101/56 (71) 100 01/15/20 00:00 Mechanical Ventilator 01/14/20 23:14 64 23 40 01/14/20 20:00 Mechanical Ventilator 01/14/20 20:00 98.9 65 22 105/55 (72) 99 01/14/20 20:00 40 01/14/20 19:56 65 23 40 01/14/20 19:02 66 01/14/20 17:49 99.0 01/14/20 17:16 67 23 40 01/14/20 16:00 Mechanical Ventilator 01/14/20 16:00 40 01/14/20 16:00 67 01/14/20 16:00 100.1 68 24 109/63 (78) 98 01/14/20 13:09 65 21 40 01/14/20 12:00 99.7 71 21 111/64 (80) 100 01/14/20 12:00 Mechanical Ventilator 01/14/20 12:00 40 01/14/20 12:00 62 01/14/20 11:12 68 24 40 Labs: Labs Test 01/13/20 07:00 01/14/20 05:45 01/15/20 03:15 White Blood Count 8.0 K/UL (4.8-10.8) 7.3 K/UL (4.8-10.8) 6.9 K/UL (4.8-10.8) Red Blood Count 2.97 M/UL (4.70-6.10) 3.09 M/UL (4.70-6.10) 2.82 M/UL (4.70-6.10) Hemoglobin 9.5 G/DL (14.2-18.0) 9.9 G/DL (14.2-18.0) 9.0 G/DL (14.2-18.0) Hematocrit 27.5 % (42.0-52.0) 28.5 % (42.0-52.0) 26.1 % (42.0-52.0) Mean Corpuscular Volume 92 FL (80-99) 92 FL (80-99) 93 FL (80-99) Mean Corpuscular Hemoglobin 31.9 PG (27.0-31.0) 32.1 PG (27.0-31.0) 31.8 PG (27.0-31.0) Mean Corpuscular Hemoglobin Concent 34.5 G/DL (32.0-36.0) 34.8 G/DL (32.0-36.0) 34.3 G/DL (32.0-36.0) Red Cell Distribution Width 13.4 % (11.6-14.8) 13.0 % (11.6-14.8) 12.8 % (11.6-14.8) Platelet Count 179 K/UL (150-450) 168 K/UL (150-450) 184 K/UL (150-450) Mean Platelet Volume 7.8 FL (6.5-10.1) 8.3 FL (6.5-10.1) 7.7 FL (6.5-10.1) Neutrophils (%) (Auto) 60.2 % (45.0-75.0) 62.7 % (45.0-75.0) 54.5 % (45.0-75.0) Lymphocytes (%) (Auto) 22.9 % (20.0-45.0) 17.7 % (20.0-45.0) 28.6 % (20.0-45.0) Monocytes (%) (Auto) 13.1 % (1.0-10.0) 14.7 % (1.0-10.0) 12.7 % (1.0-10.0) Eosinophils (%) (Auto) 2.6 % (0.0-3.0) 3.3 % (0.0-3.0) 3.1 % (0.0-3.0) Basophils (%) (Auto) 1.2 % (0.0-2.0) 1.6 % (0.0-2.0) 1.1 % (0.0-2.0) Sodium Level 131 MMOL/L (136-145) 134 MMOL/L (136-145) 134 MMOL/L (136-145) Potassium Level 4.7 MMOL/L (3.5-5.1) 4.9 MMOL/L (3.5-5.1) 4.6 MMOL/L (3.5-5.1) Chloride Level 97 MMOL/L (98-107) 100 MMOL/L (98-107) 98 MMOL/L (98-107) Carbon Dioxide Level 32 MMOL/L (21-32) 28 MMOL/L (21-32) 27 MMOL/L (21-32) Anion Gap 2 mmol/L (5-15) 6 mmol/L (5-15) 9 mmol/L (5-15) Blood Urea Nitrogen 47 mg/dL (7-18) 50 mg/dL (7-18) 55 mg/dL (7-18) Creatinine 1.6 MG/DL (0.55-1.30) 1.5 MG/DL (0.55-1.30) 1.6 MG/DL (0.55-1.30) Estimat Glomerular Filtration Rate 42.1 mL/min (>60) 45.4 mL/min (>60) 42.1 mL/min (>60) Glucose Level 98 MG/DL (74-106) 101 MG/DL (74-106) 102 MG/DL (74-106) Calcium Level 9.4 MG/DL (8.5-10.1) 8.8 MG/DL (8.5-10.1) 8.4 MG/DL (8.5-10.1) Magnesium Level 2.0 MG/DL (1.8-2.4) Pro-B-Type Natriuretic Peptide 1968 pg/mL (0-125) Total Bilirubin 0.3 MG/DL (0.2-1.0) Aspartate Amino Transf (AST/SGOT) 50 U/L (15-37) Alanine Aminotransferase (ALT/SGPT) 51 U/L (12-78) Alkaline Phosphatase 126 U/L (46-116) Total Protein 7.7 G/DL (6.4-8.2) Albumin 1.8 G/DL (3.4-5.0) Globulin 5.9 g/dL Albumin/Globulin Ratio 0.3 (1.0-2.7) Objective: WDWN NAD reduced breath sounds bilaterally without rhonchi or wheeze [id number] without MRG NABS nontender no HSM GT no CCE nonfocal trach reviewed and edited Dillon Harris MD Jan 15, 2020 10:55
--- NOTE | 2020-01-15 11:42 | NUR ---
*-* INSURANCE *-* UPDATED CLINICALS AND REVIEWS HAVE BEEN FAXED TO: NIKOLE Quiñonez # [phone] fax#[phone]
[2020-01-15 11:43] VITALS: BP 110/63
--- NOTE | 2020-01-15 14:00 | NUR ---
NURSE NOTES: Rectal tube removed due to no diarrhea noted since 8am
[2020-01-15 16:00] VITALS: BP 139/70
--- NOTE | 2020-01-15 17:28 | NUR ---
CASE MANAGEMENT: REVIEW SI: PNA . TRACH/VENT DEPENDENT . COVID-19 NOT DETECTED T 97.9 HR 75 RR 28 BP 122/74 SAT 100% MECH VENT FIO2 100 H/H 10.0/28.5 BUN 47 CR 1.5 IS: MEROPENEM IV Q12HR COLISTIN INH Q12HR PEPCID IV QD KEPPRA 750MG GT Q12HR HEPARIN SUBQ Q12HR D5W @ 75ML/HR TRANSFUSE PRBC NEEDED WOUND CARE RECTAL TUBE STEP DOWN UNIT DCP: PATIENT IS FROM [facility]
--- NOTE | 2020-01-15 17:28 | NUR ---
CASE MANAGEMENT: REVIEW SI: PNA . TRACH/VENT DEPENDENT . COVID-19 NOT DETECTED T 97.9 HR 75 RR 20 BP 139/70 SAT 99% MECH VENT FIO2 40 H/H 9.0/26.1 NA 134 BUN 55 CR 1.6 IS: KEPPRA 750MG GT Q12HR HEPARIN SUBQ Q12HR D5W @ 50ML/HR TRANSFUSE PRBC NEEDED G-TUBE FEEDING WOUND CARE RECTAL TUBE REMOVED STEP DOWN UNIT DCP: PATIENT IS FROM [facility]
--- NOTE | 2020-01-15 19:13 | NUR ---
HAND-OFF: Report given to Mariza RIVER. Pt remains stable.
--- NOTE | 2020-01-15 19:15 | NUR ---
NURSE NOTES: Received patient and report from ALETA Flowers. Patient is observed resting in bed and remains alert and oriented x0-1. No pain noted upon assessment. Pt is trach to vent with the following settings: AC 10 TV 450 FiO2 100% PEEP 5 and no s/sx of acute distress. Pt noted to be SR on tele monitor with a current HR of 68 noted, no s/sx of acute distress. GT noted which remains intact and patent and infusing feeding as prescribed, no residual noted. Condom catheter noted and remains draining yellow urine to gravity. R FA 22g IV catheter remains intact, patent and infusing D5W as prescribed. Diagnostics reviewed. Skin alterations noted. Fall, Aspiration and Seizure precautions observed. Pt remains resting in bed; Bed remains in the lowest position with the safety wheels engaged, call light within reach, side rails up x3 and bed alarm activated. Will continue plan of care. Will continue to monitor.
[2020-01-15 20:00] VITALS: BP 101/67
--- NOTE | 2020-01-15 20:18 | NUR ---
NURSE NOTES: Coreg held due to SBP <110 and HR of 62 Will continue to monitor.
--- NOTE | 2020-01-15 23:00 | NUR ---
NURSE NOTES: Pt provided with a bed bath, oral care and linen change. Profuse amount of liquid stool noted which remains brown in color. Will continue to monitor amount of diarrhea. Pt tolerated care well and remains clean and dry. Fall, Aspiration and Seizure precautions observed. Pt remains resting in bed; Bed remains in the lowest position with the safety wheels engaged, call light within reach, side rails up x3 and bed alarm activated. Will continue plan of care. Will continue to monitor.
[2020-01-16] VITALS: BP 114/68
--- NOTE | 2020-01-16 01:10 | NUR ---
NURSE NOTES: Pt noted to have mild pain when assessed using FLACC scale. Pt remains obtunded. Tylenol provided and administered as directed. Will reassess. Will continue to monitor.
[2020-01-16] MEDS: Acetaminophen 650mg/20.3ml GT PRN (01:13)
--- NOTE | 2020-01-16 02:03 | NUR ---
NURSE NOTES: Pt provided with a bed bath, oral care and suctioning for excess secretions. Profuse amount of liquid stool noted which remains brown in color. Will continue to monitor amount of diarrhea. Pt tolerated care well and remains clean and dry. Fall, Aspiration and Seizure precautions observed. Pt remains resting in bed; Bed remains in the lowest position with the safety wheels engaged, call light within reach, side rails up x3 and bed alarm activated. Will continue plan of care. Will continue to monitor.
[2020-01-16 04:00] VITALS: BP 113/66
--- NOTE | 2020-01-16 04:44 | Progress Note ---
DATE: 01/15/2020 CARDIOLOGY PROGRESS NOTE SUBJECTIVE: The patient has diarrhea. No signs of bleeding. Thin secretions on vent. Monitor, sinus rhythm with rare ectopy of atrial source. OBJECTIVE: VITAL SIGNS: Blood pressure is marginal at times, overall range 93/69 to 139/70. Heart rate 70-80, respiratory rate 18, afebrile, T-max 99.3. HEENT: Thin secretions. LUNGS: Moderate bilateral breath sounds. Few rhonchi. CARDIAC: Regular rhythm and rate. Normal S1, S2. ABDOMEN: Soft. EXTREMITIES: No edema. LABORATORY AND DIAGNOSTIC DATA: White count 6.9, hemoglobin 9. Sodium 134, potassium 4.6, bicarb 27, BUN 55, creatinine 1.6. Albumin 1.8. Chest x-ray yesterday revealed improved aeration and patchy infiltrates. IMPRESSION: 1. Respiratory failure, resolved. 2. Myocardial ischemia. 3. Low-normal blood pressure range. 4. Healthcare-associated pneumonia. 5. Resolving diarrhea. 6. Prerenal azotemia. 7. Acute on chronic diastolic congestive heart failure. 8. Elevation of natriuretic peptide, maybe due to chronic right-sided elevated filling pressures and pulmonary hypertension. PLAN: 1. Continue beta-minor. 2. Continue cautious hydration. 3. Periodic diuresis based on clinical parameters. 4. Antiplatelet therapy with aspirin if stool occult blood test is negative. Tony Lobo M.D. DR: Cathy JOB#: [id number] CC:
[2020-01-16 05:35] LABS: BASOPHILS % (AUTO) 1.1 % (0.0-2.0); EOSINOPHILS % (AUTO) 2.5 % (0.0-3.0); HEMATOCRIT 26.1 % (42.0-52.0); HEMOGLOBIN 9.2 G/DL (14.2-18.0); LYMPHOCYTES % (AUTO) 18.9 % (20.0-45.0); MEAN CORPUSCULAR VOLUME 92 FL (80-99); MONOCYTES % (AUTO) 10.6 % (1.0-10.0); NEUTROPHILS % (AUTO) 66.9 % (45.0-75.0); PLATELET COUNT 185 K/UL (150-450); RED BLOOD COUNT 2.83 M/UL (4.70-6.10); RED CELL DISTRIBUTION WIDTH 13.1 % (11.6-14.8); WHITE BLOOD COUNT 7.8 K/UL (4.8-10.8)
[2020-01-16 05:44] LABS: ANION GAP 6 mmol/L (5-15); BLOOD UREA NITROGEN 57 mg/dL (7-18); CALCIUM 8.5 MG/DL (8.5-10.1); CARBON DIOXIDE 28 MMOL/L (21-32); CHLORIDE 96 MMOL/L (98-107); CREATININE 1.7 MG/DL (0.55-1.30); POTASSIUM 4.4 MMOL/L (3.5-5.1); SODIUM 130 MMOL/L (136-145)
--- NOTE | 2020-01-16 06:30 | NUR ---
NURSE NOTES: Called Dr Abad to report am lab values. Will await call back. Will continue to monitor.
--- NOTE | 2020-01-16 07:26 | NUR ---
HAND-OFF: Report given to ALETA Fenton. Will continue to monitor.
--- NOTE | 2020-01-16 07:29 | NUR ---
NURSE NOTES: Received report from ALETA Dawkins. PT seen in bed with vent setting of AC 18, TV450, fi02 40%, peep 8 with sp02 98%. Currently Pt is on A3w11cz/hr. IV site to right FA 22g is intact. No acute distress is noted. will continue to monitor.
--- NOTE | 2020-01-16 07:35 | NUR ---
NURSE NOTES: called dr silveira, reported low Na level of 130. received order to d/c d5w 50cc/hr and start 1/2NS @40cc/hr. order noted and carried out.
[2020-01-16 08:00] VITALS: BP 119/74
[2020-01-16] MEDS: levETIRAcetam 500mg/5ml Liquid GT SCH ×2 (08:10→20:20)
[2020-01-16] MEDS: Aspirin Baby 81mg GT SCH (08:10)
[2020-01-16] MEDS: Ascorbic Acid 500mg tab GT SCH (08:11)
[2020-01-16] MEDS: Carvedilol 6.25mg Tab GT SCH ×2 (08:11→20:20)
[2020-01-16] MEDS: Levothyroxine 125mcg tab GT SCH (08:11)
[2020-01-16] MEDS: Heparin 5000 units/ml inj SUBQ SCH ×2 (08:13→20:21)
--- NOTE | 2020-01-16 08:25 | NUR ---
RD ASSESSMENT & RECOMMENDATIONS SEE CARE ACTIVITY FOR COMPLETE ASSESSMENT DAILY ESTIMATED NEEDS: Needs based on Critical care, wounds/ 60kg abw 22-28 kcals/kg 0241-1951 total kcals 1.25-2 g protein/kg 75-120 g total protein 25-30 mL/kg 8226-8155 total fluid mLs NUTRITION DIAGNOSIS: * Swallowing difficulty R/T respiratory status as evidenced by trach/vent dep, PEG dep. * Increased kcal/prot needs R/T wound healing as evidenced by pt admitted w/ multiple wounds, including DTPI x4, partial thickness x 1, and category 3 Skin tear, refer to eval. CURRENT TF:Vital AF 1.2 @ 55ml/hr x 22 hrs ENTERAL NUTRITION RECOMMENDATIONS: Vital AF 1.2 @ 55ml/hr x 22 hrs to provide 1210ml, 1452kcal, 90g prot, 981ml free water * Maintain current TF: elemental formula to help alleviate diarrhea, meets 100% est kcal/prot needs * HOB Over 30 degrees/ water flush per MD * Hold Synthroid 1 hr before and after Synthroid ADDITIONAL RECOMMENDATIONS: * Per SNF: HT=63", CV=640mzj (as of 12/28/19) * calibrated bed scale wt as able * Wound healing: w/ diarrhea, rec lower Vit C-> 250mg daily Jerome BID once diarrhea resolves * Probiotics for diarrhea * Monitor lytes, replete as needed * Monitor K, renal labs, need for renal formula
--- NOTE | 2020-01-16 08:47 | Nephrology Progress Note ---
Assessment/Plan Problem List: (1) Hypernatremia (2) Dehydration (3) JOHN (acute kidney injury) (4) Respiratory insufficiency (5) Pneumonia (6) Protein-calorie malnutrition, severe (7) Hx of tracheostomy (8) CKD (chronic kidney disease) stage 3, GFR 30-59 ml/min Plan continue iv's, reduced rate antibiotics BUN and Na improving, late entry seen Subjective ROS Limited/Unobtainable: Yes Objective Objective Last 24 Hour Vital Signs Date Time Temp Pulse Resp B/P (MAP) Pulse Ox O2 Delivery O2 Flow Rate FiO2 01/16/20 08:11 68 113/66 01/16/20 05:07 71 20 40 01/16/20 04:00 40 01/16/20 04:00 Mechanical Ventilator 01/16/20 04:00 98.2 70 24 113/66 (82) 100 01/16/20 03:37 67 01/16/20 02:49 72 22 40 01/16/20 00:00 99.3 71 24 114/68 (83) 98 01/16/20 00:00 40 01/16/20 00:00 Mechanical Ventilator 01/15/20 23:30 69 01/15/20 23:10 70 20 40 01/15/20 20:00 40 01/15/20 20:00 Mechanical Ventilator 01/15/20 20:00 99.3 74 25 101/67 (78) 98 01/15/20 19:07 67 01/15/20 19:05 66 23 40 01/15/20 16:00 40 01/15/20 16:00 Mechanical Ventilator 01/15/20 16:00 82 01/15/20 16:00 97.9 76 22 139/70 (93) 99 01/15/20 15:15 78 20 40 01/15/20 12:00 40 01/15/20 12:00 Mechanical Ventilator 01/15/20 11:46 73 01/15/20 11:43 98.9 75 22 110/63 (79) 96 01/15/20 11:15 73 22 40 Intake and Output 01/15/20 01/16/20 19:00 07:00 Intake Total 1425 ml 1359.166 ml Output Total 700 ml Balance 725 ml 1359.166 ml Free Water 250 ml 100 ml IV Total 600 ml 599.166 ml Tube Feeding 575 ml 660 ml Output Urine Total 700 ml # Voids 1 # Bowel Movements 2 Laboratory Tests 01/16/20 03:15: White Blood Count 7.8, Red Blood Count 2.83L, Hemoglobin 9.2L, Hematocrit 26.1L , Mean Corpuscular Volume 92, Mean Corpuscular Hemoglobin 32.6H, Mean Corpuscular Hemoglobin Concent 35.3, Red Cell Distribution Width 13.1, Platelet Count 185, Mean Platelet Volume 7.6, Neutrophils (%) (Auto) 66.9, Lymphocytes (% ) (Auto) 18.9L, Monocytes (%) (Auto) 10.6H, Eosinophils (%) (Auto) 2.5, Basophils (%) (Auto) 1.1, Sodium Level 130L, Potassium Level 4.4, Chloride Level 96L, Carbon Dioxide Level 28, Anion Gap 6, Blood Urea Nitrogen 57H, Creatinine 1.7H, Estimat Glomerular Filtration Rate 39.3, Glucose Level 113H, Calcium Level 8.5 Height (Feet): 5 Height (Inches): 5.00 Weight (Pounds): 121 General Appearance: lethargic Cardiovascular: regular rhythm Respiratory/Chest: rhonchi - bilaterally Abdomen: non tender, soft Extremities: trace edema Neurologic: motor weakness, disoriented Pravin Abad MD Jan 16, 2020 08:47
--- NOTE | 2020-01-16 08:49 | Nephrology Progress Note ---
Assessment/Plan Problem List: (1) Hypernatremia (2) Dehydration (3) JOHN (acute kidney injury) (4) Respiratory insufficiency (5) Pneumonia (6) Protein-calorie malnutrition, severe (7) Hx of tracheostomy (8) CKD (chronic kidney disease) stage 3, GFR 30-59 ml/min Plan continue iv's, adjusted as Na fell to 130 Subjective ROS Limited/Unobtainable: Yes Objective Objective Last 24 Hour Vital Signs Date Time Temp Pulse Resp B/P (MAP) Pulse Ox O2 Delivery O2 Flow Rate FiO2 01/16/20 08:11 68 113/66 01/16/20 05:07 71 20 40 01/16/20 04:00 40 01/16/20 04:00 Mechanical Ventilator 01/16/20 04:00 98.2 70 24 113/66 (82) 100 01/16/20 03:37 67 01/16/20 02:49 72 22 40 01/16/20 00:00 99.3 71 24 114/68 (83) 98 01/16/20 00:00 40 01/16/20 00:00 Mechanical Ventilator 01/15/20 23:30 69 01/15/20 23:10 70 20 40 01/15/20 20:00 40 01/15/20 20:00 Mechanical Ventilator 01/15/20 20:00 99.3 74 25 101/67 (78) 98 01/15/20 19:07 67 01/15/20 19:05 66 23 40 01/15/20 16:00 40 01/15/20 16:00 Mechanical Ventilator 01/15/20 16:00 82 01/15/20 16:00 97.9 76 22 139/70 (93) 99 01/15/20 15:15 78 20 40 01/15/20 12:00 40 01/15/20 12:00 Mechanical Ventilator 01/15/20 11:46 73 01/15/20 11:43 98.9 75 22 110/63 (79) 96 01/15/20 11:15 73 22 40 Intake and Output 01/15/20 01/16/20 19:00 07:00 Intake Total 1425 ml 1359.166 ml Output Total 700 ml Balance 725 ml 1359.166 ml Free Water 250 ml 100 ml IV Total 600 ml 599.166 ml Tube Feeding 575 ml 660 ml Output Urine Total 700 ml # Voids 1 # Bowel Movements 2 Laboratory Tests 01/16/20 03:15: White Blood Count 7.8, Red Blood Count 2.83L, Hemoglobin 9.2L, Hematocrit 26.1L , Mean Corpuscular Volume 92, Mean Corpuscular Hemoglobin 32.6H, Mean Corpuscular Hemoglobin Concent 35.3, Red Cell Distribution Width 13.1, Platelet Count 185, Mean Platelet Volume 7.6, Neutrophils (%) (Auto) 66.9, Lymphocytes (% ) (Auto) 18.9L, Monocytes (%) (Auto) 10.6H, Eosinophils (%) (Auto) 2.5, Basophils (%) (Auto) 1.1, Sodium Level 130L, Potassium Level 4.4, Chloride Level 96L, Carbon Dioxide Level 28, Anion Gap 6, Blood Urea Nitrogen 57H, Creatinine 1.7H, Estimat Glomerular Filtration Rate 39.3, Glucose Level 113H, Calcium Level 8.5 Height (Feet): 5 Height (Inches): 5.00 Weight (Pounds): 121 General Appearance: lethargic Cardiovascular: regular rhythm Respiratory/Chest: rhonchi - bilaterally Abdomen: non tender, soft Extremities: trace edema Neurologic: abnormal information systems consultant II-XII, motor weakness, disoriented Pravin Abad MD Jan 16, 2020 08:49
--- NOTE | 2020-01-16 09:40 | General Progress Note ---
Assessment/Plan Status: stable Assessment/Plan: 1. History of chronic respiratory failure, on vent. 2. Dysphagia with G-tube. 3. Diabetes. 4. Renal insufficiency. 5. Anemia. 6. History of tracheal stenosis. 7. Diarrhea C.diff neg lomotil and imodium prn GTF GT care repeat labs in am TF >> vital AF off pepcid off rectal tube now will fu Subjective ROS Limited/Unobtainable: No Allergies: Coded Allergies: No Known Allergies (Unverified , 12/31/19) Objective Last 24 Hour Vital Signs Date Time Temp Pulse Resp B/P (MAP) Pulse Ox O2 Delivery O2 Flow Rate FiO2 01/16/20 08:11 68 113/66 01/16/20 08:00 Mechanical Ventilator 01/16/20 08:00 40 01/16/20 08:00 98.3 67 25 119/74 (89) 100 01/16/20 07:51 68 01/16/20 07:01 63 16 40 01/16/20 05:07 71 20 40 01/16/20 04:00 40 01/16/20 04:00 Mechanical Ventilator 01/16/20 04:00 98.2 70 24 113/66 (82) 100 01/16/20 03:37 67 01/16/20 02:49 72 22 40 01/16/20 00:00 99.3 71 24 114/68 (83) 98 01/16/20 00:00 40 01/16/20 00:00 Mechanical Ventilator 01/15/20 23:30 69 01/15/20 23:10 70 20 40 01/15/20 20:00 40 01/15/20 20:00 Mechanical Ventilator 01/15/20 20:00 99.3 74 25 101/67 (78) 98 01/15/20 19:07 67 01/15/20 19:05 66 23 40 01/15/20 16:00 40 01/15/20 16:00 Mechanical Ventilator 01/15/20 16:00 82 01/15/20 16:00 97.9 76 22 139/70 (93) 99 01/15/20 15:15 78 20 40 01/15/20 12:00 40 01/15/20 12:00 Mechanical Ventilator 01/15/20 11:46 73 01/15/20 11:43 98.9 75 22 110/63 (79) 96 01/15/20 11:15 73 22 40 Intake and Output 01/15/20 01/16/20 19:00 07:00 Intake Total 1425 ml 1359.166 ml Output Total 700 ml Balance 725 ml 1359.166 ml Free Water 250 ml 100 ml IV Total 600 ml 599.166 ml Tube Feeding 575 ml 660 ml Output Urine Total 700 ml # Voids 1 # Bowel Movements 2 Laboratory Tests 01/16/20 03:15: White Blood Count 7.8, Red Blood Count 2.83L, Hemoglobin 9.2L, Hematocrit 26.1L , Mean Corpuscular Volume 92, Mean Corpuscular Hemoglobin 32.6H, Mean Corpuscular Hemoglobin Concent 35.3, Red Cell Distribution Width 13.1, Platelet Count 185, Mean Platelet Volume 7.6, Neutrophils (%) (Auto) 66.9, Lymphocytes (% ) (Auto) 18.9L, Monocytes (%) (Auto) 10.6H, Eosinophils (%) (Auto) 2.5, Basophils (%) (Auto) 1.1, Sodium Level 130L, Potassium Level 4.4, Chloride Level 96L, Carbon Dioxide Level 28, Anion Gap 6, Blood Urea Nitrogen 57H, Creatinine 1.7H, Estimat Glomerular Filtration Rate 39.3, Glucose Level 113H, Calcium Level 8.5 Height (Feet): 5 Height (Inches): 5.00 Weight (Pounds): 121 General Appearance: no apparent distress EENT: normal ENT inspection Neck: supple Cardiovascular: normal rate Respiratory/Chest: decreased breath sounds Abdomen: normal bowel sounds, non tender, soft Extremities: non-tender Jovany Kong MD Jan 16, 2020 09:40
--- NOTE | 2020-01-16 11:12 | General Progress Note ---
Assessment/Plan Problem List: (1) JOHN (acute kidney injury) ICD Codes: N17.9 - Acute kidney failure, unspecified SNOMED: 8676075, 99176136 (2) Dehydration ICD Codes: E86.0 - Dehydration SNOMED: 72294429 (3) Suspected COVID-19 virus infection ICD Codes: R68.89 - Other general symptoms and signs SNOMED: 177219406 (4) Tracheal stenosis ICD Codes: J39.8 - Other specified diseases of upper respiratory tract SNOMED: 47375631 (5) Pneumonia ICD Codes: J18.9 - Pneumonia, unspecified organism SNOMED: 201792298 (6) Malnutrition ICD Codes: E46 - Unspecified protein-calorie malnutrition SNOMED: 88324733 (7) Respiratory insufficiency ICD Codes: R06.89 - Other abnormalities of breathing SNOMED: 007232306 Status: stable Assessment/Plan: cont current rx iv abx per id. monitor labs IVF per renal sz rx monitor bp dvt/stress ulcer prophylaxis transfuse as needed skin/wound care prn ivf dc planning? Subjective ROS Limited/Unobtainable: Yes Constitutional: Reports: malaise, weakness HEENT: Reports: no symptoms Cardiovascular: Reports: no symptoms Respiratory: Reports: shortness of breath, sputum Gastrointestinal/Abdominal: Reports: difficulty swallowing Genitourinary: Reports: no symptoms Neurologic/Psychiatric: Reports: pre-existing deficit, seizure Endocrine: Reports: no symptoms Hematologic/Lymphatic: Reports: no symptoms Allergies: Coded Allergies: No Known Allergies (Unverified , 12/31/19) All Systems: reviewed and negative except above Subjective no events. diarrhea less. cdiff neg. stable on the vent. no fever or chills. no congestion. labs reviewed. Na trending down. h/h stable.no reports of bleeding poorly responsive at baseline. ID noted. GI noted. renal noted, Objective Last 24 Hour Vital Signs Date Time Temp Pulse Resp B/P (MAP) Pulse Ox O2 Delivery O2 Flow Rate FiO2 01/16/20 08:11 68 113/66 01/16/20 08:00 Mechanical Ventilator 01/16/20 08:00 40 01/16/20 08:00 98.3 67 25 119/74 (89) 100 01/16/20 07:51 68 01/16/20 07:01 63 16 40 01/16/20 05:07 71 20 40 01/16/20 04:00 40 01/16/20 04:00 Mechanical Ventilator 01/16/20 04:00 98.2 70 24 113/66 (82) 100 01/16/20 03:37 67 01/16/20 02:49 72 22 40 01/16/20 00:00 99.3 71 24 114/68 (83) 98 01/16/20 00:00 40 01/16/20 00:00 Mechanical Ventilator 01/15/20 23:30 69 01/15/20 23:10 70 20 40 01/15/20 20:00 40 01/15/20 20:00 Mechanical Ventilator 01/15/20 20:00 99.3 74 25 101/67 (78) 98 01/15/20 19:07 67 01/15/20 19:05 66 23 40 01/15/20 16:00 40 01/15/20 16:00 Mechanical Ventilator 01/15/20 16:00 82 01/15/20 16:00 97.9 76 22 139/70 (93) 99 01/15/20 15:15 78 20 40 01/15/20 12:00 40 01/15/20 12:00 Mechanical Ventilator 01/15/20 11:46 73 01/15/20 11:43 98.9 75 22 110/63 (79) 96 01/15/20 11:15 73 22 40 Intake and Output 01/15/20 01/16/20 19:00 07:00 Intake Total 1425 ml 1359.166 ml Output Total 700 ml Balance 725 ml 1359.166 ml Free Water 250 ml 100 ml IV Total 600 ml 599.166 ml Tube Feeding 575 ml 660 ml Output Urine Total 700 ml # Voids 1 # Bowel Movements 2 Laboratory Tests 01/16/20 03:15: White Blood Count 7.8, Red Blood Count 2.83L, Hemoglobin 9.2L, Hematocrit 26.1L , Mean Corpuscular Volume 92, Mean Corpuscular Hemoglobin 32.6H, Mean Corpuscular Hemoglobin Concent 35.3, Red Cell Distribution Width 13.1, Platelet Count 185, Mean Platelet Volume 7.6, Neutrophils (%) (Auto) 66.9, Lymphocytes (% ) (Auto) 18.9L, Monocytes (%) (Auto) 10.6H, Eosinophils (%) (Auto) 2.5, Basophils (%) (Auto) 1.1, Sodium Level 130L, Potassium Level 4.4, Chloride Level 96L, Carbon Dioxide Level 28, Anion Gap 6, Blood Urea Nitrogen 57H, Creatinine 1.7H, Estimat Glomerular Filtration Rate 39.3, Glucose Level 113H, Calcium Level 8.5 Height (Feet): 5 Height (Inches): 5.00 Weight (Pounds): 121 Objective General Appearance: WD/WN, alert Neck: supple Cardiovascular: regular rhythm Respiratory/Chest: chest wall non-tender, rhonchi - bilaterally Abdomen: normal bowel sounds, non tender, soft, no organomegaly Edema: no edema noted Arm (L), no edema noted Arm (R), no edema noted Leg (L), no edema noted Leg (R), no edema noted Pedal (L), no edema noted Pedal (R), no edema noted Generalized Neurologic: disoriented, aphasia Vasquez De Paz MD Jan 16, 2020 11:12
--- NOTE | 2020-01-16 11:13 | Infectious Diseases Prog Note ---
"Assessment/Plan Assessment/Plan antibiotics : none A 1. e.coli | pseudomonas | acenitobacter pneumonia s/p rx COVID 19 test negative 4.5.20, 4.8.20 2. leucocytosis resolved 3. renal failure 4. + blood cultures with coag neg staph | diphtheroids likely contaminated 5. respiratory failure P 1. observe off antibiotics 2. will follow up cultures Subjective ROS Limited/Unobtainable: Yes Allergies: Coded Allergies: No Known Allergies (Unverified , 12/31/19) Objective Vital Signs Last 24 Hour Vital Signs Date Time Temp Pulse Resp B/P (MAP) Pulse Ox O2 Delivery O2 Flow Rate FiO2 01/16/20 08:11 68 113/66 01/16/20 08:00 Mechanical Ventilator 01/16/20 08:00 40 01/16/20 08:00 98.3 67 25 119/74 (89) 100 01/16/20 07:51 68 01/16/20 07:01 63 16 40 01/16/20 05:07 71 20 40 01/16/20 04:00 40 01/16/20 04:00 Mechanical Ventilator 01/16/20 04:00 98.2 70 24 113/66 (82) 100 01/16/20 03:37 67 01/16/20 02:49 72 22 40 01/16/20 00:00 99.3 71 24 114/68 (83) 98 01/16/20 00:00 40 01/16/20 00:00 Mechanical Ventilator 01/15/20 23:30 69 01/15/20 23:10 70 20 40 01/15/20 20:00 40 01/15/20 20:00 Mechanical Ventilator 01/15/20 20:00 99.3 74 25 101/67 (78) 98 01/15/20 19:07 67 01/15/20 19:05 66 23 40 01/15/20 16:00 40 01/15/20 16:00 Mechanical Ventilator 01/15/20 16:00 82 01/15/20 16:00 97.9 76 22 139/70 (93) 99 01/15/20 15:15 78 20 40 01/15/20 12:00 40 01/15/20 12:00 Mechanical Ventilator 01/15/20 11:46 73 01/15/20 11:43 98.9 75 22 110/63 (79) 96 4/20/20 11:15 73 22 40 Height (Feet): 5 Height (Inches): 5.00 Weight (Pounds): 121 HEENT: status post trach Respiratory/Chest: lungs clear Cardiovascular: normal rate, regular rhythm, no gallop/murmur Abdomen: soft, non tender, other - GT Extremities: no edema Laboratory Tests Test 01/16/20 03:15 White Blood Count 7.8 K/UL (4.8-10.8) Red Blood Count 2.83 M/UL (4.70-6.10) L Hemoglobin 9.2 G/DL (14.2-18.0) L Hematocrit 26.1 % (42.0-52.0) L Mean Corpuscular Volume 92 FL (80-99) Mean Corpuscular Hemoglobin 32.6 PG (27.0-31.0) H Mean Corpuscular Hemoglobin Concent 35.3 G/DL (32.0-36.0) Red Cell Distribution Width 13.1 % (11.6-14.8) Platelet Count 185 K/UL (150-450) Mean Platelet Volume 7.6 FL (6.5-10.1) Neutrophils (%) (Auto) 66.9 % (45.0-75.0) Lymphocytes (%) (Auto) 18.9 % (20.0-45.0) L Monocytes (%) (Auto) 10.6 % (1.0-10.0) H Eosinophils (%) (Auto) 2.5 % (0.0-3.0) Basophils (%) (Auto) 1.1 % (0.0-2.0) Sodium Level 130 MMOL/L (136-145) L Potassium Level 4.4 MMOL/L (3.5-5.1) Chloride Level 96 MMOL/L (98-107) L Carbon Dioxide Level 28 MMOL/L (21-32) Anion Gap 6 mmol/L (5-15) Blood Urea Nitrogen 57 mg/dL (7-18) H Creatinine 1.7 MG/DL (0.55-1.30) H Estimat Glomerular Filtration Rate 39.3 mL/min (>60) Glucose Level 113 MG/DL (74-106) H Calcium Level 8.5 MG/DL (8.5-10.1) Current Medications Medications (Trade) Dose Ordered Sig/Pau Route PRN Reason Start Time Stop Time Status Last Admin Dose Admin Acetaminophen (Tylenol) 650 mg Q4H PRN GT MILD/TEMP 01/09/20 06:30 02/08/20 06:29 01/16/20 01:13 Ascorbic Acid (Vitamin C) 500 mg DAILY GT 01/02/20 09:00 02/01/20 08:59 01/16/20 08:11 Aspirin (ASA) 81 mg DAILY GT 01/16/20 09:00 03/01/20 08:59 01/16/20 08:10 Carvedilol (Coreg) 6.25 mg EVERY 12 HOURS GT 01/08/20 09:00 02/07/20 08:59 01/16/20 08:11 Diphenoxylate HCl/ Atropine (Lomotil) 2.5 mg Q4H PRN GT Diarrhea 01/13/20 07:30 02/12/20 07:29 01/14/20 08:49 Heparin Sodium (Porcine) (Heparin 5000 units/ml) 5,000 units EVERY 12 HOURS SUBQ 01/01/20 21:00 02/15/20 20:59 01/16/20 08:13 Levetiracetam (Keppra) 750 mg EVERY 12 HOURS GT 01/02/20 09:00 02/01/20 08:59 01/16/20 08:10 Levothyroxine Sodium (Synthroid) 50 mcg DAILY GT 01/02/20 09:00 02/01/20 08:59 01/16/20 08:11 Levothyroxine Sodium (Synthroid) 125 mcg DAILY GT 01/02/20 09:00 02/01/20 08:59 01/16/20 08:11 Loperamide HCl (Imodium) 2 mg Q6H PRN NG Diarrhea 01/12/20 10:30 02/11/20 10:29 01/15/20 17:37 Sodium Chloride 1,000 ml @ 40 mls/hr Q24H IV 01/16/20 07:35 02/15/20 07:34 01/16/20 08:11 Heber Abraham MD Jan 16, 2020 11:13"
--- NOTE | 2020-01-16 12:04 | NUR ---
NURSE NOTES: pt seen in bed resting , no acute distress is noted, VSS as documented. Oral care rendered and pt tolerated well.
[2020-01-16 12:05] VITALS: BP_SYST 106; BP_SYST 122; BP_DIAS 49; BP_DIAS 67
--- NOTE | 2020-01-16 15:21 | NUR ---
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 Oral care rendered. Will continue to monitor.
[2020-01-16 16:00] VITALS: BP 137/82
--- NOTE | 2020-01-16 16:52 | NUR ---
CASE MANAGEMENT: REVIEW SI: PNA . TRACH/VENT DEPENDENT . COVID-19 NOT DETECTED T 99.2 HR 71 RR 27 BP 106/67 SAT 100% MECH VENT FIO2 40 H/H 9.2/26.1 NA 130 BUN 57 CR 1.7 IS: KEPPRA 750MG GT Q12HR HEPARIN SUBQ Q12HR D5W @ 50ML/HR TRANSFUSE PRBC NEEDED G-TUBE FEEDING WOUND CARE STEP DOWN UNIT DCP: PATIENT IS FROM [facility]
--- NOTE | 2020-01-16 19:02 | NUR ---
NURSE NOTES: Report given to ALETA Dawkins. Endorsed plan of care.
--- NOTE | 2020-01-16 19:20 | NUR ---
NURSE NOTES: Received patient and report from ALETA Dudley. Patient is observed resting in bed and remains alert and oriented x0-1. No pain noted upon assessment. Pt is trach to vent with the following settings: AC 14 TV 500 FiO2 30% PEEP 5 and no s/sx of acute distress. Pt noted to be SR on tele monitor with a current HR of 72 noted, no s/sx of acute distress. GT noted which remains intact and patent. Duque catheter noted and remains draining yellow urine to gravity. Central line previously removed, no signs of bleeding noted. Diagnostics reviewed. Skin alterations noted. Pending pharmacy picking tech for discharge to [facility]. Fall, Aspiration and Seizure precautions observed. Pt remains resting in bed; Bed remains in the lowest position with the safety wheels engaged, call light within reach, side rails up x3 and bed alarm activated. Will continue plan of care. Will continue to monitor. Addendum: 01/16/20 at 2000 by NATALI JAMES RN entered under wrong chart
--- NOTE | 2020-01-16 19:21 | NUR ---
NURSE NOTES: Received patient and report from ALETA Fenton. Patient is observed resting in bed and remains alert and oriented x0-1. No pain noted upon assessment. Pt is trach to vent with the following settings: AC 10 TV 450 FiO2 100% PEEP 5 and no s/sx of acute distress. Pt noted to be SR on tele monitor with a current HR of 65 noted, no s/sx of acute distress. GT noted which remains intact and patent and infusing feeding as prescribed, no residual noted. Condom catheter noted and remains draining yellow urine to gravity. R FA 22g IV catheter remains intact, patent and infusing 1/2NS as prescribed. Diagnostics reviewed. Skin alterations noted. Fall, Aspiration and Seizure precautions observed. Pt remains resting in bed; Bed remains in the lowest position with the safety wheels engaged, call light within reach, side rails up x3 and bed alarm activated. Will continue plan of care. Will continue to monitor.
--- NOTE | 2020-01-16 19:50 | NUR ---
INTER-FACILITY TRANSFER: Patient transferred to [facility], per MD order. Report given to charge nurse Miriam. Transport provided by [id number], report given to DIONNE Smith Pt remains stable at this time. Addendum: 01/16/20 at 1999 by NATALI JAMES RN wrong patient
[2020-01-16 20:00] VITALS: BP 107/71
--- NOTE | 2020-01-16 21:57 | Surgery Progress Note ---
Surgery Progress Note Subjective Symptoms: pain same, passing flatus, BM Objective Last 24 Hour Vital Signs Date Time Temp Pulse Resp B/P (MAP) Pulse Ox O2 Delivery O2 Flow Rate FiO2 01/16/20 20:00 99.6 84 24 107/71 (83) 100 01/16/20 20:00 Mechanical Ventilator 01/16/20 20:00 40 01/16/20 17:30 79 22 40 01/16/20 16:00 99.2 71 20 137/82 (100) 100 01/16/20 15:45 40 01/16/20 15:43 Mechanical Ventilator 01/16/20 15:30 71 01/16/20 12:05 98.8 66 22 106/67 (80) 100 01/16/20 11:58 68 27 40 01/16/20 11:55 40 01/16/20 11:53 Mechanical Ventilator 01/16/20 11:46 64 01/16/20 08:11 68 113/66 01/16/20 08:00 Mechanical Ventilator 01/16/20 08:00 40 01/16/20 08:00 98.3 67 25 119/74 (89) 100 01/16/20 07:51 68 01/16/20 07:01 63 16 40 01/16/20 05:07 71 20 40 01/16/20 04:00 40 01/16/20 04:00 Mechanical Ventilator 01/16/20 04:00 98.2 70 24 113/66 (82) 100 01/16/20 03:37 67 01/16/20 02:49 72 22 40 01/16/20 00:00 99.3 71 24 114/68 (83) 98 01/16/20 00:00 40 01/16/20 00:00 Mechanical Ventilator 01/15/20 23:30 69 01/15/20 23:10 70 20 40 I&O Intake and Output 01/15/20 01/16/20 19:00 07:00 Intake Total 1425 ml 1359.166 ml Output Total 700 ml Balance 725 ml 1359.166 ml Free Water 250 ml 100 ml IV Total 600 ml 599.166 ml Tube Feeding 575 ml 660 ml Output Urine Total 700 ml # Voids 1 # Bowel Movements 2 Dressing: other Wound: other Drains: other Cardiovascular: RSR Respiratory: decreased breath sounds Abdomen: soft, non-tender, present bowel sounds Extremities: no tenderness, no cyanosis Laboratory Tests Test 01/16/20 03:15 White Blood Count 7.8 K/UL (4.8-10.8) Red Blood Count 2.83 M/UL (4.70-6.10) L Hemoglobin 9.2 G/DL (14.2-18.0) L Hematocrit 26.1 % (42.0-52.0) L Mean Corpuscular Volume 92 FL (80-99) Mean Corpuscular Hemoglobin 32.6 PG (27.0-31.0) H Mean Corpuscular Hemoglobin Concent 35.3 G/DL (32.0-36.0) Red Cell Distribution Width 13.1 % (11.6-14.8) Platelet Count 185 K/UL (150-450) Mean Platelet Volume 7.6 FL (6.5-10.1) Neutrophils (%) (Auto) 66.9 % (45.0-75.0) Lymphocytes (%) (Auto) 18.9 % (20.0-45.0) L Monocytes (%) (Auto) 10.6 % (1.0-10.0) H Eosinophils (%) (Auto) 2.5 % (0.0-3.0) Basophils (%) (Auto) 1.1 % (0.0-2.0) Sodium Level 130 MMOL/L (136-145) L Potassium Level 4.4 MMOL/L (3.5-5.1) Chloride Level 96 MMOL/L (98-107) L Carbon Dioxide Level 28 MMOL/L (21-32) Anion Gap 6 mmol/L (5-15) Blood Urea Nitrogen 57 mg/dL (7-18) H Creatinine 1.7 MG/DL (0.55-1.30) H Estimat Glomerular Filtration Rate 39.3 mL/min (>60) Glucose Level 113 MG/DL (74-106) H Calcium Level 8.5 MG/DL (8.5-10.1) Plan Problems: (1) Decubitus skin ulcer Assessment & Plan: Pt presented on admission with contractures, multiple Skin Breakdown. Skin assessed under collar of trach and no skin breakdown noted.Category 3 Skin tear R elbow(L)4.5cm x (W)5cm. Full flap loss noted. Base of wound moist and viable,edges adherent. No exudate noted. No erythema or elevated skin temp periwound. Category 2 Skin tear L forearm. Full flap intact and reattached. Moderate amt sanguineous exudate noted. Silvasorb Gel applied and covered with Optifoam drsg. Reinforced with ABD Pad and Kerlix. DTPI noted to L Sacrum(L)3.5cm x (W)3cm. Base of wound is maroon and indurated. DTPI R Sacrum(L)7cm x (W)9.5cm. Wound is irregular shaped. Base of wound is maroon and indurated. Scattered areas of darker skin tone without induration or erythema periwound. DTPI L lateral malleolus(L)2.5cm x (W)2cm. Base of wound is fluctuant,purple with surrounding maroon borders. No erythema or elevation in skin temp periwound. Partial thickness wound L 1st metatarsal head (L)2.5cm x (W)2cm. Base of wound is moist and viable. Edges are macerated. Non-blanching erythema without fluctuance periwound. DTPI Dorso/lateral R foot(L)2.3cm x (W)4.3cm. Base of injury is indurated purple /maroon in colour. No erythema or elevation in skin temp periwound. Hyperpigmentation from previous wounds noted to R and L hallux. Tx.Plan: Cleanse Skin tears R Elbow and L forearm with Saline. Apply Silvasorb Gel. Cover each wounds with Optifoam drsgs. Change every 7 days and prn. Apply Triad Paste to R and L Sacrum. Cover with Optifoam drsg. Change every 3 days and prn. Apply Cavilon to Malleoli both feet, Both heels and Both hallux . Cover each site with Optifoam drsgs turn q2h nutritional optimization (2) Respiratory insufficiency (3) Malnutrition Assessment & Plan: DAILY ESTIMATED NEEDS: Needs based on Critical care, wounds/ 60kg abw 22-28 kcals/kg 0184-4315 total kcals 1.25-2 g protein/kg 75-120 g total protein 25-30 mL/kg 5712-2743 total fluid mLs NUTRITION DIAGNOSIS: * Swallowing difficulty R/T respiratory status as evidenced by trach/vent dep, PEG dep. * Increased kcal/prot needs R/T wound healing as evidenced by pt admitted w/ multiple wounds, including DTPI x4, partial thickness x 1, and category 3 Skin tear, refer to WC eval. CURRENT TF:Glucerna 1.5 @ 45ml/hr x 22 hrs-> now Glucerna 1.2 @55ml x22 ENTERAL NUTRITION RECOMMENDATIONS: Glucerna 1.2 @ 57ml/hr x 22 hrs to provide 1254ml, 1505kcal, 75g prot, 1009ml free water * Rec to increase current updated TF to goal of 57ml/hr x22 hrs to better meet est kcal and pro needs * HOB Over 30 degrees/ water flush per MD * Hold Synthroid during 4 hrs that TF is off ADDITIONAL RECOMMENDATIONS: * Per SNF: HT=63", ZV=635qtg (as of 12/28/19) * Monitor lytes, replete as needed * Wound healing: w/ diarrhea, rec lower Vit C-> 250mg daily add Jerome 1pkt BID * Monitor K, renal labs, need for renal formula * calibrated bed scale wt as able (4) Pneumonia (5) Tracheal stenosis (6) Protein-calorie malnutrition, severe (7) Suspected COVID-19 virus infection Assessment & Plan: negative 1. Interval improved aeration throughout the right lung, with residual reticular interstitial markings. 2. Persistent diffuse patchy interstitial and airspace opacities throughout the left lung, not significantly changed, concerning for pneumonia. Sabino Gold Jan 16, 2020 21:57
--- NOTE | 2020-01-16 23:00 | NUR ---
NURSE NOTES: Pt provided with a bed bath, oral care and linen change. Pt tolerated care well and remains clean and dry. Fall, Aspiration and Seizure precautions observed. Pt remains resting in bed; Bed remains in the lowest position with the safety wheels engaged, call light within reach, side rails up x3 and bed alarm activated. Will continue plan of care. Will continue to monitor.
[2020-01-17] VITALS (7 sets, daily range): BP systolic 92–129; BP diastolic 51–72
[2020-01-17] MEDS: Acetaminophen 650mg/20.3ml GT PRN ×2 (00:29→08:44)
--- NOTE | 2020-01-17 00:35 | NUR ---
NURSE NOTES: Pt noted to have a temperature of 100.6; tylenol administered per order with no adverse effects noted. Will continue to monitor. Will reassess patient.
--- NOTE | 2020-01-17 02:29 | Progress Note ---
DATE: 01/16/2020 CARDIOLOGY PROGRESS NOTE SUBJECTIVE: The patient is poorly responsive at baseline, now with decreasing diarrhea and secretions. Monitored rhythm sinus with atrial ectopics. PHYSICAL EXAMINATION: LUNGS: Bilateral breath sounds. Moderate rhonchi. CARDIAC: Regular rhythm and rate. Normal S1, S2. EXTREMITIES: No edema. G-tube site intact. LABORATORY DATA: Labs notable for white count 7.8, hemoglobin 9.2. Sodium 130, potassium 4.4, bicarb 28, BUN 57, creatinine 1.7. IMPRESSION: 1. Dilutional hyponatremia. 2. Severe protein-calorie malnutrition. 3. Acute on chronic diastolic congestive heart failure. 4. Pulmonary hypertension due to underlying lung disease. 5. Ventilator-dependent respiratory failure. 6. Healthcare-acquired pneumonia. 7. Resolved myocardial ischemia following uncomplicated non ST-elevation myocardial infarction. PLAN: Respiratory support. Ventilator support. Periodic diuresis based on clinical parameters. Discontinue hypotonic IV fluids. Continue anti-platelet therapy and beta-blockade. Tony Lobo M.D. DR: ANAM JOB#: [id number] CC:
--- NOTE | 2020-01-17 04:00 | NUR ---
NURSE NOTES: Temperature of 99.0 noted during 0400 vitals. Pt was using several blankets and was bundled up. Pt utilizing sheet for coverage now. Will re-evaluate temperature and administer tylenol as needed as ordered. Will continue to monitor.
--- NOTE | 2020-01-17 05:00 | NUR ---
NURSE NOTES: Temperature of 97.9 now noted after cooling measures. Pt provided with a bed bath, oral care and suctioning for excess secretions. RT present at bedside; stoma cleaned and dressing changed. Pt tolerated care well and remains clean and dry. Fall, Aspiration and Seizure precautions observed. Pt remains resting in bed; Bed remains in the lowest position with the safety wheels engaged, call light within reach, side rails up x3 and bed alarm activated. Will continue plan of care. Will continue to monitor.
[2020-01-17 05:26] LABS: ANION GAP 9 mmol/L (5-15); BLOOD UREA NITROGEN 65 mg/dL (7-18); CALCIUM 8.2 MG/DL (8.5-10.1); CARBON DIOXIDE 26 MMOL/L (21-32); CHLORIDE 97 MMOL/L (98-107); CREATININE 1.5 MG/DL (0.55-1.30); POTASSIUM 4.7 MMOL/L (3.5-5.1); SODIUM 132 MMOL/L (136-145)
--- NOTE | 2020-01-17 07:05 | NUR ---
HAND-OFF: Report given to Lionel RN. Pt remains stable at this time.
--- NOTE | 2020-01-17 07:05 | NUR ---
NURSE NOTES: Received report from Mariza RIVER. Pt in bed awake and confused, responsive to pain stimuli. Unable to make needs known. IV site in RFA 22G SL patent and asymptomatic. Side railsx3 up for safety. On LIV mattress. Large amount watery diarrhea x1 previous shift reported. No c/o pain on facial pain scale. Noted 33/min respiration on monitor. Per previous shift, Pt has tachypnea 30-40/min. On condom cath patent and intact. Portex 8, setting with [id number] peep 8. Call light within easy reach. Will continue to plan of care.
[2020-01-17] MEDS: Lomotil 2.5mg tab GT PRN (07:17)
--- NOTE | 2020-01-17 08:20 | General Progress Note ---
Assessment/Plan Status: stable Assessment/Plan: 1. History of chronic respiratory failure, on vent. 2. Dysphagia with G-tube. 3. Diabetes. 4. Renal insufficiency. 5. Anemia. 6. History of tracheal stenosis. 7. Diarrhea C.diff neg lomotil and imodium prn GTF GT care repeat labs in am TF >> vital AF off pepcid off rectal tube now will fu Subjective ROS Limited/Unobtainable: No Allergies: Coded Allergies: No Known Allergies (Unverified , 12/31/19) Objective Last 24 Hour Vital Signs Date Time Temp Pulse Resp B/P (MAP) Pulse Ox O2 Delivery O2 Flow Rate FiO2 01/17/20 05:29 77 20 40 01/17/20 04:00 Mechanical Ventilator 01/17/20 04:00 99.0 91 20 108/61 (77) 100 01/17/20 04:00 97 01/17/20 04:00 40 01/17/20 00:59 99.6 01/17/20 00:00 Mechanical Ventilator 01/17/20 00:00 40 01/17/20 00:00 89 01/17/20 00:00 100.8 92 16 106/72 (83) 100 01/16/20 23:30 80 20 40 01/16/20 23:15 82 22 40 01/16/20 20:00 99.6 84 24 107/71 (83) 100 01/16/20 20:00 Mechanical Ventilator 01/16/20 20:00 40 01/16/20 19:36 79 22 40 01/16/20 19:32 83 01/16/20 17:30 79 22 40 01/16/20 16:00 99.2 71 20 137/82 (100) 100 01/16/20 15:45 40 01/16/20 15:43 Mechanical Ventilator 01/16/20 15:30 71 01/16/20 12:05 98.8 66 22 106/67 (80) 100 01/16/20 11:58 68 27 40 01/16/20 11:55 40 01/16/20 11:53 Mechanical Ventilator 01/16/20 11:46 64 Intake and Output 01/16/20 01/17/20 19:00 07:00 Intake Total 1237.67 ml 1054.667 ml Output Total 800 ml 900 ml Balance 437.67 ml 154.667 ml Free Water 150 ml 150 ml IV Total 482.67 ml 244.667 ml Tube Feeding 605 ml 660 ml Output Urine Total 800 ml 900 ml # Bowel Movements 2 3 Laboratory Tests 01/17/20 03:20: Sodium Level 132L, Potassium Level 4.7, Chloride Level 97L, Carbon Dioxide Level 26, Anion Gap 9, Blood Urea Nitrogen 65H, Creatinine 1.5H, Estimat Glomerular Filtration Rate 45.4, Glucose Level 109H, Calcium Level 8.2L Height (Feet): 5 Height (Inches): 5.00 Weight (Pounds): 119 General Appearance: alert EENT: normal ENT inspection Neck: normal alignment Cardiovascular: normal rate Respiratory/Chest: decreased breath sounds Abdomen: normal bowel sounds, non tender, soft Extremities: non-tender Jovany Kong MD Jan 17, 2020 08:20
[2020-01-17] MEDS: Ascorbic Acid 500mg tab GT SCH (08:42)
[2020-01-17] MEDS: Aspirin Baby 81mg GT SCH (08:42)
[2020-01-17] MEDS: Carvedilol 6.25mg Tab GT SCH ×2 (08:43→20:48)
[2020-01-17] MEDS: levETIRAcetam 500mg/5ml Liquid GT SCH ×2 (08:43→20:48)
[2020-01-17] MEDS: Levothyroxine 125mcg tab GT SCH (08:43)
[2020-01-17] MEDS: Heparin 5000 units/ml inj SUBQ SCH ×2 (08:45→20:48)
--- NOTE | 2020-01-17 09:30 | Nephrology Progress Note ---
Assessment/Plan Problem List: (1) Hypernatremia (2) Dehydration (3) JOHN (acute kidney injury) (4) Respiratory insufficiency (5) Pneumonia (6) Protein-calorie malnutrition, severe (7) Hx of tracheostomy (8) CKD (chronic kidney disease) stage 3, GFR 30-59 ml/min Plan continue iv's, adjusted as Na fell to 130 BUN higher to trend Subjective ROS Limited/Unobtainable: Yes Objective Objective Last 24 Hour Vital Signs Date Time Temp Pulse Resp B/P (MAP) Pulse Ox O2 Delivery O2 Flow Rate FiO2 01/17/20 08:43 106 122/72 01/17/20 08:00 99.7 106 34 122/72 (89) 100 01/17/20 07:05 80 33 40 01/17/20 05:29 77 20 40 01/17/20 04:00 Mechanical Ventilator 01/17/20 04:00 99.0 91 20 108/61 (77) 100 01/17/20 04:00 97 01/17/20 04:00 40 01/17/20 00:59 99.6 01/17/20 00:00 Mechanical Ventilator 01/17/20 00:00 40 01/17/20 00:00 89 01/17/20 00:00 100.8 92 16 106/72 (83) 100 01/16/20 23:30 80 20 40 01/16/20 23:15 82 22 40 01/16/20 20:00 99.6 84 24 107/71 (83) 100 01/16/20 20:00 Mechanical Ventilator 01/16/20 20:00 40 01/16/20 19:36 79 22 40 01/16/20 19:32 83 01/16/20 17:30 79 22 40 01/16/20 16:00 99.2 71 20 137/82 (100) 100 01/16/20 15:45 40 01/16/20 15:43 Mechanical Ventilator 01/16/20 15:30 71 01/16/20 12:05 98.8 66 22 106/67 (80) 100 01/16/20 11:58 68 27 40 01/16/20 11:55 40 01/16/20 11:53 Mechanical Ventilator 01/16/20 11:46 64 Intake and Output 01/16/20 01/17/20 19:00 07:00 Intake Total 1237.67 ml 1054.667 ml Output Total 800 ml 900 ml Balance 437.67 ml 154.667 ml Free Water 150 ml 150 ml IV Total 482.67 ml 244.667 ml Tube Feeding 605 ml 660 ml Output Urine Total 800 ml 900 ml # Bowel Movements 2 3 Laboratory Tests 01/17/20 03:20: Sodium Level 132L, Potassium Level 4.7, Chloride Level 97L, Carbon Dioxide Level 26, Anion Gap 9, Blood Urea Nitrogen 65H, Creatinine 1.5H, Estimat Glomerular Filtration Rate 45.4, Glucose Level 109H, Calcium Level 8.2L Height (Feet): 5 Height (Inches): 5.00 Weight (Pounds): 119 General Appearance: lethargic, cachetic Cardiovascular: regular rhythm Respiratory/Chest: crackles/rales Abdomen: soft Extremities: trace edema Neurologic: abnormal house builder II-XII, motor weakness Pravin Abad MD Jan 17, 2020 09:30
--- NOTE | 2020-01-17 09:54 | Critical Care Progress Note ---
Assessment/Plan Assessment/Plan Impression: Pneumonia Sepsis Elevated troponin Renal failure Tracheostomy History of tracheal stenosis Ventilator Dependent Respiratory Failure Chronically altered mental status s/p previous CPA, anoxia Previous Seizures Previous pericardial effusion, Congestive Heart Failure, Atrial Fibrillation Diabetes, Hypothyroidism Previous Hematuria/UTI, previous sepsis GERD sp G tube polymicrobial infection diarrhea worsening anemia PLAN rectal tube GI follow up off antibiotics vent management as is acid base noted; taper oxygen antibiotic regimen reviewed PICC line ID and renal noted gi clearance needed monitor for change feeds as able SNF meds noted seizure precautions follow up HH and other labs cardiology to monitor hemodynamics note reviewed and edited care discussed with RN and RT dc planning to snf if diarrhea improves GI eval appreciated critical time spent >40 minutes coordinating care and updating orders Critical Care - Subjective Interval Events: late entry 01/16/20 ROS Limited/Unobtainable: Yes Condition: critical EKG Rhythm: Sinus Rhythm Residuals: minimal Tube Feeding Tolerated: yes I&O: Intake and Output 01/16/20 01/17/20 19:00 07:00 Intake Total 1237.67 ml 1054.667 ml Output Total 800 ml 900 ml Balance 437.67 ml 154.667 ml Free Water 150 ml 150 ml IV Total 482.67 ml 244.667 ml Tube Feeding 605 ml 660 ml Output Urine Total 800 ml 900 ml # Bowel Movements 2 3 Critical Care - Objective Last 24 Hour Vital Signs Date Time Temp Pulse Resp B/P (MAP) Pulse Ox O2 Delivery O2 Flow Rate FiO2 01/16/20 19:32 83 01/16/20 17:30 79 22 40 01/16/20 16:00 99.2 71 20 137/82 (100) 100 01/16/20 15:45 40 01/16/20 15:43 Mechanical Ventilator 01/16/20 15:30 71 01/16/20 12:05 98.8 66 22 106/67 (80) 100 01/16/20 11:58 68 27 40 01/16/20 11:55 40 01/16/20 11:53 Mechanical Ventilator 01/16/20 11:46 64 Labs: Labs Test 01/15/20 03:15 01/16/20 03:15 01/17/20 03:20 White Blood Count 6.9 K/UL (4.8-10.8) 7.8 K/UL (4.8-10.8) Red Blood Count 2.82 M/UL (4.70-6.10) 2.83 M/UL (4.70-6.10) Hemoglobin 9.0 G/DL (14.2-18.0) 9.2 G/DL (14.2-18.0) Hematocrit 26.1 % (42.0-52.0) 26.1 % (42.0-52.0) Mean Corpuscular Volume 93 FL (80-99) 92 FL (80-99) Mean Corpuscular Hemoglobin 31.8 PG (27.0-31.0) 32.6 PG (27.0-31.0) Mean Corpuscular Hemoglobin Concent 34.3 G/DL (32.0-36.0) 35.3 G/DL (32.0-36.0) Red Cell Distribution Width 12.8 % (11.6-14.8) 13.1 % (11.6-14.8) Platelet Count 184 K/UL (150-450) 185 K/UL (150-450) Mean Platelet Volume 7.7 FL (6.5-10.1) 7.6 FL (6.5-10.1) Neutrophils (%) (Auto) 54.5 % (45.0-75.0) 66.9 % (45.0-75.0) Lymphocytes (%) (Auto) 28.6 % (20.0-45.0) 18.9 % (20.0-45.0) Monocytes (%) (Auto) 12.7 % (1.0-10.0) 10.6 % (1.0-10.0) Eosinophils (%) (Auto) 3.1 % (0.0-3.0) 2.5 % (0.0-3.0) Basophils (%) (Auto) 1.1 % (0.0-2.0) 1.1 % (0.0-2.0) Sodium Level 134 MMOL/L (136-145) 130 MMOL/L (136-145) 132 MMOL/L (136-145) Potassium Level 4.6 MMOL/L (3.5-5.1) 4.4 MMOL/L (3.5-5.1) 4.7 MMOL/L (3.5-5.1) Chloride Level 98 MMOL/L (98-107) 96 MMOL/L (98-107) 97 MMOL/L (98-107) Carbon Dioxide Level 27 MMOL/L (21-32) 28 MMOL/L (21-32) 26 MMOL/L (21-32) Anion Gap 9 mmol/L (5-15) 6 mmol/L (5-15) 9 mmol/L (5-15) Blood Urea Nitrogen 55 mg/dL (7-18) 57 mg/dL (7-18) 65 mg/dL (7-18) Creatinine 1.6 MG/DL (0.55-1.30) 1.7 MG/DL (0.55-1.30) 1.5 MG/DL (0.55-1.30) Estimat Glomerular Filtration Rate 42.1 mL/min (>60) 39.3 mL/min (>60) 45.4 mL/min (>60) Glucose Level 102 MG/DL (74-106) 113 MG/DL (74-106) 109 MG/DL (74-106) Calcium Level 8.4 MG/DL (8.5-10.1) 8.5 MG/DL (8.5-10.1) 8.2 MG/DL (8.5-10.1) Total Bilirubin 0.3 MG/DL (0.2-1.0) Aspartate Amino Transf (AST/SGOT) 50 U/L (15-37) Alanine Aminotransferase (ALT/SGPT) 51 U/L (12-78) Alkaline Phosphatase 126 U/L (46-116) Total Protein 7.7 G/DL (6.4-8.2) Albumin 1.8 G/DL (3.4-5.0) Globulin 5.9 g/dL Albumin/Globulin Ratio 0.3 (1.0-2.7) Objective: WDWN NAD reduced breath sounds bilaterally without rhonchi or wheeze [id number] without MRG NABS nontender no HSM GT no CCE nonfocal trach reviewed and edited Dillon Harris MD Jan 17, 2020 09:54
--- NOTE | 2020-01-17 09:57 | Critical Care Progress Note ---
Assessment/Plan Assessment/Plan Impression: Pneumonia Sepsis Elevated troponin Renal failure Tracheostomy History of tracheal stenosis Ventilator Dependent Respiratory Failure Chronically altered mental status s/p previous CPA, anoxia Previous Seizures Previous pericardial effusion, Congestive Heart Failure, Atrial Fibrillation Diabetes, Hypothyroidism Previous Hematuria/UTI, previous sepsis GERD sp G tube polymicrobial infection diarrhea worsening anemia PLAN rectal tube GI follow up defer to ID as to antibiotics; wbc noted vent management as is acid base noted; taper oxygen antibiotic regimen reviewed PICC line ID and renal noted gi clearance needed monitor for change feeds as able SNF meds noted seizure precautions follow up HH and other labs cardiology to monitor hemodynamics note reviewed and edited care discussed with RN and RT dc planning to snf if diarrhea improves GI eval appreciated critical time spent >40 minutes coordinating care and updating orders Critical Care - Subjective Interval Events: care noted now with fever and tachycardia on vent ROS Limited/Unobtainable: Yes Condition: critical EKG Rhythm: Sinus Tachycardia Residuals: minimal Tube Feeding Tolerated: yes I&O: Intake and Output 01/16/20 01/17/20 19:00 07:00 Intake Total 1237.67 ml 1054.667 ml Output Total 800 ml 900 ml Balance 437.67 ml 154.667 ml Free Water 150 ml 150 ml IV Total 482.67 ml 244.667 ml Tube Feeding 605 ml 660 ml Output Urine Total 800 ml 900 ml # Bowel Movements 2 3 Critical Care - Objective Last 24 Hour Vital Signs Date Time Temp Pulse Resp B/P (MAP) Pulse Ox O2 Delivery O2 Flow Rate FiO2 01/17/20 08:43 106 122/72 01/17/20 08:00 99.7 106 34 122/72 (89) 100 01/17/20 07:05 80 33 40 01/17/20 05:29 77 20 40 01/17/20 04:00 Mechanical Ventilator 01/17/20 04:00 99.0 91 20 108/61 (77) 100 01/17/20 04:00 97 01/17/20 04:00 40 01/17/20 00:59 99.6 01/17/20 00:00 Mechanical Ventilator 01/17/20 00:00 40 01/17/20 00:00 89 01/17/20 00:00 100.8 92 16 106/72 (83) 100 01/16/20 23:30 80 20 40 01/16/20 23:15 82 22 40 01/16/20 20:00 99.6 84 24 107/71 (83) 100 01/16/20 20:00 Mechanical Ventilator 01/16/20 20:00 40 01/16/20 19:36 79 22 40 01/16/20 19:32 83 01/16/20 17:30 79 22 40 01/16/20 16:00 99.2 71 20 137/82 (100) 100 01/16/20 15:45 40 01/16/20 15:43 Mechanical Ventilator 01/16/20 15:30 71 01/16/20 12:05 98.8 66 22 106/67 (80) 100 01/16/20 11:58 68 27 40 01/16/20 11:55 40 01/16/20 11:53 Mechanical Ventilator 01/16/20 11:46 64 Labs: Labs Test 01/15/20 03:15 01/16/20 03:15 01/17/20 03:20 White Blood Count 6.9 K/UL (4.8-10.8) 7.8 K/UL (4.8-10.8) Red Blood Count 2.82 M/UL (4.70-6.10) 2.83 M/UL (4.70-6.10) Hemoglobin 9.0 G/DL (14.2-18.0) 9.2 G/DL (14.2-18.0) Hematocrit 26.1 % (42.0-52.0) 26.1 % (42.0-52.0) Mean Corpuscular Volume 93 FL (80-99) 92 FL (80-99) Mean Corpuscular Hemoglobin 31.8 PG (27.0-31.0) 32.6 PG (27.0-31.0) Mean Corpuscular Hemoglobin Concent 34.3 G/DL (32.0-36.0) 35.3 G/DL (32.0-36.0) Red Cell Distribution Width 12.8 % (11.6-14.8) 13.1 % (11.6-14.8) Platelet Count 184 K/UL (150-450) 185 K/UL (150-450) Mean Platelet Volume 7.7 FL (6.5-10.1) 7.6 FL (6.5-10.1) Neutrophils (%) (Auto) 54.5 % (45.0-75.0) 66.9 % (45.0-75.0) Lymphocytes (%) (Auto) 28.6 % (20.0-45.0) 18.9 % (20.0-45.0) Monocytes (%) (Auto) 12.7 % (1.0-10.0) 10.6 % (1.0-10.0) Eosinophils (%) (Auto) 3.1 % (0.0-3.0) 2.5 % (0.0-3.0) Basophils (%) (Auto) 1.1 % (0.0-2.0) 1.1 % (0.0-2.0) Sodium Level 134 MMOL/L (136-145) 130 MMOL/L (136-145) 132 MMOL/L (136-145) Potassium Level 4.6 MMOL/L (3.5-5.1) 4.4 MMOL/L (3.5-5.1) 4.7 MMOL/L (3.5-5.1) Chloride Level 98 MMOL/L (98-107) 96 MMOL/L (98-107) 97 MMOL/L (98-107) Carbon Dioxide Level 27 MMOL/L (21-32) 28 MMOL/L (21-32) 26 MMOL/L (21-32) Anion Gap 9 mmol/L (5-15) 6 mmol/L (5-15) 9 mmol/L (5-15) Blood Urea Nitrogen 55 mg/dL (7-18) 57 mg/dL (7-18) 65 mg/dL (7-18) Creatinine 1.6 MG/DL (0.55-1.30) 1.7 MG/DL (0.55-1.30) 1.5 MG/DL (0.55-1.30) Estimat Glomerular Filtration Rate 42.1 mL/min (>60) 39.3 mL/min (>60) 45.4 mL/min (>60) Glucose Level 102 MG/DL (74-106) 113 MG/DL (74-106) 109 MG/DL (74-106) Calcium Level 8.4 MG/DL (8.5-10.1) 8.5 MG/DL (8.5-10.1) 8.2 MG/DL (8.5-10.1) Total Bilirubin 0.3 MG/DL (0.2-1.0) Aspartate Amino Transf (AST/SGOT) 50 U/L (15-37) Alanine Aminotransferase (ALT/SGPT) 51 U/L (12-78) Alkaline Phosphatase 126 U/L (46-116) Total Protein 7.7 G/DL (6.4-8.2) Albumin 1.8 G/DL (3.4-5.0) Globulin 5.9 g/dL Albumin/Globulin Ratio 0.3 (1.0-2.7) Objective: WDWN NAD reduced breath sounds bilaterally without rhonchi or wheeze [id number] tachy without MRG NABS nontender no HSM GT no CCE nonfocal trach reviewed and edited Dillon Harris MD Jan 17, 2020 09:57
--- NOTE | 2020-01-17 09:59 | General Progress Note ---
Assessment/Plan Problem List: (1) JOHN (acute kidney injury) ICD Codes: N17.9 - Acute kidney failure, unspecified SNOMED: 2694139, 16878173 (2) Dehydration ICD Codes: E86.0 - Dehydration SNOMED: 75954222 (3) Suspected COVID-19 virus infection ICD Codes: R68.89 - Other general symptoms and signs SNOMED: 644790416 (4) Tracheal stenosis ICD Codes: J39.8 - Other specified diseases of upper respiratory tract SNOMED: 28135997 (5) Pneumonia ICD Codes: J18.9 - Pneumonia, unspecified organism SNOMED: 816346655 (6) Malnutrition ICD Codes: E46 - Unspecified protein-calorie malnutrition SNOMED: 37279255 (7) Respiratory insufficiency ICD Codes: R06.89 - Other abnormalities of breathing SNOMED: 856847269 Status: stable Assessment/Plan: cont current rx iv abx per id. monitor labs IVF per renal sz rx monitor bp vent support no wean trach care suctioning as needeed dvt/stress ulcer prophylaxis transfuse as needed skin/wound care prn ivf dc planning? Subjective ROS Limited/Unobtainable: Yes Constitutional: Reports: malaise, weakness HEENT: Reports: no symptoms Cardiovascular: Reports: no symptoms Respiratory: Reports: shortness of breath, sputum Gastrointestinal/Abdominal: Reports: difficulty swallowing Genitourinary: Reports: no symptoms Neurologic/Psychiatric: Reports: pre-existing deficit, seizure Endocrine: Reports: no symptoms Hematologic/Lymphatic: Reports: anemia Allergies: Coded Allergies: No Known Allergies (Unverified , 12/31/19) All Systems: reviewed and negative except above Subjective no events. diarrhea less. cdiff neg. rectal tube out. stable on the vent. no fever or chills. no congestion. labs reviewed. Na trending down. h/h stable.no reports of bleeding poorly responsive at baseline. ID noted. GI noted. renal noted, Objective Last 24 Hour Vital Signs Date Time Temp Pulse Resp B/P (MAP) Pulse Ox O2 Delivery O2 Flow Rate FiO2 01/17/20 08:43 106 122/72 01/17/20 08:00 99.7 106 34 122/72 (89) 100 01/17/20 07:05 80 33 40 01/17/20 05:29 77 20 40 01/17/20 04:00 Mechanical Ventilator 01/17/20 04:00 99.0 91 20 108/61 (77) 100 01/17/20 04:00 97 01/17/20 04:00 40 01/17/20 00:59 99.6 01/17/20 00:00 Mechanical Ventilator 01/17/20 00:00 40 01/17/20 00:00 89 01/17/20 00:00 100.8 92 16 106/72 (83) 100 01/16/20 23:30 80 20 40 01/16/20 23:15 82 22 40 01/16/20 20:00 99.6 84 24 107/71 (83) 100 01/16/20 20:00 Mechanical Ventilator 01/16/20 20:00 40 01/16/20 19:36 79 22 40 01/16/20 19:32 83 01/16/20 17:30 79 22 40 01/16/20 16:00 99.2 71 20 137/82 (100) 100 01/16/20 15:45 40 01/16/20 15:43 Mechanical Ventilator 01/16/20 15:30 71 01/16/20 12:05 98.8 66 22 106/67 (80) 100 01/16/20 11:58 68 27 40 01/16/20 11:55 40 01/16/20 11:53 Mechanical Ventilator 01/16/20 11:46 64 Intake and Output 01/16/20 01/17/20 19:00 07:00 Intake Total 1237.67 ml 1054.667 ml Output Total 800 ml 900 ml Balance 437.67 ml 154.667 ml Free Water 150 ml 150 ml IV Total 482.67 ml 244.667 ml Tube Feeding 605 ml 660 ml Output Urine Total 800 ml 900 ml # Bowel Movements 2 3 Laboratory Tests 01/17/20 03:20: Sodium Level 132L, Potassium Level 4.7, Chloride Level 97L, Carbon Dioxide Level 26, Anion Gap 9, Blood Urea Nitrogen 65H, Creatinine 1.5H, Estimat Glomerular Filtration Rate 45.4, Glucose Level 109H, Calcium Level 8.2L Height (Feet): 5 Height (Inches): 5.00 Weight (Pounds): 119 Objective General Appearance: WD/WN, alert Neck: supple Cardiovascular: regular rhythm Respiratory/Chest: chest wall non-tender, rhonchi - bilaterally Abdomen: normal bowel sounds, non tender, soft, no organomegaly Edema: no edema noted Arm (L), no edema noted Arm (R), no edema noted Leg (L), no edema noted Leg (R), no edema noted Pedal (L), no edema noted Pedal (R), no edema noted Generalized Neurologic: disoriented, aphasia Vasquez De Paz MD Jan 17, 2020 09:59
--- NOTE | 2020-01-17 10:22 | Infectious Diseases Prog Note ---
"Assessment/Plan Assessment/Plan antibiotics : none A 1. e.coli | pseudomonas | acenitobacter pneumonia s/p rx COVID 19 test negative 4.5.20, 4.8.20 2. leucocytosis resolved 3. renal failure 4. + blood cultures with coag neg staph | diphtheroids likely contaminated 5. respiratory failure P 1. observe off antibiotics 2. will follow up cultures Subjective ROS Limited/Unobtainable: Yes Allergies: Coded Allergies: No Known Allergies (Unverified , 12/31/19) Objective Vital Signs Last 24 Hour Vital Signs Date Time Temp Pulse Resp B/P (MAP) Pulse Ox O2 Delivery O2 Flow Rate FiO2 01/17/20 08:43 106 122/72 01/17/20 08:00 99.7 106 34 122/72 (89) 100 01/17/20 07:05 80 33 40 01/17/20 05:29 77 20 40 01/17/20 04:00 Mechanical Ventilator 01/17/20 04:00 99.0 91 20 108/61 (77) 100 01/17/20 04:00 97 01/17/20 04:00 40 01/17/20 00:59 99.6 01/17/20 00:00 Mechanical Ventilator 01/17/20 00:00 40 01/17/20 00:00 89 01/17/20 00:00 100.8 92 16 106/72 (83) 100 01/16/20 23:30 80 20 40 01/16/20 23:15 82 22 40 01/16/20 20:00 99.6 84 24 107/71 (83) 100 01/16/20 20:00 Mechanical Ventilator 01/16/20 20:00 40 01/16/20 19:36 79 22 40 01/16/20 19:32 83 01/16/20 17:30 79 22 40 01/16/20 16:00 99.2 71 20 137/82 (100) 100 01/16/20 15:45 40 01/16/20 15:43 Mechanical Ventilator 01/16/20 15:30 71 01/16/20 12:05 98.8 66 22 106/67 (80) 100 01/16/20 11:58 68 27 40 01/16/20 11:55 40 01/16/20 11:53 Mechanical Ventilator 01/16/20 11:46 64 Height (Feet): 5 Height (Inches): 5.00 Weight (Pounds): 119 HEENT: status post trach Respiratory/Chest: lungs clear Cardiovascular: normal rate, regular rhythm, no gallop/murmur Abdomen: soft, non tender, other - GT Extremities: no edema Laboratory Tests Test 01/17/20 03:20 Sodium Level 132 MMOL/L (136-145) L Potassium Level 4.7 MMOL/L (3.5-5.1) Chloride Level 97 MMOL/L (98-107) L Carbon Dioxide Level 26 MMOL/L (21-32) Anion Gap 9 mmol/L (5-15) Blood Urea Nitrogen 65 mg/dL (7-18) H Creatinine 1.5 MG/DL (0.55-1.30) H Estimat Glomerular Filtration Rate 45.4 mL/min (>60) Glucose Level 109 MG/DL (74-106) H Calcium Level 8.2 MG/DL (8.5-10.1) L Current Medications Medications (Trade) Dose Ordered Sig/Pau Route PRN Reason Start Time Stop Time Status Last Admin Dose Admin Acetaminophen (Tylenol) 650 mg Q4H PRN GT MILD/TEMP 01/09/20 06:30 02/08/20 06:29 01/17/20 08:44 Ascorbic Acid (Vitamin C) 500 mg DAILY GT 01/02/20 09:00 02/01/20 08:59 01/17/20 08:42 Aspirin (ASA) 81 mg DAILY GT 01/16/20 09:00 03/01/20 08:59 01/17/20 08:42 Carvedilol (Coreg) 6.25 mg EVERY 12 HOURS GT 01/08/20 09:00 02/07/20 08:59 01/17/20 08:43 Diphenoxylate HCl/ Atropine (Lomotil) 2.5 mg Q4H PRN GT Diarrhea 01/13/20 07:30 02/12/20 07:29 01/17/20 07:17 Heparin Sodium (Porcine) (Heparin 5000 units/ml) 5,000 units EVERY 12 HOURS SUBQ 01/01/20 21:00 02/15/20 20:59 01/17/20 08:45 Levetiracetam (Keppra) 750 mg EVERY 12 HOURS GT 01/02/20 09:00 02/01/20 08:59 01/17/20 08:43 Levothyroxine Sodium (Synthroid) 50 mcg DAILY GT 01/02/20 09:00 02/01/20 08:59 01/17/20 08:43 Levothyroxine Sodium (Synthroid) 125 mcg DAILY GT 01/02/20 09:00 02/01/20 08:59 01/17/20 08:43 Loperamide HCl (Imodium) 2 mg Q6H PRN NG Diarrhea 01/12/20 10:30 02/11/20 10:29 01/15/20 17:37 Heber Abraham MD Jan 17, 2020 10:22"
--- NOTE | 2020-01-17 12:12 | Surgery Progress Note ---
Surgery Progress Note Subjective Additional Comments afebrile, HD stable seemingly comfortable on mattress labs noted Objective Last 24 Hour Vital Signs Date Time Temp Pulse Resp B/P (MAP) Pulse Ox O2 Delivery O2 Flow Rate FiO2 01/17/20 11:29 86 01/17/20 10:40 86 31 40 01/17/20 10:35 106 01/17/20 08:43 106 122/72 01/17/20 08:00 40 01/17/20 08:00 99.7 106 34 122/72 (89) 100 01/17/20 08:00 Mechanical Ventilator 01/17/20 07:05 80 33 40 01/17/20 05:29 77 20 40 01/17/20 04:00 Mechanical Ventilator 01/17/20 04:00 99.0 91 20 108/61 (77) 100 01/17/20 04:00 97 01/17/20 04:00 40 01/17/20 00:59 99.6 01/17/20 00:00 Mechanical Ventilator 01/17/20 00:00 40 01/17/20 00:00 89 01/17/20 00:00 100.8 92 16 106/72 (83) 100 01/16/20 23:30 80 20 40 01/16/20 23:15 82 22 40 01/16/20 20:00 99.6 84 24 107/71 (83) 100 01/16/20 20:00 Mechanical Ventilator 01/16/20 20:00 40 01/16/20 19:36 79 22 40 01/16/20 19:32 83 01/16/20 17:30 79 22 40 01/16/20 16:00 99.2 71 20 137/82 (100) 100 01/16/20 15:45 40 01/16/20 15:43 Mechanical Ventilator 01/16/20 15:30 71 I&O Intake and Output 01/16/20 01/17/20 19:00 07:00 Intake Total 1237.67 ml 1054.667 ml Output Total 800 ml 900 ml Balance 437.67 ml 154.667 ml Free Water 150 ml 150 ml IV Total 482.67 ml 244.667 ml Tube Feeding 605 ml 660 ml Output Urine Total 800 ml 900 ml # Bowel Movements 2 3 Dressing: saturated Wound: clean Cardiovascular: RSR Respiratory: clear Abdomen: non-tender, present bowel sounds, non-distended Extremities: edema, no tenderness, no cyanosis, pulses, other Laboratory Tests Test 01/17/20 03:20 Sodium Level 132 MMOL/L (136-145) L Potassium Level 4.7 MMOL/L (3.5-5.1) Chloride Level 97 MMOL/L (98-107) L Carbon Dioxide Level 26 MMOL/L (21-32) Anion Gap 9 mmol/L (5-15) Blood Urea Nitrogen 65 mg/dL (7-18) H Creatinine 1.5 MG/DL (0.55-1.30) H Estimat Glomerular Filtration Rate 45.4 mL/min (>60) Glucose Level 109 MG/DL (74-106) H Calcium Level 8.2 MG/DL (8.5-10.1) L Plan Problems: (1) Decubitus skin ulcer Assessment & Plan: Pt presented on admission with contractures, multiple Skin Breakdown. Skin assessed under collar of trach and no skin breakdown noted.Category 3 Skin tear R elbow(L)4.5cm x (W)5cm. Full flap loss noted. Base of wound moist and viable,edges adherent. No exudate noted. No erythema or elevated skin temp periwound. Category 2 Skin tear L forearm. Full flap intact and reattached. Moderate amt sanguineous exudate noted. Silvasorb Gel applied and covered with Optifoam drsg. Reinforced with ABD Pad and Kerlix. DTPI noted to L Sacrum(L)3.5cm x (W)3cm. Base of wound is maroon and indurated. DTPI R Sacrum(L)7cm x (W)9.5cm. Wound is irregular shaped. Base of wound is maroon and indurated. Scattered areas of darker skin tone without induration or erythema periwound. DTPI L lateral malleolus(L)2.5cm x (W)2cm. Base of wound is fluctuant,purple with surrounding maroon borders. No erythema or elevation in skin temp periwound. Partial thickness wound L 1st metatarsal head (L)2.5cm x (W)2cm. Base of wound is moist and viable. Edges are macerated. Non-blanching erythema without fluctuance periwound. DTPI Dorso/lateral R foot(L)2.3cm x (W)4.3cm. Base of injury is indurated purple /maroon in colour. No erythema or elevation in skin temp periwound. Hyperpigmentation from previous wounds noted to R and L hallux. Tx.Plan: Cleanse Skin tears R Elbow and L forearm with Saline. Apply Silvasorb Gel. Cover each wounds with Optifoam drsgs. Change every 7 days and prn. Apply Triad Paste to R and L Sacrum. Cover with Optifoam drsg. Change every 3 days and prn. Apply Cavilon to Malleoli both feet, Both heels and Both hallux . Cover each site with Optifoam drsgs turn q2h nutritional optimization (2) Respiratory insufficiency (3) Malnutrition Assessment & Plan: DAILY ESTIMATED NEEDS: Needs based on Critical care, wounds/ 60kg abw 22-28 kcals/kg 3875-4414 total kcals 1.25-2 g protein/kg 75-120 g total protein 25-30 mL/kg 6474-2265 total fluid mLs NUTRITION DIAGNOSIS: * Swallowing difficulty R/T respiratory status as evidenced by trach/vent dep, PEG dep. * Increased kcal/prot needs R/T wound healing as evidenced by pt admitted w/ multiple wounds, including DTPI x4, partial thickness x 1, and category 3 Skin tear, refer to WC eval. CURRENT TF:Glucerna 1.5 @ 45ml/hr x 22 hrs-> now Glucerna 1.2 @55ml x22 ENTERAL NUTRITION RECOMMENDATIONS: Glucerna 1.2 @ 57ml/hr x 22 hrs to provide 1254ml, 1505kcal, 75g prot, 1009ml free water * Rec to increase current updated TF to goal of 57ml/hr x22 hrs to better meet est kcal and pro needs * HOB Over 30 degrees/ water flush per MD * Hold Synthroid during 4 hrs that TF is off ADDITIONAL RECOMMENDATIONS: * Per SNF: HT=63", UR=895pcw (as of 12/28/19) * Monitor lytes, replete as needed * Wound healing: w/ diarrhea, rec lower Vit C-> 250mg daily add Jerome 1pkt BID * Monitor K, renal labs, need for renal formula * calibrated bed scale wt as able (4) Pneumonia (5) Tracheal stenosis (6) Protein-calorie malnutrition, severe (7) Suspected COVID-19 virus infection Assessment & Plan: negative 1. Interval improved aeration throughout the right lung, with residual reticular interstitial markings. 2. Persistent diffuse patchy interstitial and airspace opacities throughout the left lung, not significantly changed, concerning for pneumonia. Sabino Gold Jan 17, 2020 12:12
[2020-01-17] MEDS ORDERED: Sterile Water Irrig 1000ml IRRIG ONE (13:20)
[2020-01-17] MEDS ORDERED: 1/2 NS 1000ml IV ONE (13:20)
[2020-01-17] MEDS ORDERED: NS 275ml ONE (13:20)
[2020-01-17] MEDS ORDERED: D5W 550ml IV ONE (13:20)
--- NOTE | 2020-01-17 14:02 | NUR ---
CASE MANAGEMENT: REVIEW SI: PNA . TRACH/VENT DEPENDENT . COVID-19 NOT DETECTED T 100.8 HR 106 RR 34 BP 102/56 SAT 100% MECH VENT FIO2 40 H/H 9.2/26.1 NA 132 BUN 65 CR 1.5 IS: KEPPRA 750MG GT Q12HR HEPARIN SUBQ Q12HR D5W @ 50ML/HR TRANSFUSE PRBC NEEDED G-TUBE FEEDING WOUND CARE OBSERVE OFF ANTIBIOTICS STEP DOWN UNIT DCP: PATIENT IS FROM [facility]
--- NOTE | 2020-01-17 17:43 | NUR ---
*-* INSURANCE *-* UPDATED CLINICALS AND REVIEWS HAVE BEEN FAXED TO: NIKOLE Quiñonez # [phone] fax#[phone]
--- NOTE | 2020-01-17 19:00 | NUR ---
HAND-OFF: Report given to Laurent RIVER. Pt remains stable.
--- NOTE | 2020-01-17 19:29 | NUR ---
NURSE NOTES: Report received from ALETA Flowers. Observed pt lying in the bed, obtunded. SR on monitoring coordinator. Trach to vent, Portex 8, AC 18, TV 450, FIO2 40%, PEEP 8, sat at 98%, no sob. GT intact, running Vital AF at 55cc/hr. Condom cath inplaced. IV on R FA 22G, TKO. Bed in the lowest position. Side rails up x3. Will continue to monitor.
[2020-01-18] VITALS: BP 98/59
--- NOTE | 2020-01-18 | NUR ---
NURSE NOTES: No acute distress noted at this time. Tolerating well with current vent setting. GT, intact, water flushed 100cc, no residual noted. Will continue to monitor.
--- NOTE | 2020-01-18 03:15 | Progress Note ---
DATE: 01/17/2020 CARDIOLOGY PROGRESS NOTE SUBJECTIVE: The patient has no new events, no distress, remains on ventilator support. No signs of bleeding. Monitored rhythm, sinus with no significant ectopy. OBJECTIVE: VITAL SIGNS: Temperature 99.7, blood pressure 122/72, heart rate 106, respiratory rate 34. LUNGS: Coarse breath sounds. CARDIAC: Regular rhythm and rate. Normal S1, S2. ABDOMEN: Soft. G-tube intact. EXTREMITIES: Trace edema. LABORATORY DATA: Sodium 132, potassium 4.7, bicarb 26, BUN 65, creatinine 1.5. IMPRESSION: 1. Respiratory failure. 2. Healthcare-acquired pneumonia. 3. Acute myocardial ischemia and possible non ST-elevation myocardial infarction. 4. Severe protein-calorie malnutrition. 5. Worsened prerenal azotemia. PLAN: Ventilator support. Trach care. Additional hydration. Respiratory hygiene. Maintain beta-minor and anti-seizure therapy. Tony Lobo M.D. DR: ANAM JOB#: [id number] CC:
[2020-01-18 04:00] VITALS: BP 122/74
[2020-01-18 05:06] LABS: BASOPHILS % (AUTO) 0.7 % (0.0-2.0); EOSINOPHILS % (AUTO) 1.2 % (0.0-3.0); HEMATOCRIT 24.4 % (42.0-52.0); HEMOGLOBIN 8.3 G/DL (14.2-18.0); LYMPHOCYTES % (AUTO) 14.8 % (20.0-45.0); MEAN CORPUSCULAR VOLUME 92 FL (80-99); MONOCYTES % (AUTO) 8.7 % (1.0-10.0); NEUTROPHILS % (AUTO) 74.6 % (45.0-75.0); PLATELET COUNT 179 K/UL (150-450); RED BLOOD COUNT 2.64 M/UL (4.70-6.10); WHITE BLOOD COUNT 9.4 K/UL (4.8-10.8)
[2020-01-18 05:19] LABS: ALANINE AMINOTRANSFERASE 29 U/L (12-78); ALBUMIN 1.6 G/DL (3.4-5.0); ALBUMIN/GLOBULIN RATIO 0.3 (1.0-2.7); ALKALINE PHOSPHATASE 97 U/L (46-116); ANION GAP 7 mmol/L (5-15); ASPARTATE AMINO TRANSFERASE 26 U/L (15-37); BILIRUBIN,TOTAL 0.3 MG/DL (0.2-1.0); BLOOD UREA NITROGEN 76 mg/dL (7-18); CALCIUM 8.3 MG/DL (8.5-10.1); CARBON DIOXIDE 28 MMOL/L (21-32); CHLORIDE 99 MMOL/L (98-107); CREATININE 1.7 MG/DL (0.55-1.30); POTASSIUM 4.8 MMOL/L (3.5-5.1); SODIUM 134 MMOL/L (136-145)
--- NOTE | 2020-01-18 07:00 | NUR ---
NURSE NOTES: Received report from Laurent RIVER. Pt in bed awake, open his eyes spontaneously and unable to make needs known. No IV site noted. Pt will be discharged to SNF today. Bed in lowest position and locked. Side railsx3 up for safety. Pt tolerated well with current vent setting of [id number]%, PEEP 8. G-tube intact and patent running with vital AF @55ML/HR and feeding hold for levothyroxine scheduled at 8am. Call light within easy reach. Bed in lowest position and locked. Side railsx3 up for safety. Will continue to plan of care
--- NOTE | 2020-01-18 07:34 | NUR ---
HAND-OFF: Report given to ALETA Flowers. No acute distress noted at this time.
[2020-01-18 08:00] VITALS: BP 113/68
[2020-01-18] MEDS: Levothyroxine 125mcg tab GT SCH (08:18)
[2020-01-18] MEDS: Ascorbic Acid 500mg tab GT SCH (08:19)
[2020-01-18] MEDS: Aspirin Baby 81mg GT SCH (08:19)
[2020-01-18] MEDS: Carvedilol 6.25mg Tab GT SCH ×2 (08:19→22:46)
[2020-01-18] MEDS: levETIRAcetam 500mg/5ml Liquid GT SCH ×2 (08:19→22:47)
[2020-01-18] MEDS: Heparin 5000 units/ml inj SUBQ SCH ×2 (08:22→22:48)
--- NOTE | 2020-01-18 08:52 | Critical Care Progress Note ---
Assessment/Plan Assessment/Plan Impression: Pneumonia Sepsis Elevated troponin Renal failure Tracheostomy History of tracheal stenosis Ventilator Dependent Respiratory Failure Chronically altered mental status s/p previous CPA, anoxia Previous Seizures Previous pericardial effusion, Congestive Heart Failure, Atrial Fibrillation Diabetes, Hypothyroidism Previous Hematuria/UTI, previous sepsis GERD sp G tube polymicrobial infection diarrhea worsening anemia PLAN GI follow up vent management as is acid base noted; taper oxygen antibiotic regimen reviewed PICC line ID and renal noted gi clearance noted monitor for change feeds as able SNF meds noted seizure precautions follow up labs cardiology to monitor hemodynamics note reviewed and edited care discussed with RN and RT critical time spent >40 minutes coordinating care and updating orders Critical Care - Subjective Interval Events: on vent care noted reduced LOC diarrhea improved ROS Limited/Unobtainable: Yes Condition: unchanged EKG Rhythm: Sinus Rhythm Residuals: minimal Tube Feeding Tolerated: yes I&O: Intake and Output 01/17/20 01/18/20 19:00 07:00 Intake Total 650 ml 910 ml Output Total 800 ml 900 ml Balance -150 ml 10 ml Free Water 100 ml 250 ml Tube Feeding 550 ml 660 ml Output Urine Total 800 ml 900 ml # Bowel Movements 2 1 Critical Care - Objective Last 24 Hour Vital Signs Date Time Temp Pulse Resp B/P (MAP) Pulse Ox O2 Delivery O2 Flow Rate FiO2 01/18/20 08:19 84 113/68 01/18/20 08:00 98.1 73 24 113/68 (83) 100 01/18/20 07:22 78 20 40 01/18/20 04:00 98.7 90 22 122/74 (90) 99 01/18/20 04:00 Mechanical Ventilator 01/18/20 04:00 76 01/18/20 04:00 40 01/18/20 03:10 79 26 40 01/18/20 00:00 76 01/18/20 00:00 98.6 83 22 98/59 (72) 99 01/18/20 00:00 Mechanical Ventilator 01/17/20 22:59 74 17 40 01/17/20 21:00 93/51 (65) 01/17/20 20:48 85 92/57 01/17/20 20:00 Mechanical Ventilator 01/17/20 20:00 97.9 69 19 92/55 (67) 100 01/17/20 20:00 40 01/17/20 19:10 70 01/17/20 19:07 72 18 40 01/17/20 16:00 40 01/17/20 16:00 99.5 69 24 129/63 (85) 98 01/17/20 16:00 89 01/17/20 16:00 Mechanical Ventilator 01/17/20 14:45 91 33 40 01/17/20 12:00 40 01/17/20 12:00 99.1 85 28 102/56 (71) 100 01/17/20 12:00 Mechanical Ventilator 01/17/20 11:29 86 01/17/20 10:40 86 31 40 01/17/20 10:35 106 Labs: Labs Test 01/16/20 03:15 01/17/20 03:20 01/18/20 03:00 White Blood Count 7.8 K/UL (4.8-10.8) 9.4 K/UL (4.8-10.8) Red Blood Count 2.83 M/UL (4.70-6.10) 2.64 M/UL (4.70-6.10) Hemoglobin 9.2 G/DL (14.2-18.0) 8.3 G/DL (14.2-18.0) Hematocrit 26.1 % (42.0-52.0) 24.4 % (42.0-52.0) Mean Corpuscular Volume 92 FL (80-99) 92 FL (80-99) Mean Corpuscular Hemoglobin 32.6 PG (27.0-31.0) 31.4 PG (27.0-31.0) Mean Corpuscular Hemoglobin Concent 35.3 G/DL (32.0-36.0) 34.0 G/DL (32.0-36.0) Red Cell Distribution Width 13.1 % (11.6-14.8) 13.0 % (11.6-14.8) Platelet Count 185 K/UL (150-450) 179 K/UL (150-450) Mean Platelet Volume 7.6 FL (6.5-10.1) 7.2 FL (6.5-10.1) Neutrophils (%) (Auto) 66.9 % (45.0-75.0) 74.6 % (45.0-75.0) Lymphocytes (%) (Auto) 18.9 % (20.0-45.0) 14.8 % (20.0-45.0) Monocytes (%) (Auto) 10.6 % (1.0-10.0) 8.7 % (1.0-10.0) Eosinophils (%) (Auto) 2.5 % (0.0-3.0) 1.2 % (0.0-3.0) Basophils (%) (Auto) 1.1 % (0.0-2.0) 0.7 % (0.0-2.0) Sodium Level 130 MMOL/L (136-145) 132 MMOL/L (136-145) 134 MMOL/L (136-145) Potassium Level 4.4 MMOL/L (3.5-5.1) 4.7 MMOL/L (3.5-5.1) 4.8 MMOL/L (3.5-5.1) Chloride Level 96 MMOL/L (98-107) 97 MMOL/L (98-107) 99 MMOL/L (98-107) Carbon Dioxide Level 28 MMOL/L (21-32) 26 MMOL/L (21-32) 28 MMOL/L (21-32) Anion Gap 6 mmol/L (5-15) 9 mmol/L (5-15) 7 mmol/L (5-15) Blood Urea Nitrogen 57 mg/dL (7-18) 65 mg/dL (7-18) 76 mg/dL (7-18) Creatinine 1.7 MG/DL (0.55-1.30) 1.5 MG/DL (0.55-1.30) 1.7 MG/DL (0.55-1.30) Estimat Glomerular Filtration Rate 39.3 mL/min (>60) 45.4 mL/min (>60) 39.3 mL/min (>60) Glucose Level 113 MG/DL (74-106) 109 MG/DL (74-106) 102 MG/DL (74-106) Calcium Level 8.5 MG/DL (8.5-10.1) 8.2 MG/DL (8.5-10.1) 8.3 MG/DL (8.5-10.1) Total Bilirubin 0.3 MG/DL (0.2-1.0) Aspartate Amino Transf (AST/SGOT) 26 U/L (15-37) Alanine Aminotransferase (ALT/SGPT) 29 U/L (12-78) Alkaline Phosphatase 97 U/L (46-116) Total Protein 7.6 G/DL (6.4-8.2) Albumin 1.6 G/DL (3.4-5.0) Globulin 6.0 g/dL Albumin/Globulin Ratio 0.3 (1.0-2.7) Objective: WDWN NAD reduced breath sounds bilaterally without rhonchi or wheeze S1S2RR tachy without MRG NABS nontender no HSM GT no CCE nonfocal trach reviewed and edited Dillon Harris MD Jan 18, 2020 08:52
--- NOTE | 2020-01-18 09:01 | General Progress Note ---
Assessment/Plan Problem List: (1) JOHN (acute kidney injury) ICD Codes: N17.9 - Acute kidney failure, unspecified SNOMED: 1757727, 09716217 (2) Dehydration ICD Codes: E86.0 - Dehydration SNOMED: 97660844 (3) Suspected COVID-19 virus infection ICD Codes: R68.89 - Other general symptoms and signs SNOMED: 009387674 (4) Tracheal stenosis ICD Codes: J39.8 - Other specified diseases of upper respiratory tract SNOMED: 79603064 (5) Pneumonia ICD Codes: J18.9 - Pneumonia, unspecified organism SNOMED: 145937828 (6) Malnutrition ICD Codes: E46 - Unspecified protein-calorie malnutrition SNOMED: 62828131 (7) Respiratory insufficiency ICD Codes: R06.89 - Other abnormalities of breathing SNOMED: 217552290 Status: stable Assessment/Plan: cont current rx iv abx per id. monitor labs IVF per renal sz rx monitor bp vent support no wean trach care suctioning as needeed dvt/stress ulcer prophylaxis transfuse as needed skin/wound care prn ivf dc planning? Subjective ROS Limited/Unobtainable: No Constitutional: Reports: malaise, weakness HEENT: Reports: no symptoms Cardiovascular: Reports: no symptoms Respiratory: Reports: shortness of breath, sputum Gastrointestinal/Abdominal: Reports: no symptoms Genitourinary: Reports: no symptoms Neurologic/Psychiatric: Reports: pre-existing deficit, seizure Endocrine: Reports: no symptoms Hematologic/Lymphatic: Reports: no symptoms Allergies: Coded Allergies: No Known Allergies (Unverified , 12/31/19) All Systems: reviewed and negative except above Subjective no events. diarrhea improved. cdiff neg. rectal tube out. stable on the vent. no fever or chills. no congestion. labs reviewed. h/h stable.no reports of bleeding poorly responsive at baseline. ID noted. GI noted. renal noted, dc planning Objective Last 24 Hour Vital Signs Date Time Temp Pulse Resp B/P (MAP) Pulse Ox O2 Delivery O2 Flow Rate FiO2 01/18/20 08:19 84 113/68 01/18/20 08:00 98.1 73 24 113/68 (83) 100 01/18/20 07:22 78 20 40 01/18/20 04:00 98.7 90 22 122/74 (90) 99 01/18/20 04:00 Mechanical Ventilator 4/23/20 04:00 76 01/18/20 04:00 40 01/18/20 03:10 79 26 40 01/18/20 00:00 76 01/18/20 00:00 98.6 83 22 98/59 (72) 99 01/18/20 00:00 Mechanical Ventilator 01/17/20 22:59 74 17 40 01/17/20 21:00 93/51 (65) 01/17/20 20:48 85 92/57 01/17/20 20:00 Mechanical Ventilator 01/17/20 20:00 97.9 69 19 92/55 (67) 100 01/17/20 20:00 40 01/17/20 19:10 70 01/17/20 19:07 72 18 40 01/17/20 16:00 40 01/17/20 16:00 99.5 69 24 129/63 (85) 98 01/17/20 16:00 89 01/17/20 16:00 Mechanical Ventilator 01/17/20 14:45 91 33 40 01/17/20 12:00 40 01/17/20 12:00 99.1 85 28 102/56 (71) 100 01/17/20 12:00 Mechanical Ventilator 01/17/20 11:29 86 01/17/20 10:40 86 31 40 01/17/20 10:35 106 Intake and Output 01/17/20 01/18/20 19:00 07:00 Intake Total 650 ml 910 ml Output Total 800 ml 900 ml Balance -150 ml 10 ml Free Water 100 ml 250 ml Tube Feeding 550 ml 660 ml Output Urine Total 800 ml 900 ml # Bowel Movements 2 1 Laboratory Tests 01/18/20 03:00: White Blood Count 9.4, Red Blood Count 2.64L, Hemoglobin 8.3L, Hematocrit 24.4L , Mean Corpuscular Volume 92, Mean Corpuscular Hemoglobin 31.4H, Mean Corpuscular Hemoglobin Concent 34.0, Red Cell Distribution Width 13.0, Platelet Count 179, Mean Platelet Volume 7.2, Neutrophils (%) (Auto) 74.6, Lymphocytes (% ) (Auto) 14.8L, Monocytes (%) (Auto) 8.7, Eosinophils (%) (Auto) 1.2, Basophils (%) (Auto) 0.7, Sodium Level 134L, Potassium Level 4.8, Chloride Level 99, Carbon Dioxide Level 28, Anion Gap 7, Blood Urea Nitrogen 76H, Creatinine 1.7H, Estimat Glomerular Filtration Rate 39.3, Glucose Level 102, Calcium Level 8.3L, Total Bilirubin 0.3, Aspartate Amino Transf (AST/SGOT) 26, Alanine Aminotransferase (ALT/SGPT) 29, Alkaline Phosphatase 97, Total Protein 7.6, Albumin 1.6L, Globulin 6.0, Albumin/Globulin Ratio 0.3L Height (Feet): 5 Height (Inches): 5.00 Weight (Pounds): 119 Objective General Appearance: WD/WN, alert Neck: supple Cardiovascular: regular rhythm Respiratory/Chest: chest wall non-tender, rhonchi - bilaterally Abdomen: normal bowel sounds, non tender, soft, no organomegaly Edema: no edema noted Arm (L), no edema noted Arm (R), no edema noted Leg (L), no edema noted Leg (R), no edema noted Pedal (L), no edema noted Pedal (R), no edema noted Generalized Neurologic: disoriented, aphasia Vasquez De Paz MD Jan 18, 2020 09:01
--- NOTE | 2020-01-18 09:28 | NUR ---
CASE MANAGEMENT: REVIEW 01/18/2020 SI:Respiratory failure. Healthcare-associated pneumonia. VS: T 98.1 HR 73 RR 24 B/P 113/68 SATS 100% ON MECH VENT FIO2 LABS: NA 134 BUN 76 CR 1.7 CA 8.3 IS:DEXTROSE IV @ 40 ML/HR KEPPRA GT Q12H COREG PO Q12H MEROPENEM IV Q12H COLISTIN INH Q12H ASA GT QD SDU
--- NOTE | 2020-01-18 09:47 | NUR ---
DISCHARGE PLANNING: NOTE CLINICALS FAXED TO [facility]. [facility] IS ACCEPTING. AWAITING BED ASSIGNMENT Addendum: 01/18/20 at 1141 by Amy Dietrich CM [facility] CONFIRMED THAT HE RECEIVED CLINICALS. JAKE IS REVIEWING. Addendum: 01/18/20 at 1709 by Amy Dietrich CM AUTH STILL NOT RECEIVED. NURSING UPDATED. ATTEMPTS TO BE MADE TOMORROW
--- NOTE | 2020-01-18 10:49 | Infectious Diseases Prog Note ---
"Assessment/Plan Assessment/Plan A 1. E.coli, Pseudomonas & Acinetobacter pneumonia COVID19 test negative 4.5.20, 4.8.20 2. leucocytosis improving 3. renal failure improving 4. + blood cultures with coag neg staph | diphtheroids likely contaminated 5. Ventilatory dependent respiratory failure 6. Diarrhea, negative C. difficile P 1. Observe off antibiotic Subjective ROS Limited/Unobtainable: Yes Constitutional: Denies: fever Allergies: Coded Allergies: No Known Allergies (Unverified , 12/31/19) Objective Vital Signs Last 24 Hour Vital Signs Date Time Temp Pulse Resp B/P (MAP) Pulse Ox O2 Delivery O2 Flow Rate FiO2 01/18/20 08:19 84 113/68 01/18/20 08:00 40 01/18/20 08:00 98.1 73 24 113/68 (83) 100 01/18/20 08:00 Mechanical Ventilator 01/18/20 07:50 73 01/18/20 07:22 78 20 40 01/18/20 04:00 98.7 90 22 122/74 (90) 99 01/18/20 04:00 Mechanical Ventilator 01/18/20 04:00 76 01/18/20 04:00 40 01/18/20 03:10 79 26 40 01/18/20 00:00 76 01/18/20 00:00 98.6 83 22 98/59 (72) 99 01/18/20 00:00 Mechanical Ventilator 01/17/20 22:59 74 17 40 01/17/20 21:00 93/51 (65) 01/17/20 20:48 85 92/57 01/17/20 20:00 Mechanical Ventilator 01/17/20 20:00 97.9 69 19 92/55 (67) 100 01/17/20 20:00 40 01/17/20 19:10 70 01/17/20 19:07 72 18 40 01/17/20 16:00 40 01/17/20 16:00 99.5 69 24 129/63 (85) 98 01/17/20 16:00 89 01/17/20 16:00 Mechanical Ventilator 01/17/20 14:45 91 33 40 01/17/20 12:00 40 01/17/20 12:00 99.1 85 28 102/56 (71) 100 4/22/20 12:00 Mechanical Ventilator 01/17/20 11:29 86 Height (Feet): 5 Height (Inches): 5.00 Weight (Pounds): 119 General Appearance: no acute distress HEENT: status post trach Respiratory/Chest: other - on ventilator Cardiovascular: normal rate Abdomen: soft, non tender, other - GT feeding Extremities: no edema Neurologic/Psychiatric: aphasia Laboratory Tests Test 01/18/20 03:00 White Blood Count 9.4 K/UL (4.8-10.8) Red Blood Count 2.64 M/UL (4.70-6.10) L Hemoglobin 8.3 G/DL (14.2-18.0) L Hematocrit 24.4 % (42.0-52.0) L Mean Corpuscular Volume 92 FL (80-99) Mean Corpuscular Hemoglobin 31.4 PG (27.0-31.0) H Mean Corpuscular Hemoglobin Concent 34.0 G/DL (32.0-36.0) Red Cell Distribution Width 13.0 % (11.6-14.8) Platelet Count 179 K/UL (150-450) Mean Platelet Volume 7.2 FL (6.5-10.1) Neutrophils (%) (Auto) 74.6 % (45.0-75.0) Lymphocytes (%) (Auto) 14.8 % (20.0-45.0) L Monocytes (%) (Auto) 8.7 % (1.0-10.0) Eosinophils (%) (Auto) 1.2 % (0.0-3.0) Basophils (%) (Auto) 0.7 % (0.0-2.0) Sodium Level 134 MMOL/L (136-145) L Potassium Level 4.8 MMOL/L (3.5-5.1) Chloride Level 99 MMOL/L (98-107) Carbon Dioxide Level 28 MMOL/L (21-32) Anion Gap 7 mmol/L (5-15) Blood Urea Nitrogen 76 mg/dL (7-18) H Creatinine 1.7 MG/DL (0.55-1.30) H Estimat Glomerular Filtration Rate 39.3 mL/min (>60) Glucose Level 102 MG/DL (74-106) Calcium Level 8.3 MG/DL (8.5-10.1) L Total Bilirubin 0.3 MG/DL (0.2-1.0) Aspartate Amino Transf (AST/SGOT) 26 U/L (15-37) Alanine Aminotransferase (ALT/SGPT) 29 U/L (12-78) Alkaline Phosphatase 97 U/L (46-116) Total Protein 7.6 G/DL (6.4-8.2) Albumin 1.6 G/DL (3.4-5.0) L Globulin 6.0 g/dL Albumin/Globulin Ratio 0.3 (1.0-2.7) L Current Medications Medications (Trade) Dose Ordered Sig/Pau Route PRN Reason Start Time Stop Time Status Last Admin Dose Admin Acetaminophen (Tylenol) 650 mg Q4H PRN GT MILD/TEMP 01/09/20 06:30 02/08/20 06:29 01/17/20 08:44 Ascorbic Acid (Vitamin C) 500 mg DAILY GT 01/02/20 09:00 02/01/20 08:59 01/18/20 08:19 Aspirin (ASA) 81 mg DAILY GT 01/16/20 09:00 03/01/20 08:59 01/18/20 08:19 Carvedilol (Coreg) 6.25 mg EVERY 12 HOURS GT 01/08/20 09:00 02/07/20 08:59 01/17/20 08:43 Diphenoxylate HCl/ Atropine (Lomotil) 2.5 mg Q4H PRN GT Diarrhea 01/13/20 07:30 02/12/20 07:29 01/17/20 07:17 Heparin Sodium (Porcine) (Heparin 5000 units/ml) 5,000 units EVERY 12 HOURS SUBQ 01/01/20 21:00 02/15/20 20:59 01/18/20 08:22 Levetiracetam (Keppra) 750 mg EVERY 12 HOURS GT 01/02/20 09:00 02/01/20 08:59 01/18/20 08:19 Levothyroxine Sodium (Synthroid) 50 mcg DAILY GT 01/02/20 09:00 02/01/20 08:59 01/18/20 08:18 Levothyroxine Sodium (Synthroid) 125 mcg DAILY GT 01/02/20 09:00 02/01/20 08:59 01/18/20 08:18 Loperamide HCl (Imodium) 2 mg Q6H PRN NG Diarrhea 01/12/20 10:30 02/11/20 10:29 01/15/20 17:37 Logan Henley MD Jan 18, 2020 10:49"
--- NOTE | 2020-01-18 10:55 | Nephrology Progress Note ---
Assessment/Plan Problem List: (1) Hypernatremia (2) Dehydration (3) JOHN (acute kidney injury) (4) Respiratory insufficiency (5) Pneumonia (6) Protein-calorie malnutrition, severe (7) Hx of tracheostomy (8) CKD (chronic kidney disease) stage 3, GFR 30-59 ml/min Plan continue iv's, adjusted as Na fell to 130 BUN higher to trend Subjective ROS Limited/Unobtainable: Yes Objective Objective Last 24 Hour Vital Signs Date Time Temp Pulse Resp B/P (MAP) Pulse Ox O2 Delivery O2 Flow Rate FiO2 01/18/20 08:19 84 113/68 01/18/20 08:00 40 01/18/20 08:00 98.1 73 24 113/68 (83) 100 01/18/20 08:00 Mechanical Ventilator 01/18/20 07:50 73 01/18/20 07:22 78 20 40 01/18/20 04:00 98.7 90 22 122/74 (90) 99 01/18/20 04:00 Mechanical Ventilator 01/18/20 04:00 76 01/18/20 04:00 40 01/18/20 03:10 79 26 40 01/18/20 00:00 76 01/18/20 00:00 98.6 83 22 98/59 (72) 99 01/18/20 00:00 Mechanical Ventilator 01/17/20 22:59 74 17 40 01/17/20 21:00 93/51 (65) 01/17/20 20:48 85 92/57 01/17/20 20:00 Mechanical Ventilator 01/17/20 20:00 97.9 69 19 92/55 (67) 100 01/17/20 20:00 40 01/17/20 19:10 70 01/17/20 19:07 72 18 40 01/17/20 16:00 40 01/17/20 16:00 99.5 69 24 129/63 (85) 98 01/17/20 16:00 89 01/17/20 16:00 Mechanical Ventilator 01/17/20 14:45 91 33 40 01/17/20 12:00 40 01/17/20 12:00 99.1 85 28 102/56 (71) 100 01/17/20 12:00 Mechanical Ventilator 01/17/20 11:29 86 Intake and Output 01/17/20 01/18/20 19:00 07:00 Intake Total 650 ml 910 ml Output Total 800 ml 900 ml Balance -150 ml 10 ml Free Water 100 ml 250 ml Tube Feeding 550 ml 660 ml Output Urine Total 800 ml 900 ml # Bowel Movements 2 1 Laboratory Tests 01/18/20 03:00: White Blood Count 9.4, Red Blood Count 2.64L, Hemoglobin 8.3L, Hematocrit 24.4L , Mean Corpuscular Volume 92, Mean Corpuscular Hemoglobin 31.4H, Mean Corpuscular Hemoglobin Concent 34.0, Red Cell Distribution Width 13.0, Platelet Count 179, Mean Platelet Volume 7.2, Neutrophils (%) (Auto) 74.6, Lymphocytes (% ) (Auto) 14.8L, Monocytes (%) (Auto) 8.7, Eosinophils (%) (Auto) 1.2, Basophils (%) (Auto) 0.7, Sodium Level 134L, Potassium Level 4.8, Chloride Level 99, Carbon Dioxide Level 28, Anion Gap 7, Blood Urea Nitrogen 76H, Creatinine 1.7H, Estimat Glomerular Filtration Rate 39.3, Glucose Level 102, Calcium Level 8.3L, Total Bilirubin 0.3, Aspartate Amino Transf (AST/SGOT) 26, Alanine Aminotransferase (ALT/SGPT) 29, Alkaline Phosphatase 97, Total Protein 7.6, Albumin 1.6L, Globulin 6.0, Albumin/Globulin Ratio 0.3L Height (Feet): 5 Height (Inches): 5.00 Weight (Pounds): 119 General Appearance: lethargic Cardiovascular: normal rate Respiratory/Chest: crackles/rales Abdomen: non tender Neurologic: motor weakness, unresponsive Pravin Abad MD Jan 18, 2020 10:55
--- NOTE | 2020-01-18 11:12 | General Progress Note ---
Assessment/Plan Status: stable Assessment/Plan: 1. History of chronic respiratory failure, on vent. 2. Dysphagia with G-tube. 3. Diabetes. 4. Renal insufficiency. 5. Anemia. 6. History of tracheal stenosis. 7. Diarrhea C.diff neg lomotil and imodium prn GTF GT care repeat labs in am TF >> vital AF off pepcid off rectal tube now will fu Subjective ROS Limited/Unobtainable: No Allergies: Coded Allergies: No Known Allergies (Unverified , 12/31/19) Objective Last 24 Hour Vital Signs Date Time Temp Pulse Resp B/P (MAP) Pulse Ox O2 Delivery O2 Flow Rate FiO2 01/18/20 08:19 84 113/68 01/18/20 08:00 40 01/18/20 08:00 98.1 73 24 113/68 (83) 100 01/18/20 08:00 Mechanical Ventilator 01/18/20 07:50 73 01/18/20 07:22 78 20 40 01/18/20 04:00 98.7 90 22 122/74 (90) 99 01/18/20 04:00 Mechanical Ventilator 01/18/20 04:00 76 01/18/20 04:00 40 01/18/20 03:10 79 26 40 01/18/20 00:00 76 01/18/20 00:00 98.6 83 22 98/59 (72) 99 01/18/20 00:00 Mechanical Ventilator 01/17/20 22:59 74 17 40 01/17/20 21:00 93/51 (65) 01/17/20 20:48 85 92/57 01/17/20 20:00 Mechanical Ventilator 01/17/20 20:00 97.9 69 19 92/55 (67) 100 01/17/20 20:00 40 01/17/20 19:10 70 01/17/20 19:07 72 18 40 01/17/20 16:00 40 01/17/20 16:00 99.5 69 24 129/63 (85) 98 01/17/20 16:00 89 01/17/20 16:00 Mechanical Ventilator 01/17/20 14:45 91 33 40 01/17/20 12:00 40 01/17/20 12:00 99.1 85 28 102/56 (71) 100 01/17/20 12:00 Mechanical Ventilator 01/17/20 11:29 86 Intake and Output 01/17/20 01/18/20 19:00 07:00 Intake Total 650 ml 910 ml Output Total 800 ml 900 ml Balance -150 ml 10 ml Free Water 100 ml 250 ml Tube Feeding 550 ml 660 ml Output Urine Total 800 ml 900 ml # Bowel Movements 2 1 Laboratory Tests 01/18/20 03:00: White Blood Count 9.4, Red Blood Count 2.64L, Hemoglobin 8.3L, Hematocrit 24.4L , Mean Corpuscular Volume 92, Mean Corpuscular Hemoglobin 31.4H, Mean Corpuscular Hemoglobin Concent 34.0, Red Cell Distribution Width 13.0, Platelet Count 179, Mean Platelet Volume 7.2, Neutrophils (%) (Auto) 74.6, Lymphocytes (% ) (Auto) 14.8L, Monocytes (%) (Auto) 8.7, Eosinophils (%) (Auto) 1.2, Basophils (%) (Auto) 0.7, Sodium Level 134L, Potassium Level 4.8, Chloride Level 99, Carbon Dioxide Level 28, Anion Gap 7, Blood Urea Nitrogen 76H, Creatinine 1.7H, Estimat Glomerular Filtration Rate 39.3, Glucose Level 102, Calcium Level 8.3L, Total Bilirubin 0.3, Aspartate Amino Transf (AST/SGOT) 26, Alanine Aminotransferase (ALT/SGPT) 29, Alkaline Phosphatase 97, Total Protein 7.6, Albumin 1.6L, Globulin 6.0, Albumin/Globulin Ratio 0.3L Height (Feet): 5 Height (Inches): 5.00 Weight (Pounds): 119 General Appearance: no apparent distress EENT: normal ENT inspection Neck: supple Cardiovascular: normal rate Respiratory/Chest: decreased breath sounds Abdomen: normal bowel sounds, non tender, soft Extremities: non-tender Jovany Kong MD Jan 18, 2020 11:12
[2020-01-18 12:00] VITALS: BP 113/68
--- NOTE | 2020-01-18 12:49 | NUR ---
DISCHARGE DISPOSITION: PLEASE READ PATIENT TO BE DISCHARGED TO [facility] [address] T: [phone]>> CALL FOR REPORT [facility] ETA 1400 W/ RT MESSAGE LEFT FOR CHENG SINGLETON [phone] TRANSFER FORM TO BE PROVIDED Addendum: 01/18/20 at 1302 by Amy Dietrich CM [employer]SEMBLY INSPECTOR CHANGED TO 1500 Addendum: 01/18/20 at 1449 by Amy Dietrich CM AMBULANCE ON WILL CALL. [facility] STATES THAT THEY HAVE NOT RECEIVED AUTH FROM INSURANCE YET. JACQUELINE CALLED [facility]. PER [facility] THERE IS AN ISSUE WITH THE INPT ACUTE CARE AUTH. SEE B/AR NOTES [id number]
--- NOTE | 2020-01-18 13:03 | NUR ---
*-* INSURANCE *-* UPDATED CLINICALS AND REVIEWS HAVE BEEN FAXED TO: NIKOLE Quiñonez # [phone] fax#[phone]
[2020-01-18] MEDS: Lomotil 2.5mg tab GT PRN (14:41)
--- NOTE | 2020-01-18 15:18 | Surgery Progress Note ---
Surgery Progress Note Subjective Additional Comments no acute events Objective Last 24 Hour Vital Signs Date Time Temp Pulse Resp B/P (MAP) Pulse Ox O2 Delivery O2 Flow Rate FiO2 01/18/20 12:00 98.0 85 20 113/68 (83) 95 01/18/20 11:52 77 22 40 01/18/20 11:27 69 01/18/20 08:19 84 113/68 01/18/20 08:00 40 01/18/20 08:00 98.1 73 24 113/68 (83) 100 01/18/20 08:00 Mechanical Ventilator 01/18/20 07:50 73 01/18/20 07:22 78 20 40 01/18/20 04:00 98.7 90 22 122/74 (90) 99 01/18/20 04:00 Mechanical Ventilator 01/18/20 04:00 76 01/18/20 04:00 40 01/18/20 03:10 79 26 40 01/18/20 00:00 76 01/18/20 00:00 98.6 83 22 98/59 (72) 99 01/18/20 00:00 Mechanical Ventilator 01/17/20 22:59 74 17 40 01/17/20 21:00 93/51 (65) 01/17/20 20:48 85 92/57 01/17/20 20:00 Mechanical Ventilator 01/17/20 20:00 97.9 69 19 92/55 (67) 100 01/17/20 20:00 40 01/17/20 19:10 70 01/17/20 19:07 72 18 40 01/17/20 16:00 40 01/17/20 16:00 99.5 69 24 129/63 (85) 98 01/17/20 16:00 89 01/17/20 16:00 Mechanical Ventilator I&O Intake and Output 01/17/20 01/18/20 19:00 07:00 Intake Total 650 ml 910 ml Output Total 800 ml 900 ml Balance -150 ml 10 ml Free Water 100 ml 250 ml Tube Feeding 550 ml 660 ml Output Urine Total 800 ml 900 ml # Bowel Movements 2 1 Dressing: other Wound: other Drains: other Cardiovascular: RSR Respiratory: decreased breath sounds Abdomen: soft, non-tender, present bowel sounds Extremities: no tenderness, no cyanosis Laboratory Tests Test 01/18/20 03:00 White Blood Count 9.4 K/UL (4.8-10.8) Red Blood Count 2.64 M/UL (4.70-6.10) L Hemoglobin 8.3 G/DL (14.2-18.0) L Hematocrit 24.4 % (42.0-52.0) L Mean Corpuscular Volume 92 FL (80-99) Mean Corpuscular Hemoglobin 31.4 PG (27.0-31.0) H Mean Corpuscular Hemoglobin Concent 34.0 G/DL (32.0-36.0) Red Cell Distribution Width 13.0 % (11.6-14.8) Platelet Count 179 K/UL (150-450) Mean Platelet Volume 7.2 FL (6.5-10.1) Neutrophils (%) (Auto) 74.6 % (45.0-75.0) Lymphocytes (%) (Auto) 14.8 % (20.0-45.0) L Monocytes (%) (Auto) 8.7 % (1.0-10.0) Eosinophils (%) (Auto) 1.2 % (0.0-3.0) Basophils (%) (Auto) 0.7 % (0.0-2.0) Sodium Level 134 MMOL/L (136-145) L Potassium Level 4.8 MMOL/L (3.5-5.1) Chloride Level 99 MMOL/L (98-107) Carbon Dioxide Level 28 MMOL/L (21-32) Anion Gap 7 mmol/L (5-15) Blood Urea Nitrogen 76 mg/dL (7-18) H Creatinine 1.7 MG/DL (0.55-1.30) H Estimat Glomerular Filtration Rate 39.3 mL/min (>60) Glucose Level 102 MG/DL (74-106) Calcium Level 8.3 MG/DL (8.5-10.1) L Total Bilirubin 0.3 MG/DL (0.2-1.0) Aspartate Amino Transf (AST/SGOT) 26 U/L (15-37) Alanine Aminotransferase (ALT/SGPT) 29 U/L (12-78) Alkaline Phosphatase 97 U/L (46-116) Total Protein 7.6 G/DL (6.4-8.2) Albumin 1.6 G/DL (3.4-5.0) L Globulin 6.0 g/dL Albumin/Globulin Ratio 0.3 (1.0-2.7) L Plan Problems: (1) Decubitus skin ulcer Assessment & Plan: Pt presented on admission with contractures, multiple Skin Breakdown. Skin assessed under collar of trach and no skin breakdown noted.Category 3 Skin tear R elbow(L)4.5cm x (W)5cm. Full flap loss noted. Base of wound moist and viable,edges adherent. No exudate noted. No erythema or elevated skin temp periwound. Category 2 Skin tear L forearm. Full flap intact and reattached. Moderate amt sanguineous exudate noted. Silvasorb Gel applied and covered with Optifoam drsg. Reinforced with ABD Pad and Kerlix. DTPI noted to L Sacrum(L)3.5cm x (W)3cm. Base of wound is maroon and indurated. DTPI R Sacrum(L)7cm x (W)9.5cm. Wound is irregular shaped. Base of wound is maroon and indurated. Scattered areas of darker skin tone without induration or erythema periwound. DTPI L lateral malleolus(L)2.5cm x (W)2cm. Base of wound is fluctuant,purple with surrounding maroon borders. No erythema or elevation in skin temp periwound. Partial thickness wound L 1st metatarsal head (L)2.5cm x (W)2cm. Base of wound is moist and viable. Edges are macerated. Non-blanching erythema without fluctuance periwound. DTPI Dorso/lateral R foot(L)2.3cm x (W)4.3cm. Base of injury is indurated purple /maroon in colour. No erythema or elevation in skin temp periwound. Hyperpigmentation from previous wounds noted to R and L hallux. Tx.Plan: Cleanse Skin tears R Elbow and L forearm with Saline. Apply Silvasorb Gel. Cover each wounds with Optifoam drsgs. Change every 7 days and prn. Apply Triad Paste to R and L Sacrum. Cover with Optifoam drsg. Change every 3 days and prn. Apply Cavilon to Malleoli both feet, Both heels and Both hallux . Cover each site with Optifoam drsgs turn q2h nutritional optimization (2) Respiratory insufficiency (3) Malnutrition Assessment & Plan: DAILY ESTIMATED NEEDS: Needs based on Critical care, wounds/ 60kg abw 22-28 kcals/kg 8177-4681 total kcals 1.25-2 g protein/kg 75-120 g total protein 25-30 mL/kg 0786-9261 total fluid mLs NUTRITION DIAGNOSIS: * Swallowing difficulty R/T respiratory status as evidenced by trach/vent dep, PEG dep. * Increased kcal/prot needs R/T wound healing as evidenced by pt admitted w/ multiple wounds, including DTPI x4, partial thickness x 1, and category 3 Skin tear, refer to WC eval. CURRENT TF:Glucerna 1.5 @ 45ml/hr x 22 hrs-> now Glucerna 1.2 @55ml x22 ENTERAL NUTRITION RECOMMENDATIONS: Glucerna 1.2 @ 57ml/hr x 22 hrs to provide 1254ml, 1505kcal, 75g prot, 1009ml free water * Rec to increase current updated TF to goal of 57ml/hr x22 hrs to better meet est kcal and pro needs * HOB Over 30 degrees/ water flush per MD * Hold Synthroid during 4 hrs that TF is off ADDITIONAL RECOMMENDATIONS: * Per SNF: HT=63", SY=760fnk (as of 12/28/19) * Monitor lytes, replete as needed * Wound healing: w/ diarrhea, rec lower Vit C-> 250mg daily add Jerome 1pkt BID * Monitor K, renal labs, need for renal formula * calibrated bed scale wt as able (4) Pneumonia (5) Tracheal stenosis (6) Protein-calorie malnutrition, severe (7) Suspected COVID-19 virus infection Assessment & Plan: negative 1. Interval improved aeration throughout the right lung, with residual reticular interstitial markings. 2. Persistent diffuse patchy interstitial and airspace opacities throughout the left lung, not significantly changed, concerning for pneumonia. Sabino Gold Jan 18, 2020 15:17
[2020-01-18 16:00] VITALS: BP 112/72
--- NOTE | 2020-01-18 19:15 | NUR ---
HAND-OFF: Report given to Bora RIVER. Pt remains stable
--- NOTE | 2020-01-18 19:30 | NUR ---
NURSE NOTES: pt report received from MIN RN. pt is alert and oriented times 1, no acute abnormalities to mentation. pt is trach vented able to sat at 98% O2 no acute resp distress noted. pt is on quality assurance monitor showing NSR, no acute cardiac distress noted. pt bed is low, locked, armed, call light within reach. bed rails up times 3. will follow plan of care.
[2020-01-18 20:00] VITALS: BP 128/69
[2020-01-19] VITALS: BP 115/71
[2020-01-19 04:00] VITALS: BP 113/73
[2020-01-19 06:25] LABS: BASOPHILS % (AUTO) 1.2 % (0.0-2.0); EOSINOPHILS % (AUTO) 5.9 % (0.0-3.0); HEMATOCRIT 24.7 % (42.0-52.0); HEMOGLOBIN 8.3 G/DL (14.2-18.0); LYMPHOCYTES % (AUTO) 19.5 % (20.0-45.0); MEAN CORPUSCULAR VOLUME 94 FL (80-99); MONOCYTES % (AUTO) 9.7 % (1.0-10.0); NEUTROPHILS % (AUTO) 63.7 % (45.0-75.0); PLATELET COUNT 171 K/UL (150-450); RED BLOOD COUNT 2.62 M/UL (4.70-6.10); RED CELL DISTRIBUTION WIDTH 13.5 % (11.6-14.8)
--- NOTE | 2020-01-19 06:45 | Progress Note ---
DATE: 01/18/2020 CARDIOLOGY PROGRESS NOTE SUBJECTIVE: Remains on ventilator support. No significant diarrhea. No signs of bleeding. Monitored rhythm, sinus. PHYSICAL EXAMINATION: VITAL SIGNS: Blood pressure 132/81, heart rate 73, respiratory rate 20, temperature 99.2. HEENT: Thin trach secretions. LUNGS: Bilateral breath sounds. Rhonchi. CARDIAC: Regular rhythm and rate. Normal S1, S2. ABDOMEN: G-tube intact. EXTREMITIES: No edema. LABORATORY DATA: White count 9.4, hemoglobin 8.3. Sodium 134, potassium 4.8, bicarb 28, BUN 76, creatinine 1.7. Albumin 1.6. IMPRESSION: 1. Prerenal azotemia, worsening. 2. Respiratory failure. 3. Healthcare-acquired pneumonia. 4. Acute myocardial ischemia. PLAN: Ventilator support. Continue IV fluid hydration. Maintain beta-minor therapy. Continue DVT prophylaxis, anti-platelet therapy with aspirin. Monitor for GI bleeding and worsening anemia. Tony Lobo M.D. DR: ANAM JOB#: [id number] CC:
--- NOTE | 2020-01-19 07:04 | NUR ---
HAND-OFF: Report given to VIVIAN RIVER. Pt remains stable
--- NOTE | 2020-01-19 07:05 | NUR ---
NURSE NOTES: Received patient in bed. Vent dependent. In no apparent distress. On continuous GTF. Condom cath inplace. Contact isolation observed. Will continue plan of care.
[2020-01-19 07:12] LABS: ANION GAP 7 mmol/L (5-15); BLOOD UREA NITROGEN 73 mg/dL (7-18); CALCIUM 8.5 MG/DL (8.5-10.1); CARBON DIOXIDE 28 MMOL/L (21-32); CHLORIDE 100 MMOL/L (98-107); CREATININE 1.4 MG/DL (0.55-1.30); POTASSIUM 4.8 MMOL/L (3.5-5.1); SODIUM 135 MMOL/L (136-145)
[2020-01-19 08:00] VITALS: BP 116/70
--- NOTE | 2020-01-19 08:30 | General Progress Note ---
Assessment/Plan Problem List: (1) JOHN (acute kidney injury) ICD Codes: N17.9 - Acute kidney failure, unspecified SNOMED: 0711540, 85749686 (2) Dehydration ICD Codes: E86.0 - Dehydration SNOMED: 60233345 (3) Suspected COVID-19 virus infection ICD Codes: R68.89 - Other general symptoms and signs SNOMED: 261303234 (4) Tracheal stenosis ICD Codes: J39.8 - Other specified diseases of upper respiratory tract SNOMED: 09086553 (5) Pneumonia ICD Codes: J18.9 - Pneumonia, unspecified organism SNOMED: 475068912 (6) Malnutrition ICD Codes: E46 - Unspecified protein-calorie malnutrition SNOMED: 77285520 (7) Respiratory insufficiency ICD Codes: R06.89 - Other abnormalities of breathing SNOMED: 267331497 Status: stable Assessment/Plan: cont current rx iv abx per id. monitor labs IVF per renal sz rx monitor bp vent support no wean trach care suctioning as needeed dvt/stress ulcer prophylaxis transfuse as needed skin/wound care prn ivf dc planning? Subjective ROS Limited/Unobtainable: Yes Constitutional: Reports: malaise, weakness HEENT: Reports: no symptoms Cardiovascular: Reports: no symptoms Respiratory: Reports: cough, shortness of breath, sputum Gastrointestinal/Abdominal: Reports: difficulty swallowing Genitourinary: Reports: no symptoms Neurologic/Psychiatric: Reports: pre-existing deficit, seizure Endocrine: Reports: no symptoms Hematologic/Lymphatic: Reports: anemia Allergies: Coded Allergies: No Known Allergies (Unverified , 12/31/19) All Systems: reviewed and negative except above Subjective no events. diarrhea improved. cdiff neg. rectal tube out. stable on the vent. no fever or chills. no congestion. labs reviewed. h/h stable.no reports of bleeding poorly responsive at baseline. ID noted. GI noted. renal noted, dc planning in process. awaiting insurance approval Objective Last 24 Hour Vital Signs Date Time Temp Pulse Resp B/P (MAP) Pulse Ox O2 Delivery O2 Flow Rate FiO2 01/19/20 08:00 Mechanical Ventilator 01/19/20 08:00 98.1 66 28 116/70 (85) 99 01/19/20 08:00 40 01/19/20 05:21 67 24 40 01/19/20 04:00 68 01/19/20 04:00 40 01/19/20 04:00 Mechanical Ventilator 01/19/20 04:00 98.7 82 22 113/73 (86) 98 01/19/20 03:30 71 26 40 01/19/20 01:16 80 26 40 01/19/20 00:00 Mechanical Ventilator 01/19/20 00:00 40 01/19/20 00:00 98.8 78 22 115/71 (86) 99 01/19/20 00:00 73 01/18/20 23:30 72 20 40 01/18/20 22:46 73 133/81 01/18/20 20:46 67 23 40 01/18/20 20:00 40 01/18/20 20:00 Mechanical Ventilator 01/18/20 20:00 99.2 81 21 128/69 (88) 100 01/18/20 19:30 62 24 40 01/18/20 16:00 68 01/18/20 16:00 Mechanical Ventilator 01/18/20 16:00 98.0 68 22 112/72 (85) 100 01/18/20 16:00 40 01/18/20 15:48 64 23 40 01/18/20 12:00 40 01/18/20 12:00 Mechanical Ventilator 01/18/20 12:00 98.0 85 20 113/68 (83) 95 01/18/20 11:52 77 22 40 01/18/20 11:27 69 Intake and Output 01/18/20 01/19/20 19:00 07:00 Intake Total 2135 ml 2555 ml Output Total 650 ml 800 ml Balance 1485 ml 1755 ml Free Water 450 ml 450 ml IV Total 1025 ml 1500 ml Tube Feeding 660 ml 605 ml Output Urine Total 650 ml 800 ml # Bowel Movements 2 Laboratory Tests 01/19/20 04:15: White Blood Count 6.0, Red Blood Count 2.62L, Hemoglobin 8.3L, Hematocrit 24.7L , Mean Corpuscular Volume 94, Mean Corpuscular Hemoglobin 31.7H, Mean Corpuscular Hemoglobin Concent 33.7, Red Cell Distribution Width 13.5, Platelet Count 171, Mean Platelet Volume 7.2, Neutrophils (%) (Auto) 63.7, Lymphocytes (% ) (Auto) 19.5L, Monocytes (%) (Auto) 9.7, Eosinophils (%) (Auto) 5.9H, Basophils (%) (Auto) 1.2, Sodium Level 135L, Potassium Level 4.8, Chloride Level 100, Carbon Dioxide Level 28, Anion Gap 7, Blood Urea Nitrogen 73H, Creatinine 1.4H, Estimat Glomerular Filtration Rate 49.1, Glucose Level 95, Calcium Level 8.5 Height (Feet): 5 Height (Inches): 5.00 Weight (Pounds): 119 Objective General Appearance: WD/WN, alert Neck: supple Cardiovascular: regular rhythm Respiratory/Chest: chest wall non-tender, rhonchi - bilaterally Abdomen: normal bowel sounds, non tender, soft, no organomegaly Edema: no edema noted Arm (L), no edema noted Arm (R), no edema noted Leg (L), no edema noted Leg (R), no edema noted Pedal (L), no edema noted Pedal (R), no edema noted Generalized Neurologic: disoriented, aphasia Vasquez De Paz MD Jan 19, 2020 08:30
--- NOTE | 2020-01-19 08:40 | Critical Care Progress Note ---
Assessment/Plan Assessment/Plan Impression: Pneumonia Sepsis Elevated troponin Renal failure Tracheostomy History of tracheal stenosis Ventilator Dependent Respiratory Failure Chronically altered mental status s/p previous CPA, anoxia Previous Seizures Previous pericardial effusion, Congestive Heart Failure, Atrial Fibrillation Diabetes, Hypothyroidism Previous Hematuria/UTI, previous sepsis GERD sp G tube polymicrobial infection diarrhea worsening anemia PLAN vent management as is acid base noted; reviewed PICC line care ID and renal noted monitor for change feeds as able SNF meds noted seizure precautions follow up labs cardiology to monitor hemodynamics note reviewed and edited care discussed with RN and RT impression, plan, and exam edited and reviewed in detail Critical Care - Subjective Interval Events: on vent worsening renal parameters ROS Limited/Unobtainable: Yes Condition: critical EKG Rhythm: Sinus Rhythm Residuals: minimal Tube Feeding Tolerated: yes I&O: Intake and Output 01/18/20 01/19/20 19:00 07:00 Intake Total 2135 ml 2555 ml Output Total 650 ml 800 ml Balance 1485 ml 1755 ml Free Water 450 ml 450 ml IV Total 1025 ml 1500 ml Tube Feeding 660 ml 605 ml Output Urine Total 650 ml 800 ml # Bowel Movements 2 Critical Care - Objective Last 24 Hour Vital Signs Date Time Temp Pulse Resp B/P (MAP) Pulse Ox O2 Delivery O2 Flow Rate FiO2 01/19/20 08:00 Mechanical Ventilator 01/19/20 08:00 98.1 66 28 116/70 (85) 99 01/19/20 08:00 40 01/19/20 05:21 67 24 40 01/19/20 04:00 68 01/19/20 04:00 40 01/19/20 04:00 Mechanical Ventilator 01/19/20 04:00 98.7 82 22 113/73 (86) 98 01/19/20 03:30 71 26 40 01/19/20 01:16 80 26 40 01/19/20 00:00 Mechanical Ventilator 01/19/20 00:00 40 01/19/20 00:00 98.8 78 22 115/71 (86) 99 01/19/20 00:00 73 01/18/20 23:30 72 20 40 01/18/20 22:46 73 133/81 01/18/20 20:46 67 23 40 01/18/20 20:00 40 01/18/20 20:00 Mechanical Ventilator 01/18/20 20:00 99.2 81 21 128/69 (88) 100 01/18/20 19:30 62 24 40 01/18/20 16:00 68 01/18/20 16:00 Mechanical Ventilator 01/18/20 16:00 98.0 68 22 112/72 (85) 100 01/18/20 16:00 40 01/18/20 15:48 64 23 40 01/18/20 12:00 40 01/18/20 12:00 Mechanical Ventilator 01/18/20 12:00 98.0 85 20 113/68 (83) 95 01/18/20 11:52 77 22 40 01/18/20 11:27 69 Labs: Laboratory Tests Test 01/19/20 04:15 White Blood Count 6.0 K/UL (4.8-10.8) Red Blood Count 2.62 M/UL (4.70-6.10) L Hemoglobin 8.3 G/DL (14.2-18.0) L Hematocrit 24.7 % (42.0-52.0) L Mean Corpuscular Volume 94 FL (80-99) Mean Corpuscular Hemoglobin 31.7 PG (27.0-31.0) H Mean Corpuscular Hemoglobin Concent 33.7 G/DL (32.0-36.0) Red Cell Distribution Width 13.5 % (11.6-14.8) Platelet Count 171 K/UL (150-450) Mean Platelet Volume 7.2 FL (6.5-10.1) Neutrophils (%) (Auto) 63.7 % (45.0-75.0) Lymphocytes (%) (Auto) 19.5 % (20.0-45.0) L Monocytes (%) (Auto) 9.7 % (1.0-10.0) Eosinophils (%) (Auto) 5.9 % (0.0-3.0) H Basophils (%) (Auto) 1.2 % (0.0-2.0) Sodium Level 135 MMOL/L (136-145) L Potassium Level 4.8 MMOL/L (3.5-5.1) Chloride Level 100 MMOL/L (98-107) Carbon Dioxide Level 28 MMOL/L (21-32) Anion Gap 7 mmol/L (5-15) Blood Urea Nitrogen 73 mg/dL (7-18) H Creatinine 1.4 MG/DL (0.55-1.30) H Estimat Glomerular Filtration Rate 49.1 mL/min (>60) Glucose Level 95 MG/DL (74-106) Calcium Level 8.5 MG/DL (8.5-10.1) Objective: WDWN NAD reduced breath sounds bilaterally without rhonchi or wheeze [id number] tachy without MRG NABS nontender no HSM GT no CCE nonfocal trach reviewed and edited Dillon Harris MD Jan 19, 2020 08:40
[2020-01-19] MEDS: levETIRAcetam 500mg/5ml Liquid GT SCH (09:24)
[2020-01-19] MEDS: Levothyroxine 125mcg tab GT SCH (09:24)
[2020-01-19] MEDS: Carvedilol 6.25mg Tab GT SCH (09:24)
[2020-01-19] MEDS: Aspirin Baby 81mg GT SCH (09:24)
[2020-01-19] MEDS: Ascorbic Acid 500mg tab GT SCH (09:24)
[2020-01-19] MEDS: Heparin 5000 units/ml inj SUBQ SCH (09:25)
--- NOTE | 2020-01-19 09:45 | NUR ---
DISCHARGE PLANNING: NOTE F/U CALL PLACED TO [facility] REGARDING AUTH FOR SNF PLACEMENT. [facility] IS WORKING ON IT. Addendum: 01/19/20 at 1507 by Amy Dietrich CM AUTH STILL PENDING FOR SNF PLACEMENT
--- NOTE | 2020-01-19 09:47 | NUR ---
CASE MANAGEMENT: REVIEW 01/19/2020 SI:Respiratory failure. Healthcare-associated pneumonia. VS: T 98.1 HR 66 RR 28 B/P 116/70 SATS 99% ON MECH VENT FIO2 40 LABS: NA 135 BUN 73 CR 1.4 IS:NS @ 150 ML/HR KEPPRA GT Q12H COREG PO Q12H MEROPENEM IV Q12H COLISTIN INH Q12H ASA GT QD SDU
--- NOTE | 2020-01-19 10:00 | NUR ---
INSURANCE PROGRESS NOTE AND REVIEW FAXED TO NIKOLE Quiñonez # [phone] fax#[phone]
--- NOTE | 2020-01-19 10:51 | NUR ---
RD ASSESSMENT & RECOMMENDATIONS SEE CARE ACTIVITY FOR COMPLETE ASSESSMENT DAILY ESTIMATED NEEDS: Needs based on Critical care, wounds/ 60kg abw 22-28 kcals/kg 9246-3810 total kcals 1.25-2 g protein/kg 75-120 g total protein 25-30 mL/kg 5320-4179 total fluid mLs NUTRITION DIAGNOSIS: * Swallowing difficulty R/T respiratory status as evidenced by trach/vent dep, PEG dep. * Increased kcal/prot needs R/T wound healing as evidenced by pt admitted w/ multiple wounds, including DTPI x4, partial thickness x 1, and category 3 Skin tear, refer to eval. CURRENT TF:Vital AF 1.2 @ 55ml/hr x 22 hrs ENTERAL NUTRITION RECOMMENDATIONS: Vital AF 1.2 @ 55ml/hr x 22 hrs to provide 1210ml, 1452kcal, 90g prot, 981ml free water * Maintain current TF * HOB Over 30 degrees/ water flush per MD * Hold Synthroid 1 hr before and after Synthroid ADDITIONAL RECOMMENDATIONS: * Per SNF: HT=63", CS=769jby (as of 12/28/19) * calibrated bed scale wt as able * Wound healing: w/ diarrhea, rec lower Vit C-> 250mg daily Jerome BID * Add probiotics for diarrhea * Monitor lytes, replete as needed * Monitor K, renal labs, need for renal formula
--- NOTE | 2020-01-19 11:14 | Infectious Diseases Prog Note ---
"Assessment/Plan Assessment/Plan antibiotics : none A 1. e.coli | pseudomonas | acenitobacter pneumonia s/p rx COVID 19 test negative 4.5.20, 4.8.20 2. leucocytosis resolved 3. renal failure 4. + blood cultures with coag neg staph | diphtheroids likely contaminated 5. respiratory failure P 1. observe off antibiotics 2. will follow up cultures Subjective ROS Limited/Unobtainable: Yes Allergies: Coded Allergies: No Known Allergies (Unverified , 12/31/19) Objective Vital Signs Last 24 Hour Vital Signs Date Time Temp Pulse Resp B/P (MAP) Pulse Ox O2 Delivery O2 Flow Rate FiO2 01/19/20 10:23 73 21 40 01/19/20 09:24 75 116/70 01/19/20 08:15 75 29 40 01/19/20 08:00 Mechanical Ventilator 01/19/20 08:00 98.1 66 28 116/70 (85) 99 01/19/20 08:00 40 01/19/20 07:36 69 01/19/20 05:21 67 24 40 01/19/20 04:00 68 01/19/20 04:00 40 01/19/20 04:00 Mechanical Ventilator 01/19/20 04:00 98.7 82 22 113/73 (86) 98 01/19/20 03:30 71 26 40 01/19/20 01:16 80 26 40 01/19/20 00:00 Mechanical Ventilator 01/19/20 00:00 40 01/19/20 00:00 98.8 78 22 115/71 (86) 99 01/19/20 00:00 73 01/18/20 23:30 72 20 40 01/18/20 22:46 73 133/81 01/18/20 20:46 67 23 40 01/18/20 20:00 40 01/18/20 20:00 Mechanical Ventilator 01/18/20 20:00 99.2 81 21 128/69 (88) 100 01/18/20 19:30 62 24 40 01/18/20 16:00 68 01/18/20 16:00 Mechanical Ventilator 01/18/20 16:00 98.0 68 22 112/72 (85) 100 01/18/20 16:00 40 01/18/20 15:48 64 23 40 01/18/20 12:00 40 01/18/20 12:00 Mechanical Ventilator 01/18/20 12:00 98.0 85 20 113/68 (83) 95 01/18/20 11:52 77 22 40 01/18/20 11:27 69 Height (Feet): 5 Height (Inches): 5.00 Weight (Pounds): 119 HEENT: status post trach Respiratory/Chest: lungs clear Cardiovascular: normal rate, regular rhythm, no gallop/murmur Abdomen: soft, non tender, other - GT Extremities: no edema Laboratory Tests Test 01/19/20 04:15 White Blood Count 6.0 K/UL (4.8-10.8) Red Blood Count 2.62 M/UL (4.70-6.10) L Hemoglobin 8.3 G/DL (14.2-18.0) L Hematocrit 24.7 % (42.0-52.0) L Mean Corpuscular Volume 94 FL (80-99) Mean Corpuscular Hemoglobin 31.7 PG (27.0-31.0) H Mean Corpuscular Hemoglobin Concent 33.7 G/DL (32.0-36.0) Red Cell Distribution Width 13.5 % (11.6-14.8) Platelet Count 171 K/UL (150-450) Mean Platelet Volume 7.2 FL (6.5-10.1) Neutrophils (%) (Auto) 63.7 % (45.0-75.0) Lymphocytes (%) (Auto) 19.5 % (20.0-45.0) L Monocytes (%) (Auto) 9.7 % (1.0-10.0) Eosinophils (%) (Auto) 5.9 % (0.0-3.0) H Basophils (%) (Auto) 1.2 % (0.0-2.0) Sodium Level 135 MMOL/L (136-145) L Potassium Level 4.8 MMOL/L (3.5-5.1) Chloride Level 100 MMOL/L (98-107) Carbon Dioxide Level 28 MMOL/L (21-32) Anion Gap 7 mmol/L (5-15) Blood Urea Nitrogen 73 mg/dL (7-18) H Creatinine 1.4 MG/DL (0.55-1.30) H Estimat Glomerular Filtration Rate 49.1 mL/min (>60) Glucose Level 95 MG/DL (74-106) Calcium Level 8.5 MG/DL (8.5-10.1) Current Medications Medications (Trade) Dose Ordered Sig/Pau Route PRN Reason Start Time Stop Time Status Last Admin Dose Admin Acetaminophen (Tylenol) 650 mg Q4H PRN GT MILD/TEMP 01/09/20 06:30 02/08/20 06:29 01/17/20 08:44 Ascorbic Acid (Vitamin C) 500 mg DAILY GT 01/02/20 09:00 02/01/20 08:59 01/19/20 09:24 Aspirin (ASA) 81 mg DAILY GT 01/16/20 09:00 03/01/20 08:59 01/19/20 09:24 Carvedilol (Coreg) 6.25 mg EVERY 12 HOURS GT 01/08/20 09:00 02/07/20 08:59 01/19/20 09:24 Diphenoxylate HCl/ Atropine (Lomotil) 2.5 mg Q4H PRN GT Diarrhea 01/13/20 07:30 02/12/20 07:29 01/18/20 14:41 Heparin Sodium (Porcine) (Heparin 5000 units/ml) 5,000 units EVERY 12 HOURS SUBQ 01/01/20 21:00 02/15/20 20:59 01/19/20 09:25 Levetiracetam (Keppra) 750 mg EVERY 12 HOURS GT 01/02/20 09:00 02/01/20 08:59 01/19/20 09:24 Levothyroxine Sodium (Synthroid) 50 mcg DAILY GT 01/02/20 09:00 02/01/20 08:59 01/19/20 09:24 Levothyroxine Sodium (Synthroid) 125 mcg DAILY GT 01/02/20 09:00 02/01/20 08:59 01/19/20 09:24 Loperamide HCl (Imodium) 2 mg Q6H PRN NG Diarrhea 01/12/20 10:30 02/11/20 10:29 01/15/20 17:37 Sodium Chloride 1,000 ml @ 150 mls/hr Q6H40M IV 01/18/20 11:00 02/17/20 10:59 01/19/20 07:24 Heber Abraham MD Jan 19, 2020 11:14"
[2020-01-19 12:00] VITALS: BP 119/75
--- NOTE | 2020-01-19 13:26 | General Progress Note ---
Assessment/Plan Status: stable Assessment/Plan: 1. History of chronic respiratory failure, on vent. 2. Dysphagia with G-tube. 3. Diabetes. 4. Renal insufficiency. 5. Anemia. 6. History of tracheal stenosis. 7. Diarrhea C.diff neg lomotil and imodium prn GTF GT care repeat labs in am TF >> vital AF off pepcid off rectal tube now will fu Subjective Allergies: Coded Allergies: No Known Allergies (Unverified , 12/31/19) Objective Last 24 Hour Vital Signs Date Time Temp Pulse Resp B/P (MAP) Pulse Ox O2 Delivery O2 Flow Rate FiO2 01/19/20 12:00 40 01/19/20 12:00 97.8 75 28 119/75 (90) 99 01/19/20 12:00 Mechanical Ventilator 01/19/20 11:46 72 01/19/20 10:23 73 21 40 01/19/20 09:24 75 116/70 01/19/20 08:15 75 29 40 01/19/20 08:00 Mechanical Ventilator 01/19/20 08:00 98.1 66 28 116/70 (85) 99 01/19/20 08:00 40 01/19/20 07:36 69 01/19/20 05:21 67 24 40 01/19/20 04:00 68 01/19/20 04:00 40 01/19/20 04:00 Mechanical Ventilator 01/19/20 04:00 98.7 82 22 113/73 (86) 98 01/19/20 03:30 71 26 40 01/19/20 01:16 80 26 40 01/19/20 00:00 Mechanical Ventilator 01/19/20 00:00 40 01/19/20 00:00 98.8 78 22 115/71 (86) 99 01/19/20 00:00 73 01/18/20 23:30 72 20 40 01/18/20 22:46 73 133/81 01/18/20 20:46 67 23 40 01/18/20 20:00 40 01/18/20 20:00 Mechanical Ventilator 01/18/20 20:00 99.2 81 21 128/69 (88) 100 01/18/20 19:30 62 24 40 01/18/20 16:00 68 01/18/20 16:00 Mechanical Ventilator 01/18/20 16:00 98.0 68 22 112/72 (85) 100 01/18/20 16:00 40 01/18/20 15:48 64 23 40 Intake and Output 01/18/20 01/19/20 19:00 07:00 Intake Total 2135 ml 2555 ml Output Total 650 ml 800 ml Balance 1485 ml 1755 ml Free Water 450 ml 450 ml IV Total 1025 ml 1500 ml Tube Feeding 660 ml 605 ml Output Urine Total 650 ml 800 ml # Bowel Movements 2 Laboratory Tests 01/19/20 04:15: White Blood Count 6.0, Red Blood Count 2.62L, Hemoglobin 8.3L, Hematocrit 24.7L , Mean Corpuscular Volume 94, Mean Corpuscular Hemoglobin 31.7H, Mean Corpuscular Hemoglobin Concent 33.7, Red Cell Distribution Width 13.5, Platelet Count 171, Mean Platelet Volume 7.2, Neutrophils (%) (Auto) 63.7, Lymphocytes (% ) (Auto) 19.5L, Monocytes (%) (Auto) 9.7, Eosinophils (%) (Auto) 5.9H, Basophils (%) (Auto) 1.2, Sodium Level 135L, Potassium Level 4.8, Chloride Level 100, Carbon Dioxide Level 28, Anion Gap 7, Blood Urea Nitrogen 73H, Creatinine 1.4H, Estimat Glomerular Filtration Rate 49.1, Glucose Level 95, Calcium Level 8.5 Height (Feet): 5 Height (Inches): 5.00 Weight (Pounds): 119 General Appearance: no apparent distress EENT: normal ENT inspection Neck: supple Cardiovascular: normal rate Respiratory/Chest: decreased breath sounds Abdomen: normal bowel sounds, non tender, soft Extremities: non-tender Jovany Kong MD Jan 19, 2020 13:26
--- NOTE | 2020-01-19 13:31 | Surgery Progress Note ---
Surgery Progress Note Subjective Additional Comments doing well with r tube out labs okay exam stable dressings going well Objective Last 24 Hour Vital Signs Date Time Temp Pulse Resp B/P (MAP) Pulse Ox O2 Delivery O2 Flow Rate FiO2 01/19/20 12:00 40 01/19/20 12:00 97.8 75 28 119/75 (90) 99 01/19/20 12:00 Mechanical Ventilator 01/19/20 11:46 72 01/19/20 10:23 73 21 40 01/19/20 09:24 75 116/70 01/19/20 08:15 75 29 40 01/19/20 08:00 Mechanical Ventilator 01/19/20 08:00 98.1 66 28 116/70 (85) 99 01/19/20 08:00 40 01/19/20 07:36 69 01/19/20 05:21 67 24 40 01/19/20 04:00 68 01/19/20 04:00 40 01/19/20 04:00 Mechanical Ventilator 01/19/20 04:00 98.7 82 22 113/73 (86) 98 01/19/20 03:30 71 26 40 01/19/20 01:16 80 26 40 01/19/20 00:00 Mechanical Ventilator 01/19/20 00:00 40 01/19/20 00:00 98.8 78 22 115/71 (86) 99 01/19/20 00:00 73 01/18/20 23:30 72 20 40 01/18/20 22:46 73 133/81 01/18/20 20:46 67 23 40 01/18/20 20:00 40 01/18/20 20:00 Mechanical Ventilator 01/18/20 20:00 99.2 81 21 128/69 (88) 100 01/18/20 19:30 62 24 40 01/18/20 16:00 68 01/18/20 16:00 Mechanical Ventilator 01/18/20 16:00 98.0 68 22 112/72 (85) 100 01/18/20 16:00 40 01/18/20 15:48 64 23 40 I&O Intake and Output 01/18/20 01/19/20 19:00 07:00 Intake Total 2135 ml 2555 ml Output Total 650 ml 800 ml Balance 1485 ml 1755 ml Free Water 450 ml 450 ml IV Total 1025 ml 1500 ml Tube Feeding 660 ml 605 ml Output Urine Total 650 ml 800 ml # Bowel Movements 2 Dressing: other Wound: other Drains: other Cardiovascular: RSR Respiratory: decreased breath sounds Abdomen: soft, non-tender, present bowel sounds Extremities: no tenderness, no cyanosis Laboratory Tests Test 01/19/20 04:15 White Blood Count 6.0 K/UL (4.8-10.8) Red Blood Count 2.62 M/UL (4.70-6.10) L Hemoglobin 8.3 G/DL (14.2-18.0) L Hematocrit 24.7 % (42.0-52.0) L Mean Corpuscular Volume 94 FL (80-99) Mean Corpuscular Hemoglobin 31.7 PG (27.0-31.0) H Mean Corpuscular Hemoglobin Concent 33.7 G/DL (32.0-36.0) Red Cell Distribution Width 13.5 % (11.6-14.8) Platelet Count 171 K/UL (150-450) Mean Platelet Volume 7.2 FL (6.5-10.1) Neutrophils (%) (Auto) 63.7 % (45.0-75.0) Lymphocytes (%) (Auto) 19.5 % (20.0-45.0) L Monocytes (%) (Auto) 9.7 % (1.0-10.0) Eosinophils (%) (Auto) 5.9 % (0.0-3.0) H Basophils (%) (Auto) 1.2 % (0.0-2.0) Sodium Level 135 MMOL/L (136-145) L Potassium Level 4.8 MMOL/L (3.5-5.1) Chloride Level 100 MMOL/L (98-107) Carbon Dioxide Level 28 MMOL/L (21-32) Anion Gap 7 mmol/L (5-15) Blood Urea Nitrogen 73 mg/dL (7-18) H Creatinine 1.4 MG/DL (0.55-1.30) H Estimat Glomerular Filtration Rate 49.1 mL/min (>60) Glucose Level 95 MG/DL (74-106) Calcium Level 8.5 MG/DL (8.5-10.1) Plan Problems: (1) Decubitus skin ulcer Assessment & Plan: Pt presented on admission with contractures, multiple Skin Breakdown. Skin assessed under collar of trach and no skin breakdown noted.Category 3 Skin tear R elbow(L)4.5cm x (W)5cm. Full flap loss noted. Base of wound moist and viable,edges adherent. No exudate noted. No erythema or elevated skin temp periwound. Category 2 Skin tear L forearm. Full flap intact and reattached. Moderate amt sanguineous exudate noted. Silvasorb Gel applied and covered with Optifoam drsg. Reinforced with ABD Pad and Kerlix. DTPI noted to L Sacrum(L)3.5cm x (W)3cm. Base of wound is maroon and indurated. DTPI R Sacrum(L)7cm x (W)9.5cm. Wound is irregular shaped. Base of wound is maroon and indurated. Scattered areas of darker skin tone without induration or erythema periwound. DTPI L lateral malleolus(L)2.5cm x (W)2cm. Base of wound is fluctuant,purple with surrounding maroon borders. No erythema or elevation in skin temp periwound. Partial thickness wound L 1st metatarsal head (L)2.5cm x (W)2cm. Base of wound is moist and viable. Edges are macerated. Non-blanching erythema without fluctuance periwound. DTPI Dorso/lateral R foot(L)2.3cm x (W)4.3cm. Base of injury is indurated purple /maroon in colour. No erythema or elevation in skin temp periwound. Hyperpigmentation from previous wounds noted to R and L hallux. Tx.Plan: Cleanse Skin tears R Elbow and L forearm with Saline. Apply Silvasorb Gel. Cover each wounds with Optifoam drsgs. Change every 7 days and prn. Apply Triad Paste to R and L Sacrum. Cover with Optifoam drsg. Change every 3 days and prn. Apply Cavilon to Malleoli both feet, Both heels and Both hallux . Cover each site with Optifoam drsgs turn q2h nutritional optimization (2) Respiratory insufficiency (3) Malnutrition Assessment & Plan: DAILY ESTIMATED NEEDS: Needs based on Critical care, wounds/ 60kg abw 22-28 kcals/kg 9936-1945 total kcals 1.25-2 g protein/kg 75-120 g total protein 25-30 mL/kg 4457-1891 total fluid mLs NUTRITION DIAGNOSIS: * Swallowing difficulty R/T respiratory status as evidenced by trach/vent dep, PEG dep. * Increased kcal/prot needs R/T wound healing as evidenced by pt admitted w/ multiple wounds, including DTPI x4, partial thickness x 1, and category 3 Skin tear, refer to eval. CURRENT TF:Glucerna 1.5 @ 45ml/hr x 22 hrs-> now Glucerna 1.2 @55ml x22 ENTERAL NUTRITION RECOMMENDATIONS: Glucerna 1.2 @ 57ml/hr x 22 hrs to provide 1254ml, 1505kcal, 75g prot, 1009ml free water * Rec to increase current updated TF to goal of 57ml/hr x22 hrs to better meet est kcal and pro needs * HOB Over 30 degrees/ water flush per MD * Hold Synthroid during 4 hrs that TF is off ADDITIONAL RECOMMENDATIONS: * Per SNF: HT=63", JR=[id number] (as of 12/28/19) * Monitor lytes, replete as needed * Wound healing: w/ diarrhea, rec lower Vit C-> 250mg daily add Jerome 1pkt BID * Monitor K, renal labs, need for renal formula * calibrated bed scale wt as able (4) Pneumonia (5) Tracheal stenosis (6) Protein-calorie malnutrition, severe (7) Suspected COVID-19 virus infection Assessment & Plan: negative 1. Interval improved aeration throughout the right lung, with residual reticular interstitial markings. 2. Persistent diffuse patchy interstitial and airspace opacities throughout the left lung, not significantly changed, concerning for pneumonia. Sabino Gold Jan 19, 2020 13:31
[2020-01-19] MEDS ORDERED: 1/2 NS 1000ml IV ONE (14:50)
[2020-01-19] MEDS ORDERED: Tubing IV Secondary IV ONE (14:50)
[2020-01-19] MEDS ORDERED: NS 275ml ONE (14:50)
[2020-01-19 16:00] VITALS: BP 139/83
--- NOTE | 2020-01-19 16:03 | Nephrology Progress Note ---
Assessment/Plan Problem List: (1) Hypernatremia (2) Dehydration (3) JOHN (acute kidney injury) (4) Respiratory insufficiency (5) Pneumonia (6) Protein-calorie malnutrition, severe (7) Hx of tracheostomy (8) CKD (chronic kidney disease) stage 3, GFR 30-59 ml/min Plan continue iv's, adjusted BUN higher to trend Subjective ROS Limited/Unobtainable: Yes Objective Objective Last 24 Hour Vital Signs Date Time Temp Pulse Resp B/P (MAP) Pulse Ox O2 Delivery O2 Flow Rate FiO2 01/19/20 14:34 74 24 40 01/19/20 12:00 40 01/19/20 12:00 97.8 75 28 119/75 (90) 99 01/19/20 12:00 Mechanical Ventilator 01/19/20 11:46 72 01/19/20 10:23 73 21 40 01/19/20 09:24 75 116/70 01/19/20 08:15 75 29 40 01/19/20 08:00 Mechanical Ventilator 01/19/20 08:00 98.1 66 28 116/70 (85) 99 01/19/20 08:00 40 01/19/20 07:36 69 01/19/20 05:21 67 24 40 01/19/20 04:00 68 01/19/20 04:00 40 01/19/20 04:00 Mechanical Ventilator 01/19/20 04:00 98.7 82 22 113/73 (86) 98 01/19/20 03:30 71 26 40 01/19/20 01:16 80 26 40 01/19/20 00:00 Mechanical Ventilator 01/19/20 00:00 40 01/19/20 00:00 98.8 78 22 115/71 (86) 99 01/19/20 00:00 73 01/18/20 23:30 72 20 40 01/18/20 22:46 73 133/81 01/18/20 20:46 67 23 40 01/18/20 20:00 40 01/18/20 20:00 Mechanical Ventilator 01/18/20 20:00 99.2 81 21 128/69 (88) 100 01/18/20 19:30 62 24 40 Intake and Output 01/18/20 01/19/20 19:00 07:00 Intake Total 2135 ml 2555 ml Output Total 650 ml 800 ml Balance 1485 ml 1755 ml Free Water 450 ml 450 ml IV Total 1025 ml 1500 ml Tube Feeding 660 ml 605 ml Output Urine Total 650 ml 800 ml # Bowel Movements 2 Laboratory Tests 01/19/20 04:15: White Blood Count 6.0, Red Blood Count 2.62L, Hemoglobin 8.3L, Hematocrit 24.7L , Mean Corpuscular Volume 94, Mean Corpuscular Hemoglobin 31.7H, Mean Corpuscular Hemoglobin Concent 33.7, Red Cell Distribution Width 13.5, Platelet Count 171, Mean Platelet Volume 7.2, Neutrophils (%) (Auto) 63.7, Lymphocytes (% ) (Auto) 19.5L, Monocytes (%) (Auto) 9.7, Eosinophils (%) (Auto) 5.9H, Basophils (%) (Auto) 1.2, Sodium Level 135L, Potassium Level 4.8, Chloride Level 100, Carbon Dioxide Level 28, Anion Gap 7, Blood Urea Nitrogen 73H, Creatinine 1.4H, Estimat Glomerular Filtration Rate 49.1, Glucose Level 95, Calcium Level 8.5 Height (Feet): 5 Height (Inches): 5.00 Weight (Pounds): 119 General Appearance: lethargic, confused Neck: normal alignment Cardiovascular: regular rhythm Respiratory/Chest: rhonchi - bilaterally Abdomen: soft, no organomegaly Extremities: trace edema, other - contractures Neurologic: abnormal sales marketing director II-XII, motor weakness, disoriented Pravin Abad MD Jan 19, 2020 16:03
--- NOTE | 2020-01-19 16:23 | NUR ---
DISCHARGE DISPOSITION: PLEASE READ PATIENT TO BE DISCHARGED TO [facility] [address] [facility] ROOM [address] T: [phone]>> CALL FOR REPORT [facility] ETA 1730 W/ RT
--- NOTE | 2020-01-19 16:30 | NUR ---
NURSE NOTES: Telephone report given to [facility] Staff/ CHANDANA Miramontes. She said that patient is going to room 223 bed A.
--- NOTE | 2020-01-19 17:45 | NUR ---
INTER-FACILITY TRANSFER: Patient transferred to [facility], per Dr. Harris. Report given to [facility] ambulance RT. Patient transferred with no valuables and no medications. No Belongings verified upon transfer. Friend/Forrest notified of transfer. Remains Vent dependent. No respiratory distress.
--- NOTE | 2020-01-20 04:59 | Progress Note ---
DATE: 01/19/2020 CARDIOLOGY PROGRESS NOTE SUBJECTIVE: The patient has no respiratory distress. PHYSICAL EXAMINATION: VITAL SIGNS: Blood pressure 119/75, pulse 75, respiratory rate 28, afebrile. Ventilator settings unchanged, thin secretions. LUNGS: Few rhonchi. CARDIAC: Regular rhythm and rate. Normal S1 and S2. ABDOMEN: Soft. EXTREMITIES: No edema. LABORATORY DATA: White count 6, hemoglobin 8.3. Potassium 4.8, BUN 73, creatinine 1.4. IMPRESSION: 1. Healthcare-acquired pneumonia. 2. Prerenal azotemia. 3. Ventilator-dependent respiratory failure with trach. 4. Possible non ST-elevation myocardial infarction and acute myocardial ischemia, resolved. 5. Severe protein-calorie malnutrition. 6. Anemia of chronic disease and chronic kidney disease. PLAN: 1. Hydration by G-tube with water. 2. Continue nutritional support. 3. Protein supplement. 4. Long-term vent dependence. 5. Maintain beta-minor. 6. Maintain antiseizure therapy. 7. Cautious use of aspirin. 8. Stool occult blood was negative. Tony Lobo M.D. DR: Dariusz JOB#: [id number] CC:
--- NOTE | 2020-01-20 17:57 | Discharge Summary ---
Discharge Summary Discharge Summary _ DATE OF ADMISSION: 12/31/2019 DATE OF DISCHARGE: 01/19/2020 DISCHARGED BY: REASON FOR ADMISSION: 79 years old male, resident of [facility] facility, with chronic ventilator dependent respiratory failure, tracheostomy status, secondary to tracheal stenosis, history of CVA, seizure disorder, congestive heart failure, atrial fibrillation, hypothyroidism, diabetes mellitus, was sent for evaluation due to fever and hypoxia. Patient was noted to have fever,hypoxia ,and leukocytosis in emergency department. Patient also noted to have renal failure with creatinine 2.2 . Patient initially was hypotensive with elevated lactate, but responded well to fluids. Chest x-ray revealed bilateral patchy pulmonary opacity, concerning for pneumonia versus pulmonary edema. Patient was tested for COVID-19 . Patient was diagnosed with pneumonia, panculture and admitted to [facility] for further management. CONSULTANTS: fisher trawl line Dr. Lobo pulmonary Dr. Harris ID specialist Dr. Abraham GI specialist Dr. Kong curriculum advisory teacher Dr. Abad [facility] Dr. Gold HOSPITAL COURSE: Patient admitted to [facility] and started on empiric antibiotics. Blood culture revealed Staph hemolyticus and diphtheroids, contaminant as per ID specialist. Influenza screen was negative. SARS-CoV-2 by PCR was not detected on 2 different occasion 12/30 and 01/02. Sputum culture revealed E. coli ESBL, Pseudomonas and Acinetobacter. Antibiotic regimen was optimized as per ID specialist recommendation. Patient completed treatment for pneumonia while in the hospital . Ventilator support and tracheostomy care provided. Baseline ABG was obtained. Settings titrated as needed. Patient was followed-up with chest x-ray. Initial leukocytosis of 30.4 and initial fevers resolved. specialist recommended to keep patient off antibiotics. Patient was provided with IV hydration. Renal parameters and electrolytes were closely monitored, electrolytes corrected as needed , and nephrotoxins were avoided. Urine studies were done. Prior to discharge creatinine from 2.2 down to 1.4, BUN from 175 down to 73. Patient noted to have minimally elevated troponin 0.064. Serial troponin initially revealed slight elevation , last troponin -0.018. Echocardiogram demonstrated preserved ejection fraction of 60% with mild left ventricular hypertrophy. No evidence of wall motion abnormality to the extent visualized. Right ventricular systolic pressure of 34. Antiplatelet therapy with aspirin and beta-blockage provided. DVT prophylaxis provided. TSH noted to be elevated. Patient started on the thyroid replacement. Stool for occult blood was negative. Hemoglobin and hematocrit were closely monitored with goal to keep hemoglobin above 7 . Patient undergone transfusion of 3 units of packed red blood cells while in the hospital. Prior to discharge hemoglobin 8.3 , hematocrit 24.7. Seizure precaution maintained. Keppra continued. No evidence of seizure activity while in the hospital. Strict aspiration precaution maintained. GI prophylaxis provided. Bowel regimen instituted. Tube feeding formula with goal rate and protein supplements provided as per registered client associate recommendation. Patient noted to have diarrhea. Stool for C. difficile was negative. Lactobacillus added to medication regimen. Patient presented on admission with multiply skin breakdown. Wound care provided as per surgeon recommendation. Continue wound care at the facility. Patient clinically stabilized and was ready for transfer back to [facility] facility for continuation of care. FINAL DIAGNOSES: E. coli/Pseudomonas/Acinetobacter pneumonia, status post treatment Suspected call with 19 infection rule out Acute kidney injury on chronic kidney disease stage III Dehydration Acute myocardial ischemia Possible NSTEMI healthcare acquired pneumonia severe protein calorie malnutrition anemia of chronic disease anemia of chronic kidney disease Chronic r ventilator dependent espiratory failure Tracheostomy status Dysphagia feeding by G-tube History of tracheal stenosis Diarrhea Severe protein calorie malnutrition Decubitus skin ulcer DISCHARGE MEDICATIONS: List of medication was sent to accepting facility. DISCHARGE INSTRUCTIONS: Patient was discharged to the [facility] facility. Follow up with medical doctor at the facility. I have been assigned to dictate discharge summary for this account. I was not involved in the patient's management. Deneen Shelton NP Jan 20, 2020 17:57
--- NOTE | 2020-01-22 15:08 | NUR ---
INSURANCE DISCHARGE SUMMARY HAS CARRIE FAXED TO: NIKOLE Quiñonez # [phone] fax#[phone]
== END 2020-01-19 17:45 | DRG 870 ==
LOC: EDBD 10:00 → EMR 10:32 → 2W 10:39 → UNDOADMIN 01-01 10:39 → 2W 01-01 10:39 → EDBEDREQ 01-01 13:54 → EMR 01-01 14:20 → 2W 01-02 08:51
PROC: 5A1955Z Respiratory Ventilation, Greater than 96 Consecutive Hours (ICD-10-PCS; principal; 2019-12-31)
DX: A41.9 Sepsis, unspecified organism (principal); E43 Unspecified severe protein-calorie malnutrition; I50.33 Acute on chronic diastolic (congestive) heart failure; I21.4 Non-ST elevation (NSTEMI) myocardial infarction; J15.5 Pneumonia due to Escherichia coli; J15.1 Pneumonia due to Pseudomonas; Z99.11 Dependence on respirator [ventilator] status; J96.11 Chronic respiratory failure with hypoxia; N17.9 Acute kidney failure, unspecified; E87.0 Hyperosmolality and hypernatremia; E87.1 Hypo-osmolality and hyponatremia; Z93.0 Tracheostomy status; Z68.20 Body mass index [BMI] 20.0-20.9, adult; E11.22 Type 2 diabetes mellitus with diabetic chronic kidney disease; N18.3 Chronic kidney disease, stage 3 (moderate); Z93.1 Gastrostomy status; E03.9 Hypothyroidism, unspecified; F03.90 Unspecified dementia, unspecified severity, without behavioral disturbance, psychotic disturbance, mood disturbance, and anxiety; G40.909 Epilepsy, unspecified, not intractable, without status epilepticus; I48.91 Unspecified atrial fibrillation; E86.0 Dehydration; R13.10 Dysphagia, unspecified; L89.156 Pressure-induced deep tissue damage of sacral region; L89.526 Pressure-induced deep tissue damage of left ankle; L89.896 Pressure-induced deep tissue damage of other site; J39.8 Other specified diseases of upper respiratory tract; R19.7 Diarrhea, unspecified; K21.9 Gastro-esophageal reflux disease without esophagitis; D64.9 Anemia, unspecified; E87.5 Hyperkalemia; E83.42 Hypomagnesemia; I27.20 Pulmonary hypertension, unspecified
CPT/HCPCS: 36415; 36600; 51702; 71045; 80048; 80053; 80202; 80299; 81003; 82150; 82270; 82550; 82570; 82803; 83605; 83690; 83735; 83880; 83935; 84100; 84300; 84443; 84484; 84550; 85007; 85025; 85610; 85651; 85730; 86140; 86710; 86850; 86900; 86901; 86920; 87040; 87070; 87081; 87181; 87205; 87324; 87635; 93306; 94002; 94003; 94664; 96361; 96365; 96368; 99285; J7030